=== PATIENT | female | born 1950 | race Caucasian/White ===

== ENCOUNTER 2017-01-21 11:23 | Emergency (ER) | payer OTHER ==
[2017-01-21 11:34] VITALS: TEMP 98.5; BMI 62.4
--- NOTE | 2017-01-21 13:07 | PDOC ---
History of Present Illness - General History Source: Patient Exam Limitations: No Limitations - History of Present Illness Initial Comments: 01/21/17 13:14 The patient is a 66 year old female with a significant past medical history diabetes, lung CA, COPD, CVAx2 (with residual left side hemiparesis), MIx2 (in 1996 and 1999) and epilepsy, who presents to the ER with neck, upper back, and left arm pain s/p falling off of bed one week ago. Patient states she has a bariatric bed with no rails. As she was trying to grab something last week, she slipped off the bed and fell on the floor. Patient states she fell on her head and believed she heard a click sound in the neck. Since the fall, patient experiences neck, upper back, and left arm pain. Patient also says that she has experienced a decreased range of motion in the left upper extremity for the past two weeks. Patient says she had previously fallen out of bed 10 times within the last few months. Patient states she needs surgery in the neck. SHx: Patient is wheelchair bound, lives by herself with nursing aides for part of the day. <Starla Palacios - Last Filed: 01/21/17 14:17> <Elaine Moore - Last Filed: 01/22/17 19:55> - General Chief Complaint: Injury Stated Complaint: FALL, LT ARM PAIN Time Seen by Provider: 01/21/17 12:40 Past History <Starla Palacios - Last Filed: 01/21/17 14:17> - Past Medical History Asthma: Yes Cancer: Yes (hx lung cancer - had RT 1991) Cardiac Disorders: Yes (hx [place] x , 1999) CVA: Yes (x 2 1978, 1992) COPD: Yes CHF: Yes Diabetes: Yes (poor adherence, IDDM) Disorders: Yes (incontinence) Liver Disease: No Seizures: Yes (none x several years) Thyroid Disease: No - Surgical History Appendectomy: Yes Cholecystectomy: Yes Orthopedic Surgery: Yes (knee injections) - Psycho/Social/Smoking Cessation Hx Anxiety: No Suicidal Ideation: No Smoking History: Current every day smoker Have you smoked in the past 12 months: Yes Number of Cigarettes Smoked Daily: 10 Information on smoking cessation initiated: Yes 'Breaking Loose' booklet given: 07/18/16 Hx Alcohol Use: No Drug/Substance Use Hx: No Substance Use Type: Alcohol Hx Substance Use Treatment: No <Elaine Moore - Last Filed: 01/22/17 19:55> - Past Medical History Allergies/Adverse Reactions: Allergies Allergy/AdvReac Type Severity Reaction Status Date / Time shellfish derived AdvReac Mild can't Verified 01/21/17 11:28 swallow it Home Medications: Ambulatory Orders Insulin Glargine,Hum.rec.anlog [Lantus Solostar PEN -] 34 units SQ HS 08/26/14 Metformin HCl [Glucophage] 1,000 mg PO DAILY 08/26/14 Metoclopramide HCl 10 mg PO DAILY 08/26/14 Ergocalciferol [Drisdol -] 50,000 unit PO Q7D@1000 10/25/14 Sennosides [Senokot] 8.6 mg PO DAILY PRN 10/25/14 Oxycodone HCl/Acetaminophen [Percocet 10-325 mg Tablet] 1 each PO QID #120 tablet MDD 4 12/20/16 Pregabalin [Lyrica -] 100 mg PO BID #60 capsule MDD 2 12/20/16 Oxycodone HCl/Acetaminophen [Percocet 5-325 mg Tablet -] 1 tab PO Q6H PRN #12 tablet MDD 4 01/21/17 Review of Systems - Review of Systems Able to Perform ROS?: Yes Comments:: 01/21/17 13:15 GENERAL/CONSTITUTIONAL: No: fever, chills, weakness, loss of appetite. HEAD, EYES, EARS, NOSE AND THROAT: No: change in vision, ear pain, discharge, sore throat, throat swelling. CARDIOVASCULAR: No: chest pain, lightheadedness, palpitations, syncope RESPIRATORY: No: cough, shortness of breath, wheezing, hemoptysis, stridor. GASTROINTESTINAL: No: nausea, vomiting, abdominal cramping, diarrhea, rectal bleeding, constipation. GENITOURINARY: No: dysuria, hematuria, frequency, urgency, flank pain. MUSCULOSKELETAL: Yes: Left arm pain, neck pain, back pain No: joint pain, muscle swelling or pain SKIN AND BREASTS: No: lesions, pallor, rash or easy bruising. NEUROLOGIC: No: headache, vertigo, paresthesias, weakness ENDOCRINE: No: unexplained weight gain or loss HEMATOLOGIC/LYMPHATIC: No: anemia, easy bleeding, swelling nodes <Uts,Starla - Last Filed: 01/21/17 14:17> *Physical Exam - Vital Signs Last Vital Signs Temp Pulse Resp BP Pulse Ox 98.5 F 83 18 131/71 100 01/21/17 11:30 01/21/17 11:30 01/21/17 11:30 01/21/17 11:30 01/21/17 11:30 - Physical Exam Comments: 01/21/17 13:16 GENERAL: The patient is in no acute distress. HEAD: Normal with no signs of trauma. EYES: PERRLA, EOMI, sclera anicteric, conjunctiva clear. ENT: Ears normal, nares patent, oropharynx clear without exudates. Moist mucous membranes. NECK: Normal range of motion, supple without lymphadenopathy, JVD, or masses. LUNGS: Breath sounds equal, clear to auscultation bilaterally. No wheezes, and no crackles. HEART:Regular rate and rhythm, normal S1 and S2 without murmur, rub or gallop. ABDOMEN: Soft, nontender, normoactive bowel sounds. No guarding, no rebound. EXTREMITIES: Normal range of motion, no edema. No clubbing or cyanosis. No erythema, or tenderness. NEUROLOGICAL: Cranial nerves II through XII grossly intact. Normal speech. No focal neurological deficits. MUSCULOSKELETAL: Lower cervical and upper thoracic midline tenderness. No CVA tenderness SKIN: Warm, Dry, normal turgor, no rashes or lesions noted. <Uts,Starla - Last Filed: 01/21/17 14:17> - Vital Signs Last Vital Signs Temp Pulse Resp BP Pulse Ox 98.5 F 83 18 131/71 100 01/21/17 11:30 01/21/17 11:30 01/21/17 11:30 01/21/17 11:30 01/21/17 11:30 <Elaine Moore - Last Filed: 01/22/17 19:55> Medical Decision Making - Medical Decision Making A portion of this note was documented by scribe services under my direction. I have reviewed the details of the note, within reason, and agree with the documentation with the following case summary and management plan written by me. Nursing documentation reviewed and incorporated into medical decision making 01/21/17 14:47 This is a 66 yo F with a history of prior CVA with left sided weakness, seizure disorder Pt presents to the ER with a complaint of left neck pain and left shoulder pain Pt states she repeatedly falls out of her bed Her last fall was last week She presents to the ER due to intermittent neck pain Pt reports difficulty raising her left arm above her shoulder (not clear to me if she was able to do this before) Pt states that in the past she was told that she needs spinal surgery, she has not had this yet She is seen at [address] [place] [address], did not follow up with her pmd (she is out of the office) Pt is unwilling to stand so we can put her in a stretcher to get her to CT scan Pt states she needs to be lifted We do not have the ability to do this Patient Name: Milka Durbin Date: 1950 Address: [address] [place] [id number] [place] [id number] Sex: Female Rx Written Rx Dispensed Drug Quantity Days Supply Prescriber Name 12/20/2016 12/20/2016 oxycodone-acetaminophen 10-325 mg tab 120 30 Neetu Noe NP, PHD 12/20/2016 12/20/2016 lyrica 100 mg capsule 60 30 Neetu Noe NP, PHD 11/21/2016 11/21/2016 oxycodone-acetaminophen 10-325 mg tab 120 30 Neetu Noe NP, PHD 11/21/2016 11/21/2016 lyrica 100 mg capsule 60 30 Neetu Noe NP, PHD 10/17/2016 10/17/2016 oxycodone-acetaminophen 10-325 mg tab 120 30 Neetu Noe NP, PHD 10/17/2016 10/17/2016 lyrica 100 mg capsule 60 30 Neetu Noe NP, PHD 09/17/2016 09/17/2016 oxycodone-acetaminophen 10-325 mg tab 120 30 Neetu Noe NP, PHD 09/17/2016 09/17/2016 lyrica 100 mg capsule 60 30 Neetu Noe NP, PHD 08/17/2016 08/17/2016 oxycodone-acetaminophen 10-325 mg tab 120 30 Neetu Noe NP, PHD 08/17/2016 08/17/2016 lyrica 100 mg capsule 60 30 Neetu Noe NP, PHD 07/18/2016 07/18/2016 oxycodone-acetaminophen 10-325 mg tab 120 30 Neetu Noe [employer], PHD 07/18/2016 07/18/2016 lyrica 100 mg capsule 60 30 Neetu Noe NP, PHD 06/19/2016 06/19/2016 oxycodone-acetaminophen 10-325 mg tab 120 30 Neetu Noe [employer], PHD 06/19/2016 06/19/2016 lyrica 100 mg capsule 60 30 Neetu Noe [employer], PHD 04/17/2016 05/17/2016 lyrica 100 mg capsule 60 30 Neetu Noe [employer], PHD 05/17/2016 05/17/2016 oxycodone-acetaminophen 10-325 mg tab 120 30 Neetu Noe [employer], PHD 04/10/2016 04/13/2016 endocet 10-325 mg tablet 120 30 Neetu Noe NP, PHD 03/16/2016 03/16/2016 endocet 10-325 mg tablet 120 30 Neetu Noe [employer], PHD 03/16/2016 03/16/2016 lyrica 100 mg capsule 60 30 Neetu Noe NP, PHD 02/15/2016 02/15/2016 lyrica 100 mg capsule 60 30 Neetu Noe NP, PHD Pt should have run out of her medications based on this Will give her a small prescription Her PMD is out until Will discharge now Note: The patient insists on leaving the emergency dept and is signing out against medical advice. The patient understands the risks and complications that may result from the refusal of medical care and admission which includes and permanent disability. The patient has the mental capacity of understanding the risks of refusing care and is capable of making an informed decision. The patient was instructed to return to the emergency department should she change her mind regarding medical care or should her condition worsen. The patient signed the Against Medical Advice form. <Elaine Moore - Last Filed: 01/22/17 19:55> *DC/Admit/Observation/Transfer - Attestations Scribe Attestion: 01/21/17 13:19 Documentation prepared by Starla Palacios, acting as senior medical transcriptionist for Elaine Moore MD. <Starla Palacios - Last Filed: 01/21/17 14:17> - Discharge Dispostion Admit: No <Elaine Moore - Last Filed: 01/22/17 19:55> Diagnosis at time of Disposition: Chronic pain - Discharge Dispostion Disposition: AGAINST MEDICAL ADVICE Condition at time of disposition: Stable - Prescriptions Prescriptions: Oxycodone HCl/Acetaminophen [Percocet 5-325 mg Tablet -] 1 tab PO Q6H PRN #12 tablet MDD 4 PRN Reason: Severe Pain - Patient Instructions Printed Discharge Instructions: DI for Neck Pain, DI for Chronic Neck Pain
[2017-01-21] MEDS ORDERED: morphine CARPU-JECT 2 MG/1 ML DISP.SYRIN IVPUSH ONE (13:08)
[2017-01-21] MEDS ORDERED: morphine CARPU-JECT 2 MG/1 ML DISP.SYRIN ONE (13:27)
[2017-01-21 15:31] VITALS: BP 142/57; PULSE 82
== END 2017-01-21 15:00 | disposition left against medical advice (07) ==
LOC: JER 11:23
PROC: 3E033NZ Introduction of Analgesics, Hypnotics, Sedatives into Peripheral Vein, Percutaneous Approach (ICD-10-PCS; principal; 2017-01-21)
DX: M54.2 Cervicalgia (principal); W06.XXXA Fall from bed, initial encounter; Z91.81 History of falling; Y93.89 Activity, other specified; Y92.032 Bedroom in apartment as the place of occurrence of the external cause; J45.909 Unspecified asthma, uncomplicated; Z85.118 Personal history of other malignant neoplasm of bronchus and lung; I25.2 Old myocardial infarction; F17.210 Nicotine dependence, cigarettes, uncomplicated; I50.9 Heart failure, unspecified; E11.9 Type 2 diabetes mellitus without complications; Z79.4 Long term (current) use of insulin; J44.9 Chronic obstructive pulmonary disease, unspecified; N39.498 Other specified urinary incontinence; I69.854 Hemiplegia and hemiparesis following other cerebrovascular disease affecting left non-dominant side
CPT/HCPCS: 96374; 99281-25

== ENCOUNTER 2018-03-08 12:51 | Inpatient (IN) | payer OTHER ==
--- NOTE | 2018-03-08 13:30 | PDOC ---
Attending Attestation - HPI HPI: 03/08/18 14:30 The patient is a 67 year old female, accompanied by aid, with a past medical history of asthma/copd, buttock ulcer, chronic back pain on chronic opiates, DM , CVA in 1978 and 1992, CT in 1996 and 1999, who presents with altered mental status for two days. The patients aide who is with her 12 hours per day 7 days per week states that she's been not alert and oriented for the past few days which caused her to be brought into the ED. Patient denies any complaints. - Physicial Exam PE: 03/08/18 14:31 GENERAL: Awake, alert, and fully oriented, in no acute distress HEAD: No signs of trauma EYES: PERRLA, EOMI, sclera anicteric, conjunctiva clear ENT: Auricles normal inspection, hearing grossly normal, nares patent, oropharynx clear without exudates. Moist mucosa NECK: Normal ROM, supple, no lymphadenopathy, JVD, or masses LUNGS: Breath sounds equal, clear to auscultation bilaterally. No wheezes, and no crackles HEART: +Bradycardic, regular rhythm, normal S1 and S2, no murmurs, rubs or gallops ABDOMEN: +Obese, Soft, nontender, normoactive bowel sounds. No guarding, no rebound. No masses EXTREMITIES: Normal range of motion, no edema. No clubbing or cyanosis. No cords, erythema, or tenderness NEUROLOGICAL: Cranial nerves II through XII grossly intact. Normal speech, normal gait SKIN: Warm, Dry, normal turgor, no rashes or lesions noted. - Medical Decision Making 03/08/18 14:31 Documentation prepared by Alfa Miller, acting as medical reception for Ginny Cedeno DO. <Alfa Miller - Last Filed: 03/08/18 14:30> - Resident Resident Name: Robb Marcum - ED Attending Attestation I have performed the following: I have examined & evaluated the patient, The case was reviewed & discussed with the resident, I agree w/resident's findings & plan, Exceptions are as noted - Medical Decision Making 03/08/18 13:30 I, Dr. Ginyn Cedeno DO, attest that this document has been prepared under my direction and personally reviewed by me in its entirety. I further attest, that it accurately reflects all work, treatment, procedures and medical decision -making performed by me. 03/08/18 14:25 a/p: 67yo female with hx of cva x 2 with residual L sided weakness with home care nursing -brought in for eval of altered mental status x 2 days -confused and more agitated than normal -concern for poss uti vs new cva vs mi with new ekg changes -concern for short run of aflutter on ekg -will obtain labs, ua, ucx, will obtain cxr, head ct will most likely need obs vs admission with neuro eval 03/08/18 15:42 case discussed with Isha - pts aid who states no hx of agitation or aggressive behavior case discussed with Layne - pts daughter - [phone], updated on pts status and need for admission <Ginny Cedeno - Last Filed: 03/08/18 15:43> Heart Score/ECG Review - ECG Intrepretation Comment:: 03/08/18 14:24 sinus at 67, episode of atrial flutter, t wave inversions V3-6, inferior lead t wave inversions, abnl ekg, changes from prior 03/08/18 15:19 repeat ekg : sinus at 73, nl axis, nl interval, interventricular conduction delay, resolution of t wave inversions othe rthan III <Ginny Cedeno - Last Filed: 03/08/18 15:43>
[2018-03-08 14:02] LABS: URINE APPEARANCE CLEAR; URINE BILIRUBIN NEGATIVE (<2.0 mg/dL); URINE COLOR LTYELLOW; URINE GLUCOSE (UA) NEGATIVE (NEGATIVE); URINE KETONE NEGATIVE (NEGATIVE); URINE NITRITE NEGATIVE (NEGATIVE); URINE PROTEIN NEGATIVE (NEGATIVE); URINE UROBILINOGEN NEGATIVE mg/dL (0.2-1.0)
[2018-03-08 14:05] LABS: EPI CELLS RARE /HPF (FEW); URINE LEUK ESTERASE 2+ (NEGATIVE); URINE MUCUS RARE
--- NOTE | 2018-03-08 14:13 | PDOC ---
History of Present Illness - General Stated Complaint: AMS Time Seen by Provider: 03/08/18 13:03 History Source: Patient, Care Provider - History of Present Illness Initial Comments: 03/08/18 14:08 Patient is a 67F with history of asthma/copd, buttock ulcer, chronic back pain on chronic opiates, DM, CVA in 1978 and 1992, [place] in 1996 and 1999, here today complaining of altered mental status for the past two days. Her aide who is with her 12 hours per day 7 days per week states that she's been not alert and oriented for the past few days which caused her to be brought into the ED. Patient denies any complaints, but says the year is 1916. Denies fevers, chills , nausea, vomiting. Denies chest pain and shortness of breath. Patient has a baseline facial droop that the aide states is at baseline. Past History - Past Medical History Allergies/Adverse Reactions: Allergies Allergy/AdvReac Type Severity Reaction Status Date / Time shellfish derived AdvReac Mild can't Verified 01/21/17 11:28 swallow it Home Medications: Ambulatory Orders Insulin Glargine,Hum.rec.anlog [Lantus Solostar PEN -] 34 units SQ HS 08/26/14 Metoclopramide HCl 10 mg PO DAILY 08/26/14 Ergocalciferol [Drisdol -] 50,000 unit PO Q7D@1000 10/25/14 Sennosides [Senokot] 8.6 mg PO DAILY PRN 10/25/14 Furosemide [Lasix -] 20 mg PO MOWEFR 03/20/17 Oxycodone HCl/Acetaminophen [Percocet 10-325 mg Tablet] 1 each PO QID PRN #120 tablet MDD 4 03/07/18 Pregabalin [Lyrica -] 100 mg PO BID #60 capsule MDD 2 03/07/18 Ascorbic Acid [Vitamin C] 500 mg PO DAILY 03/08/18 Baclofen 20 mg PO DAILY 03/08/18 Cholecalciferol (Vitamin D3) [Vitamin D3] 1,000 unit PO DAILY 03/08/18 Cyclobenzaprine HCl [Flexeril 10 mg] 10 mg PO PRN PRN 03/08/18 Melatonin 6 mg PO HS 03/08/18 Asthma: Yes Cancer: Yes (hx lung cancer - had RT 1991) Cardiac Disorders: Yes (hx [place] x 2: 1996, 1999) CVA: Yes (x 2: 1978, 1992) COPD: No CHF: Yes Diabetes: Yes (poor adherence, IDDM) Disorders: Yes (incontinence) Liver Disease: No Seizures: Yes (none x several years) Thyroid Disease: No - Surgical History Appendectomy: Yes Cholecystectomy: Yes Orthopedic Surgery: Yes (knee injections) - Immunization History Td Vaccination: No Immunization Up to Date: Yes - Suicide/Smoking/Psychosocial Hx Smoking History: Never smoked Have you smoked in the past 12 months: No Number of Cigarettes Smoked Daily: 10 Information on smoking cessation initiated: No 'Breaking Loose' booklet given: 07/18/16 Hx Alcohol Use: No Drug/Substance Use Hx: No Substance Use Type: None Hx Substance Use Treatment: No Review of Systems - Review of Systems Comments:: 03/08/18 14:10 GENERAL/CONSTITUTIONAL: No fever or chills. HEAD, EYES, EARS, NOSE AND THROAT: No change in vision. No sore throat. CARDIOVASCULAR: No chest pain or shortness of breath RESPIRATORY: No cough, wheezing, or hemoptysis. GASTROINTESTINAL: No nausea, vomiting, diarrhea or constipation. GENITOURINARY: No dysuria, frequency, or change in urination. MUSCULOSKELETAL: No joint or muscle swelling or pain. No neck or back pain. SKIN: No rash NEUROLOGIC: No headache, vertigo, loss of consciousness, or change in strength/ sensation. HEMATOLOGIC/LYMPHATIC: No anemia, easy bleeding, or history of blood clots. ALLERGIC/IMMUNOLOGIC: No hives or skin allergy. *Physical Exam - Vital Signs Last Vital Signs Temp Pulse Resp BP Pulse Ox 99.2 F 71 16 159/75 96 03/08/18 12:52 03/08/18 12:52 03/08/18 12:52 03/08/18 12:52 03/08/18 12:52 - Physical Exam Comments: 03/08/18 14:11 GENERAL: Awake, alert, oriented to self, place. Not oriented to year. No distress, obese. HEAD: No signs of trauma, normocephalic, atraumatic EYES: PERRLA, EOMI, sclera anicteric, conjunctiva clear ENT: Auricles normal inspection, hearing grossly normal, nares patent, oropharynx clear without exudates. Moist mucosa NECK: Normal ROM, supple, no lymphadenopathy, JVD, or masses LUNGS: No distress, speaks full sentences, clear to auscultation bilaterally HEART: Regular rate and rhythm, normal S1 and S2, no murmurs, rubs or gallops, peripheral pulses normal and equal bilaterally. ABDOMEN: Soft, nontender, normoactive bowel sounds. No guarding, no rebound. No masses EXTREMITIES: Normal inspection, Normal range of motion, no edema. No clubbing or cyanosis. NEUROLOGICAL: Right sided facial droop. Normal speech, normal gait, no focal sensorimotor deficits SKIN: Warm, Dry, normal turgor, no rashes or lesions noted. ED Treatment Course - LABORATORY CBC & Chemistry Diagram: 03/08/18 14:04 03/08/18 14:04 - ADDITIONAL ORDERS Additional order review: Laboratory Results 03/08/18 13:41 Urine Color Ltyellow Urine Appearance Clear Urine pH 7.0 Ur Specific Deposit 1.013 Urine Protein Negative Urine Glucose (UA) Negative Urine Ketones Negative Urine Blood 1+ H Urine Nitrite Negative Urine Bilirubin Negative Urine Urobilinogen Negative Ur Leukocyte Esterase 2+ H Urine WBC (Auto) 41 Urine RBC (Auto) 5 Ur Epithelial Cells Rare Urine Mucus Rare - RADIOLOGY Radiology Studies Ordered: Category Date Time Status HEAD CT WITHOUT CONTRAST [CT] Stat CT Scan 03/08/18 13:28 Ordered CHEST X-RAY PORTABLE* [RAD] Stat Radiology 03/08/18 13:28 Ordered Medical Decision Making - Medical Decision Making 03/08/18 14:13 Patient is 67F with multiple medical problems here today complaining of AMS. Vital signs stable. PE unremarkable, but patient is confused. Patient is on many medications, including opiates. Differential diagnosis includes, but is not limited to: UTI, PNA, stroke, ACS, arrhythmia, delirium, medication side effects. Will evaluate with cbc, cmp, pt/inr, trop, ua, uc, ekg, cxr, head ct. EKG shows normal sinus rhythm with rate of 67. Questionable aflutter pattern for ~[address]. No st elevations/depressions. T wave inversions in III, V3-V6. Normal LA interval in no aflutter morphology. QTc prolonged to 517. 03/08/18 14:29 CXR shows no evidence of pneumonia, is rotated. 03/08/18 14:57 Laboratory Tests 0503/08/18 03/08/18 13:41 14:04 14:04 WBC 11.3 H Hgb 15.7 H D Plt Count 216 INR 1.01 BUN Creatinine Troponin I Ur Leukocyte Esterase 2+ H Urine WBC (Auto) 41 03/08/18 14:04 WBC Hgb Plt Count INR BUN 13 Creatinine 0.6 Troponin I < 0.02 Ur Leukocyte Esterase Urine WBC (Auto) CBC shows small leukocytosis and increased hemoglobin, likely hemoconcentrated. UA positive for UTI. CMP reassuring. 03/08/18 15:27 Repeat EKG shows normal sinus rhythm of 73. Poor baseline given patient's agitation. No st elevations/depressions. Normal QRS/LA/QTc. Dr Almazan from cardiology contacted and updated on patient. Patient is agitated and confused, angry about staying in the hospital. Patient does not have capacity to refuse treatment. Still confused, not sure why she came to the hospital. *DC/Admit/Observation/Transfer Diagnosis at time of Disposition: UTI (urinary tract infection), Altered mental status - Discharge Dispostion Condition at time of disposition: Stable Decision to Admit order: Yes - Referrals - Patient Instructions - Post Discharge Activity
[2018-03-08 14:15] LABS: BASO % 1.2 % (0-2.0); EOS % 2.9 % (0-4.5); HEMATOCRIT 46.1 % (32.4-45.2); HEMOGLOBIN 15.7 GM/dL (10.7-15.3); LYMPH % 35.6 % (8-40); MCH 31.6 pg (25.7-33.7); MCHC 34.2 g/dl (32.0-36.0); MEAN CELL VOLUME 92.5 fl (80-96); MEAN PLT VOLUME 8.6 fl (7.5-11.1); MONO % 5.3 % (3.8-10.2); PLATELET COUNT 216 K/MM3 (134-434); RBC 4.98 M/mm3 (3.60-5.2); RDW 14.3 % (11.6-15.6); WHITE BLOOD COUNT 11.3 K/mm3 (4.0-10.0)
[2018-03-08 14:28] LABS: INR 1.01 (0.82-1.09); PROTHROMBIN TIME (PATIENT) 11.4 SEC (9.7-13.0)
[2018-03-08] MEDS ORDERED: SODIUM CHLORIDE 500 ML IV STA (14:32)
[2018-03-08] MEDS ORDERED: CEFTRIAXONE 1,000 MG in DEXTROSE 5%-WATER - 50 ML IVPB ONE (14:32)
[2018-03-08 14:47] LABS: ALBUMIN 3.2 g/dl (3.4-5.0); ANION GAP 7 (8-16); BILIRUBIN,TOTAL 0.6 mg/dL (0.2-1.0); BLOOD UREA NITROGEN 13 mg/dL (7-18); CALCIUM 8.7 mg/dL (8.5-10.1); CHLORIDE 106 mmol/L (98-107); CO2 29 mmol/L (21-32); CREATININE 0.6 mg/dL (0.55-1.02); GLUCOSE,RANDOM 94 mg/dL (74-106); POTASSIUM 4.2 mmol/L (3.5-5.1); SGOT/AST 17 U/L (15-37); SGPT/ALT 17 U/L (12-78); SODIUM 142 mmol/L (136-145); TOT PROT 6.2 g/dl (6.4-8.2)
[2018-03-08 14:50] LABS: ALK PHOS 81 U/L (45-117)
[2018-03-08] MEDS ORDERED: CEFTRIAXONE 1 GM/50 ML BAG ONE (14:50)
[2018-03-08] MEDS ORDERED: CYCLOBENZAPRINE HCL 10 MG TABLET (FP) PO PRN (17:34)
--- NOTE | 2018-03-08 17:50 | PN ---
Teaching Attending Note Name of Resident: Zacarias Denton ATTENDING PHYSICIAN STATEMENT I saw and evaluated the patient. I reviewed the resident's note and discussed the case with the resident. I agree with the resident's findings and plan as documented with exceptions below. SUBJECTIVE: 67 yof with PMhx of asthma/copd, buttock ulcer, chronic back pain on chronic opiates, DM, CVA in 1978 and 1992, IL in 1996 and 1999, brought in by aide for AMS for 3 days. Currently aide unavailable. Per Ed records, patient has been confused over the last few days. Per prior notes in the ED, she thought was 1917. Currently she is AAOX3, but was brought to hospital by aide for high blood pressures. 12 point ROS attempted but limited as patient intermittent tangential with her conversation. Denies any fevers, chills, new pain, dyspnea, abdominal or urinary concerns. Eager to go home, understands has UTI but unable to comprehend cardiac and mental status concerns. OBJECTIVE: Vital Signs Period Temp Pulse Resp BP Sys/Danielle Pulse Ox Last 24 Hr 99.2 F 71 16 159/75 96 Intake & Output 03/05/18 03/06/18 03/07/18 03/08/18 23:59 23:59 23:59 23:59 Weight 280 lb GENERAL: Awake, alert, OX3, in no acute distress HEAD: Normal with no signs of trauma. EYES: right eyelid droop, EOMI, PERRL EARS, NOSE, THROAT: Ears normal, nares patent, oropharynx clear without exudates. Moist mucous membranes. 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 LUE 5/5, RLE atleast 4/5 but patient refuses to be repositioned and sleeping on her right with limited exam, right eyelid droop, decreased sensation right face (chronic from prior CVA) PSYCHIATRIC: tangential intermittently SKIN: Warm, dry, normal turgor, Home Medication List Medication Instructions Recorded Confirmed Type Insulin Glargine,Hum.rec.anlog 34 units SQ HS 08/26/14 03/08/18 History [Lantus Solostar PEN -] Metoclopramide HCl 10 mg PO DAILY 08/26/14 03/08/18 History Ergocalciferol [Drisdol -] 50,000 unit PO Q7D@1000 10/25/14 03/08/18 History Sennosides [Senokot] 8.6 mg PO DAILY PRN 10/25/14 03/08/18 History Furosemide [Lasix -] 20 mg PO MOWEFR 03/20/17 03/08/18 History Ascorbic Acid [Vitamin C] 500 mg PO DAILY 03/08/18 03/08/18 History Baclofen 20 mg PO DAILY 03/08/18 03/08/18 History Cholecalciferol (Vitamin D3) 1,000 unit PO DAILY 03/08/18 03/08/18 History [Vitamin D3] Cyclobenzaprine HCl [Flexeril 10 10 mg PO PRN PRN 03/08/18 03/08/18 History mg] Insulin Aspart [Novolog] 34 unit SQ ACBK 03/08/18 03/08/18 History Melatonin 6 mg PO HS 03/08/18 03/08/18 History Active Medications Generic Name Dose Route Start Last Admin Trade Name Freq PRN Reason Stop Dose Admin Cyclobenzaprine HCl 10 mg 03/08/18 17:34 Flexeril - PO PRN PRN PAIN Furosemide 20 mg 03/10/18 17:34 Lasix - PO MOWEFR [facility] Heparin Sodium (Porcine) 5,000 unit 03/08/18 22:00 Heparin - SQ TID [facility] Insulin Aspart 34 units 03/09/18 07:00 Novolog Vial SQ ACBK [facility] Protocol Insulin Detemir 34 units 03/08/18 22:00 Levemir Vial SQ HS [facility] Melatonin 6 mg 03/08/18 22:00 Melatonin PO HS [facility] Non-Formulary Medication 20 mg 03/09/18 10:00 Baclofen [Baclofen] PO DAILY [facility] Non-Formulary Medication 1,000 unit 03/09/18 10:00 Cholecalciferol (Vitamin D3) [Vitamin D3] PO DAILY [facility] Pregabalin 100 mg 03/08/18 22:00 Lyrica - PO BID [facility] Laboratory Results - last 24 hr 03/08/18 03/08/18 03/08/18 13:41 14:04 14:04 WBC 11.3 H RBC 4.98 Hgb 15.7 H D Hct 46.1 H MCV 92.5 MCH 31.6 MCHC 34.2 RDW 14.3 Plt Count 216 MPV 8.6 D Neutrophils % 55.0 Lymphocytes % 35.6 Monocytes % 5.3 Eosinophils % 2.9 Basophils % 1.2 Nucleated RBC % 0 PT with INR 11.40 INR 1.01 Sodium Potassium Chloride Carbon Dioxide Anion Gap BUN Creatinine Creat Clearance w eGFR Random Glucose Calcium Magnesium Total Bilirubin AST ALT Alkaline Phosphatase Creatine Kinase Troponin I Total Protein Albumin Urine Color Ltyellow Urine Appearance Clear Urine pH 7.0 Ur Specific [place] 1.013 Urine Protein Negative Urine Glucose (UA) Negative Urine Ketones Negative Urine Blood 1+ H Urine Nitrite Negative Urine Bilirubin Negative Urine Urobilinogen Negative Ur Leukocyte Esterase 2+ H Urine WBC (Auto) 41 Urine RBC (Auto) 5 Ur Epithelial Cells Rare Urine Mucus Rare 03/08/18 14:04 WBC RBC Hgb Hct MCV MCH MCHC RDW Plt Count MPV Neutrophils % Lymphocytes % Monocytes % Eosinophils % Basophils % Nucleated RBC % PT with INR INR Sodium 142 Potassium 4.2 Chloride 106 Carbon Dioxide 29 Anion Gap 7 L BUN 13 Creatinine 0.6 Creat Clearance w eGFR > 60 Random Glucose 94 Calcium 8.7 Magnesium 2.0 Total Bilirubin 0.6 AST 17 ALT 17 Alkaline Phosphatase 81 Creatine Kinase 22 L Troponin I < 0.02 Total Protein 6.2 L Albumin 3.2 L Urine Color Urine Appearance Urine pH Ur Specific [place] Urine Protein Urine Glucose (UA) Urine Ketones Urine Blood Urine Nitrite Urine Bilirubin Urine Urobilinogen Ur Leukocyte Esterase Urine WBC (Auto) Urine RBC (Auto) Ur Epithelial Cells Urine Mucus CT brain - no acute process,chronic microvascular ischemia CXR - no acute process EKG NSR, ?4 sec run of atrial flutter, T inversion in III, V3-V6, QTc 517 ASSESSMENT AND PLAN: 67 yof with PMhx of asthma/copd, buttock ulcer, chronic back pain on chronic opiates, DM, CVA in 1978 and 1992, IL in 1996 and 1999 admitted with AMS, abnormal EKG, UTI. -Lower uncomplicated UTI -AMS, ?Toxic metabolic encephalopathy from above, r/o TIA/CVA, -Abnormal EKG with ?4s atrial flutter and T wave changes (no prior available) -Prolonged QTc -IDDM -Chronic back pain with opioid dependence -h/o CVA in with residual right sided deicits -CAD s/p reported IL in 1996 and 1999 PLan: Ceftriaxone, urine cultures Telemetry, cycle troponin, 2D echo. Cardiology consult. Neurology consult. Neuro checks. ISS, diabetic diet. Continue home meds as patient awake, including percocet, baclofen and lyrica. Avoid QTC prolonging Agents. Hold reglan. REpeat EKG in AM. DVTPPX dispo pending clinical improvement. Plan discussed with patient and all questions answered. total admit time 65 min.
--- NOTE | 2018-03-08 17:58 | HP ---
CHIEF COMPLAINT:AMS PCP: Ashley KOO MEDICAL HISTORY OF PRESENT ILLNESS: 67 yo F with significant PMHx of CVA x2, HTN, HLD, DM, and CHF presents with 2 day history of Altered mental status. As per home health aid patient awoke today agitated and confused. She is usually AAOx3 however today she found her confused and combative. She is with her 06/05 and has noticed a significant change in her mental status which prompted trip to ED today. As per patient she states that nothing is wrong and would like to go home. Denies CP, LUNDY,SOB, abdominal pain , nausea or vomiting. ER course was notable for: (1)EKG showed possible Aflutter, repeat did not show. (2)UA shows UTI (3) Recent Travel: PAST MEDICAL HISTORY: Asthma, Lung ca with RT 1991, [place](97,00), CVA (79,93),CHF, Poorly controlled DM, urinary incontinence PAST SURGICAL HISTORY:Appendectomy, Cholecystectomy, Social History: Smoking:current smoker will not say how much. Alcohol:denies Drugs: denies Family History: Allergies shellfish derived Adverse Reaction (Mild, Verified 01/21/17 11:28) can't swallow it HOME MEDICATIONS: Home Medications Medication Instructions Recorded Insulin Glargine,Hum.rec.anlog 34 units SQ HS 08/26/14 [Lantus Solostar PEN -] Metoclopramide HCl 10 mg PO DAILY 08/26/14 Ergocalciferol [Drisdol -] 50,000 unit PO Q7D@1000 10/25/14 Sennosides [Senokot] 8.6 mg PO DAILY PRN 10/25/14 Furosemide [Lasix -] 20 mg PO MOWEFR 03/20/17 Oxycodone HCl/Acetaminophen 1 each PO QID PRN #120 tablet MDD 4 03/07/18 [Percocet 10-325 mg Tablet] Pregabalin [Lyrica -] 100 mg PO BID #60 capsule MDD 2 03/07/18 Ascorbic Acid [Vitamin C] 500 mg PO DAILY 03/08/18 Baclofen 20 mg PO DAILY 03/08/18 Cholecalciferol (Vitamin D3) 1,000 unit PO DAILY 03/08/18 [Vitamin D3] Cyclobenzaprine HCl [Flexeril 10 10 mg PO PRN PRN 03/08/18 mg] Insulin Aspart [Novolog] 34 unit SQ ACBK 03/08/18 Melatonin 6 mg PO HS 03/08/18 REVIEW OF SYSTEMS CONSTITUTIONAL: Absent: fever, chills, diaphoresis, generalized weakness, malaise, loss of appetite, weight change HEENT: Absent: rhinorrhea, nasal congestion, throat pain, throat swelling, difficulty swallowing, mouth swelling, ear pain, eye pain, visual changes CARDIOVASCULAR: Absent: chest pain, syncope, palpitations, irregular heart rate, lightheadedness , peripheral edema RESPIRATORY: Absent: cough, shortness of breath, dyspnea with exertion, orthopnea, wheezing, stridor, hemoptysis GASTROINTESTINAL: Absent: abdominal pain, abdominal distension, nausea, vomiting, diarrhea, constipation, melena, hematochezia GENITOURINARY: Absent: dysuria, frequency, urgency, hesitancy, hematuria, flank pain, genital pain MUSCULOSKELETAL: Absent: myalgia, arthralgia, joint swelling, back pain, neck pain SKIN: Absent: rash, itching, pallor HEMATOLOGIC/IMMUNOLOGIC: Absent: easy bleeding, easy bruising, lymphadenopathy, frequent infections ENDOCRINE: Absent: unexplained weight gain, unexplained weight loss, heat intolerance, cold intolerance NEUROLOGIC: Absent: headache, focal weakness or paresthesias, dizziness, unsteady gait, seizure, mental status changes, bladder or bowel incontinence PSYCHIATRIC: Absent: anxiety, depression, suicidal or homicidal ideation, hallucinations. PHYSICAL EXAMINATION Vital Signs - 24 hr 03/08/18 12:52 Temperature 99.2 F Pulse Rate 71 Respiratory 16 Rate Blood Pressure 159/75 O2 Sat by Pulse 96 Oximetry (%) GENERAL: AAOx2, in no acute distress. HEAD: NC/AT EYES:PERRLA, EOMI, sclera anicteric, conjunctiva clear. EARS, NOSE, THROAT: Moist mucous membranes. NECK:supple without lymphadenopathy, JVD, or masses. LUNGS: Decreased breath sounds bilaterally. No wheezes, and no crackles. No accessory muscle use. HEART: RRR, normal S1 and S2 , 2/6 WILLIAMS murmur ABDOMEN: Soft, obese ,nontender, not distended, normoactive bowel sounds, no guarding, no rebound, no masses. No hepatomegaly or splenomegaly. MUSCULOSKELETAL: No CVA tenderness. LOWER EXTREMITIES: 1+ pulses, warm, No calf tenderness. 1+ edema bilaterally. NEUROLOGICAL: right sided weakness throughout, right facial droop, 4/5 strength R Upper and Lower ext. intact sensation. 5/5 strength left side. PSYCHIATRIC:agitated and anxious. SKIN:diffuse erythema buttocks and posterior thighs bilaterally. Laboratory Results - last 24 hr 03/08/18 03/08/18 03/08/18 13:41 14:04 14:04 WBC 11.3 H RBC 4.98 Hgb 15.7 H D Hct 46.1 H MCV 92.5 MCH 31.6 MCHC 34.2 RDW 14.3 Plt Count 216 MPV 8.6 D Neutrophils % 55.0 Lymphocytes % 35.6 Monocytes % 5.3 Eosinophils % 2.9 Basophils % 1.2 Nucleated RBC % 0 PT with INR 11.40 INR 1.01 Sodium Potassium Chloride Carbon Dioxide Anion Gap BUN Creatinine Creat Clearance w eGFR Random Glucose Calcium Magnesium Total Bilirubin AST ALT Alkaline Phosphatase Creatine Kinase Troponin I Total Protein Albumin Urine Color Ltyellow Urine Appearance Clear Urine pH 7.0 Ur Specific [place] 1.013 Urine Protein Negative Urine Glucose (UA) Negative Urine Ketones Negative Urine Blood 1+ H Urine Nitrite Negative Urine Bilirubin Negative Urine Urobilinogen Negative Ur Leukocyte Esterase 2+ H Urine WBC (Auto) 41 Urine RBC (Auto) 5 Ur Epithelial Cells Rare Urine Mucus Rare 03/08/18 14:04 WBC RBC Hgb Hct MCV MCH MCHC RDW Plt Count MPV Neutrophils % Lymphocytes % Monocytes % Eosinophils % Basophils % Nucleated RBC % PT with INR INR Sodium 142 Potassium 4.2 Chloride 106 Carbon Dioxide 29 Anion Gap 7 L BUN 13 Creatinine 0.6 Creat Clearance w eGFR > 60 Random Glucose 94 Calcium 8.7 Magnesium 2.0 Total Bilirubin 0.6 AST 17 ALT 17 Alkaline Phosphatase 81 Creatine Kinase 22 L Troponin I < 0.02 Total Protein 6.2 L Albumin 3.2 L Urine Color Urine Appearance Urine pH Ur Specific [place] Urine Protein Urine Glucose (UA) Urine Ketones Urine Blood Urine Nitrite Urine Bilirubin Urine Urobilinogen Ur Leukocyte Esterase Urine WBC (Auto) Urine RBC (Auto) Ur Epithelial Cells Urine Mucus ASSESSMENT/PLAN: Patient is 67F with multiple medical problems admitted to telemetry for possible aflutter and metabolic encephalopathy 2/2 UTI. Problem List - Problem (1) Metabolic encephalopathy Assessment/Plan: most likely secondary to UTI (2) Altered mental status (3) UTI (urinary tract infection) (4) COPD - Chronic obstructive lung disease (5) History of - cerebrovascular accident (6) History of - myocardial infarction (8) Nicotine dependence (9) Obesity, morbid, BMI 50 or higher (10) HTN (hypertension) (11) HLD (hyperlipidemia) (12) CHF (congestive heart failure) (13) DVT prophylaxis Visit type - Emergency Visit Emergency Visit: Yes ED Registration Date: 03/08/18 Care time: The patient presented to the Emergency Department on the above date and was hospitalized for further evaluation of their emergent condition. - New Patient This patient is new to me today: Yes Date on this admission: 03/09/18 - Critical Care Critical Care patient: No Hospitalist Screening - Colonoscopy Questionnaire Colonoscopy Questionnaire: Colonoscopy Questionnaire - Patient: 50 - 75 years old and never had a screening colonoscopy: No History of colon or rectal polyps, or CA: No History of IBD, Crohn's disease or UC: No History of abdominal radiation therapy as a child: No - Relative: 1 with colon or rectal CA, or polyps at age 60 or younger: No Colon or rectal CA diagnosed at age 45 or younger: No Multiple relatives with colon or rectal CA: No - Outcome: Screening Result: Negative Screen
[2018-03-08] MEDS ORDERED: SENNOSIDES 8.6MG TABLET (FP) PO PRN (18:08)
[2018-03-08] MEDS ORDERED: oxyCODONE HCL 5 MG TABLET PO PRN (18:14)
[2018-03-08] MEDS ORDERED: HALOPERIDOL LACTATE 5 MG/ML IM ONE (21:15)
[2018-03-08] MEDS ORDERED: INSULIN (LEVEMIR) 100 UNITS/ML UNITS SQ SCH ×2 (22:00)
[2018-03-08 23:54] VITALS: BMI 39.4
[2018-03-09] MEDS: oxyCODONE HCL 5 MG TABLET PO PRN ×2 (00:49→21:15)
[2018-03-09] MEDS: MELATONIN 5 MG TABLETS PO SCH ×2 (00:50→21:17)
[2018-03-09] MEDS: PREGABALIN 100 MG CAPSULE PO SCH ×3 (00:50→21:25)
[2018-03-09] MEDS: HEPARIN NA (PORCINE) 5,000 UNITS/ML 1ML VIAL SQ SCH ×4 (00:51→21:09)
[2018-03-09] MEDS: INSULIN SLIDING SCALE (NOVOLOG) 1 VIAL SQ SCH ×5 (00:51→21:22)
[2018-03-09] MEDS: ACETAMINOPHEN 325 MG TABLET (FP) PO PRN ×2 (01:02→21:16)
[2018-03-09 06:30] LABS: BASO % 0.3 % (0-2.0); EOS % 3.2 % (0-4.5); HEMATOCRIT 44.8 % (32.4-45.2); HEMOGLOBIN 15.5 GM/dL (10.7-15.3); LYMPH % 39.7 % (8-40); MCH 31.8 pg (25.7-33.7); MCHC 34.5 g/dl (32.0-36.0); MEAN CELL VOLUME 92.2 fl (80-96); MEAN PLT VOLUME 9.2 fl (7.5-11.1); MONO % 5.5 % (3.8-10.2); NEUT % 51.3 % (42.8-82.8); PLATELET COUNT 197 K/MM3 (134-434); RBC 4.86 M/mm3 (3.60-5.2); RDW 14.2 % (11.6-15.6); WHITE BLOOD COUNT 10.4 K/mm3 (4.0-10.0)
[2018-03-09 06:50] LABS: ALBUMIN 3.1 g/dl (3.4-5.0); ALK PHOS 78 U/L (45-117); ANION GAP 5 (8-16); BILIRUBIN,TOTAL 0.7 mg/dL (0.2-1.0); BLOOD UREA NITROGEN 12 mg/dL (7-18); CALCIUM 8.8 mg/dL (8.5-10.1); CHLORIDE 106 mmol/L (98-107); CO2 30 mmol/L (21-32); CREATININE 0.6 mg/dL (0.55-1.02); GLUCOSE,RANDOM 90 mg/dL (74-106); PHOSPHOROUS 3.9 mg/dL (2.5-4.9); POTASSIUM 3.7 mmol/L (3.5-5.1); SGOT/AST 15 U/L (15-37); SGPT/ALT 14 U/L (12-78); SODIUM 141 mmol/L (136-145); TOT PROT 5.9 g/dl (6.4-8.2)
[2018-03-09] MEDS ORDERED: INSULIN (NOVOLOG) ASPART 100 UNITS/ML 10ML VIAL SQ SCH (07:00)
--- NOTE | 2018-03-09 10:18 | CON.NEURO ---
Consult - Alcohol/Substance Use Hx Alcohol Use: No - Smoking History Smoking history: Current every day smoker Have you smoked in the past 12 months: Yes Aproximately how many cigarettes per day: 10 Home Medications - Allergies Allergies/Adverse Reactions: Allergies Allergy/AdvReac Type Severity Reaction Status Date / Time shellfish derived AdvReac Mild can't Verified 01/21/17 11:28 swallow it - Home Medications Home Medications: Ambulatory Orders Insulin Glargine,Hum.rec.anlog [Lantus Solostar PEN -] 34 units SQ HS 08/26/14 Metoclopramide HCl 10 mg PO DAILY 08/26/14 Ergocalciferol [Drisdol -] 50,000 unit PO Q7D@1000 10/25/14 Sennosides [Senokot] 8.6 mg PO DAILY PRN 10/25/14 Furosemide [Lasix -] 20 mg PO MOWEFR 03/20/17 Oxycodone HCl/Acetaminophen [Percocet 10-325 mg Tablet] 1 each PO QID PRN #120 tablet MDD 4 03/07/18 Pregabalin [Lyrica -] 100 mg PO BID #60 capsule MDD 2 03/07/18 Ascorbic Acid [Vitamin C] 500 mg PO DAILY 03/08/18 Baclofen 20 mg PO DAILY 03/08/18 Cholecalciferol (Vitamin D3) [Vitamin D3] 1,000 unit PO DAILY 03/08/18 Cyclobenzaprine HCl [Flexeril 10 mg] 10 mg PO PRN PRN 03/08/18 Insulin Aspart [Novolog] 34 unit SQ ACBK 03/08/18 Melatonin 6 mg PO HS 03/08/18 Family Disease History - Family Disease History Family Disease History: Diabetes: Mother (breast cancer), Heart Disease: Father (etoh, suicide), CA: Mother, Other: Father Physical Exam-Neuro Vital Signs: Vital Signs Temperature 99.0 F 03/09/18 06:37 Pulse Rate 67 03/09/18 06:37 Respiratory Rate 20 03/09/18 06:37 Blood Pressure 174/80 03/09/18 06:37 O2 Sat by Pulse Oximetry (%) 98 03/08/18 17:30 Labs: CBC, BMP 03/09/18 05:40 03/09/18 05:40 INR, PTT INR 1.01 (0.82-1.09) 03/08/18 14:04 Assessment/Plan cc transient confusion HPI 67 year old female hsitory fo stroke x 2 ( Last one 1996). Patient also have history of HLD,DM,CHF. 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 She was found to have uti and is being treated with abx. Patient has not had any seizure, or headhace, or new focal neurological symptoms. She came back to baseline. ct scan was unremarkable. As per patient she was very angry with something and not confused, but she says ," I agree wtih [employer]LYST to bring me here ". PAST MEDICAL HISTORY: Asthma, Lung ca with RT 1991, [place](97,00), CVA (79,93),CHF, Poorly controlled DM, urinary incontinence PAST SURGICAL HISTORY:Appendectomy, Cholecystectomy, Social History: Smoking:current smoker will not say how much. Alcohol:denies Drugs: denies FH,ROS,SH reviewed in chart Allergies shellfish derived Adverse Reaction (Mild, Verified 01/21/17 11:28) can't swallow it HOME MEDICATIONS: Home Medications Medication Instructions Recorded Insulin Glargine,Hum.rec.anlog 34 units SQ HS 08/26/14 [Lantus Solostar PEN -] Metoclopramide HCl 10 mg PO DAILY 08/26/14 Ergocalciferol [Drisdol -] 50,000 unit PO Q7D@1000 10/25/14 Sennosides [Senokot] 8.6 mg PO DAILY PRN 10/25/14 Furosemide [Lasix -] 20 mg PO MOWEFR 03/20/17 Oxycodone HCl/Acetaminophen 1 each PO QID PRN #120 tablet MDD 4 03/07/18 [Percocet 10-325 mg Tablet] Pregabalin [Lyrica -] 100 mg PO BID #60 capsule MDD 2 03/07/18 Ascorbic Acid [Vitamin C] 500 mg PO DAILY 03/08/18 Baclofen 20 mg PO DAILY 03/08/18 Cholecalciferol (Vitamin D3) 1,000 unit PO DAILY 03/08/18 [Vitamin D3] Cyclobenzaprine HCl [Flexeril 10 10 mg PO PRN PRN 03/08/18 mg] Insulin Aspart [Novolog] 34 unit SQ ACBK 03/08/18 Melatonin 6 mg PO HS 03/08/18 Neurological Examination Alert follow command,oriented x 3 right sided facial palsy,eomi, pupils reactive right upper extremity is grade 4+ and right lower extremity is grade 1 sensation is grossly normal ct head no acute findings Assessment- Most likley Outburst of anger vs transient metabolic encephalopathy. No evidence of stroke, seizure or meningitis at this time. Plan 1. no further treatment or testing needed 2. continue current care ( abx and supportive care) 3. she can be discharged from neuro point of view Thanking you so much Juni Sigala MD
[2018-03-09] MEDS: amLODIPine BESYLATE 5 MG TABLET (FP) PO SCH ×2 (10:29→16:44)
[2018-03-09] MEDS: BACLOFEN 10 MG TABLET (FP) PO SCH (10:29)
[2018-03-09] MEDS: CHOLECALCIFEROL (VITAMIN D3) 1,000 UNIT TABLET (FP) PO SCH (10:29)
--- NOTE | 2018-03-09 11:08 | PN ---
Progress Note (short form) - Note Progress Note: Patient seen and examined. Refusing medications and care at night. Wants to go home. however unable to explain if has a safe disposition plan or repeat back to me to risks of leaving. Objective: Vital Signs Period Temp Pulse Resp BP Sys/Danielle Pulse Ox Last 24 Hr 97.8 F-99.2 F 62-76 14-20 145-174/62-86 96-98 Intake & Output 03/06/18 03/07/18 03/08/18 03/09/18 23:59 23:59 23:59 23:59 Output Total 100 Balance -100 Weight 215 lb 11.2 oz General: lying in bed in no acute distress Abdomen:soft, obese, NT Extremities: no edema Neuro: AAOx3, right facial droop, RUE 4/5, RLE atleast 3/5, but lack of co- ooperation, LUE/LLE 5/5, unchange dexam Chest: decreased effort, limited exam due to habitus Home Medication List Medication Instructions Recorded Confirmed Type Insulin Glargine,Hum.rec.anlog 34 units SQ HS 08/26/14 03/08/18 History [Lantus Solostar PEN -] Metoclopramide HCl 10 mg PO DAILY 08/26/14 03/08/18 History Ergocalciferol [Drisdol -] 50,000 unit PO Q7D@1000 10/25/14 03/08/18 History Sennosides [Senokot] 8.6 mg PO DAILY PRN 10/25/14 03/08/18 History Furosemide [Lasix -] 20 mg PO MOWEFR 03/20/17 03/08/18 History Ascorbic Acid [Vitamin C] 500 mg PO DAILY 03/08/18 03/08/18 History Baclofen 20 mg PO DAILY 03/08/18 03/08/18 History Cholecalciferol (Vitamin D3) 1,000 unit PO DAILY 03/08/18 03/08/18 History [Vitamin D3] Cyclobenzaprine HCl [Flexeril 10 10 mg PO PRN PRN 03/08/18 03/08/18 History mg] Insulin Aspart [Novolog] 34 unit SQ ACBK 03/08/18 03/08/18 History Melatonin 6 mg PO HS 03/08/18 03/08/18 History Active Medications Generic Name Dose Route Start Last Admin Trade Name Jerry PRN Reason Stop Dose Admin Acetaminophen 325 mg 03/08/18 18:14 03/09/18 01:02 Tylenol - PO 325 mg Q8H PRN Administration PAIN LEVEL 4 - 6 Amlodipine Besylate 5 mg 03/09/18 10:00 03/09/18 10:29 Norvasc - PO Not Given DAILY [facility] Baclofen 20 mg 03/09/18 10:00 03/09/18 10:29 Lioresal - PO Not Given DAILY [facility] Cholecalciferol 1,000 unit 03/09/18 10:00 03/09/18 10:29 Vitamin D3 - PO Not Given DAILY [facility] Furosemide 20 mg 03/10/18 10:00 Lasix - PO MoWeFr@1000 [facility] Heparin Sodium (Porcine) 5,000 unit 03/08/18 22:00 03/09/18 06:45 Heparin - SQ Not Given TID [facility] Insulin Aspart 1 vial 03/08/18 22:00 03/09/18 06:45 Novolog Vial Sliding Scale - SQ Not Given ACHS [facility] Protocol Melatonin 5 mg 03/08/18 22:00 03/09/18 00:50 Melatonin PO Not Given HS [facility] Oxycodone HCl 5 mg 03/08/18 18:20 03/09/18 00:49 Roxicodone - PO 5 mg Q6H PRN Administration PAIN LEVEL 6-10 Pregabalin 100 mg 03/08/18 22:00 03/09/18 10:29 Lyrica - PO Not Given BID [facility] Senna 1 tab 03/08/18 18:08 Senna - PO DAILY PRN CONSTIPATION Laboratory Results - last 24 hr 03/08/18 03/08/18 03/08/18 13:41 14:04 14:04 WBC 11.3 H RBC 4.98 Hgb 15.7 H D Hct 46.1 H MCV 92.5 MCH 31.6 MCHC 34.2 RDW 14.3 Plt Count 216 MPV 8.6 D Neutrophils % 55.0 Lymphocytes % 35.6 Monocytes % 5.3 Eosinophils % 2.9 Basophils % 1.2 Nucleated RBC % 0 PT with INR 11.40 INR 1.01 Sodium Potassium Chloride Carbon Dioxide Anion Gap BUN Creatinine Creat Clearance w eGFR Random Glucose Calcium Phosphorus Magnesium Total Bilirubin AST ALT Alkaline Phosphatase Creatine Kinase Troponin I Total Protein Albumin Urine Color Ltyellow Urine Appearance Clear Urine pH 7.0 Ur Specific [place] 1.013 Urine Protein Negative Urine Glucose (UA) Negative Urine Ketones Negative Urine Blood 1+ H Urine Nitrite Negative Urine Bilirubin Negative Urine Urobilinogen Negative Ur Leukocyte Esterase 2+ H Urine WBC (Auto) 41 Urine RBC (Auto) 5 Ur Epithelial Cells Rare Urine Mucus Rare 03/08/18 03/08/18 03/09/18 14:04 18:05 05:40 WBC 10.4 H RBC 4.86 Hgb 15.5 H Hct 44.8 MCV 92.2 MCH 31.8 MCHC 34.5 RDW 14.2 Plt Count 197 MPV 9.2 Neutrophils % 51.3 Lymphocytes % 39.7 Monocytes % 5.5 Eosinophils % 3.2 Basophils % 0.3 Nucleated RBC % 0 PT with INR INR Sodium 142 Potassium 4.2 Chloride 106 Carbon Dioxide 29 Anion Gap 7 L BUN 13 Creatinine 0.6 Creat Clearance w eGFR > 60 Random Glucose 94 Calcium 8.7 Phosphorus Magnesium 2.0 Total Bilirubin 0.6 AST 17 ALT 17 Alkaline Phosphatase 81 Creatine Kinase 22 L Troponin I < 0.02 < 0.02 Total Protein 6.2 L Albumin 3.2 L Urine Color Urine Appearance Urine pH Ur Specific [place] Urine Protein Urine Glucose (UA) Urine Ketones Urine Blood Urine Nitrite Urine Bilirubin Urine Urobilinogen Ur Leukocyte Esterase Urine WBC (Auto) Urine RBC (Auto) Ur Epithelial Cells Urine Mucus 03/09/18 05:40 WBC RBC Hgb Hct MCV MCH MCHC RDW Plt Count MPV Neutrophils % Lymphocytes % Monocytes % Eosinophils % Basophils % Nucleated RBC % PT with INR INR Sodium 141 Potassium 3.7 Chloride 106 Carbon Dioxide 30 Anion Gap 5 L BUN 12 Creatinine 0.6 Creat Clearance w eGFR > 60 Random Glucose 90 Calcium 8.8 Phosphorus 3.9 Magnesium 2.0 Total Bilirubin 0.7 AST 15 ALT 14 Alkaline Phosphatase 78 Creatine Kinase Troponin I < 0.02 Total Protein 5.9 L Albumin 3.1 L Urine Color Urine Appearance Urine pH Ur Specific [place] Urine Protein Urine Glucose (UA) Urine Ketones Urine Blood Urine Nitrite Urine Bilirubin Urine Urobilinogen Ur Leukocyte Esterase Urine WBC (Auto) Urine RBC (Auto) Ur Epithelial Cells Urine Mucus Microbiology 03/08/18 13:41 Urine - Urine - Catheterized Urine Culture - Final NO GROWTH OBTAINED Assessment/PLan: 67 yof with PMhx of asthma/copd, buttock ulcer, chronic back pain on chronic opiates, DM, CVA in 1978 and 1992, [place] in 1996 and 1999 admitted with AMS, abnormal EKG, UTI. 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 D/c antibiotics. Telemetry with no new events, Troponin neg, 2D echo. Await cardiology input. Neurology input appreciated, no further intervention. Repeat EKG with QTc 440. ISS, diabetic diet. Refused levemir last night, refusing BGM, AM blood sugar 90s , hold levemir for now. Continue home meds as patient awake, including percocet, baclofen and lyrica. Patient wants to go home, explained in detail about current antibiotics, need for cardiology monitoring and input, safe disposition. 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 However unable to provide me with a safe disposition plan or how will be able to manage her ADLs. Also unable to repeat risks of leaving back to me, poor insight into her current admission and ongoing treatment. Is not able to provide clearly risks of leaving. Psychiatry consult given progressive agitation and competence. PT hair. DVTPPX dispo pending clinical improvement. Plan discussed with patient and all questions answered. Plan discussed with nursing and detailed discussion with patient witnessed by RN. Visit type - Emergency Visit Emergency Visit: No - New Patient This patient is new to me today: No - Critical Care Critical Care patient: No - Discharge Referral Referred to [facility] No
--- NOTE | 2018-03-09 15:08 | CON.PSY ---
Psychiatry Consult Chief Complaint: I am ok, there was a mixup with my medications. - Previous Psychiatric Treatment Outpatient: None Inpatient: None - Previous Substance Abuse Treatment Outpatient: None Inpatient: None - Current Medications Current Medications: Active Medications Acetaminophen (Tylenol -) 325 mg PO Q8H PRN PRN Reason: PAIN LEVEL 4 - 6 Last Admin: 03/09/18 01:02 Dose: 325 mg Amlodipine Besylate (Norvasc -) 5 mg PO DAILY [facility] Last Admin: 03/09/18 10:29 Dose: Not Given Baclofen (Lioresal -) 20 mg PO DAILY [facility] Last Admin: 03/09/18 10:29 Dose: Not Given Cholecalciferol (Vitamin D3 -) 1,000 unit PO DAILY [facility] Last Admin: 03/09/18 10:29 Dose: Not Given Furosemide (Lasix -) 20 mg PO MoWeFr@1000 [facility] Heparin Sodium (Porcine) (Heparin -) 5,000 unit SQ TID [facility] Last Admin: 03/09/18 13:13 Dose: Not Given Insulin Aspart (Novolog Vial Sliding Scale -) 1 vial SQ ACHS [facility]; Protocol Last Admin: 03/09/18 12:31 Dose: Not Given Melatonin (Melatonin) 5 mg PO [facility] Last Admin: 03/09/18 00:50 Dose: Not Given Oxycodone HCl (Roxicodone -) 5 mg PO Q6H PRN PRN Reason: PAIN LEVEL 6-10 Last Admin: 03/09/18 00:49 Dose: 5 mg Potassium Chloride (K-Dur -) 20 meq PO ONCE ONE Stop: 03/09/18 15:04 Pregabalin (Lyrica -) 100 mg PO BID [facility] Last Admin: 03/09/18 10:29 Dose: Not Given Senna (Senna -) 1 tab PO DAILY PRN PRN Reason: CONSTIPATION - Allergies Allergies: Allergies Allergy/AdvReac Type Severity Reaction Status Date / Time shellfish derived AdvReac Mild can't Verified 01/21/17 11:28 swallow it - Current Living Status Usual Living Arrangement: Alone - Current Mental Status Evaluation Appearance: Disheveled Attitude: Cooperative - Affect Affect: Constrictive Appropriateness: Appropriate to Content - Mood Mood: Euthymic - Speech/Language Expressive: Coherent - Psychomotor Activity Psychomotor Activity: Slowed - Thought Process Thought Process: Intact - Thought Content Hallucinations: Absent Delusions: Absent - Self Perception Self Perception: No Impairment - Cognition Attention: Alert Orientation: Time Memory, Immediate Recall: Intact Memory, Short Term: 2/3 Memory, Remote with Promptin/3 - Concentration Serial Sevens Intact: No Simple Calculations Intact: No - Abstraction Proverb Interpretation: Intact Judgement: Intact - Insight Insight: Intact - Impulse Control Impulse Control: Good Control - Suicidal Ideation Suicidal Ideation: No - Homicidal Ideation Homicidal Ideation: No Assessment/Plan 1) Patient has the mental capacity to make decisions at this time.
--- NOTE | 2018-03-09 15:10 | CON.CARD ---
Cardiology Consult (text) - Consultation Consultation Note: CC: abnormal EKG 67 yo smoker with h/o NE in 1996 and 1999, CVA in 1978 and 1992 with residual L sided weakness, asthma/copd, iddm, wheelchair bound with hx of jprior buttock ulcer, morbid obesity, anxiety/depression, chronic back pain on chronic opiates , hx lung cancer - had RT 1991, who presents with agitation. agitation x 2 days, refusing medications. In ER, there was concern for underlying flutter waves on EKG. BP elevated here, started on norvasc. History limited Denies cp, sob, orthopnea, pnd, le edema, palps, dizziness. Denies f/c/s, n/v/d , cough, congestion, rash, h/a, visual disturbances. pmh/pshx: per hpi, Appendectomy, Cholecystectomy, Social hx: has aide who is with her 12 hours per day, 7 days/week. wheelchair bound, unable to walk fam hx: Heart Disease, Father ROS: per hpi Ambulatory Orders Insulin Glargine,Hum.rec.anlog [Lantus Solostar PEN -] 34 units SQ HS 08/26/14 Metoclopramide HCl 10 mg PO DAILY 08/26/14 Ergocalciferol [Drisdol -] 50,000 unit PO Q7D@1000 10/25/14 Sennosides [Senokot] 8.6 mg PO DAILY PRN 10/25/14 Furosemide [Lasix -] 20 mg PO MOWEFR 03/20/17 Oxycodone HCl/Acetaminophen [Percocet 10-325 mg Tablet] 1 each PO QID PRN #120 tablet MDD 4 03/07/18 Pregabalin [Lyrica -] 100 mg PO BID #60 capsule MDD 2 03/07/18 Ascorbic Acid [Vitamin C] 500 mg PO DAILY 03/08/18 Baclofen 20 mg PO DAILY 03/08/18 Cholecalciferol (Vitamin D3) [Vitamin D3] 1,000 unit PO DAILY 03/08/18 Cyclobenzaprine HCl [Flexeril 10 mg] 10 mg PO PRN PRN 03/08/18 Insulin Aspart [Novolog] 34 unit SQ ACBK 03/08/18 Melatonin 6 mg PO HS 03/08/18 Current Medications Acetaminophen (Tylenol -) 325 mg PO Q8H PRN PRN Reason: PAIN LEVEL 4 - 6 Last Admin: 03/09/18 01:02 Dose: 325 mg Amlodipine Besylate (Norvasc -) 5 mg PO DAILY [facility] Last Admin: 03/09/18 10:29 Dose: Not Given Baclofen (Lioresal -) 20 mg PO DAILY [facility] Last Admin: 03/09/18 10:29 Dose: Not Given Cholecalciferol (Vitamin D3 -) 1,000 unit PO DAILY [facility] Last Admin: 03/09/18 10:29 Dose: Not Given Furosemide (Lasix -) 20 mg PO MoWeFr@1000 [facility] Heparin Sodium (Porcine) (Heparin -) 5,000 unit SQ TID [facility] Last Admin: 03/09/18 13:13 Dose: Not Given Insulin Aspart (Novolog Vial Sliding Scale -) 1 vial SQ ACHS [facility]; Protocol Last Admin: 03/09/18 12:31 Dose: Not Given Melatonin (Melatonin) 5 mg PO [facility] Last Admin: 03/09/18 00:50 Dose: Not Given Oxycodone HCl (Roxicodone -) 5 mg PO Q6H PRN PRN Reason: PAIN LEVEL 6-10 Last Admin: 03/09/18 00:49 Dose: 5 mg Pregabalin (Lyrica -) 100 mg PO BID [facility] Last Admin: 03/09/18 10:29 Dose: Not Given Senna (Senna -) 1 tab PO DAILY PRN PRN Reason: CONSTIPATION Vital Signs - 24 hr 03/08/18 03/08/18 03/08/18 17:30 20:00 23:41 Temperature 98.7 F Pulse Rate 75 76 Pulse Rate [ 62 Apical] Respiratory 16 14 18 Rate Blood Pressure 173/80 166/78 Blood Pressure 145/62 [Left Arm] O2 Sat by Pulse 98 Oximetry (%) 03/09/18 03/09/18 03/09/18 02:00 04:16 06:37 Temperature 97.8 F 99.0 F Pulse Rate 72 68 67 Pulse Rate [ Apical] Respiratory 18 18 20 Rate Blood Pressure 154/80 159/86 174/80 Blood Pressure [Left Arm] O2 Sat by Pulse Oximetry (%) 03/09/18 03/09/18 03/09/18 08:00 09:00 12:00 Temperature 98.7 F Pulse Rate 70 73 Pulse Rate [ Apical] Respiratory 20 Rate Blood Pressure 175/72 166/97 Blood Pressure [Left Arm] O2 Sat by Pulse Oximetry (%) Intake & Output 03/07/18 03/08/18 03/09/18 03/10/18 07:59 07:59 07:59 07:59 Output Total 100 Balance -100 Weight 215 lb 11.2 oz NAD, calm JVD flat, neck supple ctab, nl effort rrr nl s1, s2. no mrg + bs soft nt nd ext without e/c/c + dp/pt, no carotid bruits no jaundice, diaphoresis aaox3 CBC, BMP 03/09/18 05:40 03/09/18 05:40 Laboratory Tests 03/08/18 03/08/18 03/09/18 14:04 18:05 05:40 Magnesium 2.0 Troponin I < 0.02 < 0.02 < 0.02 Albumin 3.1 L EKG 03/08 #1: poor baseline, SR. bline prolonged qt. non specific t wave ab. ( reviewed ekg in 12 channel view --> artifact present, no underlying flutter waves) EKG 03/08 #2: poor baseline, SR. EKG 03/08 #3: SR with pac. non specific t wave ab. tele: sr occ pvc's. cxr/head ct: no acute process ASSESSMENT/PLAN 67 yo smoker with h/o NE in 1996 and 1999, CVA in 1978 and 1992 with residual L sided weakness, asthma/copd, iddm, wheelchair bound with hx of buttock ulcer, morbid obesity, anxiety/depression, chronic back pain on chronic opiates, hx lung cancer - had RT 1991, who presents with agitation. agitation - work up per pmd/neuro/psych - tele benign - trop neg x 3 - can check tsh. concern for abnormal ekg - EKG benign, no evidence of atrial arrhythmia. tele benign. - lyte repletion prn. HTN - did not have prior diagnosis. - suboptimal bp control here, norvasc started today. Monitor for improvement, outpatient follow up. - con't home po lasix mwf. h/o prior NE and cva. - will start secondary prevention with asa and statin, can adjust statin dosing as outpatient. - CE's here neg x 3. Ekg without acute ischemic changes. + tobacco - cessation counseling Stable from CV perspective, ok to d/c tele. Recommend cardiology follow up as outpatient.
[2018-03-09] MEDS ORDERED: POTASSIUM CHLORIDE TABS 20 MEQ TABLET.ER (FP) PO ONE (15:45)
--- NOTE | 2018-03-09 20:42 | EKG ---
Test Reason : Blood Pressure : / mmHG Vent. Rate : 073 BPM Atrial Rate : 073 BPM P-R Int : 178 ms QRS Dur : 100 ms QT Int : 400 ms P-R-T Axes : 033 -19 -19 degrees QTc Int : 440 ms SINUS RHYTHM WITH PREMATURE ATRIAL COMPLEXES OTHERWISE NORMAL ECG WHEN COMPARED WITH ECG OF 08-MAR-2018 15:10, SINUS RHYTHM HAS REPLACED JUNCTIONAL RHYTHM Confirmed by LANDNO ORDONEZ, KRISTIE ([id number]) on 03/09/2018 8:42:19 PM Referred By: Jaxson RICARDO Confirmed By:KRISTIE NAVARRETE MD
--- NOTE | 2018-03-09 20:43 | EKG ---
Test Reason : Blood Pressure : / mmHG Vent. Rate : 073 BPM Atrial Rate : 072 BPM P-R Int : 000 ms QRS Dur : 092 ms QT Int : 416 ms P-R-T Axes : 000 -11 008 degrees QTc Int : 458 ms NORMAL SINUS RHYTHM NONSPECIFIC T WAVE ABNORMALITY ABNORMAL ECG Confirmed by KRISTIE NAVARRETE MD ([id number]) on 03/09/2018 8:43:07 PM Referred By: Confirmed By:KRISTIE NAVARRETE MD
--- NOTE | 2018-03-09 20:44 | EKG ---
Test Reason : Blood Pressure : / mmHG Vent. Rate : 067 BPM Atrial Rate : 067 BPM P-R Int : 186 ms QRS Dur : 090 ms QT Int : 490 ms P-R-T Axes : -23 -21 -44 degrees QTc Int : 517 ms NORMAL SINUS RHYTHM MINIMAL VOLTAGE CRITERIA FOR LVH, MAY BE NORMAL VARIANT T WAVE ABNORMALITY, CONSIDER ANTERIOR ISCHEMIA PROLONGED QT ABNORMAL ECG NO PREVIOUS ECGS AVAILABLE Confirmed by LANDON ORDONZE, KRISTIE ([id number]) on 03/09/2018 8:43:48 PM Referred By: Confirmed By:KRISTIE NAVARRETE MD
[2018-03-09] MEDS ORDERED: PT OWN MED DRAWER 7, Y5N ONE ×2 (20:55→21:13)
[2018-03-10] MEDS: HEPARIN NA (PORCINE) 5,000 UNITS/ML 1ML VIAL SQ SCH ×4 (06:10→21:18)
[2018-03-10] MEDS: INSULIN SLIDING SCALE (NOVOLOG) 1 VIAL SQ SCH ×4 (06:11→21:17)
[2018-03-10 06:39] LABS: BASO % 0.4 % (0-2.0); EOS % 2.5 % (0-4.5); HEMOGLOBIN 15.3 GM/dL (10.7-15.3); MCH 32.2 pg (25.7-33.7); MCHC 34.9 g/dl (32.0-36.0); MEAN CELL VOLUME 92.2 fl (80-96); MEAN PLT VOLUME 9.1 fl (7.5-11.1); MONO % 5.3 % (3.8-10.2); NEUT % 59.8 % (42.8-82.8); PLATELET COUNT 210 K/MM3 (134-434); RBC 4.77 M/mm3 (3.60-5.2); RDW 14.1 % (11.6-15.6); WHITE BLOOD COUNT 9.9 K/mm3 (4.0-10.0)
[2018-03-10 07:15] LABS: CHLORIDE 107 mmol/L (98-107); POTASSIUM 3.9 mmol/L (3.5-5.1); SODIUM 140 mmol/L (136-145)
[2018-03-10 07:26] LABS: ANION GAP 6 (8-16); BLOOD UREA NITROGEN 12 mg/dL (7-18); CALCIUM 8.6 mg/dL (8.5-10.1); CO2 27 mmol/L (21-32); CREATININE 0.6 mg/dL (0.55-1.02); GLUCOSE,RANDOM 136 mg/dL (74-106)
[2018-03-10] MEDS ORDERED: FUROSEMIDE 20 MG TABLET (FP) PO SCH (10:00)
[2018-03-10] MEDS: PREGABALIN 100 MG CAPSULE PO SCH ×2 (10:13→21:09)
[2018-03-10] MEDS: CHOLECALCIFEROL (VITAMIN D3) 1,000 UNIT TABLET (FP) PO SCH (10:13)
[2018-03-10] MEDS: BACLOFEN 10 MG TABLET (FP) PO SCH (10:13)
[2018-03-10] MEDS: amLODIPine BESYLATE 5 MG TABLET (FP) PO SCH (10:13)
[2018-03-10] MEDS: oxyCODONE HCL 5 MG TABLET PO PRN ×2 (10:21→19:53)
[2018-03-10] MEDS: ACETAMINOPHEN 325 MG TABLET (FP) PO PRN ×2 (10:25→19:52)
--- NOTE | 2018-03-10 11:09 | PN ---
Teaching Attending Note Name of Resident: Teofilo Guadarrama ATTENDING PHYSICIAN STATEMENT I saw and evaluated the patient. I reviewed the resident's note and discussed the case with the resident. I agree with the resident's findings and plan as documented with exceptions below. SUBJECTIVE: Patient seen and examined, no complaints, eager to go home. OBJECTIVE: Vital Signs Period Temp Pulse Resp BP Sys/Danielle Pulse Ox Last 24 Hr 98.0 F-98.9 F 73-83 15-21 135-183/78-97 95 Intake & Output 03/07/18 03/08/18 03/09/18 03/10/18 23:59 23:59 23:59 23:59 Intake Total 640 Output Total 100 700 Balance -100 -60 Weight 215 lb 11.2 oz 212 lb 14.4 oz General: lying in bed in no acute distress Neuro: AAOx3, right facial droop,unchanged right sided weakness Abdomen:Soft, obese, NT, no CVA tenderness Extremities: chronic hyperpigmentation, no edema Home Medication List Medication Instructions Recorded Confirmed Type Insulin Glargine,Hum.rec.anlog 34 units SQ HS 08/26/14 03/08/18 History [Lantus Solostar PEN -] Metoclopramide HCl 10 mg PO DAILY 08/26/14 03/08/18 History Ergocalciferol [Drisdol -] 50,000 unit PO Q7D@1000 10/25/14 03/08/18 History Sennosides [Senokot] 8.6 mg PO DAILY PRN 10/25/14 03/08/18 History Furosemide [Lasix -] 20 mg PO MOWEFR 03/20/17 03/08/18 History Ascorbic Acid [Vitamin C] 500 mg PO DAILY 03/08/18 03/08/18 History Baclofen 20 mg PO DAILY 03/08/18 03/08/18 History Cholecalciferol (Vitamin D3) 1,000 unit PO DAILY 03/08/18 03/08/18 History [Vitamin D3] Cyclobenzaprine HCl [Flexeril 10 10 mg PO PRN PRN 03/08/18 03/08/18 History mg] Insulin Aspart [Novolog] 34 unit SQ ACBK 03/08/18 03/08/18 History Melatonin 6 mg PO HS 03/08/18 03/08/18 History Active Medications Generic Name Dose Route Start Last Admin Trade Name Freq PRN Reason Stop Dose Admin Acetaminophen 325 mg 03/08/18 18:14 03/10/18 10:25 Tylenol - PO 325 mg Q8H PRN Administration PAIN LEVEL 4 - 6 Amlodipine Besylate 5 mg 03/09/18 10:00 03/10/18 10:13 Norvasc - PO 5 mg DAILY [facility] Administration Baclofen 20 mg 03/09/18 10:00 03/10/18 10:13 Lioresal - PO 20 mg DAILY [facility] Administration Cholecalciferol 1,000 unit 03/09/18 10:00 03/10/18 10:13 Vitamin D3 - PO 1,000 unit DAILY [facility] Administration Furosemide 20 mg 03/10/18 10:00 03/10/18 10:19 Lasix - PO Not Given MoWeFr@1000 [facility] Heparin Sodium (Porcine) 5,000 unit 03/08/18 22:00 03/10/18 06:10 Heparin - SQ Not Given TID [facility] Insulin Aspart 1 vial 03/08/18 22:00 03/10/18 06:11 Novolog Vial Sliding Scale - SQ Not Given ACHS [facility] Protocol Melatonin 5 mg 03/08/18 22:00 03/09/18 21:17 Melatonin PO 5 mg HS [facility] Administration Oxycodone HCl 5 mg 03/08/18 18:20 03/10/18 10:21 Roxicodone - PO 5 mg Q6H PRN Administration PAIN LEVEL 6-10 Pregabalin 100 mg 03/08/18 22:00 03/10/18 10:13 Lyrica - PO 100 mg BID [facility] Administration Senna 1 tab 03/08/18 18:08 Senna - PO DAILY PRN CONSTIPATION Laboratory Results - last 24 hr 03/08/18 03/09/18 03/09/18 21:33 05:40 06:39 WBC RBC Hgb Hct MCV MCH MCHC RDW Plt Count MPV Neutrophils % Lymphocytes % Monocytes % Eosinophils % Basophils % Nucleated RBC % Sodium Potassium Chloride Carbon Dioxide Anion Gap BUN Creatinine POC Glucometer 123.44194 99.38384 Random Glucose Calcium Phosphorus Magnesium TSH 0.81 03/09/18 03/09/18 03/10/18 16:39 20:34 05:29 WBC RBC Hgb Hct MCV MCH MCHC RDW Plt Count MPV Neutrophils % Lymphocytes % Monocytes % Eosinophils % Basophils % Nucleated RBC % Sodium Potassium Chloride Carbon Dioxide Anion Gap BUN Creatinine POC Glucometer 150.00886 191.20561 139.71859 Random Glucose Calcium Phosphorus Magnesium TSH 03/10/18 03/10/18 05:50 05:50 WBC 9.9 RBC 4.77 Hgb 15.3 Hct 44.0 MCV 92.2 MCH 32.2 MCHC 34.9 RDW 14.1 Plt Count 210 MPV 9.1 Neutrophils % 59.8 Lymphocytes % 32.0 Monocytes % 5.3 Eosinophils % 2.5 Basophils % 0.4 Nucleated RBC % 0 Sodium 140 Potassium 3.9 Chloride 107 Carbon Dioxide 27 Anion Gap 6 L BUN 12 Creatinine 0.6 POC Glucometer Random Glucose 136 H Calcium 8.6 Phosphorus 4.0 Magnesium 2.0 TSH Microbiology 03/08/18 13:41 Urine - Urine - Catheterized Urine Culture - Final NO GROWTH OBTAINED ASSESSMENT AND PLAN: 67 yof with PMhx of asthma/copd, buttock ulcer, chronic back pain on chronic opiates, DM, CVA in 1978 and 1992, [place] in 1996 and 1999 admitted with AMS, abnormal EKG, UTI. 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 Telemetry with no new events, troponin neg. Cardiology input noted, suspect artefact, non concerning EKG, outpatient follow up. Neurology input appreciated, no further intervention. Repeat EKG with QTc 440. ISS, diabetic diet. only on ISS, confirm home meds with [facility] pharmacy. Continue home meds as patient awake, including percocet, baclofen and lyrica. Psychiatry input noted. patient wants to go home. Discussed with RN and Social work to resume home services/[employer] d/c home with aide/Services when arrangement made. Plan discussed with patient, RN and social work.
--- NOTE | 2018-03-10 17:02 | PN ---
Physical Exam: SUBJECTIVE: Patient seen and examined at bedside. No complaints. OBJECTIVE: Vital Signs Period Temp Pulse Resp BP Sys/Danielle Pulse Ox Last 24 Hr 98.7 F-98.9 F 74-83 15-21 131-183/78-86 95 GENERAL: The patient is awake, alert, and fully oriented, in no acute distress. HEAD: Normal with no signs of trauma. EYES: extraocular movements intact, sclera anicteric, conjunctiva clear. R ptosis. ENT: oropharynx clear without exudates, moist mucous membranes. NECK: Trachea midline, full range of motion, supple. LUNGS: Breath sounds equal, clear to auscultation bilaterally, no wheezes, no crackles, no accessory muscle use. HEART: Regular rate and rhythm, S1, S2 without murmur, rub or gallop. ABDOMEN: Soft, nontender, nondistended, normoactive bowel sounds, no guarding, no rebound, no hepatosplenomegaly, no masses. EXTREMITIES: 2+ pulses, warm, well-perfused, no edema. NEUROLOGICAL: R facial droop. R weakness. PSYCH: Normal mood, normal affect. SKIN: Warm, dry, normal turgor, no rashes or lesions noted Laboratory Results - last 24 hr 03/09/18 03/09/18 03/09/18 05:40 16:39 20:34 WBC RBC Hgb Hct MCV MCH MCHC RDW Plt Count MPV Neutrophils % Lymphocytes % Monocytes % Eosinophils % Basophils % Nucleated RBC % Sodium Potassium Chloride Carbon Dioxide Anion Gap BUN Creatinine POC Glucometer 150.96327 191.29651 Random Glucose Calcium Phosphorus Magnesium TSH 0.81 03/10/18 03/10/18 03/10/18 05:29 05:50 05:50 WBC 9.9 RBC 4.77 Hgb 15.3 Hct 44.0 MCV 92.2 MCH 32.2 MCHC 34.9 RDW 14.1 Plt Count 210 MPV 9.1 Neutrophils % 59.8 Lymphocytes % 32.0 Monocytes % 5.3 Eosinophils % 2.5 Basophils % 0.4 Nucleated RBC % 0 Sodium 140 Potassium 3.9 Chloride 107 Carbon Dioxide 27 Anion Gap 6 L BUN 12 Creatinine 0.6 POC Glucometer 139.43546 Random Glucose 136 H Calcium 8.6 Phosphorus 4.0 Magnesium 2.0 TSH Active Medications Generic Name Dose Route Start Last Admin Trade Name Freq PRN Reason Stop Dose Admin Acetaminophen 325 mg 03/08/18 18:14 03/10/18 10:25 Tylenol - PO 325 mg Q8H PRN Administration PAIN LEVEL 4 - 6 Amlodipine Besylate 5 mg 03/09/18 10:00 03/10/18 10:13 Norvasc - PO 5 mg DAILY YONG Administration Baclofen 20 mg 03/09/18 10:00 03/10/18 10:13 Lioresal - PO 20 mg DAILY YONG Administration Cholecalciferol 1,000 unit 03/09/18 10:00 03/10/18 10:13 Vitamin D3 - PO 1,000 unit DAILY YONG Administration Furosemide 20 mg 03/10/18 10:00 03/10/18 10:19 Lasix - PO Not Given MoWeFr@1000 [facility] Heparin Sodium (Porcine) 5,000 unit 03/08/18 22:00 03/10/18 15:23 Heparin - SQ 5,000 unit TID YONG Administration Insulin Aspart 1 vial 03/08/18 22:00 03/10/18 11:40 Novolog Vial Sliding Scale - SQ 2 units ACHS YONG Administration Protocol Melatonin 5 mg 03/08/18 22:00 03/09/18 21:17 Melatonin PO 5 mg HS YONG Administration Oxycodone HCl 5 mg 03/08/18 18:20 03/10/18 10:21 Roxicodone - PO 5 mg Q6H PRN Administration PAIN LEVEL 6-10 Pregabalin 100 mg 03/08/18 22:00 03/10/18 10:13 Lyrica - PO 100 mg BID YONG Administration Senna 1 tab 03/08/18 18:08 Senna - PO DAILY PRN CONSTIPATION ASSESSMENT/PLAN: Pt is a 67 y/o F with PMhx of asthma/copd, buttock ulcer, chronic back pain on chronic opiates, DM, CVA in 1978 and 1992, [place] in 1996 and 1999 who was brought to ED with AMS. She was found to have metabolic encephalopathy 2/2 UTI and abnormal EKG. #Metabolic encephalopathy 2/2 UTI -AMS on admission. Resolved at this time -No CVA on CT head -Ux neg #EKG -? flutter and T wave changes with prolonged QTc -Per Cardio, likely artifact. Rec out pt f/u -Repeat EKG with QTc 440. #IDDM -BGM -ISS -DM diet -[place] was called. No answer #Chronic back pain and opiod dependence -oxycodone -percocet -lyrica -baclofen #old CVA in -residual right sided deicits -Neuro recs appreciated #CAD -s/p reported [place] in 1996 and 1999 -f/u out pt #FEN -not on fluids -lytes wnl -diabetic diet #PPx -Hep SubQ #Dispo -Dispo planning Teofilo Guadarrama MD PGY-1 IM Visit type - Emergency Visit Emergency Visit: No - New Patient This patient is new to me today: Yes Date on this admission: 03/10/18 - Critical Care Critical Care patient: No - Discharge Referral Referred to [facility] Med P.C.: No
[2018-03-10] MEDS ORDERED: SENNOSIDES 8.6MG TABLET (FP) PO PRN (19:17)
[2018-03-10] MEDS ORDERED: PT OWN MED DRAWER 7, Y5N ONE (20:38)
[2018-03-10] MEDS: MELATONIN 5 MG TABLETS PO SCH (20:59)
[2018-03-10] MEDS ORDERED: PREGABALIN 100 MG CAPSULE PO ONE (21:00)
[2018-03-10] MEDS ORDERED: LIDOCAINE 5% TOPICAL PATCH TP ONE (21:00)
[2018-03-10] MEDS ORDERED: LIDOCAINE PATCH REMOVAL MC ONE (22:00)
[2018-03-11] MEDS ORDERED: PT OWN MED DRAWER 7, Y5N ONE ×4 (00:26→23:44)
[2018-03-11] MEDS: oxyCODONE HCL 5 MG TABLET PO PRN ×3 (04:40→21:14)
[2018-03-11] MEDS: ACETAMINOPHEN 325 MG TABLET (FP) PO PRN ×3 (04:41→21:14)
[2018-03-11] MEDS: HEPARIN NA (PORCINE) 5,000 UNITS/ML 1ML VIAL SQ SCH ×3 (05:05→21:13)
[2018-03-11] MEDS: INSULIN SLIDING SCALE (NOVOLOG) 1 VIAL SQ SCH ×4 (06:03→21:23)
--- NOTE | 2018-03-11 06:32 | PN ---
Physical Exam: SUBJECTIVE: Patient seen and examined. says she wants to go home. Asked for more pain meds overnight, got extra-pregabalin. OBJECTIVE: Vital Signs Period Temp Pulse Resp BP Sys/Danielle Pulse Ox Last 24 Hr 98.2 F-98.9 F 65-82 12-19 100-141/62-79 95-95 Vital Signs Temp 98.3 F 03/11/18 06:00 Pulse 65 03/11/18 06:00 Resp 12 03/11/18 06:00 BP 125/69 03/11/18 06:00 Pulse Ox 95 03/10/18 21:00 Intake & Output 03/10/18 03/10/18 03/11/18 11:59 23:59 11:59 Intake Total 240 120 Balance 240 120 Weight 96.57 kg 96.615 kg Intake: Oral 240 120 Other: Voiding Method Diaper Diaper Diaper # Unmeasured Voids Void 1 2 Bowel Movement No No No Weight Measurement Method Built [facility]scale [facility] GENERAL: Obese female, awake, alert, and fully oriented, calm, in no acute distress. HEAD: Normal with no signs of trauma. Facial asymmetry EYES: PERRL, extraocular movements intact ENT: moist mucous membranes. NECK: full range of motion, supple. LUNGS: Breath sounds equal, clear to auscultation bilaterally HEART: Regular rate and rhythm, S1, S2 . ABDOMEN: Obese, Soft, nontender, nondistended, normoactive bowel sounds EXTREMITIES: 2+ pulses, warm, well-perfused, no edema. NEUROLOGICAL: Residual R facial droop, closing R eyelid. PSYCH: Calm but persistent Laboratory Results - last 24 hr 03/09/18 03/09/18 03/10/18 16:39 20:34 05:29 WBC RBC Hgb Hct MCV MCH MCHC RDW Plt Count MPV Neutrophils % Lymphocytes % Monocytes % Eosinophils % Basophils % Nucleated RBC % Sodium Potassium Chloride Carbon Dioxide Anion Gap BUN Creatinine POC Glucometer 150.82865 191.92560 139.06016 Random Glucose Calcium Phosphorus Magnesium 03/10/18 03/10/18 05:50 05:50 WBC 9.9 RBC 4.77 Hgb 15.3 Hct 44.0 MCV 92.2 MCH 32.2 MCHC 34.9 RDW 14.1 Plt Count 210 MPV 9.1 Neutrophils % 59.8 Lymphocytes % 32.0 Monocytes % 5.3 Eosinophils % 2.5 Basophils % 0.4 Nucleated RBC % 0 Sodium 140 Potassium 3.9 Chloride 107 Carbon Dioxide 27 Anion Gap 6 L BUN 12 Creatinine 0.6 POC Glucometer Random Glucose 136 H Calcium 8.6 Phosphorus 4.0 Magnesium 2.0 Active Medications Generic Name Dose Route Start Last Admin Trade Name Freq PRN Reason Stop Dose Admin Acetaminophen 325 mg 03/10/18 19:17 03/11/18 04:41 Tylenol - PO 325 mg Q8H PRN Administration PAIN LEVEL 4 - 6 Amlodipine Besylate 5 mg 03/11/18 10:00 Norvasc - PO DAILY [facility] Baclofen 20 mg 03/11/18 10:00 Lioresal - PO DAILY [facility] Cholecalciferol 1,000 unit 03/11/18 10:00 Vitamin D3 - PO DAILY [facility] Furosemide 20 mg 03/12/18 10:00 Lasix - PO MoWeFr@1000 [facility] Heparin Sodium (Porcine) 5,000 unit 03/10/18 22:00 03/11/18 05:05 Heparin - SQ 5,000 unit TID [facility] Administration Insulin Aspart 1 vial 03/10/18 22:00 03/11/18 06:03 Novolog Vial Sliding Scale - SQ Not Given ACHS [facility] Protocol Melatonin 5 mg 03/10/18 22:00 03/10/18 20:59 Melatonin PO 5 mg HS [facility] Administration Oxycodone HCl 5 mg 03/10/18 19:17 03/11/18 04:40 Roxicodone - PO 5 mg Q6H PRN Administration PAIN LEVEL 7-10 Pregabalin 100 mg 03/10/18 22:00 03/10/18 21:09 Lyrica - PO 100 mg BID [facility] Administration Senna 1 tab 03/10/18 19:17 Senna - PO Q24H PRN CONSTIPATION Ambulatory Orders Insulin Glargine,Hum.rec.anlog [Lantus Solostar PEN -] 34 units SQ HS 08/26/14 Metoclopramide HCl 10 mg PO DAILY 08/26/14 Ergocalciferol [Drisdol -] 50,000 unit PO Q7D@1000 10/25/14 Sennosides [Senokot] 8.6 mg PO DAILY PRN 10/25/14 Furosemide [Lasix -] 20 mg PO MOWEFR 03/20/17 Oxycodone HCl/Acetaminophen [Percocet 10-325 mg Tablet] 1 each PO QID PRN #120 tablet MDD 4 03/07/18 Pregabalin [Lyrica -] 100 mg PO BID #60 capsule MDD 2 03/07/18 Ascorbic Acid [Vitamin C] 500 mg PO DAILY 03/08/18 Baclofen 20 mg PO DAILY 03/08/18 Cholecalciferol (Vitamin D3) [Vitamin D3] 1,000 unit PO DAILY 03/08/18 Cyclobenzaprine HCl [Flexeril 10 mg] 10 mg PO PRN PRN 03/08/18 Insulin Aspart [Novolog] 34 unit SQ ACBK 03/08/18 Melatonin 6 mg PO HS 03/08/18 Current Medications Acetaminophen (Tylenol -) 325 mg PO Q8H PRN PRN Reason: PAIN LEVEL 4 - 6 Last Admin: 03/11/18 04:41 Dose: 325 mg Amlodipine Besylate (Norvasc -) 5 mg PO DAILY [facility] Baclofen (Lioresal -) 20 mg PO DAILY [facility] Cholecalciferol (Vitamin D3 -) 1,000 unit PO DAILY [facility] Furosemide (Lasix -) 20 mg PO MoWeFr@1000 [facility] Heparin Sodium (Porcine) (Heparin -) 5,000 unit SQ TID [facility] Last Admin: 03/11/18 05:05 Dose: 5,000 unit Insulin Aspart (Novolog Vial Sliding Scale -) 1 vial SQ ACHS [facility]; Protocol Last Admin: 03/11/18 06:03 Dose: Not Given Melatonin (Melatonin) 5 mg PO [facility] Last Admin: 03/10/18 20:59 Dose: 5 mg Oxycodone HCl (Roxicodone -) 5 mg PO Q6H PRN PRN Reason: PAIN LEVEL 7-10 Last Admin: 03/11/18 04:40 Dose: 5 mg Pregabalin (Lyrica -) 100 mg PO BID [facility] Last Admin: 03/10/18 21:09 Dose: 100 mg Senna (Senna -) 1 tab PO Q24H PRN PRN Reason: CONSTIPATION ASSESSMENT/PLAN: Pt is a 67 y/o F with PMhx of asthma/copd, buttock ulcer, chronic back pain on chronic opiates, DM, CVA in 1978 and 1992, [place] in 1996 and 1999 who was brought to ED with AMS. She was found to have metabolic encephalopathy 2/2 UTI and abnormal EKG. #Metabolic encephalopathy 2/2 UTI -AMS on admission. Resolved at this time -CT head-ve for CVa -Ux neg #EKG -? flutter and T wave changes with prolonged QTc -Per Cardio, likely artifact. Rec out pt f/u -Repeat EKG with QTc 440. #IDDM -BGM -ISS -DM diet #Chronic back pain and opioid dependence -oxycodone -percocet -lyrica -baclofen #old CVA in -residual right sided deicits -Neuro recs appreciated #CAD -s/p reported [place] in 1996 and 1999 -f/u out pt #FEN -not on fluids -lytes wnl -diabetic diet #PPx -Hep SubQ #Dispo For D/C to [facility] Visit type - Emergency Visit Emergency Visit: Yes ED Registration Date: 03/08/18 Care time: The patient presented to the Emergency Department on the above date and was hospitalized for further evaluation of their emergent condition. - New Patient This patient is new to me today: Yes Date on this admission: 03/11/18 - Critical Care Critical Care patient: No - Discharge Referral Referred to [facility] Med P.C.: No
[2018-03-11] MEDS: CHOLECALCIFEROL (VITAMIN D3) 1,000 UNIT TABLET (FP) PO SCH (09:34)
[2018-03-11] MEDS: amLODIPine BESYLATE 5 MG TABLET (FP) PO SCH (09:34)
[2018-03-11] MEDS: PREGABALIN 100 MG CAPSULE PO SCH ×2 (09:35→21:15)
[2018-03-11] MEDS ORDERED: BACLOFEN 10 MG TABLET (FP) PO SCH (10:00)
--- NOTE | 2018-03-11 11:01 | PN ---
Teaching Attending Note Name of Resident: Katherine Bo Yamilex ATTENDING PHYSICIAN STATEMENT I saw and evaluated the patient. I reviewed the resident's note and discussed the case with the resident. I agree with the resident's findings and plan as documented. SUBJECTIVE:asymptomatic now. states she always have urinary frequency and been unable to ascertain if its been more than usual. states she was very confused when she came to the hospital which improved by the next day. denies Cp, SOB, fever, chills, N/V/C/D OBJECTIVE: Last Vital Signs Temp Pulse Resp BP Pulse Ox 98.3 F 65 12 125/69 95 03/11/18 06:00 03/11/18 06:00 03/11/18 06:00 03/11/18 06:00 03/10/18 21:00 General NAD CV S1 S2 RRR +murmur Abdomen soft NT/ND obese ASSESSMENT AND PLAN: 67 yof with PMhx of asthma/copd, buttock ulcer, chronic back pain on chronic opiates, DM, CVA in 1978 and 1992, [place] in 1996 and 1999 admitted with AMS, abnormal EKG, UTI. 1. acute metabolic encephalopathy- likely due to UTI. questionable if patient has returned to baseline. did received Ceftriaxone x1. UA was +. although UCx was negative believe pt should be treated. will d/c on keflex for 7 days. 2. Abnormal EKG- likely artifact. no further intervention. can f/u with cardio as outpatient 3. Prolonged QTc- repeat 440 4. DM- sugars been controlled on minimal iss. has not received levemir dose. would recommend to continue to hold levemir. encourage to check sugars before meals document sugars and give coverage. document how much coverage given. to bring this to PMD this week and can recommend if and when should go back on levemir 5. Agitation- with refusal of some treatment and wants to go home. seen by psych and determined competent to make decisions 6. chronic back pain- controlled eith percocet 7. CVA- with residual R side deficits. unclear why not on asa. will start on discharge 8. CAD s/p [place]- no stents. not on asa or statin therapy. will start on discharge 9. DVT ppx- hep sq 10. d/c home with [facility]. counselled on above noted medication changes. verbalized understanding
[2018-03-11] MEDS: CEPHALEXIN MONOHYDRATE 500 MG CAPSULE (UD) PO SCH ×2 (14:07→21:14)
[2018-03-11] MEDS: MELATONIN 5 MG TABLETS PO SCH (21:14)
[2018-03-12 00:32] VITALS: TEMP 98.5
[2018-03-12] MEDS: oxyCODONE HCL 5 MG TABLET PO PRN (02:49)
[2018-03-12] MEDS: ACETAMINOPHEN 325 MG TABLET (FP) PO PRN (02:49)
[2018-03-12] MEDS: HEPARIN NA (PORCINE) 5,000 UNITS/ML 1ML VIAL SQ SCH (05:35)
[2018-03-12] MEDS: INSULIN SLIDING SCALE (NOVOLOG) 1 VIAL SQ SCH (06:21)
--- NOTE | 2018-03-12 07:20 | PN ---
Physical Exam: SUBJECTIVE: Patient seen and examined. Did not leave yesterday because the aide was not available. Started keflex PO yesterday OBJECTIVE: Vital Signs Period Temp Pulse Resp BP Sys/Danielle Pulse Ox Last 24 Hr 98.5 F-98.9 F 63-78 14-17 117-158/63-74 95-95 Vital Signs Temp 98.5 F 03/12/18 00:00 Pulse 74 03/12/18 04:00 Resp 14 03/12/18 04:00 BP 158/73 03/12/18 04:00 Pulse Ox 95 03/11/18 21:00 Intake & Output 03/11/18 03/11/18 03/12/18 11:59 23:59 11:59 Intake Total 120 1000 120 Balance 120 1000 120 Weight 96.615 kg 97.159 kg Intake: Oral 120 1000 120 Other: Voiding Method Diaper Diaper Diaper # Unmeasured Voids Void 2 2 2 Bowel Movement No No No Weight Measurement Method Built in Bedscale Built in Bedscale GENERAL: The patient is awake, alert, and fully oriented, calm, in no acute distress. EYES: R eye not fully opening . Weakness of R side of face. Brow crease absent on R. ENT: Weak cheek muscles on R to blowing LUNGS: Scattered wheezes HEART: Regular rate and rhythm, S1, S2 ABDOMEN: Obese, Soft, nontender, nondistended, normoactive bowel sounds EXTREMITIES: 2+ pulses, warm, well-perfused, no edema. NEUROLOGICAL: AAO x3. UE strength 5/5 bilaterally, RLE 1/5, LLE 2/5 PSYCH: Normal mood, normal affect. Active Medications Generic Name Dose Route Start Last Admin Trade Name Freq PRN Reason Stop Dose Admin Acetaminophen 325 mg 03/10/18 19:17 03/12/18 02:49 Tylenol - PO 325 mg Q8H PRN Administration PAIN LEVEL 4 - 6 Amlodipine Besylate 5 mg 03/11/18 10:00 03/11/18 09:34 Norvasc - PO 5 mg DAILY YONG Administration Baclofen 20 mg 03/11/18 10:00 03/11/18 11:00 Lioresal - PO 20 mg DAILY YONG Administration Cephalexin HCl 500 mg 03/11/18 11:15 03/11/18 21:14 Keflex - PO 500 mg BID YONG Administration Cholecalciferol 1,000 unit 03/11/18 10:00 03/11/18 09:34 Vitamin D3 - PO 1,000 unit DAILY YONG Administration Furosemide 20 mg 03/12/18 10:00 Lasix - PO MoWeFr@1000 [facility] Heparin Sodium (Porcine) 5,000 unit 03/10/18 22:00 03/12/18 05:35 Heparin - SQ 5,000 unit TID YONG Administration Insulin Aspart 1 vial 03/10/18 22:00 03/12/18 06:21 Novolog Vial Sliding Scale - SQ Not Given ACHS [facility] Protocol Melatonin 5 mg 03/10/18 22:00 03/11/18 21:14 Melatonin PO 5 mg HS YONG Administration Oxycodone HCl 5 mg 03/10/18 19:17 03/12/18 02:49 Roxicodone - PO 5 mg Q6H PRN Administration PAIN LEVEL 7-10 Pregabalin 100 mg 03/10/18 22:00 03/11/18 21:15 Lyrica - PO 100 mg BID YONG Administration Senna 1 tab 03/10/18 19:17 03/11/18 09:35 Senna - PO 1 tab Q24H PRN Administration CONSTIPATION Ambulatory Orders Metoclopramide HCl 10 mg PO DAILY 08/26/14 Ergocalciferol [Vitamin D2] 50,000 unit PO Q7D@1000 10/25/14 Sennosides [Senokot] 8.6 mg PO DAILY PRN 10/25/14 Furosemide [Lasix -] 20 mg PO MOWEFR 03/20/17 Oxycodone HCl/Acetaminophen [Percocet 10-325 mg Tablet] 1 each PO QID PRN #120 tablet MDD 4 03/07/18 Pregabalin [Lyrica -] 100 mg PO BID #60 capsule MDD 2 03/07/18 Ascorbic Acid [Vitamin C] 500 mg PO DAILY 03/08/18 Baclofen 20 mg PO DAILY 03/08/18 Cholecalciferol (Vitamin D3) [Vitamin D3] 1,000 unit PO DAILY 03/08/18 Cyclobenzaprine HCl [Flexeril 10 mg] 10 mg PO PRN PRN 03/08/18 Melatonin 6 mg PO HS 03/08/18 Amlodipine Besylate [Norvasc -] 5 mg PO DAILY #30 tablet 03/11/18 Aspirin [ASA -] 81 mg PO DAILY #30 tab.chew 03/11/18 Atorvastatin Ca [Lipitor] 40 mg PO HS #30 tablet 03/11/18 Cephalexin Monohydrate [Keflex -] 500 mg PO BID 7 Days #14 capsule 03/11/18 Insulin Sliding Scale [Novolog Vial Sliding Scale -] See Protocol SQ ACHS 30 Days #100 pen 03/11/18 Current Medications Acetaminophen (Tylenol -) 325 mg PO Q8H PRN PRN Reason: PAIN LEVEL 4 - 6 Last Admin: 03/12/18 02:49 Dose: 325 mg Amlodipine Besylate (Norvasc -) 5 mg PO DAILY [facility] Last Admin: 03/11/18 09:34 Dose: 5 mg Baclofen (Lioresal -) 20 mg PO DAILY [facility] Last Admin: 03/11/18 11:00 Dose: 20 mg Cephalexin HCl (Keflex -) 500 mg PO BID [facility] Last Admin: 03/11/18 21:14 Dose: 500 mg Cholecalciferol (Vitamin D3 -) 1,000 unit PO DAILY [facility] Last Admin: 03/11/18 09:34 Dose: 1,000 unit Furosemide (Lasix -) 20 mg PO MoWeFr@1000 [facility] Heparin Sodium (Porcine) (Heparin -) 5,000 unit SQ TID [facility] Last Admin: 03/12/18 05:35 Dose: 5,000 unit Insulin Aspart (Novolog Vial Sliding Scale -) 1 vial SQ [facility]; Protocol Last Admin: 03/12/18 06:21 Dose: Not Given Melatonin (Melatonin) [address] [facility] Last Admin: 03/11/18 21:14 Dose: 5 mg Oxycodone HCl (Roxicodone -) 5 mg PO Q6H PRN PRN Reason: PAIN LEVEL 7-10 Last Admin: 03/12/18 02:49 Dose: 5 mg Pregabalin (Lyrica -) 100 mg PO BID [facility] Last Admin: 03/11/18 21:15 Dose: 100 mg Senna (Senna -) 1 tab PO Q24H PRN PRN Reason: CONSTIPATION Last Admin: 03/11/18 09:35 Dose: 1 tab ASSESSMENT/PLAN:
[2018-03-12] MEDS ORDERED: ALBUTEROL SO4 0.083% IH SOL 2.5 MG/3 ML VIAL.NEB. NEB PRN (07:22)
[2018-03-12 07:48] VITALS: BP 124/63; PULSE 68
[2018-03-12] MEDS ORDERED: PT OWN MED DRAWER 7, Y5N ONE (09:12)
[2018-03-12] MEDS: CEPHALEXIN MONOHYDRATE 500 MG CAPSULE (UD) PO SCH (09:12)
[2018-03-12] MEDS: PREGABALIN 100 MG CAPSULE PO SCH (09:13)
[2018-03-12] MEDS: CHOLECALCIFEROL (VITAMIN D3) 1,000 UNIT TABLET (FP) PO SCH (09:13)
[2018-03-12] MEDS: amLODIPine BESYLATE 5 MG TABLET (FP) PO SCH (09:13)
[2018-03-12] MEDS ORDERED: FUROSEMIDE 20 MG TABLET (FP) PO SCH (10:00)
--- NOTE | 2018-03-12 11:30 | PN ---
Teaching Attending Note Name of Resident: Katherine Kaminski ATTENDING PHYSICIAN STATEMENT I saw and evaluated the patient. I reviewed the resident's note and discussed the case with the resident. I agree with the resident's findings and plan as documented. ASSESSMENT AND PLAN: 67 yof with PMhx of asthma/copd, buttock ulcer, chronic back pain on chronic opiates, DM, CVA in 1978 and 1992, [place] in 1996 and 1999 admitted with AMS, abnormal EKG, UTI. 1. acute metabolic encephalopathy- likely due to UTI. questionable if patient has returned to baseline. did received Ceftriaxone x1. UA was +. although UCx was negative believe pt should be treated. will d/c on keflex for 7 days. 2. Abnormal EKG- likely artifact. no further intervention. can f/u with cardio as outpatient 3. Prolonged QTc- repeat 440 4. DM- sugars been controlled on minimal iss. has not received levemir dose. would recommend to continue to hold levemir. encourage to check sugars before meals document sugars and give coverage. document how much coverage given. to bring this to PMD this week and can recommend if and when should go back on levemir 5. Agitation- with refusal of some treatment and wants to go home. seen by psych and determined competent to make decisions 6. chronic back pain- controlled eith percocet 7. CVA- with residual R side deficits. unclear why not on asa. will start on discharge 8. CAD s/p [place]- no stents. not on asa or statin therapy. will start on discharge 9. DVT ppx- hep sq 10. d/c home with [facility]. counselled on above noted medication changes. verbalized understanding
--- NOTE | 2018-03-12 14:38 | DS ---
Physical Exam: SUBJECTIVE: Patient seen and examined. Feels much better today. Did not leave yesterday because the aide did not come. OBJECTIVE: Vital Signs Period Temp Pulse Resp BP Sys/Danielle Pulse Ox Last 24 Hr 98.5 F-98.9 F 63-78 14-22 117-158/63-74 95-98 Vital Signs Temp 98.5 F 03/12/18 00:00 Pulse 74 03/12/18 04:00 Resp 14 03/12/18 04:00 BP 158/73 03/12/18 04:00 Pulse Ox 95 03/11/18 21:00 Intake & Output 03/11/18 03/11/18 03/12/18 11:59 23:59 11:59 Intake Total 120 1000 120 Balance 120 1000 120 Weight 96.615 kg 97.159 kg Intake: Oral 120 1000 120 Other: Voiding Method Diaper Diaper Diaper # Unmeasured Voids Void 2 2 2 Bowel Movement No No No Weight Measurement Method Built in Bedscale Built in Bedscale PHYSICAL EXAM GENERAL: The patient is awake, alert, and fully oriented, calm, in no acute distress. EYES: R eye not fully opening . Weakness of R side of face. Brow crease absent on R. ENT: Weak cheek muscles on R to blowing LUNGS: Scattered wheezes HEART: Regular rate and rhythm, S1, S2 ABDOMEN: Obese, Soft, nontender, nondistended, normoactive bowel sounds EXTREMITIES: 2+ pulses, warm, well-perfused, no edema. NEUROLOGICAL: AAO x3. UE strength 5/5 bilaterally, RLE 1/5, LLE 2/5 PSYCH: Normal mood, normal affect. LABS Laboratory Last Values WBC 9.9 K/mm3 (4.0-10.0) 03/10/18 05:50 RBC 4.77 M/mm3 (3.60-5.2) 03/10/18 05:50 Hgb 15.3 GM/dL (10.7-15.3) 03/10/18 05:50 Hct 44.0 % (32.4-45.2) 03/10/18 05:50 MCV 92.2 fl (80-96) 03/10/18 05:50 MCH 32.2 pg (25.7-33.7) 03/10/18 05:50 MCHC 34.9 g/dl (32.0-36.0) 03/10/18 05:50 RDW 14.1 % (11.6-15.6) 03/10/18 05:50 Plt Count 210 K/MM3 (134-434) 03/10/18 05:50 MPV 9.1 fl (7.5-11.1) 03/10/18 05:50 Neutrophils % 59.8 % (42.8-82.8) 03/10/18 05:50 Lymphocytes % 32.0 % (8-40) 03/10/18 05:50 Monocytes % 5.3 % (3.8-10.2) 03/10/18 05:50 Eosinophils % 2.5 % (0-4.5) 03/10/18 05:50 Basophils % 0.4 % (0-2.0) 03/10/18 05:50 Nucleated RBC % 0 % (0-0) 03/10/18 05:50 PT with INR 11.40 SEC (9.7-13.0) 03/08/18 14:04 INR 1.01 (0.82-1.09) 03/08/18 14:04 Sodium 140 mmol/L (136-145) 03/10/18 05:50 Potassium 3.9 mmol/L (3.5-5.1) 03/10/18 05:50 Chloride 107 mmol/L (98-107) 03/10/18 05:50 Carbon Dioxide 27 mmol/L (21-32) 03/10/18 05:50 Anion Gap 6 (8-16) L 03/10/18 05:50 BUN 12 mg/dL (7-18) 03/10/18 05:50 Creatinine 0.6 mg/dL (0.55-1.02) 03/10/18 05:50 Creat Clearance w eGFR > 60 (>60) 03/09/18 05:40 POC Glucometer 147.23065 UNITS (80-120) 03/10/18 17:30 Random Glucose 136 mg/dL (74-106) H 03/10/18 05:50 Calcium 8.6 mg/dL (8.5-10.1) 03/10/18 05:50 Phosphorus 4.0 mg/dL (2.5-4.9) 03/10/18 05:50 Magnesium 2.0 mg/dL (1.8-2.4) 03/10/18 05:50 Total Bilirubin 0.7 mg/dL (0.2-1.0) 03/09/18 05:40 AST 15 U/L (15-37) 03/09/18 05:40 ALT 14 U/L (12-78) 03/09/18 05:40 Alkaline Phosphatase 78 U/L (45-117) 03/09/18 05:40 Creatine Kinase 22 IU/L (26-192) L 03/08/18 14:04 Troponin I < 0.02 ng/ml (0.00-0.05) 03/09/18 05:40 Total Protein 5.9 g/dl (6.4-8.2) L 03/09/18 05:40 Albumin 3.1 g/dl (3.4-5.0) L 03/09/18 05:40 TSH 0.81 uIU/ml (0.358-3.74) 03/09/18 05:40 Urine Color Ltyellow 03/08/18 13:41 Urine Appearance Clear 03/08/18 13:41 Urine pH 7.0 (5.0-8.0) 03/08/18 13:41 Ur Specific [place] 1.013 (1.001-1.035) 03/08/18 13:41 Urine Protein Negative (NEGATIVE) 03/08/18 13:41 Urine Glucose (UA) Negative (NEGATIVE) 03/08/18 13:41 Urine Ketones Negative (NEGATIVE) 03/08/18 13:41 Urine Blood 1+ (NEGATIVE) H 03/08/18 13:41 Urine Nitrite Negative (NEGATIVE) 03/08/18 13:41 Urine Bilirubin Negative (<2.0 mg/dL) 03/08/18 13:41 Urine Urobilinogen Negative mg/dL (0.2-1.0) 03/08/18 13:41 Ur Leukocyte Esterase 2+ (NEGATIVE) H 03/08/18 13:41 Urine WBC (Auto) 41 /hpf (3-5) 03/08/18 13:41 Urine RBC (Auto) 5 /hpf (0-3) 03/08/18 13:41 Ur Epithelial Cells Rare /HPF (FEW) 03/08/18 13:41 Urine Mucus Rare 03/08/18 13:41 Current Medications Acetaminophen (Tylenol -) 325 mg PO Q8H PRN PRN Reason: PAIN LEVEL 4 - 6 Last Admin: 03/12/18 02:49 Dose: 325 mg Amlodipine Besylate (Norvasc -) 5 mg PO DAILY [facility] Last Admin: 03/11/18 09:34 Dose: 5 mg Baclofen (Lioresal -) 20 mg PO DAILY [facility] Last Admin: 03/11/18 11:00 Dose: 20 mg Cephalexin HCl (Keflex -) 500 mg PO BID [facility] Last Admin: 03/11/18 21:14 Dose: 500 mg Cholecalciferol (Vitamin D3 -) 1,000 unit PO DAILY [facility] Last Admin: 03/11/18 09:34 Dose: 1,000 unit Furosemide (Lasix -) 20 mg PO MoWeFr@1000 YONG Heparin Sodium (Porcine) (Heparin -) 5,000 unit SQ TID [facility] Last Admin: 03/12/18 05:35 Dose: 5,000 unit Insulin Aspart (Novolog Vial Sliding Scale -) 1 vial SQ [facility]; Protocol Last Admin: 03/12/18 06:21 Dose: Not Given Melatonin (Melatonin) 5 mg PO HS [facility] Last Admin: 03/11/18 21:14 Dose: 5 mg Oxycodone HCl (Roxicodone -) 5 mg PO Q6H PRN PRN Reason: PAIN LEVEL 7-10 Last Admin: 03/12/18 02:49 Dose: 5 mg Pregabalin (Lyrica -) 100 mg PO BID [facility] Last Admin: 03/11/18 21:15 Dose: 100 mg Senna (Senna -) 1 tab PO Q24H PRN PRN Reason: CONSTIPATION Last Admin: 03/11/18 09:35 Dose: 1 tab HOSPITAL COURSE: Date of Admission:03/08/18 Date of Discharge: 03/12/18 Prehospital course: Pt is a 67 y/o F with PMhx of asthma/copd, buttock ulcer, chronic back pain on chronic opiates, DM, CVA in 1978 and 1992, [place] in 1996 and 1999 who was brought to ED with AMS. She was found to have metabolic encephalopathy 2/2 UTI and abnormal EKG. Patient came in altered in the ED with alt of agitation and yelling which is different from her at baseline. She was seen by Neuro and psych that deemed it to be metabolic. CT head was negative for a CVA. The metabolic encephalopathy resolved quickly. Pt received intravenous ceftriaxone and was discharged on keflex for the UTI (had LE in UA) Pt had equivocal flutters on EKG that were deemed to be artifactual. She had an initially prolonged QTc which on repeat EKG QTc 440. Pt will follow up as an outpatient. 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 Her levemir and standing aspart were stopped and pt was discharged on ISS to follow up with her PCP for insulin adjustments using a sugar log as needed. Pt has chronic back pain and opioid dependence. She was continued on her home medications. She was also continued on all her other home medications for her chronic conditions. She was discharged home to a home health aide, to follow up up with her PCP. Minutes to complete discharge: 38 Discharge Summary Reason For Visit: URINART TRACT INFECTION Condition: Stable - Instructions Diet, Activity, Other Instructions: You came in confused. You were seen by neurology and psychiatry CT of your head did not show any new stroke We noted that you had a urinary tract infection We are giving you antibiotics to take by mouth- Tabs Keflex 500mg twice a day for 1 week You were found to have uncontrolled high blood pressure You were placed on Amlodipine 5mg We are adding Aspirin 81 mg daily We are adding a lipid lowering drug-lipitor 40mg to be taken daily at night You had questionable changes on your EKG. You need to follow up as an outpatient with cardiology. 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 We stopped your jail and short term insulin regimen and have put you on a sliding scale You should check your sugars before meals and before bedtime and give insulin as follows: glucose # units of insulin 101-150- 0units 151-200- 2 units 201-250- 4units 251-300- 6 units 301-350- 8 units 351-400- 10units >401- 12 units and call your doctor You can log your sugar doses and bring along when you see your primary care doctor to have your insulin dose adjusted as needed Continue with all your other home medications You are being discharged home to continue your [employer] services Follow up with your primary care doctor in one week If you think your symptoms are not getting better please return to the emergency room Referrals: Jacob Sigala MD [Staff Physician] - Rossi Almazan MD [Staff Physician] - 1 Week Disposition: HOME - Home Medications Comprehensive Discharge Medication List: Ambulatory Orders Metoclopramide HCl 10 mg PO DAILY 08/26/14 Ergocalciferol [Vitamin D2] 50,000 unit PO Q7D@1000 10/25/14 Sennosides [Senokot] 8.6 mg PO DAILY PRN 10/25/14 Furosemide [Lasix -] 20 mg PO MOWEFR 03/20/17 Oxycodone HCl/Acetaminophen [Percocet 10-325 mg Tablet] 1 each PO QID PRN #120 tablet MDD 4 03/07/18 Pregabalin [Lyrica -] 100 mg PO BID #60 capsule MDD 2 03/07/18 Ascorbic Acid [Vitamin C] 500 mg PO DAILY 03/08/18 Baclofen 20 mg PO DAILY 03/08/18 Cholecalciferol (Vitamin D3) [Vitamin D3] 1,000 unit PO DAILY 03/08/18 Cyclobenzaprine HCl [Flexeril 10 mg] 10 mg PO PRN PRN 03/08/18 Melatonin 6 mg PO HS 03/08/18 Amlodipine Besylate [Norvasc -] 5 mg PO DAILY #30 tablet 03/11/18 Aspirin [ASA -] 81 mg PO DAILY #30 tab.chew 03/11/18 Atorvastatin Ca [Lipitor] 40 mg PO HS #30 tablet 03/11/18 Cephalexin Monohydrate [Keflex -] 500 mg PO BID 7 Days #14 capsule 03/11/18 Insulin Sliding Scale [Novolog Vial Sliding Scale -] See Protocol SQ ACHS 30 Days #100 pen 03/11/18 This patient is new to me today: No Emergency Visit: Yes ED Registration Date: 03/08/18 Care time: The patient presented to the Emergency Department on the above date and was hospitalized for further evaluation of their emergent condition. Critical Care patient: No - Discharge Referral Referred to [facility] No
== END 2018-03-12 09:36 | disposition home or self-care (01) | DRG 689 ==
LOC: JER 12:51 → JERBED 16:00 → J2W 20:33
PROVIDERS: ADMIT Hospitalist; ATTEND Internal Medicine
DX: N39.0 Urinary tract infection, site not specified (principal); G93.41 Metabolic encephalopathy; F11.20 Opioid dependence, uncomplicated; I69.351 Hemiplegia and hemiparesis following cerebral infarction affecting right dominant side; Z68.43 Body mass index [BMI] 50.0-59.9, adult; M54.9 Dorsalgia, unspecified; J44.9 Chronic obstructive pulmonary disease, unspecified; E11.9 Type 2 diabetes mellitus without complications; I25.2 Old myocardial infarction; Z79.4 Long term (current) use of insulin; F17.200 Nicotine dependence, unspecified, uncomplicated; I11.0 Hypertensive heart disease with heart failure; I50.9 Heart failure, unspecified; E66.01 Morbid (severe) obesity due to excess calories; E78.5 Hyperlipidemia, unspecified; Z68.39 Body mass index [BMI] 39.0-39.9, adult; Z99.3 Dependence on wheelchair; Z85.118 Personal history of other malignant neoplasm of bronchus and lung; F41.9 Anxiety disorder, unspecified; F32.9 Major depressive disorder, single episode, unspecified
CPT/HCPCS: 36415; 70450-TC; 71045-TC-FY; 80048; 80053; 81003; 81015; 82550; 82962; 83735; 84100; 84443; 84484; 85025; 85610; 87086; 93005; 93010; 93306-TC; 99285-25; G0463-25; J0475; J1644

== ENCOUNTER 2019-02-13 15:37 | Observation (INO) | payer OTHER ==
--- NOTE | 2019-02-13 16:06 | PDOC ---
History of Present Illness - General Stated Complaint: UTI NAUSEA VOMITING Time Seen by Provider: 02/13/19 16:05 - History of Present Illness Initial Comments: 68yoF with PMH of asthma/COPD, chronic back pain on chronic opiates, DM, CVA in 1978 and 1992, [place] in 1996 and 1999 who was brought to ED with AMS. Patient is unable to state why she is here. During history-taking, she is very somnolent. Upon speaking with the home health aide, patient was very lethargic today. While she is usually awake around noon, the home health aide noted the patient was still sleeping at that time. Around 2:30, the aide states the patient "sounded like she couldn't breathe" and had an episode of bilious vomiting. The aide also notes that the patient seems very confused and appeared to be tremulous. Per chart review, patient was found to have metabolic encephalopathy due to UTI and abnormal EKG in February 2018. Past History - Past Medical History Allergies/Adverse Reactions: Allergies Allergy/AdvReac Type Severity Reaction Status Date / Time shellfish derived Allergy Mild can't Verified 03/10/18 19:24 swallow it Home Medications: Ambulatory Orders Metoclopramide HCl 10 mg PO DAILY 08/26/14 Sennosides [Senokot] 8.6 mg PO DAILY PRN 10/25/14 Furosemide [Lasix -] 20 mg PO MOWEFR 03/20/17 Ascorbic Acid [Vitamin C] 500 mg PO DAILY 03/08/18 Cholecalciferol (Vitamin D3) [Vitamin D3] 1,000 unit PO DAILY 03/08/18 Cyclobenzaprine HCl [Flexeril 10 mg] 10 mg PO PRN PRN 03/08/18 Melatonin 6 mg PO HS 03/08/18 Amlodipine Besylate [Norvasc -] 5 mg PO DAILY #30 tablet 03/11/18 Aspirin [ASA -] 81 mg PO DAILY #30 tab.chew 03/11/18 Atorvastatin Ca [Lipitor] 40 mg PO HS #30 tablet 03/11/18 Insulin Sliding Scale [Novolog Vial Sliding Scale -] See Protocol SQ ACHS 30 Days #100 pen 03/11/18 Baclofen 20 mg PO BID #60 tablet 05/30/18 Diclofenac Sodium [Voltaren] 2 gm TP TID PRN #3 tube 11/26/18 Ergocalciferol [Vitamin D2] 50,000 unit PO Q7D@1000 #4 capsule 12/26/18 Oxycodone HCl/Acetaminophen [Percocet 10-325 mg Tablet] 1 each PO QID PRN #120 tablet MDD 4 12/26/18 Pregabalin [Lyrica -] 100 mg PO BID #60 capsule MDD 2 12/26/18 Oxycodone HCl/Acetaminophen [Oxycodone-Acetaminophen 10-325] 1 each PO QID PRN # 60 tablet MDD 4 01/27/19 Asthma: Yes Cancer: Yes (hx lung cancer - had RT 1991) Cardiac Disorders: Yes (hx AK x 2: 1996, 1999) CVA: Yes (x 2: 1978, 1992) COPD: No CHF: Yes Diabetes: Yes (poor adherence) Disorders: Yes (incontinence) Liver Disease: No Seizures: Yes (none x several years) Thyroid Disease: No - Surgical History Appendectomy: Yes Cholecystectomy: Yes Orthopedic Surgery: Yes (knee injections) - Immunization History Td Vaccination: No Immunization Up to Date: Yes - Suicide/Smoking/Psychosocial Hx Smoking History: Current every day smoker Have you smoked in the past 12 months: Yes Number of Cigarettes Smoked Daily: 10 'Breaking Loose' booklet given: 03/08/18 Hx Alcohol Use: No Drug/Substance Use Hx: No Substance Use Type: None Hx Substance Use Treatment: No Review of Systems - Review of Systems Able to Perform ROS?: No (patient lethargic) *Physical Exam - Physical Exam Comments: General: Awake, alert, and fully oriented x 3, morbidly obese; patient somnolent but arousable. Dozing off repeatedly during exam Head: No signs of trauma Eyes: EOMI, sclera anicteric ENT: Dry mucus membranes, mouth smells of vomit Neck: Normal ROM, supple Lungs: Prolonged expiratory phase, decreased breath sounds at the bases Cardio: Regular rhythm, S1 and S2 present Abdomen: Soft, nontender. No guarding, no rebound, no masses Extremities: Normal range of motion, Distal pulses present SKIN: Warm, Dry, normal turgor Neurologic: Cranial nerves II through XII grossly intact. ED Treatment Course - LABORATORY CBC & Chemistry Diagram: 02/13/19 17:37 02/13/19 21:56 Medical Decision Making - Medical Decision Making 68yoF with PMH of asthma/COPD, chronic back pain on chronic opiates, DM, CVA in 1978 and 1992, [place] in 1996 and 1999 who was brought to ED with AMS. DDX including but not limited to UTI, PNA, gastritis, gastroenteritis, CVA, dementia, electrolyte abnormality, medication overdose Pepcid, fluids Patient resistant to IV and blood draw As she is lethargic and unable to voice benefits/risks of refusing treatment, patient determined to not have capacity. Spoke with patient's home health aide, Isha, and received collateral history as stated on HPI. [phone] 02/13/19 16:54 Labs hemolyzed; re-ordered 02/13/19 18:14 Patient has not vomited while in the ED Patient still refusing labs or urine collection; she flails her arms and makes a fist with threatening motion towards staff. She is AAOx3, however, is unable to state why she is in the hospital, why we want to get blood work, or the risks of going home. She does state "I want to go home. I will sign myself out" but is deemed not to have capacity as she cannot verbalize the risks/benefits of refusing care. Haldol 5mg IM given EKG: rate 64, QTc 443, NSR 02/13/19 20:12 Patient is the same Another Haldol 5mg IM ordered 02/13/19 20:25 Chemistries and urine finally sent. Pending results. 02/13/19 22:08 CMP Sodium 138 mmol/L (136-145) 02/13/19 21:56 Potassium 4.5 mmol/L (3.5-5.1) 02/13/19 21:56 Chloride 106 mmol/L (98-107) 02/13/19 21:56 Carbon Dioxide 28 mmol/L (21-32) 02/13/19 21:56 Anion Gap 5 MMOL/L (8-16) L 02/13/19 21:56 BUN 13 mg/dL (7-18) 02/13/19 21:56 Creatinine 0.5 mg/dL (0.55-1.3) L 02/13/19 21:56 Creat Clearance w eGFR 123.44 (>60) 02/13/19 21:56 Random Glucose 135 mg/dL (74-106) H 02/13/19 21:56 Calcium 9.0 mg/dL (8.5-10.1) 02/13/19 21:56 Total Bilirubin 0.6 mg/dL (0.2-1) 02/13/19 21:56 AST 43 U/L (15-37) H 02/13/19 21:56 ALT 46 U/L (13-61) 02/13/19 21:56 Alkaline Phosphatase 111 U/L (45-117) 02/13/19 21:56 Troponin I < 0.02 ng/ml (0.00-0.05) 02/13/19 21:56 Total Protein 6.1 g/dl (6.4-8.2) L 02/13/19 21:56 Albumin 3.0 g/dl (3.4-5.0) L 02/13/19 21:56 Lipase 38 U/L (73-393) L 02/13/19 21:56 Tpn undetectable Lipase low UA negative for infection Patient is more awake now. Not lethargic. Not somnolent. 02/13/19 22:40 Spoke with home health aideIsha Patient is not a safe discharge home as the home health aide will not be present tonight. Plan to ED obs for social work consultation in the morning Home health aide requesting call in the morning in anticipation of patient's discharge so she can be there upon patient's arrival 02/13/19 23:[address] Stephens who accepted patient for observation under Dr. Wong 02/13/19 23:16 *DC/Admit/Observation/Transfer Diagnosis at time of Disposition: Lethargy - Discharge Dispostion Condition at time of disposition: Guarded Decision to Admit order: Yes - Referrals - Patient Instructions - Post Discharge Activity
--- NOTE | 2019-02-13 16:19 | PDOC ---
Attending Attestation - Resident Resident Name: Brittney Diop - ED Attending Attestation I have performed the following: I have examined & evaluated the patient, The case was reviewed & discussed with the resident, I agree w/resident's findings & plan - [facility] HPI: 02/13/19 16:24 67 y/o F with PMhx of asthma/copd, buttock ulcer, chronic back pain on chronic opiates, DM, CVA in 1978 and 1992, [place] in 1996 and 1999 who was brought to ED for nausea and vomiting, lethargy noted by home health aide today.. prior history and admission 2017 for encephalopathy 2/2 UTI. pt poorly cooperation, some limitation with history and ROS. resident called to home health aid for collateral information 02/13/19 17:30 - Physicial Exam PE: 02/13/19 16:25 Agree with the resident's HPI and PE as documented in the electronic medical record. NAD, slow to respond and mentation, PERRL, EOMI, dry mucus membranes, nl conjunctiva, anicteric; neck supple. lungs clear, RRR, abdomen soft morbidly obese, nontender, no flank CVAT. DONNELLY x4, no focal neuro deficits. No peripheral edema. normal color for ethnicity, WWP. 02/13/19 17:32 02/14/19 01:12 - Medical Decision Making 02/13/19 16:23 See HPI for details Vital signs reviewed, mildly hypertensive, but acutely nauseous and poorly cooperative. DDX UTI, infection, ACS, arrhythmia, encephalopathy, metabolic/electrolyte derangements anemia, deconditionng. Prior notes reviewed, including admissions, discharges and consultations. laboratory results and imaging reviewed, basic labs and lytes wnl UA_neg for infection. Cardiac panel_negative EKG normal sinus rhythm at 64 bpm, LAD, no interval abnormalities, narrow QRS, ST and T wave segments and morphology normal. Nonspecific T wave abnormalities - some limitation with artifact. ED course - not safe for discharge, came to be more alert, home health aid only available x 12 hours and has left after 8pm, informed her (Lakisha) of information, neg workup, but as baseline she is immobile and difficulty caring for herself, will admit observation, SW cs and observation for lethargy/weakness earlier today. 02/14/19 01:13 02/14/19 01:13 Heart Score/ECG Review #1 ECG reviewed & interpreted by me at: 17:25 General ECG Interpretation: Sinus Rhythm, Normal Rate, Normal Intervals Compared to previous ECG there are: No significant change 02/13/19 17:34 EKG normal sinus rhythm at 64 bpm, LAD, no interval abnormalities, narrow QRS, ST and T wave segments and morphology normal. Nonspecific T wave abnormalities - some limitation with artifact.
[2019-02-13] MEDS ORDERED: SODIUM CHLORIDE 1,000 ML IV STA (16:20)
[2019-02-13] MEDS ORDERED: FAMOTIDINE 20 MG/50 ML IVPB 20 MG/50 ML MG IVPB ONE ×2 (16:20→16:24)
[2019-02-13 18:14] LABS: BASO % 0.6 % (0-2.0); EOS % 1.2 % (0-4.5); HEMATOCRIT 50.9 % (32.4-45.2); HEMOGLOBIN 16.5 GM/dL (10.7-15.3); LYMPH % 17.6 % (8-40); MCH 29.6 pg (25.7-33.7); MCHC 32.4 g/dl (32.0-36.0); MEAN CELL VOLUME 91.1 fl (80-96); MONO % 4.8 % (3.8-10.2); NEUT % 75.8 % (42.8-82.8); PLATELET COUNT 219 K/MM3 (134-434); RBC 5.59 M/mm3 (3.60-5.2); RDW 13.6 % (11.6-15.6); WHITE BLOOD COUNT 12.8 K/mm3 (4.0-10.0)
[2019-02-13] MEDS ORDERED: HALOPERIDOL LACTATE 5 MG/ML IM ONE ×4 (19:39→21:06)
[2019-02-13 22:17] LABS: PH,URINE 5.5 (5.0-8.0); URINE APPEARANCE CLEAR; URINE BILIRUBIN NEGATIVE (NEGATIVE); URINE COLOR YELLOW; URINE GLUCOSE (UA) NEGATIVE (NEGATIVE); URINE KETONE NEGATIVE (NEGATIVE); URINE LEUK ESTERASE NEGATIVE (NEGATIVE); URINE NITRITE NEGATIVE (NEGATIVE); URINE PROTEIN NEGATIVE (NEGATIVE)
[2019-02-13 22:37] LABS: ALK PHOS 111 U/L (45-117); ANION GAP 5 MMOL/L (8-16); BILIRUBIN,TOTAL 0.6 mg/dL (0.2-1); BLOOD UREA NITROGEN 13 mg/dL (7-18); CHLORIDE 106 mmol/L (98-107); CO2 28 mmol/L (21-32); CREATININE 0.5 mg/dL (0.55-1.3); GLUCOSE,RANDOM 135 mg/dL (74-106); POTASSIUM 4.5 mmol/L (3.5-5.1); SGOT/AST 43 U/L (15-37); SGPT/ALT 46 U/L (13-61); SODIUM 138 mmol/L (136-145); TOT PROT 6.1 g/dl (6.4-8.2)
[2019-02-13 22:39] LABS: LIPASE 38 U/L (73-393)
[2019-02-13] MEDS ORDERED: CYCLOBENZAPRINE HCL 10 MG TABLET (FP) PO PRN (23:38)
--- NOTE | 2019-02-13 23:41 | HP ---
CHIEF COMPLAINT: AMS HISTORY OF PRESENT ILLNESS: 68 year old female with PMH of asthma/COPD, chronic back pain on chronic opiates , DM, CVA in 1978 and 1992, OR in 1996 and 1999 brought in by EMS due to altered mental status reported by the health aide. Patient is A&O x 3 but is unable to really articulate why she is here. Per ED, she was ready to be discharged but the home health aid could not come open the door. Patient gets this aid for 12 hours. Upon not being able to answer ED questions, she was given haldol 5mg. Patient denies chest pain, SOB, nausea, vomiting, diarrhea, fevers, chills. PAST MEDICAL HISTORY: as stated above PAST SURGICAL HISTORY: unknown Social History: Smoking: unknown Alcohol: unknown Drugs: unknown Family History: unknown Allergies shellfish derived Allergy (Mild, Verified 03/10/18 19:24) can't swallow it HOME MEDICATIONS: Home Medications Medication Instructions Recorded Metoclopramide HCl 10 mg PO DAILY 08/26/14 Sennosides [Senokot] 8.6 mg PO DAILY PRN 10/25/14 Furosemide [Lasix -] 20 mg PO MOWEFR 03/20/17 Ascorbic Acid [Vitamin C] 500 mg PO DAILY 03/08/18 Cholecalciferol (Vitamin D3) 1,000 unit PO DAILY 03/08/18 [Vitamin D3] Cyclobenzaprine HCl [Flexeril 10 10 mg PO PRN PRN 03/08/18 mg] Melatonin 6 mg PO HS 03/08/18 Amlodipine Besylate [Norvasc -] 5 mg PO DAILY #30 tablet 03/11/18 Aspirin [ASA -] 81 mg PO DAILY #30 tab.chew 03/11/18 Atorvastatin Ca [Lipitor] 40 mg PO HS #30 tablet 03/11/18 Insulin Sliding Scale [Novolog See Protocol SQ ACHS 30 Days #100 03/11/18 Vial Sliding Scale -] pen Baclofen 20 mg PO BID #60 tablet 05/30/18 Diclofenac Sodium [Voltaren] 2 gm TP TID PRN #3 tube 11/26/18 Ergocalciferol [Vitamin D2] 50,000 unit PO Q7D@1000 #4 capsule 12/26/18 Oxycodone HCl/Acetaminophen 1 each PO QID PRN #120 tablet MDD 4 12/26/18 [Percocet 10-325 mg Tablet] Pregabalin [Lyrica -] 100 mg PO BID #60 capsule MDD 2 12/26/18 Oxycodone HCl/Acetaminophen 1 each PO QID PRN #60 tablet MDD 4 01/27/19 [Oxycodone-Acetaminophen 10-325] REVIEW OF SYSTEMS CONSTITUTIONAL: Absent: fever, chills, diaphoresis, generalized weakness, malaise, loss of appetite, weight change HEENT: Absent: rhinorrhea, nasal congestion, throat pain, throat swelling, difficulty swallowing, mouth swelling, ear pain, eye pain, visual changes CARDIOVASCULAR: Absent: chest pain, syncope, palpitations, irregular heart rate, lightheadedness , peripheral edema RESPIRATORY: Absent: cough, shortness of breath, dyspnea with exertion, orthopnea, wheezing, stridor, hemoptysis GASTROINTESTINAL: Absent: abdominal pain, abdominal distension, nausea, vomiting, diarrhea, constipation, melena, hematochezia GENITOURINARY: Absent: dysuria, frequency, urgency, hesitancy, hematuria, flank pain, genital pain MUSCULOSKELETAL: Absent: myalgia, arthralgia, joint swelling, back pain, neck pain SKIN: Absent: rash, itching, pallor HEMATOLOGIC/IMMUNOLOGIC: Absent: easy bleeding, easy bruising, lymphadenopathy, frequent infections ENDOCRINE: Absent: unexplained weight gain, unexplained weight loss, heat intolerance, cold intolerance NEUROLOGIC: Absent: headache, focal weakness or paresthesias, dizziness, unsteady gait, seizure, mental status changes, bladder or bowel incontinence PSYCHIATRIC: Absent: anxiety, depression, suicidal or homicidal ideation, hallucinations. PHYSICAL EXAMINATION Vital Signs - 24 hr 02/13/19 16:05 Temperature 98.5 F Pulse Rate 73 Respiratory 18 Rate Blood Pressure 148/102 H O2 Sat by Pulse 96 Oximetry (%) GENERAL: A&Ox3, no acute distress, unable to explain why she is in hospital EYES: PERRLA, EOMI ENT: Moist mucus membranes NECK: No JVD LUNGS: CTA, no wheezes HEART: RRR, no murmurs ABDOMEN: Obese, Soft, nontender, BS present MUSCULOSKELETAL: No CVA Tenderness EXTREMITIES: 2+ pulses, no edema. NEUROLOGICAL: Cranial nerves II-XII intact. Laboratory Results - last 24 hr 02/13/19 02/13/19 02/13/19 17:37 17:37 17:37 WBC 12.8 H RBC 5.59 H Hgb 16.5 H Hct 50.9 H D MCV 91.1 MCH 29.6 MCHC 32.4 RDW 13.6 Plt Count 219 MPV 10.0 Absolute Neuts (auto) 9.7 H Neutrophils % 75.8 D Lymphocytes % 17.6 D Monocytes % 4.8 Eosinophils % 1.2 Basophils % 0.6 Nucleated RBC % 0 Sodium Cancelled Potassium Cancelled Chloride Cancelled Carbon Dioxide Cancelled Anion Gap Cancelled BUN Cancelled Creatinine Cancelled Creat Clearance w eGFR Cancelled Random Glucose Cancelled Calcium Cancelled Total Bilirubin Cancelled AST Cancelled ALT Cancelled Alkaline Phosphatase Cancelled Troponin I Cancelled Total Protein Cancelled Albumin Cancelled Lipase Cancelled Urine Color Urine Appearance Urine pH Ur Specific [place] Urine Protein Urine Glucose (UA) Urine Ketones Urine Blood Urine Nitrite Urine Bilirubin Urine Urobilinogen Ur Leukocyte Esterase 02/13/19 02/13/19 02/13/19 21:56 21:56 22:06 WBC RBC Hgb Hct MCV MCH MCHC RDW Plt Count MPV Absolute Neuts (auto) Neutrophils % Lymphocytes % Monocytes % Eosinophils % Basophils % Nucleated RBC % Sodium 138 Potassium 4.5 Chloride 106 Carbon Dioxide 28 Anion Gap 5 L BUN 13 Creatinine 0.5 L Creat Clearance w eGFR 123.44 Random Glucose 135 H Calcium 9.0 Total Bilirubin 0.6 AST 43 H ALT 46 Alkaline Phosphatase 111 Troponin I < 0.02 Total Protein 6.1 L Albumin 3.0 L Lipase 38 L Urine Color Yellow Urine Appearance Clear Urine pH 5.5 D Ur Specific [place] 1.018 Urine Protein Negative Urine Glucose (UA) Negative Urine Ketones Negative Urine Blood Negative Urine Nitrite Negative Urine Bilirubin Negative Urine Urobilinogen 1.0 Ur Leukocyte Esterase Negative ASSESSMENT/PLAN: 68yoF with PMH of asthma/COPD, chronic back pain on chronic opiates, DM, CVA in 1978 and 1992, OR in 1996 and 1999 brought in by EMS due to altered mental status #Altered Mental Status: likely 2/2 chronic use of opiates, s/p haldol 5mg in ED , patient was somnolent but A&Ox3 -resolved -physical therapy -hold opiates #Chronic Pain: -continue flexeril, baclofen -hold opiates #Hypertension: currently hypertensive -continue amlodipine -continue lasix #DM: -BGM ACHS -ISS #Hx CVA -continue asa, statin #FEN -1 bag LR @ 81 -sodium diet -diabetic diet #Prophylaxis SCDs #Disposition -admit obs -social work DC in AM, may need SNF Visit type - Emergency Visit Emergency Visit: Yes Care time: The patient presented to the Emergency Department on the above date and was hospitalized for further evaluation of their emergent condition. - New Patient This patient is new to me today: Yes Date on this admission: 02/13/19 - Critical Care Critical Care patient: No
[2019-02-13] MEDS ORDERED: LACTATED RINGERS SOLUTION 1,000 ML IV SCH (23:45)
--- NOTE | 2019-02-13 23:59 | PN ---
Teaching Attending Note Name of Resident: Shilo Stephens ATTENDING PHYSICIAN STATEMENT I saw and evaluated the patient. I reviewed the resident's note and discussed the case with the resident. I agree with the resident's findings and plan as documented. SUBJECTIVE: Seen and examined; please refer to resident note for further historical information. Briefly, this is a 68 y/o female presenting from home with AMS; she was brought in de to concerns from her aide. Unfortunately the aid has left and is unreachable by the time medicine came down to the ER to assess her. She had previously recieved haldol and thus cannot provide history due to her being somnolent, though she is arousable and is protecting her airway. She was documented as being AAOx3 in the ER and was talking in complete sentences and saying that she wanted to go home but was deemed to not have capacity. She has been encephalopathic before due to UTI and there is actually no signs of infection today (slightly elevated WBC but with elevated h/h can be slight dehydration). She has no complaints. Doesn't appear to be hallucinating, etc. Hemodynamically stable in the ER. She is unsafe DC. She has multiple medications that can precipiate AMS including cyclobenzaprine, melatonin, lyrica , and oxycodone. 10 sys ROS done and negative aside from HPI PMH, PSH, FH, SH reviewed Home Medications Medication Instructions Recorded Metoclopramide HCl 10 mg PO DAILY 08/26/14 Sennosides [Senokot] 8.6 mg PO DAILY PRN 10/25/14 Furosemide [Lasix -] 20 mg PO MOWEFR 03/20/17 Ascorbic Acid [Vitamin C] 500 mg PO DAILY 03/08/18 Cholecalciferol (Vitamin D3) 1,000 unit PO DAILY 03/08/18 [Vitamin D3] Cyclobenzaprine HCl [Flexeril 10 10 mg PO PRN PRN 03/08/18 mg] Melatonin 6 mg PO HS 03/08/18 Amlodipine Besylate [Norvasc -] 5 mg PO DAILY #30 tablet 03/11/18 Aspirin [ASA -] 81 mg PO DAILY #30 tab.chew 03/11/18 Atorvastatin Ca [Lipitor] 40 mg PO HS #30 tablet 03/11/18 Insulin Sliding Scale [Novolog See Protocol SQ ACHS 30 Days #100 03/11/18 Vial Sliding Scale -] pen Baclofen 20 mg PO BID #60 tablet 05/30/18 Diclofenac Sodium [Voltaren] 2 gm TP TID PRN #3 tube 11/26/18 Ergocalciferol [Vitamin D2] 50,000 unit PO Q7D@1000 #4 capsule 12/26/18 Oxycodone HCl/Acetaminophen 1 each PO QID PRN #120 tablet MDD 4 12/26/18 [Percocet 10-325 mg Tablet] Pregabalin [Lyrica -] 100 mg PO BID #60 capsule MDD 2 12/26/18 Oxycodone HCl/Acetaminophen 1 each PO QID PRN #60 tablet MDD 4 01/27/19 [Oxycodone-Acetaminophen 10-325] OBJECTIVE: VS, labs, imaging reviewed NAD, somnolent but arousable due to recent haldol, resting in bed NC AT EOMI PERRLA RRR s1/2 no mgr Lungs CTAB, w/ no fnd Need help from nursing to flip to check for decub; pending NT ND +BS No suprapubic tenderness CN2-12 wnl, follows commands, sleepy, moves all 4 ext, apparent normal sensorium. Somnolent, poor insight, appropriate behavior EKG reviewed CT head pending ASSESSMENT AND PLAN: Patient presents with AMS; she was documented s being AAOx3 then recieved haldol limiting further assessment but is an unsafe DC due to her overall clinical picture. Only has 12 hour aid. 1) AMS -AAOx3 documented in ER; protecting airway but somnolent likely 2/2 haldol when we saw her. -No signs of infection, no focal neuro deficits. Old hx strokes noted; she is on ASA and Statin -Neuro checks, seizure precautions. She is on multiple medications that can precipitate AMS so will hold opiates, cyclobenzaprine, melatonin, baclofen, and lyrica for now -Ensure no hypoglycemia, etc. Followup head CT. -If no improvement, etc. can consider neuro eval but appears stable now. Need to assess when antipsychotic medications wear off. -No meningeal signs, negative UA. Check NH4. Monitor for signs of infection -NPO overnight with low rate IVF -PT eval in AM. Can check B12, RPR, Folate, Thiamine, TSH 2) Hx CVA -Continue home medications, followup CT. No fnd seen. 3) Leukocytosis -Trend; no fevers. Could be slightly dehydrated 4) Elevated H/H -Monitor fluid status; could be dehydrated but this has also been seen in past. No s/s hyperviscosity. Consider non-urgent heme evaluation. 5) DM -Monitor q4h fsg with SSI when NPO; OP f/u with A1c, etc. 6) Hx Buttock ulcer -When nursing staff is available will flip and assess for decub; documented in previous chart. Patient has this documented previously in chart 7) HTN 8) Chronic back pain -Holding her meds described in #1; resume when clinically appropriate and consider discussing with her OP provider 9) HTN -Continue home medications; verify with pharmacy in AM 10) HLD -Continue statin
[2019-02-14] MEDS ORDERED: FUROSEMIDE 40 MG TABLET (FP) ONE (00:56)
[2019-02-14 05:47] VITALS: BMI 38.9
[2019-02-14] MEDS ORDERED: INSULIN (NOVOLOG) ASPART 100 UNITS/ML 10ML VIAL ONE ×2 (06:09→11:39)
[2019-02-14] MEDS: INSULIN SLIDING SCALE (NOVOLOG) 1 VIAL SQ SCH ×2 (06:31→11:42)
[2019-02-14 07:44] LABS: HEMATOCRIT 43.9 % (32.4-45.2); HEMOGLOBIN 14.8 GM/dL (10.7-15.3); MCH 30.6 pg (25.7-33.7); MCHC 33.8 g/dl (32.0-36.0); MEAN CELL VOLUME 90.5 fl (80-96); MEAN PLT VOLUME 9.2 fl (7.5-11.1); PLATELET COUNT 207 K/MM3 (134-434); RBC 4.85 M/mm3 (3.60-5.2); RDW 13.3 % (11.6-15.6); WHITE BLOOD COUNT 8.9 K/mm3 (4.0-10.0)
[2019-02-14 07:46] LABS: ANION GAP 6 MMOL/L (8-16); BLOOD UREA NITROGEN 13 mg/dL (7-18); CALCIUM 8.8 mg/dL (8.5-10.1); CHLORIDE 105 mmol/L (98-107); CO2 30 mmol/L (21-32); CREATININE 0.5 mg/dL (0.55-1.3); GLUCOSE,RANDOM 132 mg/dL (74-106); POTASSIUM 3.9 mmol/L (3.5-5.1); SODIUM 141 mmol/L (136-145)
--- NOTE | 2019-02-14 09:46 | EKG ---
Test Reason : Blood Pressure : / mmHG Vent. Rate : 064 BPM Atrial Rate : 065 BPM P-R Int : 148 ms QRS Dur : 092 ms QT Int : 430 ms P-R-T Axes : -06 -34 020 degrees QTc Int : 443 ms NORMAL SINUS RHYTHM LEFT AXIS DEVIATION MINIMAL VOLTAGE CRITERIA FOR LVH, MAY BE NORMAL VARIANT ABNORMAL ECG WHEN COMPARED WITH ECG OF 09-MAR-2018 10:02, CURRENT UNDETERMINED RHYTHM PRECLUDES RHYTHM COMPARISON, NEEDS REVIEW T WAVE INVERSION LESS EVIDENT IN INFERIOR LEADS Confirmed by LANDON ORDONEZ, KRISTIE ([id number]) on 02/14/2019 9:46:02 AM Referred By: Confirmed By:KRISTIE NAVARRETE MD
[2019-02-14] MEDS ORDERED: amLODIPine BESYLATE 5 MG TABLET (FP) PO SCH (10:00)
[2019-02-14] MEDS ORDERED: PATIENT'S OWN MEDICATION (NON-FORMULARY) (Baclofen [Baclofen] 20 MG) PO SCH (10:00)
[2019-02-14] MEDS ORDERED: ASPIRIN 81 MG CHEWABLE TABLETS PO SCH (10:00)
[2019-02-14] MEDS ORDERED: ASCORBIC ACID 500 MG TABLET (FP) PO SCH (10:00)
--- NOTE | 2019-02-14 12:10 | DS ---
Physical Exam: SUBJECTIVE: Patient seen and examined. asymptomatic. does not recall what occurred yesterday but knows she was acting funny. states she has not been drinking a lot the past few days. denies Cp, SOB, fever, chills, N/V/C/D, dysuria, cough OBJECTIVE: Vital Signs Period Temp Pulse Resp BP Sys/Danielle Pulse Ox Last 24 Hr 98.4 F-98.5 F 70-73 18-20 129-148/76-102 94-97 PHYSICAL EXAM GENERAL: The patient is awake, A&O x2 (self and location), in no acute distress. HEAD: Normal with no signs of trauma. EYES: PERRL, extraocular movements intact, sclera anicteric, conjunctiva clear. ENT: Ears normal, nares patent, oropharynx clear without exudates, moist mucous membranes. NECK: Trachea midline, full range of motion, supple. LUNGS: Breath sounds equal, clear to auscultation bilaterally, no wheezes, no crackles, no accessory muscle use. HEART: Regular rate and rhythm, S1, S2 + murmur, rub or gallop. ABDOMEN: Soft, nontender, nondistended, normoactive bowel sounds, no guarding, no rebound, no hepatosplenomegaly, no masses. obese EXTREMITIES: 2+ pulses, warm, well-perfused, no edema. NEUROLOGICAL: Cranial nerves II through XII grossly intact. Normal speech, gait not observed. PSYCH: Normal mood, normal affect. SKIN: Warm, dry, normal turgor, no rashes or lesions noted. LABS Laboratory Results - last 24 hr 02/13/19 02/13/19 02/13/19 17:37 17:37 17:37 WBC 12.8 H RBC 5.59 H Hgb 16.5 H Hct 50.9 H D MCV 91.1 MCH 29.6 MCHC 32.4 RDW 13.6 Plt Count 219 MPV 10.0 Absolute Neuts (auto) 9.7 H Neutrophils % 75.8 D Lymphocytes % 17.6 D Monocytes % 4.8 Eosinophils % 1.2 Basophils % 0.6 Nucleated RBC % 0 Sodium Cancelled Potassium Cancelled Chloride Cancelled Carbon Dioxide Cancelled Anion Gap Cancelled BUN Cancelled Creatinine Cancelled Creat Clearance w eGFR Cancelled POC Glucometer Random Glucose Cancelled Calcium Cancelled Total Bilirubin Cancelled AST Cancelled ALT Cancelled Alkaline Phosphatase Cancelled Ammonia Troponin I Cancelled Total Protein Cancelled Albumin Cancelled Lipase Cancelled TSH Urine Color Urine Appearance Urine pH Ur Specific [place] Urine Protein Urine Glucose (UA) Urine Ketones Urine Blood Urine Nitrite Urine Bilirubin Urine Urobilinogen Ur Leukocyte Esterase RPR Titer 02/13/19 02/13/19 02/13/19 21:56 21:56 22:06 WBC RBC Hgb Hct MCV MCH MCHC RDW Plt Count MPV Absolute Neuts (auto) Neutrophils % Lymphocytes % Monocytes % Eosinophils % Basophils % Nucleated RBC % Sodium 138 Potassium 4.5 Chloride 106 Carbon Dioxide 28 Anion Gap 5 L BUN 13 Creatinine 0.5 L Creat Clearance w eGFR 123.44 POC Glucometer Random Glucose 135 H Calcium 9.0 Total Bilirubin 0.6 AST 43 H ALT 46 Alkaline Phosphatase 111 Ammonia Troponin I < 0.02 Total Protein 6.1 L Albumin 3.0 L Lipase 38 L TSH Urine Color Yellow Urine Appearance Clear Urine pH 5.5 D Ur Specific [place] 1.018 Urine Protein Negative Urine Glucose (UA) Negative Urine Ketones Negative Urine Blood Negative Urine Nitrite Negative Urine Bilirubin Negative Urine Urobilinogen 1.0 Ur Leukocyte Esterase Negative RPR Titer 02/14/19 02/14/19 02/14/19 00:20 01:08 01:08 WBC RBC Hgb Hct MCV MCH MCHC RDW Plt Count MPV Absolute Neuts (auto) Neutrophils % Lymphocytes % Monocytes % Eosinophils % Basophils % Nucleated RBC % Sodium Potassium Chloride Carbon Dioxide Anion Gap BUN Creatinine Creat Clearance w eGFR POC Glucometer Random Glucose Calcium Total Bilirubin AST ALT Alkaline Phosphatase Ammonia 35.70 H Troponin I Total Protein Albumin Lipase TSH 1.16 Urine Color Urine Appearance Urine pH Ur Specific [place] Urine Protein Urine Glucose (UA) Urine Ketones Urine Blood Urine Nitrite Urine Bilirubin Urine Urobilinogen Ur Leukocyte Esterase RPR Titer Nonreactive 02/14/19 02/14/19 02/14/19 05:45 05:45 06:30 WBC 8.9 RBC 4.85 Hgb 14.8 Hct 43.9 MCV 90.5 MCH 30.6 MCHC 33.8 RDW 13.3 Plt Count 207 MPV 9.2 Absolute Neuts (auto) Neutrophils % Lymphocytes % Monocytes % Eosinophils % Basophils % Nucleated RBC % Sodium 141 Potassium 3.9 Chloride 105 Carbon Dioxide 30 Anion Gap 6 L BUN 13 Creatinine 0.5 L Creat Clearance w eGFR 123.44 POC Glucometer 145 Random Glucose 132 H Calcium 8.8 Total Bilirubin AST ALT Alkaline Phosphatase Ammonia Troponin I Total Protein Albumin Lipase TSH Urine Color Urine Appearance Urine pH Ur Specific [place] Urine Protein Urine Glucose (UA) Urine Ketones Urine Blood Urine Nitrite Urine Bilirubin Urine Urobilinogen Ur Leukocyte Esterase RPR Titer 02/14/19 11:24 WBC RBC Hgb Hct MCV MCH MCHC RDW Plt Count MPV Absolute Neuts (auto) Neutrophils % Lymphocytes % Monocytes % Eosinophils % Basophils % Nucleated RBC % Sodium Potassium Chloride Carbon Dioxide Anion Gap BUN Creatinine Creat Clearance w eGFR POC Glucometer 181 Random Glucose Calcium Total Bilirubin AST ALT Alkaline Phosphatase Ammonia Troponin I Total Protein Albumin Lipase TSH Urine Color Urine Appearance Urine pH Ur Specific [place] Urine Protein Urine Glucose (UA) Urine Ketones Urine Blood Urine Nitrite Urine Bilirubin Urine Urobilinogen Ur Leukocyte Esterase RPR Titer HOSPITAL COURSE: Date of Admission:02/13/19 Date of Discharge: 02/14/19 Diagnosis Acute metabolic encephalopathy, dehydration Pre hospital course 68 year old female with PMH of asthma/COPD, chronic back pain on chronic opiates , DM, CVA in 1978 and 1992, NC in 1996 and 1999 brought in by EMS due to altered mental status reported by the health aide. Patient is A&O x 3 but is unable to really articulate why she is here. Per ED, she was ready to be discharged but the home health aid could not come open the door. Patient gets this aid for 12 hours. Upon not being able to answer ED questions, she was given haldol 5mg. Patient denies chest pain, SOB, nausea, vomiting, diarrhea, fevers, chills. Subsequent hospital course medicine observation. pt was A&O x2. appeared dehydrated which has corrected. spoke with aid who states she had episode of NBNB vomiting and then seemed confused and brought her in. was her normal self earlier in the day. head ct, UA and CXR negative. TSH/RPR and remaining studies all negative. as per aid at bedside she has returned to baseline. no changes to medications recently. d/c home with PMD follow up Minutes to complete discharge: 40 Discharge Summary Reason For Visit: LETHARGY Current Active Problems Lethargy (Acute) Condition: Improved - Instructions Diet, Activity, Other Instructions: You were observed overnight as you were considered to be confused last night. It appeared you were dehydrated. All work up was negative for other reasons of why you would be confused and now it appears that you have returned to your baseline Ensure you are drinking plenty of water throughout the day resume your home medications Follow up with your primary care doctor next week Return to the hospital if you develop chest pain or if this episode re-occurs Disposition: HOME - Home Medications Comprehensive Discharge Medication List: Ambulatory Orders Metoclopramide HCl 10 mg PO DAILY 08/26/14 Sennosides [Senokot] 8.6 mg PO DAILY PRN 10/25/14 Furosemide [Lasix -] 20 mg PO MOWEFR 03/20/17 Ascorbic Acid [Vitamin C] 500 mg PO DAILY 03/08/18 Cholecalciferol (Vitamin D3) [Vitamin D3] 1,000 unit PO DAILY 03/08/18 Cyclobenzaprine HCl [Flexeril 10 mg] 10 mg PO PRN PRN 03/08/18 Melatonin 6 mg PO HS 03/08/18 Amlodipine Besylate [Norvasc -] 5 mg PO DAILY #30 tablet 03/11/18 Aspirin [ASA -] 81 mg PO DAILY #30 tab.chew 03/11/18 Atorvastatin Ca [Lipitor] 40 mg PO HS #30 tablet 03/11/18 Insulin Sliding Scale [Novolog Vial Sliding Scale -] See Protocol SQ ACHS 30 Days #100 pen 03/11/18 Baclofen 20 mg PO BID #60 tablet 05/30/18 Diclofenac Sodium [Voltaren] 2 gm TP TID PRN #3 tube 11/26/18 Oxycodone HCl/Acetaminophen [Percocet 10-325 mg Tablet] 1 each PO QID PRN #120 tablet MDD 4 12/26/18 Pregabalin [Lyrica -] 100 mg PO BID #60 capsule MDD 2 12/26/18 Oxycodone HCl/Acetaminophen [Oxycodone-Acetaminophen 10-325] 1 each PO QID PRN # 60 tablet MDD 4 01/27/19 This patient is new to me today: Yes Date on this admission: 02/14/19 Emergency Visit: Yes ED Registration Date: 02/13/19 Care time: The patient presented to the Emergency Department on the above date and was hospitalized for further evaluation of their emergent condition. Critical Care patient: No - Discharge Referral Referred to [facility] Med [facility] No
[2019-02-14 13:04] VITALS: BP 147/96; PULSE 74; TEMP 98.6
[2019-02-14] MEDS ORDERED: ATORVASTATIN CA 40 MG TABLET (FP) PO SCH (22:00)
[2019-02-16] MEDS ORDERED: FUROSEMIDE 20 MG TABLET (FP) PO SCH (10:00)
[2019-02-20] MEDS ORDERED: ERGOCALCIFEROL (VITAMIN D2) 50,000 UNIT CAPSULE (FP) PO SCH (10:00)
== END 2019-02-14 15:00 | disposition home or self-care (01) ==
LOC: JER 15:37 → JERBED 23:17 → J6S 02-14 03:57
PROVIDERS: ADMIT Internal Medicine; ATTEND Internal Medicine
PROC: 3E033GC Introduction of Other Therapeutic Substance into Peripheral Vein, Percutaneous Approach (ICD-10-PCS; principal; 2019-02-13)
PROC: 3E0337Z Introduction of Electrolytic and Water Balance Substance into Peripheral Vein, Percutaneous Approach (ICD-10-PCS; 2019-02-13)
PROC: 3E023GC Introduction of Other Therapeutic Substance into Muscle, Percutaneous Approach (ICD-10-PCS; 2019-02-13)
PROC: 3E013GC Introduction of Other Therapeutic Substance into Subcutaneous Tissue, Percutaneous Approach (ICD-10-PCS; 2019-02-13)
DX: R53.83 Other fatigue (principal); R41.82 Altered mental status, unspecified; I10 Essential (primary) hypertension; E78.5 Hyperlipidemia, unspecified; J45.909 Unspecified asthma, uncomplicated; J44.9 Chronic obstructive pulmonary disease, unspecified; M54.9 Dorsalgia, unspecified; G89.29 Other chronic pain; E11.9 Type 2 diabetes mellitus without complications; Z79.891 Long term (current) use of opiate analgesic; I25.2 Old myocardial infarction; F17.210 Nicotine dependence, cigarettes, uncomplicated; D72.829 Elevated white blood cell count, unspecified; E66.01 Morbid (severe) obesity due to excess calories; Z68.38 Body mass index [BMI] 38.0-38.9, adult; D58.2 Other hemoglobinopathies; Z85.05 Personal history of malignant neoplasm of liver; Z86.73 Personal history of transient ischemic attack (TIA), and cerebral infarction without residual deficits; Z92.3 Personal history of irradiation; Z79.82 Long term (current) use of aspirin; Z79.84 Long term (current) use of oral hypoglycemic drugs; Z79.4 Long term (current) use of insulin; Z91.013 Allergy to seafood
CPT/HCPCS: 36415; 70450-TC; 71045-TC-FY; 80048; 80053; 81003; 82140; 82962; 83690; 84207; 84443; 84484; 85025; 85027; 86593; 87086; 93005; 93010; 96365; 96372; 99285-25; G0378; J7030

== ENCOUNTER 2019-05-05 14:07 | Inpatient (IN) | payer OTHER | END 2019-05-09 11:00 | disposition home or self-care (01) | LOC: JER 14:07 → JERBED 19:31 → J4S 21:40 ==

== ENCOUNTER 2019-11-18 17:17 | Inpatient (IN) | payer OTHER ==
[2019-11-18] MEDS ORDERED: ONDANSETRON 4 MG/2 ML VIAL IVPUSH ONE (17:43)
[2019-11-18] MEDS ORDERED: PANTOPRAZOLE SODIUM 40 MG VIAL IVPUSH ONE (17:43)
[2019-11-18] MEDS ORDERED: ACETAMINOPHEN 1000 MG/100 ML VIAL (NON FORMULARY) IVPB ONE (17:43)
[2019-11-18] MEDS ORDERED: SODIUM CHLORIDE 500 ML IV STA (17:44)
[2019-11-18] MEDS ORDERED: PANTOPRAZOLE SODIUM 40 MG VIAL ONE ×2 (18:06→20:02)
[2019-11-18] MEDS ORDERED: ACETAMINOPHEN INJECTION 100 ML IVPB ONE (18:06)
[2019-11-18] MEDS ORDERED: ONDANSETRON 4 MG/2 ML VIAL ONE (18:06)
--- NOTE | 2019-11-18 18:24 | PDOC ---
History of Present Illness - General Chief Complaint: Vomiting Blood Stated Complaint: VOMITING BLOOD Time Seen by Provider: 11/18/19 17:43 History Source: Patient Exam Limitations: No Limitations - History of Present Illness Initial Comments: 11/18/19 18:27 69 y/o F w a PMH of asthma, COPD, IN, CHF, HTN, HLD, CVA, DM, and chronic back pain with opioid use presents to the emergency s/p vomiting dark red blood per patient with associative abdominal pain. Per the patient, the abdominal pain began today coinciding with the vomiting event. Per EMS, they found approximately 1 cup of dark red blood volume barrios with clots. Per the patient's aide (patient lives at home), she has not had a bowel movement in 1 week. Per the patient, she also was having diffuse abdominal pain that is cramping in nature without aggravating or relieving factors. denies the following symptoms: fevers, chills, SOB, chest pain, ears/nose/throat pain, dysuria, hematuria, and diarrhea. Allergies: NKDA Past History - Past Medical History Allergies/Adverse Reactions: Allergies Allergy/AdvReac Type Severity Reaction Status Date / Time shellfish derived Allergy Mild can't Verified 11/18/19 21:30 swallow it Home Medications: Ambulatory Orders Furosemide [Lasix -] 20 mg PO MOWEFR 03/20/17 Ascorbic Acid [Vitamin C] 500 mg PO DAILY 03/08/18 Cholecalciferol (Vitamin D3) [Vitamin D3] 1,000 unit PO DAILY 03/08/18 Aspirin [ASA -] 81 mg PO DAILY #30 tab.chew 03/11/18 Budesonide/Formeterol Fumarate [SYMBICORT 80/4.5mcg -] 2 puff IH BID inhaler Montelukast Na [Singulair -] 10 mg PO HS tablet 05/08/19 Diclofenac Sodium [Voltaren] 2 gm TP TID PRN #3 tube NS 07/21/19 Ergocalciferol [Vitamin D2] 50,000 unit PO Q7D@1000 #4 capsule 07/21/19 Melatonin/Pyridoxine HCl (B6) [Melatonin 3 mg Tablet] 1 each PO DAILY 07/21/19 Nicotine [Nicotine Patch 21 mg/24 hr] 1 each TD DAILY 07/21/19 metFORMIN HCL [Metformin HCl ER] 500 mg PO DAILY 07/21/19 Ammonium Lactate Cream [Lac-Hydrin 12% *Cream*] 1 applic TP TID #1 tube Mupirocin Ointment [Bactroban 2% Ointment -] 1 applic TP BID #45 gm 08/20/19 Acetaminophen [Tylenol Extra Strength] 500 mg PO BID PRN #60 tablet 09/17/19 Aluminum Hydroxide [Dermagran] 113 gm TP BID #2 tube 09/17/19 Alcohol Antiseptic Pads [Alcohol Prep Pad] 1 each TP TID #1 box 10/19/19 Blood Sugar Diagnostic [Blood Glucose Test Strip] 1 each MC TID #90 strip Blood-Glucose Meter [Blood Glucose Meter] 1 each MC TID #1 each 10/19/19 Lancets [Lancets Ultra Thin] 1 each MC TID #90 each 10/19/19 Miconazole Nitrate [Monistat-7 Vaginal Cream -] 1 applic VG HS #7 tube 10/19/19 Nicotine [Nicotine Patch 14mg/24 hr] 1 each TD DAILY #30 patch.td24 10/19/19 Nystatin Powder [Nystop Powder -] 60 gm TP BID #1 powder 10/19/19 Oxycodone HCl/Acetaminophen [Percocet 10-325 mg Tablet] 1 each PO TID PRN #90 tablet MDD 3 10/19/19 Pregabalin [Lyrica -] 50 mg PO BID #60 capsule MDD 2 10/19/19 Selenium Sulfide/Aloe Vera [[place] Blue Moist 1% Shampoo] 325 ml TP Q2D #1 shampoo 10/19/19 Triamcinolone 0.1% Ointment [Aristocort 0.1% Ointment -] 1 applic TP DAILY #1 tube 10/19/19 Zinc Oxide/Petrolatum,White [[place] Moist Barrier Cream] 99 gm TP BID #1 tube 10/19/19 Asthma: Yes Cancer: Yes (hx lung cancer - had RT 1991) Cardiac Disorders: Yes (hx IN x 2: 1996, 1999) CVA: Yes (x 2: 1978, 1992) COPD: No CHF: Yes Diabetes: Yes GI Disorders: No Disorders: Yes (incontinence) HTN: No Hypercholesterolemia: No Liver Disease: No Seizures: Yes (none x several years) Thyroid Disease: No - Surgical History Appendectomy: Yes Cholecystectomy: Yes Orthopedic Surgery: Yes (knee injections; left femur repair 05/2019) - Immunization History Td Vaccination: No Immunization Up to Date: Yes - Psycho Social/Smoking Cessation Hx Smoking History: Current some day smoker Have you smoked in the past 12 months: Yes Number of Cigarettes Smoked Daily: 10 'Breaking Loose' booklet given: 03/08/18 Hx Alcohol Use: No Drug/Substance Use Hx: No Substance Use Type: None Hx Substance Use Treatment: No Review of Systems - Review of Systems Able to Perform ROS?: Yes Is the patient limited Senegalese proficient: No Constitutional: Yes: Weakness. No: Chills, Diaphoresis, Fever HEENTM: No: Eye Pain, Ear Pain, Nose Pain, Throat Pain, Mouth Pain Respiratory: No: Cough, Shortness of Breath, Hemoptysis Cardiac (ROS): No: Chest Pain, Lightheadedness, Palpitations, Chest Tightness ABD/GI: Yes: Constipated, Nausea, Poor Appetite, Poor Fluid Intake, Vomiting, Abdominal cramping. No: Diarrhea, Rectal Bleeding, Tarry Stools : No: Burning, Dysuria, Hematuria Musculoskeletal: Yes: Back Pain. No: Gout, Joint Pain, Neck Pain Integumentary: No: Bruising, Erythema, Rash Neurological: No: Headache, Numbness, Tingling, Tremors Psychiatric: No: Change in Appetite Endocrine: No: Unexplained Weight Loss Hematologic/Lymphatic: No: Anemia *Physical Exam - Vital Signs Last Vital Signs Temp Pulse Resp BP Pulse Ox 99 F 88 28 H 96/57 L 97 11/18/19 17:25 11/18/19 17:25 11/18/19 17:25 11/18/19 17:25 11/18/19 17:25 - Physical Exam General Appearance: Yes: Nourished, Appropriately Dressed. No: Apparent Distress, Intoxicated HEENT: positive: EOMI, DIANDRA, Normal Voice, Symmetrical, Pharynx Normal, Hearing Grossly Normal. negative: Pale Conjunctivae, Scleral Icterus (R), Scleral Icterus (L), Muffled/Hoarse voice, Pharyngeal Erythema, Tonsillar Exudate, Tonsillar Erythema, Nasal Congestion, Rhinorrhea, Sinus Tenderness, Excessive drooling Neck: positive: Trachea midline, Supple. negative: Tender, Lymphadenopathy (R) , Lymphadenopathy (L), Tender lateral, Tender midline Respiratory/Chest: positive: Lungs Clear, Normal Breath Sounds. negative: Chest Tender, Respiratory Distress, Accessory Muscle Use, Crackles, Rales, Rhonchi, Stridor, Wheezing Cardiovascular: positive: Regular Rhythm, Regular Rate, S1, S2. negative: Systolic Murmur Gastrointestinal/Abdominal: positive: Normal Bowel Sounds, Tender (diffuse abdominal tenderness on examination.). negative: Distended, Guarding, Rebound Lymphatic: negative: Adenopathy Musculoskeletal: positive: Normal Inspection. negative: CVA Tenderness, Vertebral Tenderness Extremity: positive: Normal Capillary Refill, Normal Range of Motion. negative : Normal Inspection (edema bilaterally), Tender, Calf Tenderness Integumentary: positive: Normal Color, Dry, Warm Neurologic: positive: Fully Oriented, Alert, Normal Mood/Affect ED Treatment Course - LABORATORY CBC & Chemistry Diagram: 11/18/19 20:00 11/18/19 18:00 - RADIOLOGY Radiology Studies Ordered: Category Date Time Status CHEST X-RAY PORTABLE* [RAD] Stat Radiology 11/18/19 17:43 Completed - Medications Given in the ED: ED Medications Discontinued Medications Generic Name Dose Route Start Last Admin Trade Name Freq PRN Reason Stop Dose Admin Acetaminophen 1,000 mg 11/18/19 17:43 11/18/19 18:10 Ofirmev Injection - IVPB 11/18/19 17:44 1,000 mg ONCE ONE Administration Ondansetron HCl 4 mg 11/18/19 17:43 11/18/19 18:10 Zofran Injection IVPUSH 11/18/19 17:44 4 mg ONCE ONE Administration Pantoprazole Sodium 40 mg 11/18/19 17:43 11/18/19 18:10 Protonix Iv IVPUSH 11/18/19 17:44 40 mg ONCE ONE Administration Medical Decision Making - Medical Decision Making 69 y/o F w a PMH of asthma, COPD, IN, CHF, HTN, HLD, CVA, DM, and chronic back pain with opioid use presents to the emergency s/p vomiting dark red blood per patient with associative abdominal pain. Initial vitals; Initial Vital Signs Temp Pulse Resp BP Pulse Ox 99 F 88 28 H 96/57 L 97 11/18/19 17:25 11/18/19 17:25 11/18/19 17:25 11/18/19 17:25 11/18/19 17:25 Work up: patient with a host of co morbidities presents the emergency department with diffuse abdominal pain with hematemesis that is described as dark red blood with clots consistent with coffee ground emesis. The patient was hypotensive in the ED and started on 500 cc NS bolus for BP management. Interventions: patient was given protonix IV and 1 L of additional NS ordered. ddx: UGIB secondary to bleeding ulcer (Denies AC use) vs esophageal varices ( unlikely due to no hx of ETOH abuse or hep C) vs binh cornell vs mesenteric ischemia vs intra-abdominal process Laboratory Tests 11/18/19 11/18/19 11/18/19 18:00 18:00 18:00 WBC 13.8 H RBC 4.13 Hgb 12.5 Hct 36.7 MCV 88.9 MCH 30.2 MCHC 34.0 RDW 13.8 Plt Count 310 D MPV 9.2 Absolute Neuts (auto) 9.6 H Neutrophils % 69.5 Lymphocytes % 21.0 Monocytes % 7.2 Eosinophils % 1.9 Basophils % 0.4 Nucleated RBC % 0 PT with INR INR Sodium 140 Potassium 4.3 Chloride 106 Carbon Dioxide 29 Anion Gap 6 L BUN 19.8 H Creatinine 0.9 Est GFR (CKD-EPI)AfAm 76.68 Est GFR (CKD-EPI)NonAf 66.16 Random Glucose 230 H Lactic Acid 2.1 H Calcium 8.7 Total Bilirubin 0.4 AST 11 L ALT 15 Alkaline Phosphatase 89 Creatine Kinase 22 L Troponin I < 0.02 B-Natriuretic Peptide 1131.9 H Total Protein 5.4 L Albumin 2.6 L Lipase 54 L Urine Color Urine Appearance Urine pH Ur Specific Kell Urine Protein Urine Glucose (UA) Urine Ketones Urine Blood Urine Nitrite Urine Bilirubin Urine Urobilinogen Ur Leukocyte Esterase Urine WBC (Auto) Urine RBC (Auto) Urine Casts (Auto) U Epithel Cells (Auto) Urine Bacteria (Auto) Stool Occult Blood 11/18/19 11/18/19 11/18/19 18:00 18:52 20:00 WBC 13.2 H RBC 3.82 Hgb 11.5 Hct 34.2 MCV 89.4 MCH 30.0 MCHC 33.5 RDW 14.0 Plt Count 287 MPV 9.0 Absolute Neuts (auto) 10.7 H Neutrophils % 80.5 Lymphocytes % 12.8 D Monocytes % 5.6 Eosinophils % 0.8 Basophils % 0.3 Nucleated RBC % 0 PT with INR 13.80 H INR 1.17 H Sodium Potassium Chloride Carbon Dioxide Anion Gap BUN Creatinine Est GFR (CKD-EPI)AfAm Est GFR (CKD-EPI)NonAf Random Glucose Lactic Acid Calcium Total Bilirubin AST ALT Alkaline Phosphatase Creatine Kinase Troponin I B-Natriuretic Peptide Total Protein Albumin Lipase Urine Color Urine Appearance Urine pH Ur Specific Kell Urine Protein Urine Glucose (UA) Urine Ketones Urine Blood Urine Nitrite Urine Bilirubin Urine Urobilinogen Ur Leukocyte Esterase Urine WBC (Auto) Urine RBC (Auto) Urine Casts (Auto) U Epithel Cells (Auto) Urine Bacteria (Auto) Stool Occult Blood Negative 11/18/19 11/18/19 22:10 22:30 WBC RBC Hgb Hct MCV MCH MCHC RDW Plt Count MPV Absolute Neuts (auto) Neutrophils % Lymphocytes % Monocytes % Eosinophils % Basophils % Nucleated RBC % PT with INR INR Sodium Potassium Chloride Carbon Dioxide Anion Gap BUN Creatinine Est GFR (CKD-EPI)AfAm Est GFR (CKD-EPI)NonAf Random Glucose Lactic Acid 1.6 Calcium Total Bilirubin AST ALT Alkaline Phosphatase Creatine Kinase Troponin I B-Natriuretic Peptide Total Protein Albumin Lipase Urine Color Yellow Urine Appearance Clear Urine pH 5.5 D Ur Specific Kell 1.038 H Urine Protein Trace Urine Glucose (UA) Trace Urine Ketones Negative Urine Blood Negative Urine Nitrite Negative Urine Bilirubin Negative Urine Urobilinogen 1.0 Ur Leukocyte Esterase 1+ H Urine WBC (Auto) 71 Urine RBC (Auto) 5 Urine Casts (Auto) 31 U Epithel Cells (Auto) 19.0 Urine Bacteria (Auto) 2.4 Stool Occult Blood Patient's WBC is elevated with a 2.1 lactic acid. hgb is 12.5 at 18:00 Repeat hgb at 20:[address] Brown (GI geospatial information scientist) was contacted who stated protonix drip was necessary and will follow the patient. Patient was taken to CT for abdomen pelvis and chest to rule out bleeding source ; pending reads at the time of sign out. Patient had significant improvement in BP s/p NS infusion. Stool occult blood negative. Patient signed out to Dr. Quevedo for further management and work up. Discharge - Discharge Information Problems reviewed: Yes Clinical Impression/Diagnosis: UGIB (upper gastrointestinal bleed) - Follow up/Referral Referrals: Shilo Davies MD [Primary Care Provider] - - Patient Discharge Instructions - Post Discharge Activity
--- NOTE | 2019-11-18 18:29 | PDOC ---
Attending Attestation - Resident Resident Name: Avelino Verma - ED Attending Attestation I have performed the following: I have examined & evaluated the patient, The case was reviewed & discussed with the resident, I agree w/resident's findings & plan, Exceptions are as noted - HPI HPI: 11/18/19 18:30 69 F with h/o asthma, COPD, [place], CHF, HTN, HLD, CVA, DM, and chronic back pain presenting to ED with coffee grounds emesis. Pt reports several episodes of dark vomitus. Pt reports associated diffuse abdominal pain. No diarrhea. No dark stools or BRBPR. Pt is not on blood thinners but notes that she takes NSAIDs daily for back pain. No prior h/o GI bleed. - Physicial Exam PE: 11/18/19 18:32 "GENERAL: Awake, alert, and fully oriented, in no acute distress. HEAD: No signs of trauma EYES: PERRLA, EOMI, sclera anicteric, conjunctiva clear ENT: Auricles normal inspection, hearing grossly normal, nares patent, oropharynx clear without exudates. Moist mucosa NECK: Nontender, no stepoffs, Normal ROM, supple, no lymphadenopathy, JVD, or masses LUNGS: Breath sounds equal, clear to auscultation bilaterally. No wheezes, and no crackles HEART: Regular rate and rhythm, normal S1 and S2, no murmurs, rubs or gallops ABDOMEN: + diffuse TTP, normoactive bowel sounds. No guarding, no rebound. No masses EXTREMITIES: Normal range of motion, no edema. No clubbing or cyanosis. No cords, erythema, or tenderness NEUROLOGICAL: Cranial nerves II through XII intact. 5/5 strength and sensation in all extremities, Normal speech, normal gait, normal cerebellar function SKIN: Warm, Dry, normal turgor, no rashes or lesions noted - Medical Decision Making 11/18/19 18:32 69 F with coffee grounds emesis. Likely UGIB 2/2 NSAID use. - Labs - CTAP - IVF, protonix, zofran
[2019-11-18 18:35] LABS: BASO % 0.4 % (0-2.0); EOS % 1.9 % (0-4.5); HEMATOCRIT 36.7 % (32.4-45.2); HEMOGLOBIN 12.5 GM/dL (10.7-15.3); MCH 30.2 pg (25.7-33.7); MEAN CELL VOLUME 88.9 fl (80-96); MEAN PLT VOLUME 9.2 fl (7.5-11.1); MONO % 7.2 % (3.8-10.2); NEUT % 69.5 % (42.8-82.8); PLATELET COUNT 310 K/MM3 (134-434); RBC 4.13 M/mm3 (3.60-5.2); RDW 13.8 % (11.6-15.6); WHITE BLOOD COUNT 13.8 K/mm3 (4.0-10.0)
[2019-11-18] MEDS ORDERED: SODIUM CHLORIDE 1,000 ML IV STA (18:46)
[2019-11-18 18:52] LABS: INR 1.17 (0.83-1.09); PROTHROMBIN TIME (PATIENT) 13.8 SEC (9.7-13.0)
[2019-11-18 19:46] LABS: ALBUMIN 2.6 g/dl (3.4-5.0); ALK PHOS 89 U/L (45-117); ANION GAP 6 MMOL/L (8-16); BILIRUBIN,TOTAL 0.4 mg/dL (0.2-1); BLOOD UREA NITROGEN 19.8 mg/dL (7-18); CALCIUM 8.7 mg/dL (8.5-10.1); CHLORIDE 106 mmol/L (98-107); CO2 29 mmol/L (21-32); CREATININE 0.9 mg/dL (0.55-1.3); GLUCOSE,RANDOM 230 mg/dL (74-106); LIPASE 54 U/L (73-393); N-TERMINAL BNP 1131.9 pg/ml (5-125); POTASSIUM 4.3 mmol/L (3.5-5.1); SGOT/AST 11 U/L (15-37); SGPT/ALT 15 U/L (13-61); SODIUM 140 mmol/L (136-145); TOT PROT 5.4 g/dl (6.4-8.2)
[2019-11-18] MEDS: PANTOPRAZOLE SODIUM 80 MG in SODIUM CHLORIDE 100 ML IVPB SCH (20:22)
[2019-11-18 20:25] LABS: BASO % 0.3 % (0-2.0); EOS % 0.8 % (0-4.5); HEMATOCRIT 34.2 % (32.4-45.2); HEMOGLOBIN 11.5 GM/dL (10.7-15.3); LYMPH % 12.8 % (8-40); MCHC 33.5 g/dl (32.0-36.0); MEAN CELL VOLUME 89.4 fl (80-96); MONO % 5.6 % (3.8-10.2); NEUT % 80.5 % (42.8-82.8); PLATELET COUNT 287 K/MM3 (134-434); RBC 3.82 M/mm3 (3.60-5.2); WHITE BLOOD COUNT 13.2 K/mm3 (4.0-10.0)
--- NOTE | 2019-11-18 22:15 | PDOC ---
*Physical Exam - Vital Signs Last Vital Signs Temp Pulse Resp BP Pulse Ox 97.8 F 72 22 H 100/55 L 98 11/18/19 17:25 11/18/19 21:46 11/18/19 21:46 11/18/19 21:46 11/18/19 21:46 ED Treatment Course - LABORATORY CBC & Chemistry Diagram: 11/19/19 05:00 11/18/19 18:00 - ADDITIONAL ORDERS Additional order review: Laboratory Results 11/18/19 11/18/19 11/18/19 18:52 18:00 18:00 PT with INR 13.80 H INR 1.17 H Sodium Potassium Chloride Carbon Dioxide Anion Gap BUN Creatinine Est GFR (CKD-EPI)AfAm Est GFR (CKD-EPI)NonAf Random Glucose Lactic Acid 2.1 H Calcium Total Bilirubin AST ALT Alkaline Phosphatase Creatine Kinase Troponin I B-Natriuretic Peptide Total Protein Albumin Lipase Stool Occult Blood Negative 11/18/19 18:00 PT with INR INR Sodium 140 Potassium 4.3 Chloride 106 Carbon Dioxide 29 Anion Gap 6 L BUN 19.8 H Creatinine 0.9 Est GFR (CKD-EPI)AfAm 76.68 Est GFR (CKD-EPI)NonAf 66.16 Random Glucose 230 H Lactic Acid Calcium 8.7 Total Bilirubin 0.4 AST 11 L ALT 15 Alkaline Phosphatase 89 Creatine Kinase 22 L Troponin I < 0.02 B-Natriuretic Peptide 1131.9 H Total Protein 5.4 L Albumin 2.6 L Lipase 54 L Stool Occult Blood 11/18/19 11/18/19 20:00 18:00 RBC 3.82 4.13 MCV 89.4 88.9 MCHC 33.5 34.0 RDW 14.0 13.8 MPV 9.0 9.2 Neutrophils % 80.5 69.5 Lymphocytes % 12.8 D 21.0 Monocytes % 5.6 7.2 Eosinophils % 0.8 1.9 Basophils % 0.3 0.4 - Medications Given in the ED: ED Medications Discontinued Medications Generic Name Dose Route Start Last Admin Trade Name Freq PRN Reason Stop Dose Admin Acetaminophen 1,000 mg 11/18/19 17:43 11/18/19 18:10 Ofirmev Injection - IVPB 11/18/19 17:44 1,000 mg ONCE ONE Administration Sodium Chloride 500 mls @ 500 mls/hr 11/18/19 17:44 11/18/19 18:10 Normal Saline - IV 11/18/19 18:43 500 mls/hr ASDIR STA Administration Sodium Chloride 1,000 mls @ 1,000 mls/hr 11/18/19 18:46 11/18/19 20:47 Normal Saline - IV 11/18/19 19:45 1,000 mls/hr ASDIR STA Administration Ondansetron HCl 4 mg 11/18/19 17:43 11/18/19 18:10 Zofran Injection IVPUSH 11/18/19 17:44 4 mg ONCE ONE Administration Pantoprazole Sodium 40 mg 11/18/19 17:43 11/18/19 18:10 Protonix Iv IVPUSH 11/18/19 17:44 40 mg ONCE ONE Administration Medical Decision Making - Medical Decision Making 11/18/19 22:16 Pt received on sign out from Dr. Verma. Pt vomiting dark red blood. Protonix drip started. Dr. Brown aware. Plan to admit to hospitalist for upper GI bleed pending labs and CT abd/pelv. 11/18/19 22:34 CT abd/pelv shows no signs of mesenteric ischemia and no acute intra abdominal pathology. D/w the hospitalist team who accepts the patient for admission. Labs reviewed. Laboratory Tests 11/18/19 11/18/19 11/18/19 18:00 18:00 18:00 WBC 13.8 H RBC 4.13 Hgb 12.5 Hct 36.7 MCV 88.9 MCH 30.2 MCHC 34.0 RDW 13.8 Plt Count 310 D MPV 9.2 Absolute Neuts (auto) 9.6 H Neutrophils % 69.5 Lymphocytes % 21.0 Monocytes % 7.2 Eosinophils % 1.9 Basophils % 0.4 Nucleated RBC % 0 PT with INR INR Sodium 140 Potassium 4.3 Chloride 106 Carbon Dioxide 29 Anion Gap 6 L BUN 19.8 H Creatinine 0.9 Est GFR (CKD-EPI)AfAm 76.68 Est GFR (CKD-EPI)NonAf 66.16 Random Glucose 230 H Lactic Acid 2.1 H Calcium 8.7 Total Bilirubin 0.4 AST 11 L ALT 15 Alkaline Phosphatase 89 Creatine Kinase 22 L Troponin I < 0.02 B-Natriuretic Peptide 1131.9 H Total Protein 5.4 L Albumin 2.6 L Lipase 54 L Stool Occult Blood 11/18/19 11/18/19 11/18/19 18:00 18:52 20:00 WBC 13.2 H RBC 3.82 Hgb 11.5 Hct 34.2 MCV 89.4 MCH 30.0 MCHC 33.5 RDW 14.0 Plt Count 287 MPV 9.0 Absolute Neuts (auto) 10.7 H Neutrophils % 80.5 Lymphocytes % 12.8 D Monocytes % 5.6 Eosinophils % 0.8 Basophils % 0.3 Nucleated RBC % 0 PT with INR 13.80 H INR 1.17 H Sodium Potassium Chloride Carbon Dioxide Anion Gap BUN Creatinine Est GFR (CKD-EPI)AfAm Est GFR (CKD-EPI)NonAf Random Glucose Lactic Acid Calcium Total Bilirubin AST ALT Alkaline Phosphatase Creatine Kinase Troponin I B-Natriuretic Peptide Total Protein Albumin Lipase Stool Occult Blood Negative 11/19/19 04:20 Pt reassessed. Vomited liquid blood onto the floor and blood clots. Type and screen and CBC ordered. D/w inpatient team. Discharge - Discharge Information Problems reviewed: Yes Clinical Impression/Diagnosis: UGIB (upper gastrointestinal bleed) Condition: Guarded - Admission Yes - Follow up/Referral - Patient Discharge Instructions - Post Discharge Activity
[2019-11-18 22:48] LABS: HYALINE CASTS 31 /lpf (0-8); PH,URINE 5.5 (5.0-8.0); URINE APPEARANCE CLEAR; URINE BACTERIA 2.4 /hpf (NEGATIVE); URINE BILIRUBIN NEGATIVE (NEGATIVE); URINE COLOR YELLOW; URINE GLUCOSE (UA) TRACE (NEGATIVE); URINE KETONE NEGATIVE (NEGATIVE); URINE LEUK ESTERASE 1+ (NEGATIVE); URINE NITRITE NEGATIVE (NEGATIVE); URINE PROTEIN TRACE (NEGATIVE); URINE RBC 5 /hpf (0-4); URINE WBC 71 /hpf (0-5)
--- NOTE | 2019-11-19 02:08 | PN ---
Teaching Attending Note Name of Resident: Shilo Mac ATTENDING PHYSICIAN STATEMENT I saw and evaluated the patient. I reviewed the resident's note and discussed the case with the resident. I agree with the resident's findings and plan as documented. SUBJECTIVE: 69-year-old woman with multiple medical problems, morbidly obese status post left femur fracture and repair in May 2019, chronic back pain on Percocets and taking magnesium salicylate complained of one episode of bloody vomiting on 11/18/2019 in the evening which prompted her to seek medical attention. While in the emergency room in [facility] patient had another episode of bloody vomiting, blood clots visible. Vital signs otherwise stable. No loss of consciousness OBJECTIVE: Last Vital Signs Temp Pulse Resp BP Pulse Ox 97.8 F 80 22 H 120/60 97 11/18/19 17:25 11/19/19 04:19 11/19/19 04:19 11/19/19 04:19 11/19/19 04:19 GENERAL: Well-developed, no acute distress, morbidly obese HEENT: Normocephalic, atraumatic. PERRLA, EOMI. No conjunctival pallor. Sclera are non- icteric. Moist mucous membranes. Oropharynx is clear. NECK: Supple. Full ROM. No JVD. Carotid pulses 2+ and symmetric, without bruits. No thyromegaly. No lymphadenopathy. CARDIOVASCULAR: Regular rate and rhythm. No murmurs, rubs, or gallops. Distal pulses are 2+ and symmetric. PULMONARY: No evidence of respiratory distress. Lungs clear to auscultation bilaterally. No wheezing, rales or rhonchi. ABDOMINAL: Soft. Non-tender. Non-distended. No rebound or guarding. No organomegaly. Normoactive bowel sounds. MUSCULOSKELETAL Normal range of motion at all joints. No bony deformities or tenderness. No CVA tenderness. EXTREMITIES: No cyanosis. No clubbing. No edema. No calf tenderness. SKIN: Warm and dry. Normal capillary refill. No rashes. No jaundice. PSYCHIATRIC: Cooperative. Good eye contact. Appropriate mood and affect. Abnormal Lab Results 11/18/19 11/18/19 11/18/19 18:00 18:00 18:00 WBC 13.8 H RBC Hct Absolute Neuts (auto) 9.6 H PT with INR INR Anion Gap 6 L BUN 19.8 H Random Glucose 230 H Lactic Acid 2.1 H AST 11 L Creatine Kinase 22 L B-Natriuretic Peptide 1131.9 H Total Protein 5.4 L Albumin 2.6 L Lipase 54 L Ur Specific [place] Ur Leukocyte Esterase 11/18/19 11/18/19 11/18/19 18:00 20:00 22:30 WBC 13.2 H RBC Hct Absolute Neuts (auto) 10.7 H PT with INR 13.80 H INR 1.17 H Anion Gap BUN Random Glucose Lactic Acid AST Creatine Kinase B-Natriuretic Peptide Total Protein Albumin Lipase Ur Specific [place] 1.038 H Ur Leukocyte Esterase 1+ H 11/19/19 05:00 WBC 11.7 H RBC 3.58 L Hct 31.7 L Absolute Neuts (auto) PT with INR INR Anion Gap BUN Random Glucose Lactic Acid AST Creatine Kinase B-Natriuretic Peptide Total Protein Albumin Lipase Ur Specific [place] Ur Leukocyte Esterase Imaging studies reviewed ASSESSMENT AND PLAN: Critically ill 69-year-old woman with persistent upper GI bleed, large vomitus episode in the emergency room. Patient otherwise hemodynamically stable has a large bore IV in upper extremity. Underwent fluid resuscitation. GI on-call is aware of patient. Admit to ICU Trend CBC Protonix drip GI consult Monitor vital signs closely N.p.o. Avoid NSAIDs and anticoagulants 35 minutes spent on this critically ill patient
[2019-11-19] MEDS ORDERED: ALBUTEROL SO4 HFA INHALER IH PRN (02:20)
[2019-11-19] MEDS ORDERED: SODIUM CHLORIDE 1,000 ML IV SCH ×2 (02:30→04:28)
[2019-11-19] MEDS: ACETAMINOPHEN 325 MG TABLET (FP) PO PRN (02:47)
[2019-11-19] MEDS: oxyCODONE HCL 5 MG TABLET PO PRN (02:47)
--- NOTE | 2019-11-19 03:46 | HP ---
CHIEF COMPLAINT: bloody vomiting PCP: Chrissy Davies HISTORY OF PRESENT ILLNESS: Milka Durbin is a 69 year old female with a past medical history asthma, COPD, [place] (1999), HTN, HLD, CVA ( and ), DM, and chronic back pain with opioid use presenting after a bloody emesis episode. Patient stated that she started to feel general abdominal discomfort starting one month prior and noted that she does not have frequent bowel movements. The abdominal discomfort progressed to generalized intermittent pain 1 week prior to presenting to the ER. She states that she took 2 Tylenol regular strength for pain. Denied taking NSAIDs. She endorsed feeling "unwell" the day of admission and stated that her aide went out for errands and the patient had in the meantime had 1 episode of bloody emesis which she said was about a cup worth. Denied any further episodes and endorsed pain in the LUQ and epigastric region. She denies any history of alcohol abuse or liver disease. Stated that she may have had an endoscopy/ colonoscopy but was unsure of where she had one performed (possibly [facility]). Denied any previous episodes of bloody emesis, esophageal varices, regular epigastric pain. Endorsed chronic back pain. Denied fevers, chills, chest pain, shortness of breath, headaches, dizziness. While in ED, patient had an additional bloody emesis episode of approximately 1 cup. ER course was notable for: (1) BP 100/55 (2) WBC 13.8, Hgb 11.5 (previous in the 14s), BUN 19.8, GLU 230, lactic 2.1--> 1.6, BNP 1131, Alb 2.6 (3) FOBT negative (4) CXR with enlarged heart IMAGING Chest and Abd/Pelvis CTA: Examination of the mediastinum demonstrates no evidence of mediastinal masses, fluid collections or lymphadenopathy. The heart is enlarged. The lung ly are free of pulmonary masses, areas of acute consolidation or pleural effusions. There are increased interstitial markings and scattered areas of groundglass opacification consistent with chronic lung disease. The possibility of a mild degree of acute congestion cannot be excluded. The abdominal aorta is normal in position and caliber with no evidence of aneurysmal dilatation or dissection. The branches of the aorta widely patent, including the celiac axis, SMA, bilateral renal arteries, AL and bilateral common iliac arteries. The liver, spleen, pancreas, adrenal glands and kidneys demonstrate no significant abnormalities. There is no evidence of intra-abdominal or retroperitoneal lymphadenopathy or fluid collections. There is no evidence of pneumoperitoneum, bowel obstruction or intra-abdominal abscess. There is no CT evidence of acute appendicitis or diverticulitis. Examination of the pelvis demonstrates no evidence of pelvic masses, fluid collections or lymphadenopathy. There is a large amount retained fecal material throughout the colon. There is no evidence of acute bony pathology. 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 Only child. Allergies shellfish derived Allergy (Mild, Verified 11/18/19 21:30) can't swallow it HOME MEDICATIONS: Home Medications Medication Instructions Recorded Furosemide [Lasix -] 20 mg PO MOWEFR 03/20/17 Ascorbic Acid [Vitamin C] 500 mg PO DAILY 03/08/18 Cholecalciferol (Vitamin D3) 1,000 unit PO DAILY 03/08/18 [Vitamin D3] Aspirin [ASA -] 81 mg PO DAILY #30 tab.chew 03/11/18 Budesonide/Formeterol Fumarate 2 puff IH BID inhaler 05/08/19 [SYMBICORT 80/4.5mcg -] Montelukast Na [Singulair -] 10 mg PO HS tablet 05/08/19 Diclofenac Sodium [Voltaren] 2 gm TP TID PRN #3 tube NS 07/21/19 Ergocalciferol [Vitamin D2] 50,000 unit PO Q7D@1000 #4 capsule 07/21/19 Melatonin/Pyridoxine HCl (B6) 1 each PO DAILY 07/21/19 [Melatonin 3 mg Tablet] Nicotine [Nicotine Patch 21 mg/24 1 each TD DAILY 07/21/19 hr] metFORMIN HCL [Metformin HCl ER] 500 mg PO BID 07/21/19 Ammonium Lactate Cream [Lac-Hydrin 1 applic TP TID #1 tube 08/20/19 12% *Cream*] Mupirocin Ointment [Bactroban 2% 1 applic TP BID #45 gm 08/20/19 Ointment -] Acetaminophen [Tylenol Extra 500 mg PO BID PRN #60 tablet 09/17/19 Strength] Aluminum Hydroxide [Dermagran] 113 gm TP BID #2 tube 09/17/19 Alcohol Antiseptic Pads [Alcohol 1 each TP TID #1 box 10/19/19 Prep Pad] Blood Sugar Diagnostic [Blood 1 each MC TID #90 strip 10/19/19 Glucose Test Strip] Blood-Glucose Meter [Blood Glucose 1 each MC TID #1 each 10/19/19 Meter] Lancets [Lancets Ultra Thin] 1 each MC TID #90 each 10/19/19 Miconazole Nitrate [Monistat-7 1 applic VG HS #7 tube 10/19/19 Vaginal Cream -] Nicotine [Nicotine Patch 14mg/24 1 each TD DAILY #30 patch.td24 10/19/19 hr] Nystatin Powder [Nystop Powder -] 60 gm TP BID #1 powder 10/19/19 Oxycodone HCl/Acetaminophen 1 each PO TID PRN #90 tablet MDD 3 10/19/19 [Percocet 10-325 mg Tablet] Pregabalin [Lyrica -] 50 mg PO BID #60 capsule MDD 2 10/19/19 Selenium Sulfide/Aloe Vera [Selsun 325 ml TP Q2D #1 shampoo 10/19/19 Blue Moist 1% Shampoo] Triamcinolone 0.1% Ointment 1 applic TP DAILY #1 tube 10/19/19 [Aristocort 0.1% Ointment -] Zinc Oxide/Petrolatum,White 99 gm TP BID #1 tube 10/19/19 [[place] Moist Barrier Cream] Albuterol Sulfate Inhaler - 1 puff IH Q6H PRN 11/19/19 [Ventolin HFA Inhaler -] Insulin Glargine,Hum.rec.anlog 34 unit SQ HS 11/19/19 [Basaglar Kwikpen U-100] Lisinopril 10 mg PO DAILY 11/19/19 REVIEW OF SYSTEMS CONSTITUTIONAL: generalized weakness, loss of appetite Absent: fever, chills, diaphoresis, malaise, weight change HEENT: Absent: rhinorrhea, nasal congestion, throat pain, throat swelling, difficulty swallowing, visual changes CARDIOVASCULAR: lightheadedness Absent: chest pain, syncope, palpitations, irregular heart rate, peripheral edema RESPIRATORY: Absent: cough, shortness of breath, dyspnea with exertion, orthopnea, wheezing GASTROINTESTINAL: abdominal pain, abdominal distension, nausea, vomiting, constipation Absent: diarrhea, melena, hematochezia GENITOURINARY: Absent: dysuria, frequency, urgency, hesitancy, hematuria, flank pain, MUSCULOSKELETAL: back pain, arthralgia Absent: myalgia, joint swelling, neck pain SKIN: Absent: rash, itching, pallor HEMATOLOGIC/IMMUNOLOGIC: Absent: easy bleeding, easy bruising, lymphadenopathy, frequent infections ENDOCRINE: Absent: unexplained weight gain, unexplained weight loss, heat intolerance, cold intolerance NEUROLOGIC: Absent: headache, focal weakness or paresthesias, dizziness, unsteady gait, seizure, mental status changes PSYCHIATRIC: Absent: anxiety, depression, suicidal or homicidal ideation, hallucinations. PHYSICAL EXAMINATION Vital Signs - 24 hr 11/18/19 11/18/19 11/18/19 17:25 19:08 19:58 Temperature 97.8 F Pulse Rate 93 H Pulse Rate [ 88 78 76 Right] Respiratory 23 H 22 H Rate Blood Pressure 94/56 L Blood Pressure 96/57 L 106/88 99/56 L [Right Arm] O2 Sat by Pulse 96 97 Oximetry (%) 11/18/19 11/18/19 11/19/19 20:22 21:46 01:11 Temperature Pulse Rate Pulse Rate [ 72 74 Right] Respiratory 22 H 20 Rate Blood Pressure Blood Pressure 91/51 L 100/55 L 109/52 L [Right Arm] O2 Sat by Pulse 98 98 Oximetry (%) GENERAL: Awake, alert, and fully oriented, in moderate acute distress. HEAD: Normal with no signs of trauma. EYES: Pupils equal, round and reactive to light, extraocular movements intact, sclera anicteric, conjunctiva clear. EARS, NOSE, THROAT: Oropharynx clear without exudates. Moist mucous membranes. NECK: Normal range of motion, supple without lymphadenopathy, JVD. LUNGS: Breath sounds equal, clear to auscultation bilaterally. No wheezes, and no crackles. No accessory muscle use. HEART: Regular rate and rhythm, normal S1 and S2 without murmur, rub. ABDOMEN: Soft, tender in the LUQ and epigastric region, hypoactive bowel sounds , no guarding, no rebound, no masses. MUSCULOSKELETAL: Normal range of motion at all joints. No bony deformities or tenderness. UPPER EXTREMITIES: 1+ pulses, warm, well-perfused. No cyanosis. No clubbing. No peripheral edema. LOWER EXTREMITIES: 1+ pulses, warm, well-perfused. No calf tenderness. No peripheral edema. NEUROLOGICAL: R facial droop. 4/5 muscle strength in the RUQ. All other 5/5 muscle strength but with poor effort. PSYCHIATRIC: Depressed mood and affect. SKIN: Cool, dry, normal turgor. Laboratory Results - last 24 hr 11/18/19 11/18/19 11/18/19 18:00 18:00 18:00 WBC 13.8 H RBC 4.13 Hgb 12.5 Hct 36.7 MCV 88.9 MCH 30.2 MCHC 34.0 RDW 13.8 Plt Count 310 D MPV 9.2 Absolute Neuts (auto) 9.6 H Neutrophils % 69.5 Lymphocytes % 21.0 Monocytes % 7.2 Eosinophils % 1.9 Basophils % 0.4 Nucleated RBC % 0 PT with INR INR Sodium 140 Potassium 4.3 Chloride 106 Carbon Dioxide 29 Anion Gap 6 L BUN 19.8 H Creatinine 0.9 Est GFR (CKD-EPI)AfAm 76.68 Est GFR (CKD-EPI)NonAf 66.16 Random Glucose 230 H Lactic Acid 2.1 H Calcium 8.7 Total Bilirubin 0.4 AST 11 L ALT 15 Alkaline Phosphatase 89 Creatine Kinase 22 L Troponin I < 0.02 B-Natriuretic Peptide 1131.9 H Total Protein 5.4 L Albumin 2.6 L Lipase 54 L Urine Color Urine Appearance Urine pH Ur Specific [place] Urine Protein Urine Glucose (UA) Urine Ketones Urine Blood Urine Nitrite Urine Bilirubin Urine Urobilinogen Ur Leukocyte Esterase Urine WBC (Auto) Urine RBC (Auto) Urine Casts (Auto) U Epithel Cells (Auto) Urine Bacteria (Auto) Stool Occult Blood 11/18/19 11/18/19 11/18/19 18:00 18:52 20:00 WBC 13.2 H RBC 3.82 Hgb 11.5 Hct 34.2 MCV 89.4 MCH 30.0 MCHC 33.5 RDW 14.0 Plt Count 287 MPV 9.0 Absolute Neuts (auto) 10.7 H Neutrophils % 80.5 Lymphocytes % 12.8 D Monocytes % 5.6 Eosinophils % 0.8 Basophils % 0.3 Nucleated RBC % 0 PT with INR 13.80 H INR 1.17 H Sodium Potassium Chloride Carbon Dioxide Anion Gap BUN Creatinine Est GFR (CKD-EPI)AfAm Est GFR (CKD-EPI)NonAf Random Glucose Lactic Acid Calcium Total Bilirubin AST ALT Alkaline Phosphatase Creatine Kinase Troponin I B-Natriuretic Peptide Total Protein Albumin Lipase Urine Color Urine Appearance Urine pH Ur Specific [place] Urine Protein Urine Glucose (UA) Urine Ketones Urine Blood Urine Nitrite Urine Bilirubin Urine Urobilinogen Ur Leukocyte Esterase Urine WBC (Auto) Urine RBC (Auto) Urine Casts (Auto) U Epithel Cells (Auto) Urine Bacteria (Auto) Stool Occult Blood Negative 11/18/19 11/18/19 22:10 22:30 WBC RBC Hgb Hct MCV MCH MCHC RDW Plt Count MPV Absolute Neuts (auto) Neutrophils % Lymphocytes % Monocytes % Eosinophils % Basophils % Nucleated RBC % PT with INR INR Sodium Potassium Chloride Carbon Dioxide Anion Gap BUN Creatinine Est GFR (CKD-EPI)AfAm Est GFR (CKD-EPI)NonAf Random Glucose Lactic Acid 1.6 Calcium Total Bilirubin AST ALT Alkaline Phosphatase Creatine Kinase Troponin I B-Natriuretic Peptide Total Protein Albumin Lipase Urine Color Yellow Urine Appearance Clear Urine pH 5.5 D Ur Specific [place] 1.038 H Urine Protein Trace Urine Glucose (UA) Trace Urine Ketones Negative Urine Blood Negative Urine Nitrite Negative Urine Bilirubin Negative Urine Urobilinogen 1.0 Ur Leukocyte Esterase 1+ H Urine WBC (Auto) 71 Urine RBC (Auto) 5 Urine Casts (Auto) 31 U Epithel Cells (Auto) 19.0 Urine Bacteria (Auto) 2.4 Stool Occult Blood EKG--> NSR, no ST segment changes, QTc 491 ASSESSMENT/PLAN: Milka Durbin is a 69 year old female with a past medical history asthma, COPD, [place] (1999), HTN, HLD, CVA ( and ), DM, and chronic back pain with opioid use admitted for upper GI bleed. Upper GI Bleed - unclear etiology, no liver pathology or recent NSAID use - abd/pelvis CT as above - ICU consulted - GI consulted, spoken with Dr. Brown, recs appreciated - Protonix drip at 8mg/hr - ceftriaxone 1g for upper GI bleed prophylaxis - NPO - monitor H/H, transfusion parameters at Hgb 7 - avoid NSAIDS - CBC q6h - NG tube in, CXR for confirmation - NS boluses and standing fluid NS at 100cc/hr - FOBT negative DM - BGM - ISS - home glargine 34 units with parameters - A1c HTN - hold home meds in setting of bleeding and low BPs Pain - on home Lyrica - hold home opioids in setting of constipation COPD - on ventolin DVT PPx - hold chemical AC in setting of GI bleed FEN - fluid boluses as necessary, NS at 100cc/hr - continue to monitor electrolytes and replete as necessary - NPO Dispo - admit to ICU Family Medical History Family Hx Cancer: Mother (breast CA) Family Hx Cardiac Disorders: Mother (NM) Family Hx Diabetes: Mother, Father Visit type - Emergency Visit Emergency Visit: Yes ED Registration Date: 11/18/19 Care time: The patient presented to the Emergency Department on the above date and was hospitalized for further evaluation of their emergent condition. - New Patient This patient is new to me today: Yes Date on this admission: 11/19/19 - Critical Care Critical Care patient: No
[2019-11-19] MEDS ORDERED: ONDANSETRON 4 MG/2 ML VIAL ONE (04:06)
[2019-11-19] MEDS ORDERED: ONDANSETRON 4 MG/2 ML VIAL IVPUSH ONE (04:09)
[2019-11-19 05:31] LABS: BASO % 0.3 % (0-2.0); EOS % 1.6 % (0-4.5); HEMATOCRIT 31.7 % (32.4-45.2); HEMOGLOBIN 10.8 GM/dL (10.7-15.3); LYMPH % 32.9 % (8-40); MEAN CELL VOLUME 88.5 fl (80-96); MEAN PLT VOLUME 9.3 fl (7.5-11.1); MONO % 6.3 % (3.8-10.2); NEUT % 58.9 % (42.8-82.8); PLATELET COUNT 268 K/MM3 (134-434); RBC 3.58 M/mm3 (3.60-5.2); RDW 14.1 % (11.6-15.6); WHITE BLOOD COUNT 11.7 K/mm3 (4.0-10.0)
--- NOTE | 2019-11-19 05:45 | CONSULT ---
Consultation: REQUESTING PROVIDER: CONSULT REQUEST: We have been asked to medically evaluate this patient for UGIB. HISTORY OF PRESENT ILLNESS: 69 y/o F with PMHx of Asthma, COPD (not on home O2), CVA (x2; Residual LE Weakness, ?RUE Numbness, R Facial Droop) [place] (No cardiac stents), HTN, HLD, DM, Chronic back pain (opiod use) presents with hematemsis. She mentions having blood in her stool for the past 2.5 months and generalized abdominal discomfort for the past 1 month. Patient says she was in her usual state of health until approx. 2 weeks ago where she began to feel increased stress from her domestic situation (issues with homemaker, patient would not clarify further). 1 week ago her abdominal pain began to worsen and became more prominent over her Left abdomen. These feelings were accompanied by fatigue prompting her to visit her PCP Dr. Davies who checked a UA this past saturday and start Cipro this past Saturday. Since then her weakness persisted however yesterday, her weakness worsened and was accompanied by diminished appetite and sudden onset chills. Upon arriving home, patient says she had 1 episode of dark red vomit (did not eat anything that day, unable to quantify amount); This was the first time she experienced these sx's without an identifiable trigger or reliving factor prompt ing her to visit the ED. During her ED course, patient again had additional witnessed episodes of hematemesis. Mentions having had a colonoscopy many years ago (Unclear which physician performed this, Patient cannot recall the results). Denies any recent medication changes, NSAID/ASA use, of hx of EtOH abuse. Endorses Nausea, LUQ and LLQ Abdominal pain, chronic back pain, Constipation. Denies any fevers, chills, chest pain, SOB, diarrhea, headaches, dizziness/lightheadedness. REVIEW OF SYSTEMS: As per HPI PHYSICAL EXAMINATION Last Vital Signs Temp Pulse Resp BP Pulse Ox 97.8 F 80 22 H 120/60 97 11/18/19 17:25 11/19/19 04:19 11/19/19 04:19 11/19/19 04:19 11/19/19 04:19 GENERAL: A&Ox3, NAD HEAD: NCAT EYES: PERRL, EOMI EARS, NOSE, THROAT: Moist mucous membranes. NGT in place NECK: Supple, No JVD LUNGS: Diminished breath sounds at the bases, No wheezes, no crackles. HEART: Regular rate and rhythm, normal S1 and S2 without murmur ABDOMEN: Obese, Soft, Tender to palpation in the LUQ and LLQ, not distended, diminished bowel sounds, no guarding, no rebound MUSCULOSKELETAL: No CVA tenderness. EXTREMITIES: No peripheral edema. NEUROLOGICAL: Right facial droop otherwise Cranial nerves II-XII intact. Slightly slurred speech. 4/5 motor strength in the RUE, otherwise 5/5 throughout. Diminished sensation over the RUE. SKIN: Warm, dry Laboratory Last Values WBC 13.2 K/mm3 (4.0-10.0) H 11/18/19 20:00 RBC 3.82 M/mm3 (3.60-5.2) 11/18/19 20:00 Hgb 11.5 GM/dL (10.7-15.3) 11/18/19 20: Hct 34.2 % (32.4-45.2) 11/18/19 20: MCV 89.4 fl (80-96) 11/18/19 20:00 MCH 30.0 pg (25.7-33.7) 11/18/19 20: MCHC 33.5 g/dl (32.0-36.0) 11/18/19 20: RDW 14.0 % (11.6-15.6) 11/18/19 20:00 Plt Count 287 K/MM3 (134-434) 11/18/19 20: MPV 9.0 fl (7.5-11.1) 11/18/19 20: Absolute Neuts (auto) 10.7 K/mm3 (1.5-8.0) H 11/18/19 20:00 Neutrophils % 80.5 % (42.8-82.8) 11/18/19 20:00 Lymphocytes % 12.8 % (8-40) D 11/18/19 20: Monocytes % 5.6 % (3.8-10.2) 11/18/19 20: Eosinophils % 0.8 % (0-4.5) 11/18/19 20: Basophils % 0.3 % (0-2.0) 11/18/19 20:00 Nucleated RBC % 0 % (0-0) 11/18/19 20:00 PT with INR 13.80 SEC (9.7-13.0) H 11/18/19 18:00 INR 1.17 (0.83-1.09) H 11/18/19 18:00 Sodium 140 mmol/L (136-145) 11/18/19 18:00 Potassium 4.3 mmol/L (3.5-5.1) 11/18/19 18:00 Chloride 106 mmol/L (98-107) 11/18/19 18:00 Carbon Dioxide 29 mmol/L (21-32) 11/18/19 18:00 Anion Gap 6 MMOL/L (8-16) L 11/18/19 18:00 BUN 19.8 mg/dL (7-18) H 11/18/19 18:00 Creatinine 0.9 mg/dL (0.55-1.3) 11/18/19 18:00 Est GFR (CKD-EPI)AfAm 76.68 11/18/19 18:00 Est GFR (CKD-EPI)NonAf 66.16 11/18/19 18:00 Random Glucose 230 mg/dL (74-106) H 11/18/19 18:00 Lactic Acid 1.6 mmol/L (0.4-2.0) 11/18/19 22:10 Calcium 8.7 mg/dL (8.5-10.1) 11/18/19 18:00 Total Bilirubin 0.4 mg/dL (0.2-1) 11/18/19 18:00 AST 11 U/L (15-37) L 11/18/19 18:00 ALT 15 U/L (13-61) 11/18/19 18:00 Alkaline Phosphatase 89 U/L (45-117) 11/18/19 18:00 Creatine Kinase 22 U/L (26-192) L 11/18/19 18:00 Troponin I < 0.02 ng/ml (0.00-0.05) 11/18/19 18:00 B-Natriuretic Peptide 1131.9 pg/ml (5-125) H 11/18/19 18:00 Total Protein 5.4 g/dl (6.4-8.2) L 11/18/19 18:00 Albumin 2.6 g/dl (3.4-5.0) L 11/18/19 18:00 Lipase 54 U/L (73-393) L 11/18/19 18:00 Urine Color Yellow 11/18/19 22:30 Urine Appearance Clear 11/18/19 22:30 Urine pH 5.5 (5.0-8.0) D 11/18/19 22:30 Ur Specific [place] 1.038 (1.010-1.035) H 11/18/19 22:30 Urine Protein Trace (NEGATIVE) 11/18/19 22:30 Urine Glucose (UA) Trace (NEGATIVE) 11/18/19 22:30 Urine Ketones Negative (NEGATIVE) 11/18/19 22:30 Urine Blood Negative (NEGATIVE) 11/18/19 22:30 Urine Nitrite Negative (NEGATIVE) 11/18/19 22:30 Urine Bilirubin Negative (NEGATIVE) 11/18/19 22:30 Urine Urobilinogen 1.0 mg/dL (0.2-1.0) 11/18/19 22:30 Ur Leukocyte Esterase 1+ (NEGATIVE) H 11/18/19 22:30 Urine WBC (Auto) 71 /hpf (0-5) 11/18/19 22:30 Urine RBC (Auto) 5 /hpf (0-4) 11/18/19 22:30 Urine Casts (Auto) 31 /lpf (0-8) 11/18/19 22:30 U Epithel Cells (Auto) 19.0 /HPF (0-5/HPF) 11/18/19 22:30 Urine Bacteria (Auto) 2.4 /hpf (NEGATIVE) 11/18/19 22:30 Stool Occult Blood Negative (NEGATIVE) 11/18/19 18:52 Active Medications Acetaminophen (Tylenol -) 325 mg PO Q8H PRN PRN Reason: PAIN LEVEL 7 - 10 Last Admin: 11/19/19 02:47 Dose: 325 mg Albuterol Sulfate (Ventolin Hfa Inhaler -) 1 puff IH Q6H PRN PRN Reason: SHORT OF BREATH/WHEEZING Chlorhexidine Gluconate (Hibiclens For Decolonization -) 1 applic TP HS YONG Pantoprazole Sodium 80 mg/ (Sodium Chloride) 100 mls @ 10 mls/hr IVPB Q10H YONG Stop: 11/21/19 19:41 Last Admin: 11/18/19 20:22 Dose: 10 mls/hr Sodium Chloride (Normal Saline -) 1,000 mls @ 999 mls/hr IV ASDIR YONG Stop: 11/20/19 05:29 Last Admin: 11/19/19 04:29 Dose: 999 mls/hr Sodium Chloride (Normal Saline -) 1,000 mls @ 100 mls/hr IV ASDIR YONG Ceftriaxone Sodium 1 gm/ (Dextrose) 50 mls @ 100 mls/hr IVPB DAILY YONG; Protocol Insulin Aspart (Novolog Vial Sliding Scale -) 1 vial SQ ACHS YONG; Protocol Insulin Detemir (Levemir Vial) 34 units SQ HS YONG Mupirocin (Bactroban Ointment (For Decolonization) -) 1 applic NS BID [facility] Stop: 11/24/19 09:59 Oxycodone HCl (Roxicodone -) 10 mg PO Q8H PRN PRN Reason: PAIN LEVEL 7 - 10 Last Admin: 11/19/19 02:47 Dose: 10 mg Pregabalin (Lyrica -) 50 mg PO BID [facility] ASSESSMENT/PLAN: 69 y/o F with PMHx of Asthma, COPD (not on home O2), CVA (x2; Residual LE Weakness, ?RUE Numbness, R Facial Droop) [place] (No cardiac stents), HTN, HLD, DM, Chronic back pain (opiod use) presents with hematemsis. #Neuro Hx of CVA (x2; Residual LE Weakness, ?RUE Numbness, R Facial Droop) -Will need further investigation into Statin/ASA use given hx #Cardio Hx of [place] (No cardiac stents), HTN, HLD -Patient denies any ASA use -Hold all AntiHypertensives in the setting of UGIB #Pulm Hx of Asthma, COPD (not on home O2) -Supplemental O2 to maintain SpO2 88-92% -Continue home dose bronchodilators #GI Hematemsis concerning for UGIB Lactic acidosis, Resolved -Unclear etiology, No hx of PUD, No recent NSAID/ASA/Anticoagulation use -VSS without tachycardia, slightly isolated elevated BUN, however H&H trending down -Rectal exam defferred as was just performed by ED; FOBT Negative -CTA noted for fecal retention, no signs of mesenteric ischemia or acute pathology -Continue IV Hydration -PPI GTT -Maintain NGT -Ceftriaxone for SBP ppx -CBC Q4H, normal transfusion threshold -Will hold all Chemical AC, NSAIDs, ASA -GI Consulted, appreciate rec's -Keep NPO for possible Endoscopy #Endo Hx of DM -ISS BGMs ACHS -Detemir 34u HS #ID UA reveals 1+ LE, 71 WBC, Nitrite negative -Currently denies dysuria -Follow urine cultures; Would consider drawing blood cx's give lactic acidosis and single episodes of Tachycardia (HR 93) #MSK Hx of Chronic back pain (opiod use) -Continue home dose pain regimen #FEN -NS @ 100 -Replete lytes PRN -NPO #PPx -GI: PPI Drip -DVT: SCDs Dispo: We will continue to follow the patient. Thank you for this consultative opportunity. Visit type - Emergency Visit Emergency Visit: Yes ED Registration Date: 11/18/19 Care time: The patient presented to the Emergency Department on the above date and was hospitalized for further evaluation of their emergent condition. - New Patient This patient is new to me today: Yes Date on this admission: 11/19/19 - Critical Care Critical Care patient: Yes Total Critical Care Time (in minutes): 36 Critical Care Statement: The care of this patient involved high complexity decision making to prevent further life threatening deterioration of the patient's condition and/or to evaluate & treat vital organ system(s) failure or risk of failure. ATTENDING PHYSICIAN STATEMENT I saw and evaluated the patient. I reviewed the resident's note and discussed the case with the resident. I agree with the resident's findings and plan as documented. SUBJECTIVE: OBJECTIVE: ASSESSMENT AND PLAN:
[2019-11-19] MEDS ORDERED: cefTRIAXone SODIUM 1 GM VIAL ONE (07:25)
[2019-11-19] MEDS ORDERED: DEXTROSE 5%-WATER - 50 ML IVPB ONE (07:25)
--- NOTE | 2019-11-19 07:26 | PN ---
Physical Exam: SUBJECTIVE: Patient seen and examined Patient denies any current symptoms, but does report that she has been under a lot of stress recently and that she doesn't want to talk about it. OBJECTIVE: Vital Signs Period Temp Pulse Resp BP Sys/Danielle Pulse Ox Last 24 Hr 97.8 F-99 F 72-93 16-28 91-126/51-88 95-98 GENERAL: The patient is awake, alert, and fully oriented, in no acute distress. HEAD: Normal with no signs of trauma. EYES: PERRL, extraocular movements intact, sclera anicteric, conjunctiva clear. ENT: Ears normal, nares patent, oropharynx clear without exudates NECK: Trachea midline, full range of motion, supple LUNGS: Breath sounds equal, clear to auscultation bilaterally, no wheezes, no crackles, no accessory muscle use. HEART: Regular rate and rhythm, S1, S2 without murmur, rub or hong ABDOMEN: Soft, periumbilical tenderness, nondistended, hypoactive bowel sounds EXTREMITIES: 2+ pulses, warm, well-perfused, no edema. NEUROLOGICAL: Cranial nerves II through XII grossly intact. RUE 4/5 strength, R facial droop. B/l LE weakness. SKIN: Warm, dry Laboratory Results - last 24 hr 11/18/19 11/18/19 11/18/19 18:00 18:00 18:00 WBC 13.8 H RBC 4.13 Hgb 12.5 Hct 36.7 MCV 88.9 MCH 30.2 MCHC 34.0 RDW 13.8 Plt Count 310 D MPV 9.2 Absolute Neuts (auto) 9.6 H Neutrophils % 69.5 Lymphocytes % 21.0 Monocytes % 7.2 Eosinophils % 1.9 Basophils % 0.4 Nucleated RBC % 0 PT with INR INR Sodium 140 Potassium 4.3 Chloride 106 Carbon Dioxide 29 Anion Gap 6 L BUN 19.8 H Creatinine 0.9 Est GFR (CKD-EPI)AfAm 76.68 Est GFR (CKD-EPI)NonAf 66.16 Random Glucose 230 H Lactic Acid 2.1 H Calcium 8.7 Total Bilirubin 0.4 AST 11 L ALT 15 Alkaline Phosphatase 89 Creatine Kinase 22 L Troponin I < 0.02 B-Natriuretic Peptide 1131.9 H Total Protein 5.4 L Albumin 2.6 L Lipase 54 L Urine Color Urine Appearance Urine pH Ur Specific [place] Urine Protein Urine Glucose (UA) Urine Ketones Urine Blood Urine Nitrite Urine Bilirubin Urine Urobilinogen Ur Leukocyte Esterase Urine WBC (Auto) Urine RBC (Auto) Urine Casts (Auto) U Epithel Cells (Auto) Urine Bacteria (Auto) Stool Occult Blood 11/18/19 11/18/19 11/18/19 18:00 18:52 20:00 WBC 13.2 H RBC 3.82 Hgb 11.5 Hct 34.2 MCV 89.4 MCH 30.0 MCHC 33.5 RDW 14.0 Plt Count 287 MPV 9.0 Absolute Neuts (auto) 10.7 H Neutrophils % 80.5 Lymphocytes % 12.8 D Monocytes % 5.6 Eosinophils % 0.8 Basophils % 0.3 Nucleated RBC % 0 PT with INR 13.80 H INR 1.17 H Sodium Potassium Chloride Carbon Dioxide Anion Gap BUN Creatinine Est GFR (CKD-EPI)AfAm Est GFR (CKD-EPI)NonAf Random Glucose Lactic Acid Calcium Total Bilirubin AST ALT Alkaline Phosphatase Creatine Kinase Troponin I B-Natriuretic Peptide Total Protein Albumin Lipase Urine Color Urine Appearance Urine pH Ur Specific [place] Urine Protein Urine Glucose (UA) Urine Ketones Urine Blood Urine Nitrite Urine Bilirubin Urine Urobilinogen Ur Leukocyte Esterase Urine WBC (Auto) Urine RBC (Auto) Urine Casts (Auto) U Epithel Cells (Auto) Urine Bacteria (Auto) Stool Occult Blood Negative 11/18/19 11/18/19 11/19/19 22:10 22:30 05:00 WBC 11.7 H RBC 3.58 L Hgb 10.8 Hct 31.7 L MCV 88.5 MCH 30.0 MCHC 34.0 RDW 14.1 Plt Count 268 MPV 9.3 Absolute Neuts (auto) 6.9 Neutrophils % 58.9 D Lymphocytes % 32.9 D Monocytes % 6.3 Eosinophils % 1.6 D Basophils % 0.3 Nucleated RBC % 0 PT with INR INR Sodium Potassium Chloride Carbon Dioxide Anion Gap BUN Creatinine Est GFR (CKD-EPI)AfAm Est GFR (CKD-EPI)NonAf Random Glucose Lactic Acid 1.6 Calcium Total Bilirubin AST ALT Alkaline Phosphatase Creatine Kinase Troponin I B-Natriuretic Peptide Total Protein Albumin Lipase Urine Color Yellow Urine Appearance Clear Urine pH 5.5 D Ur Specific [place] 1.038 H Urine Protein Trace Urine Glucose (UA) Trace Urine Ketones Negative Urine Blood Negative Urine Nitrite Negative Urine Bilirubin Negative Urine Urobilinogen 1.0 Ur Leukocyte Esterase 1+ H Urine WBC (Auto) 71 Urine RBC (Auto) 5 Urine Casts (Auto) 31 U Epithel Cells (Auto) 19.0 Urine Bacteria (Auto) 2.4 Stool Occult Blood Active Medications Generic Name Dose Route Start Last Admin Trade Name Freq PRN Reason Stop Dose Admin Acetaminophen 325 mg 11/19/19 02:34 11/19/19 02:47 Tylenol - PO 325 mg Q8H PRN Administration PAIN LEVEL 7 - 10 Albuterol Sulfate 1 puff 11/19/19 02:20 Ventolin Hfa Inhaler - IH Q6H PRN SHORT OF BREATH/WHEEZING Chlorhexidine Gluconate 1 applic 11/19/19 22:00 Hibiclens For Decolonization - TP HS YONG Pantoprazole Sodium 80 mg/ 100 mls @ 10 mls/hr 11/18/19 19:45 11/18/19 20:22 Sodium Chloride IVPB 11/21/19 19:41 10 mls/hr Q10H YONG Administration 8 MG/HR Sodium Chloride 1,000 mls @ 999 mls/hr 11/19/19 04:28 11/19/19 04:29 Normal Saline - IV 11/20/19 05:29 999 mls/hr ASDIR YONG Administration Sodium Chloride 1,000 mls @ 100 mls/hr 11/19/19 04:45 Normal Saline - IV ASDIR YONG Ceftriaxone Sodium 1 gm/ 50 mls @ 100 mls/hr 11/19/19 04:43 Dextrose IVPB DAILY [facility] Protocol Insulin Aspart 1 vial 11/19/19 07:00 Novolog Vial Sliding Scale - SQ ACHS [facility] Protocol Insulin Detemir 34 units 11/19/19 22:00 Levemir Vial SQ HS [facility] Mupirocin 1 applic 11/19/19 10:00 Bactroban Ointment (For Decolonization) - NS 11/24/19 09:59 BID YONG Oxycodone HCl 10 mg 11/19/19 02:33 11/19/19 02:47 Roxicodone - PO 10 mg Q8H PRN Administration PAIN LEVEL 7 - 10 Pregabalin 50 mg 11/19/19 10:00 Lyrica - PO BID [facility] ASSESSMENT/PLAN: 69 yo F PMH asthma, COPD (not on home O2), CVA x2 w/ residual LE Weakness, ?RUE numbness, and R facial droop, [place] w/o cardiac stents, HTN, HLD, DM, chronic back pain on opioids, presents with hematemesis. Reportedly with blood in her stool for the past 2.5 months, increased stress over past 2 weeks. Saw her PCP Dr. Davies who checked a UA 11/13 and started cipro 2/3. Neuro: - Hx CVA x2 - residual LE Weakness, R Facial Droop, RUE 4/5 strength CV: - Hx of [place] w/o cardiac stents, HTN, HLD - Patient denies any ASA use - Hold all anti-hypertensives in the setting of UGIB Respiratory: - Hx of Asthma, COPD (not on home O2) - Supplemental O2 to maintain SpO2 88-92% - Continue home dose bronchodilators GI: - Hematemesis concerning for UGIB - Lactic acidosis, since resolved - Unclear etiology, no hx of PUD, no recent NSAID/ASA/anticoagulation use - VSS without tachycardia - FOBT Negative - CTA noted for fecal retention, no signs of mesenteric ischemia or acute pathology - PPI drip - endoscopy: 2 ulcers in the cardia, one visible vessel - GI Consulted, appreciate recs - Per GI: ceftriaxone 1g daily X 3 days, clear diet tomorrow if no bleeding overnight, continue PPI drip - patient complaining of constipation, fleet enema ordered Endo: - Hx of DM - ISS BGMs ACHS - Detemir 34 units QHS Heme/Onc: - Hgb 10.3 to 9.4 - f/u repeat CBC 0100 ID: - UA reveals 1+ LE, 71 WBC, Nitrite negative - denies dysuria - Follow urine cultures MSK: - Hx of chronic back pain, on home opioids - Continue home dose pain regimen (IV versions) FEN - NS @ 100 - Replete lytes PRN - NPO PPx: - GI: PPI Drip - DVT: SCDs Dispo: - f/u GI recs - monitor for new bleeding Visit type - Emergency Visit Emergency Visit: Yes ED Registration Date: 11/18/19 Care time: The patient presented to the Emergency Department on the above date and was hospitalized for further evaluation of their emergent condition. - New Patient This patient is new to me today: Yes Date on this admission: 11/19/19 - Critical Care Critical Care patient: Yes Total Critical Care Time (in minutes): 45 Critical Care Statement: The care of this patient involved high complexity decision making to prevent further life threatening deterioration of the patient's condition and/or to evaluate & treat vital organ system(s) failure or risk of failure. ATTENDING PHYSICIAN STATEMENT I saw and evaluated the patient. I reviewed the resident's note and discussed the case with the resident. I agree with the resident's findings and plan as documented. SUBJECTIVE: OBJECTIVE: ASSESSMENT AND PLAN:
[2019-11-19] MEDS ORDERED: EPINEPHrine 1:10,000 (P-F SYR) 1 MG/10 ML DISP.SYRIN IVPUSH ONE (07:50)
[2019-11-19] MEDS ORDERED: EPINEPHrine 1:10,000 (P-F SYR) 1 MG/10 ML DISP.SYRIN ONE (07:53)
[2019-11-19] MEDS: CEFTRIAXONE 1 GM in DEXTROSE 5%-WATER - 50 ML IVPB SCH (08:20)
[2019-11-19] MEDS: SODIUM CHLORIDE 1,000 ML IV SCH ×2 (08:20→20:00)
[2019-11-19] MEDS: PANTOPRAZOLE SODIUM 80 MG in SODIUM CHLORIDE 100 ML IVPB SCH ×3 (08:50→20:00)
[2019-11-19 09:17] VITALS: BMI 45.3
[2019-11-19] MEDS: INSULIN SLIDING SCALE (NOVOLOG) 1 VIAL SQ SCH ×4 (09:39→21:28)
[2019-11-19] MEDS: PREGABALIN 50 MG CAPSULE PO SCH ×3 (11:21→21:33)
[2019-11-19] MEDS ORDERED: PT OWN MED DRAWER 7, Y5N ONE ×3 (11:32→18:18)
--- NOTE | 2019-11-19 11:43 | PN ---
Teaching Attending Note Name of Resident: Sabine Schwartz ATTENDING PHYSICIAN STATEMENT I saw and evaluated the patient. I reviewed the resident's note and discussed the case with the resident. I agree with the resident's findings and plan as documented. SUBJECTIVE: Pt seen and examined in the ICU. s/p EGD showing 2 gastric ulcers, one with bleeding vessel s/p endoclipping, epi injection. Denies abdominal pain, shortness of breath or chest pain. OBJECTIVE: Vital Signs Period Temp Pulse Resp BP Sys/Danielle Pulse Ox Last 24 Hr 97.8 F-99 F 68-93 16-28 91-148/51-88 95-98 Intake & Output 11/16/19 11/17/19 11/18/19 11/19/19 23:59 23:59 23:59 23:59 Intake Total 100 Balance 100 Weight 102.058 kg 108.862 kg Gen: NAD at rest Heart: RRR Lung: decreased breath sounds at the bases Abd: soft, nontender Ext: no edema CBC, BMP 11/19/19 05:00 11/18/19 18:00 Active Medications Acetaminophen (Tylenol -) 325 mg PO Q8H PRN PRN Reason: PAIN LEVEL 7 - 10 Last Admin: 11/19/19 02:47 Dose: 325 mg Albuterol Sulfate (Ventolin Hfa Inhaler -) 1 puff IH Q6H PRN PRN Reason: SHORT OF BREATH/WHEEZING Chlorhexidine Gluconate (Hibiclens For Decolonization -) 1 applic TP HS YONG Pantoprazole Sodium 80 mg/ (Sodium Chloride) 100 mls @ 10 mls/hr IVPB Q10H YONG Stop: 11/21/19 19:41 Last Admin: 11/19/19 08:50 Dose: 10 mls/hr Sodium Chloride (Normal Saline -) 1,000 mls @ 999 mls/hr IV ASDIR YONG Stop: 11/20/19 05:29 Last Admin: 11/19/19 04:29 Dose: 999 mls/hr Sodium Chloride (Normal Saline -) 1,000 mls @ 100 mls/hr IV ASDIR YONG Last Admin: 11/19/19 08:20 Dose: 100 mls/hr Ceftriaxone Sodium 1 gm/ (Dextrose) 50 mls @ 100 mls/hr IVPB DAILY Y[facility]; Protocol Last Admin: 11/19/19 08:20 Dose: 100 mls/hr Insulin Aspart (Novolog Vial Sliding Scale -) 1 vial SQ [facility]; Protocol Last Admin: 11/19/19 11:29 Dose: Not Given Insulin Detemir (Levemir Vial) 34 units SQ [facility] Mupirocin (Bactroban Ointment (For Decolonization) -) 1 applic NS BID [facility] Stop: 11/24/19 09:59 Oxycodone HCl (Roxicodone -) 10 mg PO Q8H PRN PRN Reason: PAIN LEVEL 7 - 10 Last Admin: 11/19/19 02:47 Dose: 10 mg Pregabalin (Lyrica -) 50 mg PO BID [facility] Last Admin: 11/19/19 11:21 Dose: Not Given ASSESSMENT AND PLAN: GI Bleed Acute Blood Loss Anemia Gastric Ulcers s/p endoclipping/epi injection COPD HTN DM Hyperlipidemia h/o CVA - monitor H/H - transfuse as needed - protonix gtt - NPO - on empiric antibiotics - inhaled bronchodilators - O2 to keep SpO2>90% - DVT prophylaxis - continue ICU monitoring for now
[2019-11-19 11:56] LABS: BASO % 0.4 % (0-2.0); EOS % 0.8 % (0-4.5); HEMATOCRIT 30.7 % (32.4-45.2); HEMOGLOBIN 10.3 GM/dL (10.7-15.3); LYMPH % 24.2 % (8-40); MCH 29.9 pg (25.7-33.7); MCHC 33.5 g/dl (32.0-36.0); MEAN CELL VOLUME 89.5 fl (80-96); MEAN PLT VOLUME 8.7 fl (7.5-11.1); MONO % 7.3 % (3.8-10.2); NEUT % 67.3 % (42.8-82.8); PLATELET COUNT 245 K/MM3 (134-434); RBC 3.43 M/mm3 (3.60-5.2); RDW 14.1 % (11.6-15.6); WHITE BLOOD COUNT 10.9 K/mm3 (4.0-10.0)
[2019-11-19] MEDS ORDERED: SODIUM PHOSPHATE/NA BIPHOS 133 ML ENEMA PR ONE (12:00)
[2019-11-19] MEDS: MUPIROCIN 2% TOPICAL OINTMENT FOR DECOLONIZATION NS SCH ×2 (12:06→21:23)
[2019-11-19 12:07] LABS: INR 1.17 (0.83-1.09); PROTHROMBIN TIME (PATIENT) 13.8 SEC (9.7-13.0)
[2019-11-19 12:10] LABS: ACTIVATED PTT 28.8 SECONDS (25.2-36.5)
[2019-11-19 12:30] LABS: ALBUMIN 2.7 g/dl (3.4-5.0); BILIRUBIN,TOTAL 0.4 mg/dL (0.2-1); BLOOD UREA NITROGEN 34.4 mg/dL (7-18); CALCIUM 8.4 mg/dL (8.5-10.1); CREATININE 0.7 mg/dL (0.55-1.3); MAGNESIUM 1.9 mg/dL (1.8-2.4); POTASSIUM 5.3 mmol/L (3.5-5.1); TOT PROT 5.6 g/dl (6.4-8.2)
--- NOTE | 2019-11-19 14:29 | EKG ---
Test Reason : Blood Pressure : / mmHG Vent. Rate : 088 BPM Atrial Rate : 088 BPM P-R Int : 114 ms QRS Dur : 098 ms QT Int : 406 ms P-R-T Axes : 003 -20 049 degrees QTc Int : 491 ms NORMAL SINUS RHYTHM MINIMAL VOLTAGE CRITERIA FOR LVH, MAY BE NORMAL VARIANT PROLONGED QT ABNORMAL ECG WHEN COMPARED WITH ECG OF 07-MAY-2019 12:11, NONSPECIFIC T WAVE ABNORMALITY HAS REPLACED INVERTED T WAVES IN INFERIOR LEADS Confirmed by DOROTEO CARVALHO MD ([id number]) on 11/19/2019 2:28:42 PM Referred By: Confirmed By:DOROTEO CARVALHO MD
--- NOTE | 2019-11-19 15:56 | PN ---
Teaching Attending Note Name of Resident: Karen Lawrence ATTENDING PHYSICIAN STATEMENT I saw and evaluated the patient. I reviewed the resident's note and discussed the case with the resident. I agree with the resident's findings and plan as documented. SUBJECTIVE: Seen and examined at bedside in ICU. Feeling tired, denies cp, sob, palpitations , nvd. OBJECTIVE: Vital Signs - 24 hr 11/18/19 11/18/19 11/18/19 17:25 19:08 19:58 Temperature 97.8 F Pulse Rate 93 H Pulse Rate [ 88 78 76 Right] Respiratory 23 H 22 H Rate Blood Pressure 94/56 L Blood Pressure 96/57 L 106/88 99/56 L [Right Arm] O2 Sat by Pulse 96 97 Oximetry (%) 11/18/19 11/18/19 11/19/19 20:22 21:46 01:11 Temperature Pulse Rate Pulse Rate [ 72 74 Right] Respiratory 22 H 20 Rate Blood Pressure Blood Pressure 91/51 L 100/55 L 109/52 L [Right Arm] O2 Sat by Pulse 98 98 Oximetry (%) 11/19/19 11/19/19 11/19/19 04:19 06:21 07:10 Temperature 98.9 F Pulse Rate 68 Pulse Rate [ 80 Right] Respiratory 22 H 16 16 Rate Blood Pressure 147/54 L Blood Pressure 120/60 126/62 [Right Arm] O2 Sat by Pulse 97 95 Oximetry (%) 11/19/19 11/19/19 11/19/19 08:15 08:25 10:00 Temperature 98.9 F 98.2 F Pulse Rate 68 78 Pulse Rate [ Right] Respiratory 16 16 Rate Blood Pressure 147/54 L 148/55 L Blood Pressure [Right Arm] O2 Sat by Pulse 98 Oximetry (%) 11/19/19 11/19/19 12:00 14:00 Temperature 98.1 F Pulse Rate 71 79 Pulse Rate [ Right] Respiratory 16 19 Rate Blood Pressure 137/98 126/102 H Blood Pressure [Right Arm] O2 Sat by Pulse Oximetry (%) Gen: NAD CVS: s1s2, rrr Lungs: CTA b/l, unlabored, no wrr Abdomen: soft, slightly distended, nontender Ext: no cce Current Medications Acetaminophen (Tylenol -) 325 mg PO Q8H PRN PRN Reason: PAIN LEVEL 7 - 10 Last Admin: 11/19/19 02:47 Dose: 325 mg Albuterol Sulfate (Ventolin Hfa Inhaler -) 1 puff IH Q6H PRN PRN Reason: SHORT OF BREATH/WHEEZING Chlorhexidine Gluconate (Hibiclens For Decolonization -) 1 applic TP HS [facility] Pantoprazole Sodium 80 mg/ (Sodium Chloride) 100 mls @ 10 mls/hr IVPB Q10H [facility] Stop: 11/21/19 19:41 Last Admin: 11/19/19 08:50 Dose: 10 mls/hr Sodium Chloride (Normal Saline -) 1,000 mls @ 100 mls/hr IV ASDIR [facility] Last Admin: 11/19/19 08:20 Dose: 100 mls/hr Ceftriaxone Sodium 1 gm/ (Dextrose) 50 mls @ 100 mls/hr IVPB DAILY [facility]; Protocol Last Admin: 11/19/19 08:20 Dose: 100 mls/hr Insulin Aspart (Novolog Vial Sliding Scale -) 1 vial SQ ACHS [facility]; Protocol Last Admin: 11/19/19 11:29 Dose: Not Given Insulin Detemir (Levemir Vial) 34 units SQ [facility] Lidocaine (Lidoderm Patch -) 1 patch TP ONCE ONE Stop: 11/19/19 15:56 Miscellaneous (Lidoderm Patch Removal) 1 each MC DAILY@2200 [facility] Mupirocin (Bactroban Ointment (For Decolonization) -) 1 applic NS BID [facility] Stop: 11/24/19 09:59 Last Admin: 11/19/19 12:06 Dose: 1 applic Oxycodone HCl (Roxicodone -) 10 mg PO Q8H PRN PRN Reason: PAIN LEVEL 7 - 10 Last Admin: 11/19/19 02:47 Dose: 10 mg Pregabalin (Lyrica -) 50 mg PO BID [facility] Last Admin: 11/19/19 11:21 Dose: Not Given Laboratory Results - last 24 hr 11/18/19 11/18/19 11/18/19 18:00 18:00 18:00 WBC 13.8 H RBC 4.13 Hgb 12.5 Hct 36.7 MCV 88.9 MCH 30.2 MCHC 34.0 RDW 13.8 Plt Count 310 D MPV 9.2 Absolute Neuts (auto) 9.6 H Neutrophils % 69.5 Lymphocytes % 21.0 Monocytes % 7.2 Eosinophils % 1.9 Basophils % 0.4 Nucleated RBC % 0 PT with INR INR PTT (Actin FS) Sodium 140 Potassium 4.3 Chloride 106 Carbon Dioxide 29 Anion Gap 6 L BUN 19.8 H Creatinine 0.9 Est GFR (CKD-EPI)AfAm 76.68 Est GFR (CKD-EPI)NonAf 66.16 POC Glucometer Random Glucose 230 H Hemoglobin A1c % Lactic Acid 2.1 H Calcium 8.7 Magnesium Total Bilirubin 0.4 AST 11 L ALT 15 Alkaline Phosphatase 89 Creatine Kinase 22 L Troponin I < 0.02 B-Natriuretic Peptide 1131.9 H Total Protein 5.4 L Albumin 2.6 L Lipase 54 L Urine Color Urine Appearance Urine pH Ur Specific [place] Urine Protein Urine Glucose (UA) Urine Ketones Urine Blood Urine Nitrite Urine Bilirubin Urine Urobilinogen Ur Leukocyte Esterase Urine WBC (Auto) Urine RBC (Auto) Urine Casts (Auto) U Epithel Cells (Auto) Urine Bacteria (Auto) Stool Occult Blood Blood Type Antibody Screen 11/18/19 11/18/19 11/18/19 18:00 18:52 20:00 WBC 13.2 H RBC 3.82 Hgb 11.5 Hct 34.2 MCV 89.4 MCH 30.0 MCHC 33.5 RDW 14.0 Plt Count 287 MPV 9.0 Absolute Neuts (auto) 10.7 H Neutrophils % 80.5 Lymphocytes % 12.8 D Monocytes % 5.6 Eosinophils % 0.8 Basophils % 0.3 Nucleated RBC % 0 PT with INR 13.80 H INR 1.17 H PTT (Actin FS) Sodium Potassium Chloride Carbon Dioxide Anion Gap BUN Creatinine Est GFR (CKD-EPI)AfAm Est GFR (CKD-EPI)NonAf POC Glucometer Random Glucose Hemoglobin A1c % Lactic Acid Calcium Magnesium Total Bilirubin AST ALT Alkaline Phosphatase Creatine Kinase Troponin I B-Natriuretic Peptide Total Protein Albumin Lipase Urine Color Urine Appearance Urine pH Ur Specific [place] Urine Protein Urine Glucose (UA) Urine Ketones Urine Blood Urine Nitrite Urine Bilirubin Urine Urobilinogen Ur Leukocyte Esterase Urine WBC (Auto) Urine RBC (Auto) Urine Casts (Auto) U Epithel Cells (Auto) Urine Bacteria (Auto) Stool Occult Blood Negative Blood Type Antibody Screen 11/18/19 11/18/19 11/19/19 22:10 22:30 05:00 WBC 11.7 H RBC 3.58 L Hgb 10.8 Hct 31.7 L MCV 88.5 MCH 30.0 MCHC 34.0 RDW 14.1 Plt Count 268 MPV 9.3 Absolute Neuts (auto) 6.9 Neutrophils % 58.9 D Lymphocytes % 32.9 D Monocytes % 6.3 Eosinophils % 1.6 D Basophils % 0.3 Nucleated RBC % 0 PT with INR INR PTT (Actin FS) Sodium Potassium Chloride Carbon Dioxide Anion Gap BUN Creatinine Est GFR (CKD-EPI)AfAm Est GFR (CKD-EPI)NonAf POC Glucometer Random Glucose Hemoglobin A1c % Lactic Acid 1.6 Calcium Magnesium Total Bilirubin AST ALT Alkaline Phosphatase Creatine Kinase Troponin I B-Natriuretic Peptide Total Protein Albumin Lipase Urine Color Yellow Urine Appearance Clear Urine pH 5.5 D Ur Specific [place] 1.038 H Urine Protein Trace Urine Glucose (UA) Trace Urine Ketones Negative Urine Blood Negative Urine Nitrite Negative Urine Bilirubin Negative Urine Urobilinogen 1.0 Ur Leukocyte Esterase 1+ H Urine WBC (Auto) 71 Urine RBC (Auto) 5 Urine Casts (Auto) 31 U Epithel Cells (Auto) 19.0 Urine Bacteria (Auto) 2.4 Stool Occult Blood Blood Type Antibody Screen 11/19/19 11/19/19 11/19/19 05:00 09:26 11:25 WBC RBC Hgb Hct MCV MCH MCHC RDW Plt Count MPV Absolute Neuts (auto) Neutrophils % Lymphocytes % Monocytes % Eosinophils % Basophils % Nucleated RBC % PT with INR INR PTT (Actin FS) Sodium Potassium Chloride Carbon Dioxide Anion Gap BUN Creatinine Est GFR (CKD-EPI)AfAm Est GFR (CKD-EPI)NonAf POC Glucometer 181 158 Random Glucose Hemoglobin A1c % Lactic Acid Calcium Magnesium Total Bilirubin AST ALT Alkaline Phosphatase Creatine Kinase Troponin I B-Natriuretic Peptide Total Protein Albumin Lipase Urine Color Urine Appearance Urine pH Ur Specific [place] Urine Protein Urine Glucose (UA) Urine Ketones Urine Blood Urine Nitrite Urine Bilirubin Urine Urobilinogen Ur Leukocyte Esterase Urine WBC (Auto) Urine RBC (Auto) Urine Casts (Auto) U Epithel Cells (Auto) Urine Bacteria (Auto) Stool Occult Blood Blood Type O POSITIVE Antibody Screen Negative 11/19/19 11/19/19 11/19/19 11:40 11:40 11:40 WBC 10.9 H RBC 3.43 L Hgb 10.3 L Hct 30.7 L MCV 89.5 MCH 29.9 MCHC 33.5 RDW 14.1 Plt Count 245 MPV 8.7 Absolute Neuts (auto) 7.3 Neutrophils % 67.3 Lymphocytes % 24.2 D Monocytes % 7.3 Eosinophils % 0.8 Basophils % 0.4 Nucleated RBC % 0 PT with INR 13.80 H INR 1.17 H PTT (Actin FS) 28.8 Sodium 138 Potassium 5.3 H Chloride 106 Carbon Dioxide 29 Anion Gap 3 L BUN 34.4 H Creatinine 0.7 Est GFR (CKD-EPI)AfAm 103.91 Est GFR (CKD-EPI)NonAf 89.65 POC Glucometer Random Glucose 169 H Hemoglobin A1c % Lactic Acid Calcium 8.4 L Magnesium 1.9 Total Bilirubin 0.4 AST 7 L ALT 14 Alkaline Phosphatase 70 Creatine Kinase Troponin I B-Natriuretic Peptide Total Protein 5.6 L Albumin 2.7 L Lipase Urine Color Urine Appearance Urine pH Ur Specific [place] Urine Protein Urine Glucose (UA) Urine Ketones Urine Blood Urine Nitrite Urine Bilirubin Urine Urobilinogen Ur Leukocyte Esterase Urine WBC (Auto) Urine RBC (Auto) Urine Casts (Auto) U Epithel Cells (Auto) Urine Bacteria (Auto) Stool Occult Blood Blood Type Antibody Screen 11/19/19 11:40 WBC RBC Hgb Hct MCV MCH MCHC RDW Plt Count MPV Absolute Neuts (auto) Neutrophils % Lymphocytes % Monocytes % Eosinophils % Basophils % Nucleated RBC % PT with INR INR PTT (Actin FS) Sodium Potassium Chloride Carbon Dioxide Anion Gap BUN Creatinine Est GFR (CKD-EPI)AfAm Est GFR (CKD-EPI)NonAf POC Glucometer Random Glucose Hemoglobin A1c % 6.8 H Lactic Acid Calcium Magnesium Total Bilirubin AST ALT Alkaline Phosphatase Creatine Kinase Troponin I B-Natriuretic Peptide Total Protein Albumin Lipase Urine Color Urine Appearance Urine pH Ur Specific [place] Urine Protein Urine Glucose (UA) Urine Ketones Urine Blood Urine Nitrite Urine Bilirubin Urine Urobilinogen Ur Leukocyte Esterase Urine WBC (Auto) Urine RBC (Auto) Urine Casts (Auto) U Epithel Cells (Auto) Urine Bacteria (Auto) Stool Occult Blood Blood Type Antibody Screen ASSESSMENT: 69 year old female with PMHx COPD, CVA (x2; Residual LE Weakness, ?RUE Numbness , R Facial Droop), CAD, HTN, HLD, DM, CBP presents with hematemsis. UGIB COPD Hx CVA DM2 CAD HTN HLD CBP PLAN: -s/p EGD: 2 gastric ulcers, one bleeding vessel s/p endoclipping and epi injection -PPI -IVF -keep NPO -monitor h/h -on rocephin for sbp ppx -patient had questionable UTI outpatient was given abx recently? follow-up urine culture -ICU monitoring -GI following
[2019-11-19] MEDS ORDERED: LIDOCAINE 5% TOPICAL PATCH TP ONE (16:00)
[2019-11-19] MEDS ORDERED: MORPHINE SULFATE 2 MG/ML VIAL ONE (16:05)
[2019-11-19] MEDS: MORPHINE SULFATE 2 MG/ML VIAL IVPUSH PRN ×2 (16:08→21:30)
--- NOTE | 2019-11-19 16:30 | PN ---
Physical Exam: SUBJECTIVE: Patient seen and examined in the morning. endorsed abdominal pain. OBJECTIVE: Vital Signs Period Temp Pulse Resp BP Sys/Danielle Pulse Ox Last 24 Hr 97.8 F-99 F 68-93 16-28 91-148/51-102 95-98 GENERAL: a/o x 3, in nad HEAD: Normal with no signs of trauma. EYES: PERRL, sclera anicteric, conjunctiva clear ENT: oropharynx clear without exudates NECK: supple. LUNGS: decreased breath sounds HEART: Regular rate and rhythm, S1, S2 without murmur, rub or gallop. ABDOMEN: Soft, nontender, nondistended, normoactive bowel sounds EXTREMITIES: 2+ pulses, no edema. Laboratory Results - last 24 hr 11/18/19 11/18/19 11/18/19 18:00 18:00 18:00 WBC 13.8 H RBC 4.13 Hgb 12.5 Hct 36.7 MCV 88.9 MCH 30.2 MCHC 34.0 RDW 13.8 Plt Count 310 D MPV 9.2 Absolute Neuts (auto) 9.6 H Neutrophils % 69.5 Lymphocytes % 21.0 Monocytes % 7.2 Eosinophils % 1.9 Basophils % 0.4 Nucleated RBC % 0 PT with INR INR PTT (Actin FS) Sodium 140 Potassium 4.3 Chloride 106 Carbon Dioxide 29 Anion Gap 6 L BUN 19.8 H Creatinine 0.9 Est GFR (CKD-EPI)AfAm 76.68 Est GFR (CKD-EPI)NonAf 66.16 POC Glucometer Random Glucose 230 H Hemoglobin A1c % Lactic Acid 2.1 H Calcium 8.7 Magnesium Total Bilirubin 0.4 AST 11 L ALT 15 Alkaline Phosphatase 89 Creatine Kinase 22 L Troponin I < 0.02 B-Natriuretic Peptide 1131.9 H Total Protein 5.4 L Albumin 2.6 L Lipase 54 L Urine Color Urine Appearance Urine pH Ur Specific Graham Urine Protein Urine Glucose (UA) Urine Ketones Urine Blood Urine Nitrite Urine Bilirubin Urine Urobilinogen Ur Leukocyte Esterase Urine WBC (Auto) Urine RBC (Auto) Urine Casts (Auto) U Epithel Cells (Auto) Urine Bacteria (Auto) Stool Occult Blood Blood Type Antibody Screen 11/18/19 11/18/19 11/18/19 18:00 18:52 20:00 WBC 13.2 H RBC 3.82 Hgb 11.5 Hct 34.2 MCV 89.4 MCH 30.0 MCHC 33.5 RDW 14.0 Plt Count 287 MPV 9.0 Absolute Neuts (auto) 10.7 H Neutrophils % 80.5 Lymphocytes % 12.8 D Monocytes % 5.6 Eosinophils % 0.8 Basophils % 0.3 Nucleated RBC % 0 PT with INR 13.80 H INR 1.17 H PTT (Actin FS) Sodium Potassium Chloride Carbon Dioxide Anion Gap BUN Creatinine Est GFR (CKD-EPI)AfAm Est GFR (CKD-EPI)NonAf POC Glucometer Random Glucose Hemoglobin A1c % Lactic Acid Calcium Magnesium Total Bilirubin AST ALT Alkaline Phosphatase Creatine Kinase Troponin I B-Natriuretic Peptide Total Protein Albumin Lipase Urine Color Urine Appearance Urine pH Ur Specific Graham Urine Protein Urine Glucose (UA) Urine Ketones Urine Blood Urine Nitrite Urine Bilirubin Urine Urobilinogen Ur Leukocyte Esterase Urine WBC (Auto) Urine RBC (Auto) Urine Casts (Auto) U Epithel Cells (Auto) Urine Bacteria (Auto) Stool Occult Blood Negative Blood Type Antibody Screen 11/18/19 11/18/19 11/19/19 22:10 22:30 05:00 WBC 11.7 H RBC 3.58 L Hgb 10.8 Hct 31.7 L MCV 88.5 MCH 30.0 MCHC 34.0 RDW 14.1 Plt Count 268 MPV 9.3 Absolute Neuts (auto) 6.9 Neutrophils % 58.9 D Lymphocytes % 32.9 D Monocytes % 6.3 Eosinophils % 1.6 D Basophils % 0.3 Nucleated RBC % 0 PT with INR INR PTT (Actin FS) Sodium Potassium Chloride Carbon Dioxide Anion Gap BUN Creatinine Est GFR (CKD-EPI)AfAm Est GFR (CKD-EPI)NonAf POC Glucometer Random Glucose Hemoglobin A1c % Lactic Acid 1.6 Calcium Magnesium Total Bilirubin AST ALT Alkaline Phosphatase Creatine Kinase Troponin I B-Natriuretic Peptide Total Protein Albumin Lipase Urine Color Yellow Urine Appearance Clear Urine pH 5.5 D Ur Specific Graham 1.038 H Urine Protein Trace Urine Glucose (UA) Trace Urine Ketones Negative Urine Blood Negative Urine Nitrite Negative Urine Bilirubin Negative Urine Urobilinogen 1.0 Ur Leukocyte Esterase 1+ H Urine WBC (Auto) 71 Urine RBC (Auto) 5 Urine Casts (Auto) 31 U Epithel Cells (Auto) 19.0 Urine Bacteria (Auto) 2.4 Stool Occult Blood Blood Type Antibody Screen 11/19/19 11/19/19 11/19/19 11:40 11:40 11:40 WBC 10.9 H RBC 3.43 L Hgb 10.3 L Hct 30.7 L MCV 89.5 MCH 29.9 MCHC 33.5 RDW 14.1 Plt Count 245 MPV 8.7 Absolute Neuts (auto) 7.3 Neutrophils % 67.3 Lymphocytes % 24.2 D Monocytes % 7.3 Eosinophils % 0.8 Basophils % 0.4 Nucleated RBC % 0 PT with INR 13.80 H INR 1.17 H PTT (Actin FS) 28.8 Sodium 138 Potassium 5.3 H Chloride 106 Carbon Dioxide 29 Anion Gap 3 L BUN 34.4 H Creatinine 0.7 Est GFR (CKD-EPI)AfAm 103.91 Est GFR (CKD-EPI)NonAf 89.65 POC Glucometer Random Glucose 169 H Hemoglobin A1c % Lactic Acid Calcium 8.4 L Magnesium 1.9 Total Bilirubin 0.4 AST 7 L ALT 14 Alkaline Phosphatase 70 Creatine Kinase Troponin I B-Natriuretic Peptide Total Protein 5.6 L Albumin 2.7 L Lipase Urine Color Urine Appearance Urine pH Ur Specific Graham Urine Protein Urine Glucose (UA) Urine Ketones Urine Blood Urine Nitrite Urine Bilirubin Urine Urobilinogen Ur Leukocyte Esterase Urine WBC (Auto) Urine RBC (Auto) Urine Casts (Auto) U Epithel Cells (Auto) Urine Bacteria (Auto) Stool Occult Blood Blood Type Antibody Screen Active Medications Generic Name Dose Route Start Last Admin Trade Name Freq PRN Reason Stop Dose Admin Acetaminophen 325 mg 11/19/19 02:34 11/19/19 02:47 Tylenol - PO 325 mg Q8H PRN Administration PAIN LEVEL 7 - 10 Albuterol Sulfate 1 puff 11/19/19 02:20 Ventolin Hfa Inhaler - IH Q6H PRN SHORT OF BREATH/WHEEZING Chlorhexidine Gluconate 1 applic 11/19/19 22:00 Hibiclens For Decolonization - TP HS YONG Pantoprazole Sodium 80 mg/ 100 mls @ 10 mls/hr 11/18/19 19:45 11/19/19 16:03 Sodium Chloride IVPB 11/21/19 19:41 Not Given Q10H YONG 8 MG/HR Sodium Chloride 1,000 mls @ 100 mls/hr 11/19/19 04:45 11/19/19 08:20 Normal Saline - IV 100 mls/hr ASDIR YONG Administration Ceftriaxone Sodium 1 gm/ 50 mls @ 100 mls/hr 11/19/19 04:43 11/19/19 08:20 Dextrose IVPB 100 mls/hr DAILY [facility] Administration Protocol Insulin Aspart 1 vial 11/19/19 07:00 11/19/19 11:29 Novolog Vial Sliding Scale - SQ Not Given ACHS [facility] Protocol Insulin Detemir 34 units 11/19/19 22:00 Levemir Vial SQ HS [facility] Miscellaneous 1 each 11/20/19 04:00 Lidoderm Patch Removal MC DAILY@0400 [facility] Morphine Sulfate 2 mg 11/19/19 15:57 11/19/19 16:08 Morphine Sulfate IVPUSH 2 mg Q4H PRN Administration PAIN LEVEL 6-10 Mupirocin 1 applic 11/19/19 10:00 11/19/19 12:06 Bactroban Ointment (For Decolonization) - NS 11/24/19 09:59 1 applic BID [facility] Administration Oxycodone HCl 10 mg 11/19/19 02:33 11/19/19 02:47 Roxicodone - PO 10 mg Q8H PRN Administration PAIN LEVEL 7 - 10 Pregabalin 50 mg 11/19/19 10:00 11/19/19 11:21 Lyrica - PO Not Given BID [facility] ASSESSMENT/PLAN: 69 year old female with PMHx COPD, CVA (x2; Residual LE Weakness, ?RUE Numbness , R Facial Droop), CAD, HTN, HLD, DM, presents with hematemsis. #UGIB -s/p EGD: 2 gastric ulcers, one bleeding vessel s/p endoclipping and epi injection -PPI drip -IVF NS @ 100 -keep NPO -monitor h/h -transfuse as needed -ICU monitoring -FU GI reccs -IV abx Ceftriaxone for SBP ppx #hx of COPD -no exacerbation -duonebs #Hx CVA/CAD -patient denies ASA use at home #DM2 -BGM -SSI -Levemir 34 HS #HTN -antihypertensive meds held in setting of UGIB -monitor VS #recent UTI? -UA reveals 1+ LE, 71 WBC, Nitrite negative -Currently denies dysuria -Follow urine cultures. #Hx of Chronic back pain (opiod use) -Continue home dose pain regimen #FEN -Iv fluids -monitor -npo #dvt ppx -hold ac at this time due to bleed Visit type - Emergency Visit Emergency Visit: Yes ED Registration Date: 11/18/19 Care time: The patient presented to the Emergency Department on the above date and was hospitalized for further evaluation of their emergent condition. - New Patient This patient is new to me today: Yes Date on this admission: 11/19/19 - Critical Care Critical Care patient: No ATTENDING PHYSICIAN STATEMENT I saw and evaluated the patient. I reviewed the resident's note and discussed the case with the resident. I agree with the resident's findings and plan as documented. SUBJECTIVE: OBJECTIVE: ASSESSMENT AND PLAN:
--- NOTE | 2019-11-19 17:23 | CON.GI ---
Consult Consult Specialty:: GI - History of Present Illness History of Present Illness: 69 year old female with PMHx COPD, CVA (x2; Residual LE Weakness, ?RUE Numbness , R Facial Droop), CAD, HTN, HLD, DM, presents with since yesterday. She was taking aspirin for her Daons for back pain - Alcohol/Substance Use Hx Alcohol Use: No - Smoking History Smoking history: Former smoker Have you smoked in the past 12 months: Yes Aproximately how many cigarettes per day: 10 If you are a former smoker, when did you quit?: May 2019 - Social History Usual Living Arrangement: Alone Home Medications - Allergies Allergies/Adverse Reactions: Allergies Allergy/AdvReac Type Severity Reaction Status Date / Time shellfish derived Allergy Mild can't Verified 11/18/19 21:30 swallow it - Home Medications Home Medications: Ambulatory Orders Furosemide [Lasix -] 20 mg PO MOWEFR 03/20/17 Ascorbic Acid [Vitamin C] 500 mg PO DAILY 03/08/18 Cholecalciferol (Vitamin D3) [Vitamin D3] 1,000 unit PO DAILY 03/08/18 Aspirin [ASA -] 81 mg PO DAILY #30 tab.chew 03/11/18 Budesonide/Formeterol Fumarate [SYMBICORT 80/4.5mcg -] 2 puff IH BID inhaler Montelukast Na [Singulair -] 10 mg PO HS tablet 05/08/19 Diclofenac Sodium [Voltaren] 2 gm TP TID PRN #3 tube NS 07/21/19 Ergocalciferol [Vitamin D2] 50,000 unit PO Q7D@1000 #4 capsule 07/21/19 Melatonin/Pyridoxine HCl (B6) [Melatonin 3 mg Tablet] 1 each PO DAILY 07/21/19 Nicotine [Nicotine Patch 21 mg/24 hr] 1 each TD DAILY 07/21/19 metFORMIN HCL [Metformin HCl ER] 500 mg PO BID 07/21/19 Ammonium Lactate Cream [Lac-Hydrin 12% *Cream*] 1 applic TP TID #1 tube Mupirocin Ointment [Bactroban 2% Ointment -] 1 applic TP BID #45 gm 08/20/19 Acetaminophen [Tylenol Extra Strength] 500 mg PO BID PRN #60 tablet 09/17/19 Aluminum Hydroxide [Dermagran] 113 gm TP BID #2 tube 09/17/19 Alcohol Antiseptic Pads [Alcohol Prep Pad] 1 each TP TID #1 box 10/19/19 Blood Sugar Diagnostic [Blood Glucose Test Strip] 1 each MC TID #90 strip Blood-Glucose Meter [Blood Glucose Meter] 1 each MC TID #1 each 10/19/19 Lancets [Lancets Ultra Thin] 1 each MC TID #90 each 10/19/19 Miconazole Nitrate [Monistat-7 Vaginal Cream -] 1 applic VG HS #7 tube 10/19/19 Nicotine [Nicotine Patch 14mg/24 hr] 1 each TD DAILY #30 patch.td24 10/19/19 Nystatin Powder [Nystop Powder -] 60 gm TP BID #1 powder 10/19/19 Oxycodone HCl/Acetaminophen [Percocet 10-325 mg Tablet] 1 each PO TID PRN #90 tablet MDD 3 10/19/19 Pregabalin [Lyrica -] 50 mg PO BID #60 capsule MDD 2 10/19/19 Selenium Sulfide/Aloe Vera [[place] Blue Moist 1% Shampoo] 325 ml TP Q2D #1 shampoo 10/19/19 Triamcinolone 0.1% Ointment [Aristocort 0.1% Ointment -] 1 applic TP DAILY #1 tube 10/19/19 Zinc Oxide/Petrolatum,White [[place] Moist Barrier Cream] 99 gm TP BID #1 tube 10/19/19 Albuterol Sulfate Inhaler - [Ventolin HFA Inhaler -] 1 puff IH Q6H PRN 11/19/19 Insulin Glargine,Hum.rec.anlog [Edgardo Huerta U-100] 34 unit SQ HS 11/19/19 Lisinopril 10 mg PO DAILY 11/19/19 Physical Exam-GI Vital Signs: Vital Signs Temperature 98.1 F 11/19/19 14:00 Pulse Rate 76 11/19/19 16:00 Respiratory Rate 16 11/19/19 16:00 Blood Pressure 130/64 11/19/19 16:00 O2 Sat by Pulse Oximetry (%) 98 11/19/19 08:15 Constitutional: Yes: Obese Eyes: Yes: Conjunctiva Clear HENT: Yes: Atraumatic Neck: Yes: Supple Cardiovascular: Yes: Regular Rate and Rhythm Respiratory: Yes: CTA Bilaterally ...Palpate: Yes: Soft, Tenderness, Epigastium. No: Firm/Rigid, Guarding, Hepatomegaly, Mass, Pulsatile Mass, Splenomegaly Labs: CBC, BMP 11/19/19 11:40 11/19/19 11:40 INR, PTT INR 1.17 (0.83-1.09) H 11/19/19 11:40 Problem List - Problems (1) Hematemesis Assessment/Plan: R. for emergent EGD risk including perforation and compplications from anesthesia was discussed. IV Pantoprazole drip Ceftriaxone for possible aspiration Code(s): K92.0 - HEMATEMESIS
[2019-11-19 21:04] LABS: BASO % 0.3 % (0-2.0); EOS % 3.2 % (0-4.5); HEMATOCRIT 27.8 % (32.4-45.2); HEMOGLOBIN 9.4 GM/dL (10.7-15.3); LYMPH % 41.1 % (8-40); MCH 30.1 pg (25.7-33.7); MCHC 33.7 g/dl (32.0-36.0); MEAN CELL VOLUME 89.1 fl (80-96); MEAN PLT VOLUME 8.9 fl (7.5-11.1); MONO % 6.9 % (3.8-10.2); NEUT % 48.5 % (42.8-82.8); PLATELET COUNT 224 K/MM3 (134-434); RBC 3.12 M/mm3 (3.60-5.2); RDW 14.3 % (11.6-15.6)
[2019-11-19] MEDS: CHLORHEXIDINE GLUCONATE 4% CLEANSER FOR DECOLONIZATION TP SCH (21:24)
[2019-11-19] MEDS: INSULIN (LEVEMIR) 100 UNITS/ML UNITS SQ SCH (21:28)
[2019-11-19] MEDS ORDERED: INSULIN (LEVEMIR) 100 UNITS/ML UNITS SQ SCH (22:00)
[2019-11-20 01:50] LABS: BASO % 0.4 % (0-2.0); EOS % 3.4 % (0-4.5); HEMATOCRIT 28.4 % (32.4-45.2); HEMOGLOBIN 9.6 GM/dL (10.7-15.3); LYMPH % 39.9 % (8-40); MCH 30.6 pg (25.7-33.7); MCHC 33.9 g/dl (32.0-36.0); MEAN CELL VOLUME 90.1 fl (80-96); MEAN PLT VOLUME 9.1 fl (7.5-11.1); MONO % 5.9 % (3.8-10.2); NEUT % 50.4 % (42.8-82.8); PLATELET COUNT 217 K/MM3 (134-434); RBC 3.15 M/mm3 (3.60-5.2); RDW 14.1 % (11.6-15.6); WHITE BLOOD COUNT 8.5 K/mm3 (4.0-10.0)
[2019-11-20] MEDS ORDERED: LIDOCAINE PATCH REMOVAL MC SCH (04:00)
[2019-11-20] MEDS: INSULIN SLIDING SCALE (NOVOLOG) 1 VIAL SQ SCH ×4 (06:12→21:46)
[2019-11-20] MEDS: PANTOPRAZOLE SODIUM 80 MG in SODIUM CHLORIDE 100 ML IVPB SCH ×3 (06:13→23:36)
[2019-11-20] MEDS: MORPHINE SULFATE 2 MG/ML VIAL IVPUSH PRN ×2 (06:13→14:09)
[2019-11-20 06:44] LABS: EOS % 3.6 % (0-4.5); HEMATOCRIT 27.1 % (32.4-45.2); HEMOGLOBIN 9.3 GM/dL (10.7-15.3); LYMPH % 29.6 % (8-40); MCH 30.7 pg (25.7-33.7); MCHC 34.4 g/dl (32.0-36.0); MEAN CELL VOLUME 89.4 fl (80-96); MEAN PLT VOLUME 9.1 fl (7.5-11.1); MONO % 12.5 % (3.8-10.2); NEUT % 54.3 % (42.8-82.8); PLATELET COUNT 193 K/MM3 (134-434); RBC 3.03 M/mm3 (3.60-5.2); RDW 14.2 % (11.6-15.6); WHITE BLOOD COUNT 6.5 K/mm3 (4.0-10.0)
[2019-11-20 06:58] LABS: ALBUMIN 2.4 g/dl (3.4-5.0); BILIRUBIN,TOTAL 0.4 mg/dL (0.2-1); BLOOD UREA NITROGEN 20.9 mg/dL (7-18); CALCIUM 8.1 mg/dL (8.5-10.1); CREATININE 0.6 mg/dL (0.55-1.3); MAGNESIUM 1.8 mg/dL (1.8-2.4); PHOSPHOROUS 3.6 mg/dL (2.5-4.9); POTASSIUM 4.3 mmol/L (3.5-5.1); TOT PROT 4.9 g/dl (6.4-8.2)
[2019-11-20] MEDS ORDERED: DEXTROSE 5%-WATER - 50 ML IVPB ONE (09:16)
[2019-11-20] MEDS ORDERED: cefTRIAXone SODIUM 1 GM VIAL ONE (09:16)
--- NOTE | 2019-11-20 09:31 | PN.GI ---
GI Progress Note Subjective: No overt bleeding States feeling well - Objective Vital Signs: Vital Signs Temperature 98 F 11/20/19 06:47 Pulse Rate 67 11/20/19 08:00 Respiratory Rate 19 11/20/19 08:55 Blood Pressure 145/64 11/20/19 08:00 O2 Sat by Pulse Oximetry (%) 100 11/20/19 08:55 Constitutional: Calm Eyes: Yes: Sclera Icterus Cardiovascular: Yes: Regular Rate and Rhythm, Murmur Respiratory: Yes: CTA Bilaterally Gastrointestinal Inspection: Yes: Scars (RUQ scar, RLQ scar). No: Distention ...Auscultate: Yes: Normoactive Bowel Sounds ...Palpate: Yes: Soft. No: Hepatomegaly, Splenomegaly, Tenderness ...Percussion: No: Tympanitic Edema: LLE: Trace, RLE: Trace Neurological: Yes: Alert Labs: CBC, BMP 11/20/19 05:15 11/20/19 05:15 INR, PTT INR 1.17 (0.83-1.09) H 11/19/19 11:40 Problem List - Problems (1) UGIB (upper gastrointestinal bleed) Assessment/Plan: S/P EGD Gastric Ulcers (report sanned into iRx Reminder), one with visible vessel, s/p epi/ endoclip therapy Hemodynamically stable with stable H/H Continue clears Continue PPI drip for total 72 hours then change to Protonix 40mg daily Avoid NSAIDs Check h. pylori stool antigen. If no active rebleeding, will need repeat EGD in 6-8 weeks to assess for healing and confirm h. pylori status (Patient on PPI therapy, potential for false negative stool Ag result). Monitor H/H BID Code(s): K92.2 - GASTROINTESTINAL HEMORRHAGE, UNSPECIFIED
[2019-11-20] MEDS: CEFTRIAXONE 1 GM in DEXTROSE 5%-WATER - 50 ML IVPB SCH (09:40)
[2019-11-20] MEDS: PREGABALIN 50 MG CAPSULE PO SCH ×2 (09:40→21:46)
[2019-11-20] MEDS: MUPIROCIN 2% TOPICAL OINTMENT FOR DECOLONIZATION NS SCH ×2 (10:20→23:37)
[2019-11-20] MEDS ORDERED: SODIUM PHOSPHATE/NA BIPHOS 133 ML ENEMA PR ONE (11:09)
--- NOTE | 2019-11-20 11:12 | PN ---
Teaching Attending Note Name of Resident: Dale Abdullahi ATTENDING PHYSICIAN STATEMENT I saw and evaluated the patient. I reviewed the resident's note and discussed the case with the resident. I agree with the resident's findings and plan as documented. SUBJECTIVE: Patient seen and examined in the ICU. Awake and alert. No occult bleeding overnight. No CP or SOB. Intake & Output 11/17/19 11/18/19 11/19/19 11/20/19 23:59 23:59 23:59 23:59 Intake Total 1230 1216.9 Output Total 100 600 Balance 1130 616.9 Weight 225 lb 240 lb 240 lb Last Vital Signs Temp Pulse Resp BP Pulse Ox 98 F 67 19 145/64 100 11/20/19 06:47 11/20/19 08:00 11/20/19 08:55 11/20/19 08:00 11/20/19 08:55 Active Medications Acetaminophen (Tylenol -) 325 mg PO Q8H PRN PRN Reason: PAIN LEVEL 7 - 10 Last Admin: 11/19/19 02:47 Dose: 325 mg Albuterol Sulfate (Ventolin Hfa Inhaler -) 1 puff IH Q6H PRN PRN Reason: SHORT OF BREATH/WHEEZING Chlorhexidine Gluconate (Hibiclens For Decolonization -) 1 applic TP HS YONG Last Admin: 11/19/19 21:24 Dose: 1 applic Pantoprazole Sodium 80 mg/ (Sodium Chloride) 100 mls @ 10 mls/hr IVPB Q10H YONG Stop: 11/21/19 19:41 Last Admin: 11/20/19 06:13 Dose: Not Given Sodium Chloride (Normal Saline -) 1,000 mls @ 100 mls/hr IV ASDIR YONG Last Admin: 11/19/19 20:00 Dose: 100 mls/hr Ceftriaxone Sodium 1 gm/ (Dextrose) 50 mls @ 100 mls/hr IVPB DAILY YONG; Protocol Last Admin: 11/20/19 09:40 Dose: 100 mls/hr Insulin Aspart (Novolog Vial Sliding Scale -) 1 vial SQ ACHS YONG; Protocol Last Admin: 11/20/19 06:12 Dose: Not Given Insulin Detemir (Levemir Vial) 34 units SQ HS YONG Last Admin: 11/19/19 21:28 Dose: Not Given Morphine Sulfate (Morphine Sulfate) 2 mg IVPUSH Q4H PRN PRN Reason: PAIN LEVEL 6-10 Last Admin: 11/20/19 06:13 Dose: 2 mg Mupirocin (Bactroban Ointment (For Decolonization) -) 1 applic NS BID [facility] Stop: 11/24/19 09:59 Last Admin: 11/19/19 21:23 Dose: 1 applic Nicotine (Nicoderm Patch -) 21 mg TD DAILY [facility] Oxycodone HCl (Roxicodone -) 10 mg PO Q8H PRN PRN Reason: PAIN LEVEL 7 - 10 Last Admin: 11/19/19 02:47 Dose: 10 mg Pregabalin (Lyrica -) 50 mg PO BID [facility] Last Admin: 11/20/19 09:40 Dose: 50 mg Sodium Phosphate (Fleet Adult Rectal Enema -) 133 ml NC ONCE ONE Stop: 11/20/19 11:10 Gen: NAD at rest Heart: RRR Lung: decreased breath sounds at the bases Abd: soft, nontender Ext: no edema Laboratory Results - last 24 hr 11/19/19 11/19/19 11/19/19 11:25 11:40 11:40 WBC 10.9 H RBC 3.43 L Hgb 10.3 L Hct 30.7 L MCV 89.5 MCH 29.9 MCHC 33.5 RDW 14.1 Plt Count 245 MPV 8.7 Absolute Neuts (auto) 7.3 Neutrophils % 67.3 Lymphocytes % 24.2 D Monocytes % 7.3 Eosinophils % 0.8 Basophils % 0.4 Nucleated RBC % 0 PT with INR 13.80 H INR 1.17 H PTT (Actin FS) 28.8 Sodium Potassium Chloride Carbon Dioxide Anion Gap BUN Creatinine Est GFR (CKD-EPI)AfAm Est GFR (CKD-EPI)NonAf POC Glucometer 158 Random Glucose Hemoglobin A1c % Calcium Phosphorus Magnesium Total Bilirubin AST ALT Alkaline Phosphatase Total Protein Albumin 11/19/19 11/19/19 11/19/19 11:40 11:40 17:10 WBC RBC Hgb Hct MCV MCH MCHC RDW Plt Count MPV Absolute Neuts (auto) Neutrophils % Lymphocytes % Monocytes % Eosinophils % Basophils % Nucleated RBC % PT with INR INR PTT (Actin FS) Sodium 138 Potassium 5.3 H Chloride 106 Carbon Dioxide 29 Anion Gap 3 L BUN 34.4 H Creatinine 0.7 Est GFR (CKD-EPI)AfAm 103.91 Est GFR (CKD-EPI)NonAf 89.65 POC Glucometer 124 Random Glucose 169 H Hemoglobin A1c % 6.8 H Calcium 8.4 L Phosphorus Magnesium 1.9 Total Bilirubin 0.4 AST 7 L ALT 14 Alkaline Phosphatase 70 Total Protein 5.6 L Albumin 2.7 L 11/19/19 11/19/19 11/20/19 20:15 21:26 01:00 WBC 9.0 8.5 RBC 3.12 L 3.15 L Hgb 9.4 L 9.6 L Hct 27.8 L 28.4 L MCV 89.1 90.1 MCH 30.1 30.6 MCHC 33.7 33.9 RDW 14.3 14.1 Plt Count 224 217 MPV 8.9 9.1 Absolute Neuts (auto) 4.4 4.3 Neutrophils % 48.5 D 50.4 Lymphocytes % 41.1 H D 39.9 Monocytes % 6.9 5.9 Eosinophils % 3.2 D 3.4 Basophils % 0.3 0.4 Nucleated RBC % 0 0 PT with INR INR PTT (Actin FS) Sodium Potassium Chloride Carbon Dioxide Anion Gap BUN Creatinine Est GFR (CKD-EPI)AfAm Est GFR (CKD-EPI)NonAf POC Glucometer 118 Random Glucose Hemoglobin A1c % Calcium Phosphorus Magnesium Total Bilirubin AST ALT Alkaline Phosphatase Total Protein Albumin 11/20/19 11/20/19 11/20/19 05:15 05:15 06:10 WBC 6.5 RBC 3.03 L Hgb 9.3 L Hct 27.1 L MCV 89.4 MCH 30.7 MCHC 34.4 RDW 14.2 Plt Count 193 MPV 9.1 Absolute Neuts (auto) 3.5 Neutrophils % 54.3 Lymphocytes % 29.6 D Monocytes % 12.5 H D Eosinophils % 3.6 Basophils % 0.0 Nucleated RBC % 0 PT with INR INR PTT (Actin FS) Sodium 140 Potassium 4.3 Chloride 108 H Carbon Dioxide 28 Anion Gap 3 L BUN 20.9 H Creatinine 0.6 Est GFR (CKD-EPI)AfAm 109.31 Est GFR (CKD-EPI)NonAf 94.32 POC Glucometer 141 Random Glucose 132 H Hemoglobin A1c % Calcium 8.1 L Phosphorus 3.6 Magnesium 1.8 Total Bilirubin 0.4 AST 80 H ALT 54 Alkaline Phosphatase 83 Total Protein 4.9 L Albumin 2.4 L ASSESSMENT AND PLAN: GI Bleed Acute Blood Loss Anemia Gastric Ulcers s/p endoclipping/epi injection COPD HTN DM Hyperlipidemia h/o CVA - monitor H/H - Normal transfusion thresholds - PPI - PO per GI - On empiric antibiotics - Inhaled bronchodilators - O2 to keep SpO2>90% - DVT prophylaxis - Floor Dr Bolivar
--- NOTE | 2019-11-20 11:52 | PN ---
Physical Exam: SUBJECTIVE: Patient seen and examined OBJECTIVE: Vital Signs Period Temp Pulse Resp BP Sys/Danielle Pulse Ox Last 24 Hr 98 F-98.2 F 66-79 12-19 104-161/44-102 98-100 GENERAL: The patient is awake, alert, and fully oriented, in no acute distress. HEAD: Normal with no signs of trauma. EYES: PERRL, extraocular movements intact, sclera anicteric, conjunctiva clear. No ptosis. ENT: Ears normal, nares patent, oropharynx clear without exudates, moist mucous membranes. NECK: Trachea midline, full range of motion, supple. LUNGS: Breath sounds equal, clear to auscultation bilaterally, no wheezes, no crackles, no accessory muscle use. HEART: Regular rate and rhythm, S1, S2 without murmur, rub or gallop. ABDOMEN: Soft, nontender, nondistended, normoactive bowel sounds, no guarding, no rebound, no hepatosplenomegaly, no masses. EXTREMITIES: 2+ pulses, warm, well-perfused, no edema. NEUROLOGICAL: Cranial nerves II through XII grossly intact. Normal speech, gait not observed. PSYCH: Normal mood, normal affect. SKIN: Warm, dry, normal turgor, no rashes or lesions noted Laboratory Results - last 24 hr 11/19/19 11/19/19 11/19/19 11:40 11:40 11:40 WBC 10.9 H RBC 3.43 L Hgb 10.3 L Hct 30.7 L MCV 89.5 MCH 29.9 MCHC 33.5 RDW 14.1 Plt Count 245 MPV 8.7 Absolute Neuts (auto) 7.3 Neutrophils % 67.3 Lymphocytes % 24.2 D Monocytes % 7.3 Eosinophils % 0.8 Basophils % 0.4 Nucleated RBC % 0 PT with INR 13.80 H INR 1.17 H PTT (Actin FS) 28.8 Sodium 138 Potassium 5.3 H Chloride 106 Carbon Dioxide 29 Anion Gap 3 L BUN 34.4 H Creatinine 0.7 Est GFR (CKD-EPI)AfAm 103.91 Est GFR (CKD-EPI)NonAf 89.65 POC Glucometer Random Glucose 169 H Hemoglobin A1c % Calcium 8.4 L Phosphorus Magnesium 1.9 Total Bilirubin 0.4 AST 7 L ALT 14 Alkaline Phosphatase 70 Total Protein 5.6 L Albumin 2.7 L 11/19/19 11/19/19 11/19/19 11:40 17:10 20:15 WBC 9.0 RBC 3.12 L Hgb 9.4 L Hct 27.8 L MCV 89.1 MCH 30.1 MCHC 33.7 RDW 14.3 Plt Count 224 MPV 8.9 Absolute Neuts (auto) 4.4 Neutrophils % 48.5 D Lymphocytes % 41.1 H D Monocytes % 6.9 Eosinophils % 3.2 D Basophils % 0.3 Nucleated RBC % 0 PT with INR INR PTT (Actin FS) Sodium Potassium Chloride Carbon Dioxide Anion Gap BUN Creatinine Est GFR (CKD-EPI)AfAm Est GFR (CKD-EPI)NonAf POC Glucometer 124 Random Glucose Hemoglobin A1c % 6.8 H Calcium Phosphorus Magnesium Total Bilirubin AST ALT Alkaline Phosphatase Total Protein Albumin 11/19/19 11/20/19 11/20/19 21:26 01:00 05:15 WBC 8.5 6.5 RBC 3.15 L 3.03 L Hgb 9.6 L 9.3 L Hct 28.4 L 27.1 L MCV 90.1 89.4 MCH 30.6 30.7 MCHC 33.9 34.4 RDW 14.1 14.2 Plt Count 217 193 MPV 9.1 9.1 Absolute Neuts (auto) 4.3 3.5 Neutrophils % 50.4 54.3 Lymphocytes % 39.9 29.6 D Monocytes % 5.9 12.5 H D Eosinophils % 3.4 3.6 Basophils % 0.4 0.0 Nucleated RBC % 0 0 PT with INR INR PTT (Actin FS) Sodium Potassium Chloride Carbon Dioxide Anion Gap BUN Creatinine Est GFR (CKD-EPI)AfAm Est GFR (CKD-EPI)NonAf POC Glucometer 118 Random Glucose Hemoglobin A1c % Calcium Phosphorus Magnesium Total Bilirubin AST ALT Alkaline Phosphatase Total Protein Albumin 11/20/19 11/20/19 05:15 06:10 WBC RBC Hgb Hct MCV MCH MCHC RDW Plt Count MPV Absolute Neuts (auto) Neutrophils % Lymphocytes % Monocytes % Eosinophils % Basophils % Nucleated RBC % PT with INR INR PTT (Actin FS) Sodium 140 Potassium 4.3 Chloride 108 H Carbon Dioxide 28 Anion Gap 3 L BUN 20.9 H Creatinine 0.6 Est GFR (CKD-EPI)AfAm 109.31 Est GFR (CKD-EPI)NonAf 94.32 POC Glucometer 141 Random Glucose 132 H Hemoglobin A1c % Calcium 8.1 L Phosphorus 3.6 Magnesium 1.8 Total Bilirubin 0.4 AST 80 H ALT 54 Alkaline Phosphatase 83 Total Protein 4.9 L Albumin 2.4 L Active Medications Generic Name Dose Route Start Last Admin Trade Name Freq PRN Reason Stop Dose Admin Acetaminophen 325 mg 11/19/19 02:34 11/19/19 02:47 Tylenol - PO 325 mg Q8H PRN Administration PAIN LEVEL 7 - 10 Albuterol Sulfate 1 puff 11/19/19 02:20 Ventolin Hfa Inhaler - IH Q6H PRN SHORT OF BREATH/WHEEZING Chlorhexidine Gluconate 1 applic 11/19/19 22:00 11/19/19 21:24 Hibiclens For Decolonization - TP 1 applic HS YONG Administration Pantoprazole Sodium 80 mg/ 100 mls @ 10 mls/hr 11/18/19 19:45 11/20/19 06:13 Sodium Chloride IVPB 11/21/19 19:41 Not Given Q10H YONG 8 MG/HR Sodium Chloride 1,000 mls @ 100 mls/hr 11/19/19 04:45 11/19/19 20:00 Normal Saline - IV 100 mls/hr ASDIR YONG Administration Ceftriaxone Sodium 1 gm/ 50 mls @ 100 mls/hr 11/19/19 04:43 11/20/19 09:40 Dextrose IVPB 100 mls/hr DAILY YONG Administration Protocol Insulin Aspart 1 vial 11/19/19 07:00 11/20/19 06:12 Novolog Vial Sliding Scale - SQ Not Given ACHS [facility] Protocol Insulin Detemir 34 units 11/19/19 22:00 11/19/19 21:28 Levemir Vial SQ Not Given HS YONG Morphine Sulfate 2 mg 11/19/19 15:57 11/20/19 06:13 Morphine Sulfate IVPUSH 2 mg Q4H PRN Administration PAIN LEVEL 6-10 Mupirocin 1 applic 11/19/19 10:00 11/19/19 21:23 Bactroban Ointment (For Decolonization) - NS 11/24/19 09:59 1 applic BID YONG Administration Nicotine 21 mg 11/20/19 11:15 Nicoderm Patch - TD DAILY YONG Oxycodone HCl 10 mg 11/19/19 02:33 11/19/19 02:47 Roxicodone - PO 10 mg Q8H PRN Administration PAIN LEVEL 7 - 10 Pregabalin 50 mg 11/19/19 10:00 11/20/19 09:40 Lyrica - PO 50 mg BID YONG Administration ASSESSMENT/PLAN: ATTENDING PHYSICIAN STATEMENT I saw and evaluated the patient. I reviewed the resident's note and discussed the case with the resident. I agree with the resident's findings and plan as documented. SUBJECTIVE: OBJECTIVE: ASSESSMENT AND PLAN:
--- NOTE | 2019-11-20 11:55 | PN ---
Physical Exam: SUBJECTIVE: Patient seen and examined in the morning. No acute events overnight , patient was started on clear liquid diet in the morning and has tolerated. Patient has no complaints of chest pain, abdominal pain, nausea, vomiting, diarrhea, hematemesis, hematochezia. Complains of her chronic back pain. OBJECTIVE: Vital Signs Period Temp Pulse Resp BP Sys/Danielle Pulse Ox Last 24 Hr 98 F-98.2 F 66-79 12-19 104-161/44-102 98-100 GENERAL: The patient is awake, alert, and fully oriented, in no acute distress. HEAD: Normal with no signs of trauma. LUNGS: Breath sounds equal, clear to auscultation b/l, no wheezes or crackles, no accessory muscle use. HEART: Regular rate and rhythm, S1, S2 without murmur, rub or gallop. ABDOMEN: Obese body habitus, non tender, non distedned, hypoactive bowel sounds. EXTREMITIES: 2+ pulses, warm, well-perfused, no edema. NEUROLOGICAL: Cranial nerves II through XII grossly intact. Normal speech, gait not observed. PSYCH: Normal mood, normal affect. SKIN: Warm, dry, normal turgor, no rashes or lesions noted Laboratory Results - last 24 hr 11/19/19 11/19/19 11/19/19 11:40 11:40 11:40 WBC 10.9 H RBC 3.43 L Hgb 10.3 L Hct 30.7 L MCV 89.5 MCH 29.9 MCHC 33.5 RDW 14.1 Plt Count 245 MPV 8.7 Absolute Neuts (auto) 7.3 Neutrophils % 67.3 Lymphocytes % 24.2 D Monocytes % 7.3 Eosinophils % 0.8 Basophils % 0.4 Nucleated RBC % 0 PT with INR 13.80 H INR 1.17 H PTT (Actin FS) 28.8 Sodium 138 Potassium 5.3 H Chloride 106 Carbon Dioxide 29 Anion Gap 3 L BUN 34.4 H Creatinine 0.7 Est GFR (CKD-EPI)AfAm 103.91 Est GFR (CKD-EPI)NonAf 89.65 POC Glucometer Random Glucose 169 H Hemoglobin A1c % Calcium 8.4 L Phosphorus Magnesium 1.9 Total Bilirubin 0.4 AST 7 L ALT 14 Alkaline Phosphatase 70 Total Protein 5.6 L Albumin 2.7 L 11/19/19 11/19/19 11/19/19 11:40 17:10 20:15 WBC 9.0 RBC 3.12 L Hgb 9.4 L Hct 27.8 L MCV 89.1 MCH 30.1 MCHC 33.7 RDW 14.3 Plt Count 224 MPV 8.9 Absolute Neuts (auto) 4.4 Neutrophils % 48.5 D Lymphocytes % 41.1 H D Monocytes % 6.9 Eosinophils % 3.2 D Basophils % 0.3 Nucleated RBC % 0 PT with INR INR PTT (Actin FS) Sodium Potassium Chloride Carbon Dioxide Anion Gap BUN Creatinine Est GFR (CKD-EPI)AfAm Est GFR (CKD-EPI)NonAf POC Glucometer 124 Random Glucose Hemoglobin A1c % 6.8 H Calcium Phosphorus Magnesium Total Bilirubin AST ALT Alkaline Phosphatase Total Protein Albumin 11/19/19 11/20/19 11/20/19 21:26 01:00 05:15 WBC 8.5 6.5 RBC 3.15 L 3.03 L Hgb 9.6 L 9.3 L Hct 28.4 L 27.1 L MCV 90.1 89.4 MCH 30.6 30.7 MCHC 33.9 34.4 RDW 14.1 14.2 Plt Count 217 193 MPV 9.1 9.1 Absolute Neuts (auto) 4.3 3.5 Neutrophils % 50.4 54.3 Lymphocytes % 39.9 29.6 D Monocytes % 5.9 12.5 H D Eosinophils % 3.4 3.6 Basophils % 0.4 0.0 Nucleated RBC % 0 0 PT with INR INR PTT (Actin FS) Sodium Potassium Chloride Carbon Dioxide Anion Gap BUN Creatinine Est GFR (CKD-EPI)AfAm Est GFR (CKD-EPI)NonAf POC Glucometer 118 Random Glucose Hemoglobin A1c % Calcium Phosphorus Magnesium Total Bilirubin AST ALT Alkaline Phosphatase Total Protein Albumin 11/20/19 11/20/19 05:15 06:10 WBC RBC Hgb Hct MCV MCH MCHC RDW Plt Count MPV Absolute Neuts (auto) Neutrophils % Lymphocytes % Monocytes % Eosinophils % Basophils % Nucleated RBC % PT with INR INR PTT (Actin FS) Sodium 140 Potassium 4.3 Chloride 108 H Carbon Dioxide 28 Anion Gap 3 L BUN 20.9 H Creatinine 0.6 Est GFR (CKD-EPI)AfAm 109.31 Est GFR (CKD-EPI)NonAf 94.32 POC Glucometer 141 Random Glucose 132 H Hemoglobin A1c % Calcium 8.1 L Phosphorus 3.6 Magnesium 1.8 Total Bilirubin 0.4 AST 80 H ALT 54 Alkaline Phosphatase 83 Total Protein 4.9 L Albumin 2.4 L Active Medications Generic Name Dose Route Start Last Admin Trade Name Freq PRN Reason Stop Dose Admin Acetaminophen 325 mg 11/19/19 02:34 11/19/19 02:47 Tylenol - PO 325 mg Q8H PRN Administration PAIN LEVEL 7 - 10 Albuterol Sulfate 1 puff 11/19/19 02:20 Ventolin Hfa Inhaler - IH Q6H PRN SHORT OF BREATH/WHEEZING Chlorhexidine Gluconate 1 applic 11/19/19 22:00 11/19/19 21:24 Hibiclens For Decolonization - TP 1 applic HS YONG Administration Pantoprazole Sodium 80 mg/ 100 mls @ 10 mls/hr 11/18/19 19:45 11/20/19 06:13 Sodium Chloride IVPB 11/21/19 19:41 Not Given Q10H YONG 8 MG/HR Sodium Chloride 1,000 mls @ 100 mls/hr 11/19/19 04:45 11/19/19 20:00 Normal Saline - IV 100 mls/hr ASDIR YONG Administration Ceftriaxone Sodium 1 gm/ 50 mls @ 100 mls/hr 11/19/19 04:43 11/20/19 09:40 Dextrose IVPB 100 mls/hr DAILY YONG Administration Protocol Insulin Aspart 1 vial 11/19/19 07:00 11/20/19 06:12 Novolog Vial Sliding Scale - SQ Not Given ACHS [facility] Protocol Insulin Detemir 34 units 11/19/19 22:00 11/19/19 21:28 Levemir Vial SQ Not Given HS [facility] Morphine Sulfate 2 mg 11/19/19 15:57 11/20/19 06:13 Morphine Sulfate IVPUSH 2 mg Q4H PRN Administration PAIN LEVEL 6-10 Mupirocin 1 applic 11/19/19 10:00 11/19/19 21:23 Bactroban Ointment (For Decolonization) - NS 11/24/19 09:59 1 applic BID YONG Administration Nicotine 21 mg 11/20/19 11:15 Nicoderm Patch - TD DAILY [facility] Oxycodone HCl 10 mg 11/19/19 02:33 11/19/19 02:47 Roxicodone - PO 10 mg Q8H PRN Administration PAIN LEVEL 7 - 10 Pregabalin 50 mg 11/19/19 10:00 11/20/19 09:40 Lyrica - PO 50 mg BID YONG Administration ASSESSMENT/PLAN: 69 F PMH Asthma COPD, CVA x2 w/ residual LE weakness, RUE numbness, right facial droop, GA w/o cardiac stents, HTN, HLD, DM, chronic back pain on opioids , presents with hematemesis. Neuro: -Hx of CVA x2 -residual LE weakness, Right facial droop, right upper extremity 4/5 strength -Patient complains of chronic pain, continue pain medications as needed. Cardio: -Hx of GA w/o cardiac stents, HTN, HLD -Patient denies any ASA use -Anti-HTN meds held Pulmonary: -Hx of Asthma, COPD -Supplemental O2 to maintain SpO2 88-92% -Continue home bronchodilators GI: - CTA showed fecal retention, no signs of mesenteric ischemia or acute pathology -No recent NSAID/ASA/ anticoagulation use -EGD done, showed gastric ulcers s/p epinephrine/endoclip -Hemodynamically stable -PPI Drip for total 72 hours, will end @ 11/21/2019 @ 19:45. Transition to Protonix 40 mg Daily after -H. Pylori stool antigen -If without active rebleeding, will repeat EGD in 6-8 weeks -Ceftriaxone 1 gram today and tomorrow -GI consulted, appreciate recs Endo: -Hx of DM -Insulin sliding scale, BGM ACHS -Detemir 34 units QHS Heme/Onc: -Hgb of 9.3 today -Continue monitoring -Transfuse to keep Hgb > 8 ID: - UA reveals 71 WBC and LE of 1 -Urine culture negative so far -F/U H. pylori stool antigen -Ceftriaxone total 2 out of 3 doses given MSK: - Hx of chronic back pain, on home pain medications F: NS @ 75 E: Trend and Replete CMP N: Clear liquid diet, advance as tolerated DVT: SCDs GI PPX: PPI Drip Dispo: Stable. Transfer to /S. Visit type - Emergency Visit Emergency Visit: Yes ED Registration Date: 11/18/19 Care time: The patient presented to the Emergency Department on the above date and was hospitalized for further evaluation of their emergent condition. - New Patient This patient is new to me today: Yes Date on this admission: 11/20/19 - Critical Care Critical Care patient: Yes Total Critical Care Time (in minutes): 35 Critical Care Statement: The care of this patient involved high complexity decision making to prevent further life threatening deterioration of the patient 's condition and/or to evaluate & treat vital organ system(s) failure or risk of failure. ATTENDING PHYSICIAN STATEMENT I saw and evaluated the patient. I reviewed the resident's note and discussed the case with the resident. I agree with the resident's findings and plan as documented. SUBJECTIVE: OBJECTIVE: ASSESSMENT AND PLAN:
[2019-11-20] MEDS: NICOTINE 21 MG/24 HOURS TOPICAL PATCH TD SCH (14:17)
[2019-11-20] MEDS: SODIUM CHLORIDE 1,000 ML IV SCH (14:40)
--- NOTE | 2019-11-20 15:09 | PN ---
Teaching Attending Note Name of Resident: Karen Lawrence ATTENDING PHYSICIAN STATEMENT I saw and evaluated the patient. I reviewed the resident's note and discussed the case with the resident. I agree with the resident's findings and plan as documented. SUBJECTIVE: Patient seen at bedside, feels well, denies abdominal pain, no BM yet, will start PO feeds as per GI recs, CBC stable, stable for downgrade out of ICU. OBJECTIVE: GENERAL: The patient is awake, alert, and fully oriented, in no acute distress. HEAD: Normal with no signs of trauma. EYES: PERRL, extraocular movements intact, sclera anicteric, conjunctiva clear. No ptosis. ENT: Ears normal, nares patent, oropharynx clear without exudates, moist mucous membranes. NECK: Trachea midline, full range of motion, supple. LUNGS: CTAB, no crackles or wheezing HEART: S1, S2+, RRR ABDOMEN: Soft, nontender, nondistended, normoactive bowel sounds, no guarding, no rebound, no hepatosplenomegaly, no masses. EXTREMITIES: 2+ pulses, warm, well-perfused, no edema. PSYCH: Normal mood, normal affect. SKIN: Warm, dry, normal turgor, no rashes or lesions noted Vital Signs - 24 hr 11/19/19 11/19/19 11/19/19 16:00 19:10 20:00 Temperature 98.0 F 98 F Pulse Rate 76 71 66 Respiratory 16 16 16 Rate Blood Pressure 130/64 104/52 L 116/44 L O2 Sat by Pulse Oximetry (%) 11/19/19 11/19/19 11/20/19 20:50 23:15 01:15 Temperature 98 F 98.2 F Pulse Rate 72 74 Respiratory 15 16 Rate Blood Pressure 141/57 L 139/58 L O2 Sat by Pulse 98 Oximetry (%) 11/20/19 11/20/19 11/20/19 03:15 05:15 06:47 Temperature 98.2 F 98.2 F 98 F Pulse Rate 74 67 67 Respiratory 15 13 12 Rate Blood Pressure 161/58 L 139/58 L 139/58 L O2 Sat by Pulse Oximetry (%) 11/20/19 11/20/19 11/20/19 08:00 08:55 10:00 Temperature 98.1 F Pulse Rate 67 Respiratory 13 19 Rate Blood Pressure 145/64 O2 Sat by Pulse 100 Oximetry (%) 11/20/19 12:00 Temperature Pulse Rate 70 Respiratory 11 Rate Blood Pressure 157/63 O2 Sat by Pulse Oximetry (%) Microbiology 11/18/19 22:30 Urine - Urine - Catheterized Urine Culture - Final NO GROWTH OBTAINED Laboratory Results - last 24 hr 11/19/19 11/19/19 11/19/19 17:10 20:15 21:26 WBC 9.0 RBC 3.12 L Hgb 9.4 L Hct 27.8 L MCV 89.1 MCH 30.1 MCHC 33.7 RDW 14.3 Plt Count 224 MPV 8.9 Absolute Neuts (auto) 4.4 Neutrophils % 48.5 D Lymphocytes % 41.1 H D Monocytes % 6.9 Eosinophils % 3.2 D Basophils % 0.3 Nucleated RBC % 0 Sodium Potassium Chloride Carbon Dioxide Anion Gap BUN Creatinine Est GFR (CKD-EPI)AfAm Est GFR (CKD-EPI)NonAf POC Glucometer 124 118 Random Glucose Calcium Phosphorus Magnesium Total Bilirubin AST ALT Alkaline Phosphatase Total Protein Albumin 11/20/19 11/20/19 11/20/19 01:00 05:15 05:15 WBC 8.5 6.5 RBC 3.15 L 3.03 L Hgb 9.6 L 9.3 L Hct 28.4 L 27.1 L MCV 90.1 89.4 MCH 30.6 30.7 MCHC 33.9 34.4 RDW 14.1 14.2 Plt Count 217 193 MPV 9.1 9.1 Absolute Neuts (auto) 4.3 3.5 Neutrophils % 50.4 54.3 Lymphocytes % 39.9 29.6 D Monocytes % 5.9 12.5 H D Eosinophils % 3.4 3.6 Basophils % 0.4 0.0 Nucleated RBC % 0 0 Sodium 140 Potassium 4.3 Chloride 108 H Carbon Dioxide 28 Anion Gap 3 L BUN 20.9 H Creatinine 0.6 Est GFR (CKD-EPI)AfAm 109.31 Est GFR (CKD-EPI)NonAf 94.32 POC Glucometer Random Glucose 132 H Calcium 8.1 L Phosphorus 3.6 Magnesium 1.8 Total Bilirubin 0.4 AST 80 H ALT 54 Alkaline Phosphatase 83 Total Protein 4.9 L Albumin 2.4 L 11/20/19 11/20/19 06:10 12:28 WBC RBC Hgb Hct MCV MCH MCHC RDW Plt Count MPV Absolute Neuts (auto) Neutrophils % Lymphocytes % Monocytes % Eosinophils % Basophils % Nucleated RBC % Sodium Potassium Chloride Carbon Dioxide Anion Gap BUN Creatinine Est GFR (CKD-EPI)AfAm Est GFR (CKD-EPI)NonAf POC Glucometer 141 121 Random Glucose Calcium Phosphorus Magnesium Total Bilirubin AST ALT Alkaline Phosphatase Total Protein Albumin Current Medications Generic Name Dose Route Start Last Admin Trade Name Freq PRN Reason Stop Dose Admin Acetaminophen 325 mg 11/19/19 02:34 11/19/19 02:47 Tylenol - PO 325 mg Q8H PRN Administration PAIN LEVEL 7 - 10 Albuterol Sulfate 1 puff 11/19/19 02:20 Ventolin Hfa Inhaler - IH Q6H PRN SHORT OF BREATH/WHEEZING Chlorhexidine Gluconate 1 applic 11/19/19 22:00 11/19/19 21:24 Hibiclens For Decolonization - TP 1 applic HS YONG Administration Pantoprazole Sodium 80 mg/ 100 mls @ 10 mls/hr 11/18/19 19:45 11/20/19 11:15 Sodium Chloride IVPB 11/21/19 19:41 10 mls/hr Q10H YONG Administration 8 MG/HR Ceftriaxone Sodium 1 gm/ 50 mls @ 100 mls/hr 11/19/19 04:43 11/20/19 09:40 Dextrose IVPB 11/21/19 08:00 100 mls/hr DAILY YONG Administration Protocol Sodium Chloride 1,000 mls @ 75 mls/hr 11/20/19 14:04 Normal Saline - IV ASDIR YONG Insulin Aspart 1 vial 11/19/19 07:00 11/20/19 12:15 Novolog Vial Sliding Scale - SQ Not Given ACHS [facility] Protocol Insulin Detemir 34 units 11/19/19 22:00 11/19/19 21:28 Levemir Vial SQ Not Given HS YONG Morphine Sulfate 2 mg 11/19/19 15:57 11/20/19 14:09 Morphine Sulfate IVPUSH 2 mg Q4H PRN Administration PAIN LEVEL 6-10 Mupirocin 1 applic 11/19/19 10:00 11/20/19 10:20 Bactroban Ointment (For Decolonization) - NS 11/24/19 09:59 1 applic BID YONG Administration Nicotine 21 mg 11/20/19 11:15 11/20/19 14:17 Nicoderm Patch - TD 21 mg DAILY YONG Administration Oxycodone HCl 10 mg 11/19/19 02:33 11/19/19 02:47 Roxicodone - PO 10 mg Q8H PRN Administration PAIN LEVEL 7 - 10 Pregabalin 50 mg 11/19/19 10:00 11/20/19 09:40 Lyrica - PO 50 mg BID YONG Administration ASSESSMENT AND PLAN: 69 year old female with PMHx COPD, CVA (x2; Residual LE Weakness, ?RUE Numbness , R Facial Droop), CAD, HTN, HLD, DM, CBP presents with hematemsis. UGIB COPD Hx CVA DM2 CAD HTN HLD CBP PLAN: -s/p EGD: 2 gastric ulcers, one bleeding vessel s/p endoclipping and epi injection -PPI -IVF -start feeds as tolerated as per GI recommendations -H/H stable, continue to trend and monitor, monitor for BM -on Ceftriaxone for SBP ppx -Downgrade to floors -GI following
[2019-11-20] MEDS ORDERED: INSULIN (NOVOLOG) ASPART 100 UNITS/ML 10ML VIAL ONE (17:38)
[2019-11-20] MEDS: oxyCODONE HCL 5 MG TABLET PO PRN (17:42)
[2019-11-20] MEDS: ACETAMINOPHEN 325 MG TABLET (FP) PO PRN (17:43)
--- NOTE | 2019-11-20 18:51 | PN ---
Physical Exam: SUBJECTIVE: Patient seen and examined. Says she feels better today. Denies abdominal pain. no further episodes of bleeding per patient. OBJECTIVE: Vital Signs Period Temp Pulse Resp BP Sys/Danielle Pulse Ox Last 24 Hr 98 F-98.2 F 66-78 11-19 104-161/44-76 98-100 GENERAL: a/o x 3, in nad HEAD: Normal with no signs of trauma. EYES: PERRL, sclera anicteric, conjunctiva clear ENT: oropharynx clear without exudates NECK: supple. LUNGS: decreased breath sounds HEART: Regular rate and rhythm, S1, S2 without murmur, rub or gallop. ABDOMEN: Soft, nontender, nondistended, normoactive bowel sounds EXTREMITIES: 2+ pulses, no edema. Laboratory Results - last 24 hr 11/19/19 11/19/19 11/20/19 20:15 21:26 01:00 WBC 9.0 8.5 RBC 3.12 L 3.15 L Hgb 9.4 L 9.6 L Hct 27.8 L 28.4 L MCV 89.1 90.1 MCH 30.1 30.6 MCHC 33.7 33.9 RDW 14.3 14.1 Plt Count 224 217 MPV 8.9 9.1 Absolute Neuts (auto) 4.4 4.3 Neutrophils % 48.5 D 50.4 Lymphocytes % 41.1 H D 39.9 Monocytes % 6.9 5.9 Eosinophils % 3.2 D 3.4 Basophils % 0.3 0.4 Nucleated RBC % 0 0 Sodium Potassium Chloride Carbon Dioxide Anion Gap BUN Creatinine Est GFR (CKD-EPI)AfAm Est GFR (CKD-EPI)NonAf POC Glucometer 118 Random Glucose Calcium Phosphorus Magnesium Total Bilirubin AST ALT Alkaline Phosphatase Total Protein Albumin 11/20/19 11/20/19 11/20/19 05:15 05:15 06:10 WBC 6.5 RBC 3.03 L Hgb 9.3 L Hct 27.1 L MCV 89.4 MCH 30.7 MCHC 34.4 RDW 14.2 Plt Count 193 MPV 9.1 Absolute Neuts (auto) 3.5 Neutrophils % 54.3 Lymphocytes % 29.6 D Monocytes % 12.5 H D Eosinophils % 3.6 Basophils % 0.0 Nucleated RBC % 0 Sodium 140 Potassium 4.3 Chloride 108 H Carbon Dioxide 28 Anion Gap 3 L BUN 20.9 H Creatinine 0.6 Est GFR (CKD-EPI)AfAm 109.31 Est GFR (CKD-EPI)NonAf 94.32 POC Glucometer 141 Random Glucose 132 H Calcium 8.1 L Phosphorus 3.6 Magnesium 1.8 Total Bilirubin 0.4 AST 80 H ALT 54 Alkaline Phosphatase 83 Total Protein 4.9 L Albumin 2.4 L 11/20/19 11/20/19 12:28 17:08 WBC RBC Hgb Hct MCV MCH MCHC RDW Plt Count MPV Absolute Neuts (auto) Neutrophils % Lymphocytes % Monocytes % Eosinophils % Basophils % Nucleated RBC % Sodium Potassium Chloride Carbon Dioxide Anion Gap BUN Creatinine Est GFR (CKD-EPI)AfAm Est GFR (CKD-EPI)NonAf POC Glucometer 121 158 Random Glucose Calcium Phosphorus Magnesium Total Bilirubin AST ALT Alkaline Phosphatase Total Protein Albumin Active Medications Generic Name Dose Route Start Last Admin Trade Name Freq PRN Reason Stop Dose Admin Acetaminophen 325 mg 11/19/19 02:34 11/20/19 17:43 Tylenol - PO 325 mg Q8H PRN Administration PAIN LEVEL 7 - 10 Albuterol Sulfate 1 puff 11/19/19 02:20 Ventolin Hfa Inhaler - IH Q6H PRN SHORT OF BREATH/WHEEZING Chlorhexidine Gluconate 1 applic 11/19/19 22:00 11/19/19 21:24 Hibiclens For Decolonization - TP 1 applic HS YONG Administration Pantoprazole Sodium 80 mg/ 100 mls @ 10 mls/hr 11/18/19 19:45 11/20/19 11:15 Sodium Chloride IVPB 11/21/19 19:41 10 mls/hr Q10H YONG Administration 8 MG/HR Ceftriaxone Sodium 1 gm/ 50 mls @ 100 mls/hr 11/19/19 04:43 11/20/19 09:40 Dextrose IVPB 11/21/19 08:00 100 mls/hr DAILY YONG Administration Protocol Sodium Chloride 1,000 mls @ 75 mls/hr 11/20/19 14:04 11/20/19 14:40 Normal Saline - IV 75 mls/hr ASDIR YONG Administration Insulin Aspart 1 vial 11/19/19 07:00 11/20/19 17:39 Novolog Vial Sliding Scale - SQ 2 units ACHS YONG Administration Protocol Insulin Detemir 34 units 11/19/19 22:00 11/19/19 21:28 Levemir Vial SQ Not Given HS [facility] Morphine Sulfate 2 mg 11/19/19 15:57 11/20/19 14:09 Morphine Sulfate IVPUSH 2 mg Q4H PRN Administration PAIN LEVEL 6-10 Mupirocin 1 applic 11/19/19 10:00 11/20/19 10:20 Bactroban Ointment (For Decolonization) - NS 11/24/19 09:59 1 applic BID YONG Administration Nicotine 21 mg 11/20/19 11:15 11/20/19 14:17 Nicoderm Patch - TD 21 mg DAILY YONG Administration Oxycodone HCl 10 mg 11/19/19 02:33 11/20/19 17:42 Roxicodone - PO 10 mg Q8H PRN Administration PAIN LEVEL 7 - 10 Pregabalin 50 mg 11/19/19 10:00 11/20/19 09:40 Lyrica - PO 50 mg BID YONG Administration ASSESSMENT/PLAN: 69 year old female with PMHx COPD, CVA (x2; Residual LE Weakness, ?RUE Numbness , R Facial Droop), CAD, HTN, HLD, DM, presents with hematemsis. #UGIB -s/p EGD: 2 gastric ulcers, one bleeding vessel s/p endoclipping and epi injection -PPI drip -IVF NS @ 75 -clears, advance as tolerated -monitor h/h, currently stable -transfuse as needed -FU GI reccs -IV abx Ceftriaxone for SBP ppx -patient up for med surge transfer from icu #hx of COPD -no exacerbation -duonebs #Hx CVA/CAD -patient denies ASA use at home #DM2 -BGM -SSI -Levemir 34 HS #HTN -antihypertensive meds held in setting of UGIB -monitor VS #recent UTI? -UA reveals 1+ LE, 71 WBC, Nitrite negative -Currently denies dysuria -Follow urine cultures. #Hx of Chronic back pain (opiod use) -Continue home dose pain regimen #FEN -Iv fluids -monitor -clears #dvt ppx -hold ac at this time due to bleed Visit type - Emergency Visit Emergency Visit: Yes ED Registration Date: 11/18/19 Care time: The patient presented to the Emergency Department on the above date and was hospitalized for further evaluation of their emergent condition. - New Patient This patient is new to me today: Yes Date on this admission: 11/20/19 - Critical Care Critical Care patient: No ATTENDING PHYSICIAN STATEMENT I saw and evaluated the patient. I reviewed the resident's note and discussed the case with the resident. I agree with the resident's findings and plan as documented. SUBJECTIVE: OBJECTIVE: ASSESSMENT AND PLAN:
[2019-11-20] MEDS: CHLORHEXIDINE GLUCONATE 4% CLEANSER FOR DECOLONIZATION TP SCH (21:46)
[2019-11-20] MEDS: INSULIN (LEVEMIR) 100 UNITS/ML UNITS SQ SCH (21:47)
[2019-11-20 22:07] LABS: HEMATOCRIT 27.3 % (32.4-45.2); HEMOGLOBIN 9.3 GM/dL (10.7-15.3); MCH 30.5 pg (25.7-33.7); MCHC 34.1 g/dl (32.0-36.0); MEAN CELL VOLUME 89.3 fl (80-96); MEAN PLT VOLUME 8.6 fl (7.5-11.1); PLATELET COUNT 217 K/MM3 (134-434); RBC 3.06 M/mm3 (3.60-5.2); WHITE BLOOD COUNT 6.6 K/mm3 (4.0-10.0)
[2019-11-21] MEDS: PANTOPRAZOLE SODIUM 80 MG in SODIUM CHLORIDE 100 ML IVPB SCH ×2 (05:30→08:00)
[2019-11-21] MEDS: INSULIN SLIDING SCALE (NOVOLOG) 1 VIAL SQ SCH ×4 (06:28→22:59)
[2019-11-21] MEDS: MORPHINE SULFATE 2 MG/ML VIAL IVPUSH PRN ×3 (06:30→21:55)
[2019-11-21 07:39] LABS: ALBUMIN 2.6 g/dl (3.4-5.0); BILIRUBIN,TOTAL 0.6 mg/dL (0.2-1); BLOOD UREA NITROGEN 11.4 mg/dL (7-18); CALCIUM 8.2 mg/dL (8.5-10.1); CREATININE 0.6 mg/dL (0.55-1.3); MAGNESIUM 1.9 mg/dL (1.8-2.4); PHOSPHOROUS 3.9 mg/dL (2.5-4.9); POTASSIUM 4.8 mmol/L (3.5-5.1); TOT PROT 5.3 g/dl (6.4-8.2)
[2019-11-21] MEDS ORDERED: cefTRIAXone SODIUM 1 GM VIAL ONE (09:15)
[2019-11-21] MEDS ORDERED: DEXTROSE 5%-WATER - 50 ML IVPB ONE (09:15)
[2019-11-21] MEDS: SODIUM CHLORIDE 1,000 ML IV SCH ×2 (09:55→14:05)
[2019-11-21] MEDS: NICOTINE 21 MG/24 HOURS TOPICAL PATCH TD SCH (09:57)
[2019-11-21] MEDS: PREGABALIN 50 MG CAPSULE PO SCH ×2 (09:57→21:57)
[2019-11-21] MEDS: MUPIROCIN 2% TOPICAL OINTMENT FOR DECOLONIZATION NS SCH ×2 (09:57→21:57)
[2019-11-21 12:21] LABS: HEMOGLOBIN 9.9 GM/dL (10.7-15.3); MCH 30.5 pg (25.7-33.7); MCHC 34.1 g/dl (32.0-36.0); MEAN CELL VOLUME 89.6 fl (80-96); PLATELET COUNT 221 K/MM3 (134-434); RBC 3.24 M/mm3 (3.60-5.2); RDW 14.2 % (11.6-15.6); WHITE BLOOD COUNT 4.9 K/mm3 (4.0-10.0)
--- NOTE | 2019-11-21 14:59 | PN ---
Progress Note (short form) - Note Progress Note: PULM/CCM Pt Seen & examined in the ICU. CA+OX3, No hematemesis, no O2, NAD, Hgb Stable 9.3 - 9.9, moving bowels. Active Medications Acetaminophen (Tylenol -) 325 mg PO Q8H PRN PRN Reason: PAIN LEVEL 7 - 10 Last Admin: 11/20/19 17:43 Dose: 325 mg Albuterol Sulfate (Ventolin Hfa Inhaler -) 1 puff IH Q6H PRN PRN Reason: SHORT OF BREATH/WHEEZING Chlorhexidine Gluconate (Hibiclens For Decolonization -) 1 applic TP HS [facility] Last Admin: 11/20/19 21:46 Dose: 1 applic Pantoprazole Sodium 80 mg/ (Sodium Chloride) 100 mls @ 10 mls/hr IVPB Q10H [facility] Stop: 11/21/19 19:41 Last Admin: 11/21/19 05:30 Dose: 10 mls/hr Sodium Chloride (Normal Saline -) 1,000 mls @ 75 mls/hr IV ASDIR [facility] Last Admin: 11/21/19 09:55 Dose: 75 mls/hr Insulin Aspart (Novolog Vial Sliding Scale -) 1 vial SQ [facility]; Protocol Last Admin: 11/21/19 12:00 Dose: 2 units Insulin Detemir (Levemir Vial) 34 units SQ [facility] Last Admin: 11/20/19 21:47 Dose: 34 units Morphine Sulfate (Morphine Sulfate) 2 mg IVPUSH Q4H PRN PRN Reason: PAIN LEVEL 6-10 Last Admin: 11/21/19 06:30 Dose: 2 mg Mupirocin (Bactroban Ointment (For Decolonization) -) 1 applic NS BID [facility] Stop: 11/24/19 09:59 Last Admin: 11/21/19 09:57 Dose: 1 applic Nicotine (Nicoderm Patch -) 21 mg TD DAILY [facility] Last Admin: 11/21/19 09:57 Dose: 21 mg Oxycodone HCl (Roxicodone -) 10 mg PO Q8H PRN PRN Reason: PAIN LEVEL 7 - 10 Last Admin: 11/20/19 17:42 Dose: 10 mg Pantoprazole Sodium (Protonix -) 40 mg PO DAILY [facility] Pregabalin (Lyrica -) 50 mg PO BID [facility] Last Admin: 11/21/19 09:57 Dose: 50 mg Vital Signs Period Temp Pulse Resp BP Sys/Danielle Pulse Ox Last 24 Hr 98.3 F-98.6 F 57-79 14-15 132-161/64-80 100-100 Intake & Output 11/18/19 11/19/19 11/20/19 11/21/19 23:59 23:59 23:59 23:59 Intake Total 1230 1456.9 1020 Output Total 100 1300 600 Balance 1130 156.9 420 Weight 102.058 kg 108.862 kg 108.862 kg GEN: Obese middle aged woman, CA+OX3, NAD HEENT: R Facial Droop (old CVA), PERRL, an-icteric, edentulous, hirtuism PULM: Diminished in the bases, otherwise CTAB CV: nml S1 S2, RR, unable to appreciate any G/R/M ABD: Obese, S/S N/T N/D X4Q EXT: + Pulses, WWPX4, + peripheral edema CBC, BMP 11/21/19 11:43 11/21/19 06:20 Microbiology 11/18/19 22:30 Urine - Urine - Catheterized Urine Culture - Final NO GROWTH OBTAINED RECENT STUDIES TO NOTE: CTAP & CT CHEST W/ 11/18: 1. Cardiomegaly, chronic lung disease and possible mild congestion. 2. Fecal retention with no evidence of mesenteric ischemia or acute pathology within the abdomen or pelvis. Please see above discussion. CXR 11/18: A single frontal portable projection of the chest at 5:49 PM is submitted. The study is limited due to patient rotation. The heart size is enlarged. No acute infiltrates or pleural effusions are identified. ASSESS: GI Bleed Acute Blood Loss Anemia Gastric Ulcers s/p endoclipping/epi injection COPD HTN DM Hyperlipidemia h/o CVA PLAN: - O2 to keep SpO2>90% - Inhaled bronchodilators - monitor H/H - Normal transfusion thresholds - PPI 40 PO QD - Reglan - Adcance Diet a/p GI - Finish empiric abx course - FSs - SSI - BR - DVT prophylaxis - Transfer to Med[facility]Surg [facility] ICU PULM/CCM [id number]
[2019-11-21] MEDS ORDERED: DOCUSATE SODIUM 100 MG CAPSULE (FP) PO PRN (15:18)
--- NOTE | 2019-11-21 15:38 | PN.GI ---
GI Progress Note Subjective: coverage for Dr Vazquez, no active bleeding, tolerating soft diet - Objective Vital Signs: Vital Signs Temperature 98.3 F 11/21/19 06:32 Pulse Rate 57 L 11/21/19 06:32 Respiratory Rate 14 11/21/19 07:29 Blood Pressure 161/80 11/21/19 06:32 O2 Sat by Pulse Oximetry (%) 100 11/21/19 07:29 Constitutional: Well Nourished Eyes: Yes: Conjunctiva Clear HENT: Yes: Atraumatic Neck: Yes: Trachea Midline Cardiovascular: Yes: Regular Rate and Rhythm Respiratory: Yes: CTA Bilaterally ...Palpate: Yes: Soft. No: Firm/Rigid, Guarding, Hepatomegaly, Mass, Pulsatile Mass, Splenomegaly, Tenderness Labs: CBC, BMP 11/21/19 11:43 11/21/19 06:20 INR, PTT INR 1.17 (0.83-1.09) H 11/19/19 11:40 Problem List - Problems (1) Hematemesis Assessment/Plan: secondary to gastric ulcers in the cardia R> swithc to Pantoprzole 40mg daily made aware to follow up with Dr Vazquez for repeat EGD in 3 mos Reglan 5mg 30 min ac Code(s): K92.0 - HEMATEMESIS
[2019-11-21] MEDS ORDERED: METOCLOPRAMIDE HCL 10 MG TABLET (FP) PO SCH (16:30)
--- NOTE | 2019-11-21 17:38 | PN ---
Physical Exam: SUBJECTIVE: Patient seen and examined. She complains of LUQ pain. OBJECTIVE: Vital Signs Period Temp Pulse Resp BP Sys/Danielle Pulse Ox Last 24 Hr 98.3 F-98.5 F 57-72 14-14 132-161/71-80 100-100 GENERAL: The patient is awake, alert, and fully oriented, in no acute distress. LUNGS: Breath sounds equal, clear to auscultation bilaterally, no wheezes, no crackles, no accessory muscle use. HEART: Regular rate and rhythm, S1, S2 without murmur, rub or gallop. ABDOMEN: Obese, soft, (+) LUQ/epigastric tenderness, nondistended, normoactive bowel sounds, no guarding, no rebound, no hepatosplenomegaly, no masses. EXTREMITIES: 2+ pulses, warm, well-perfused, no edema. Laboratory Results - last 24 hr 11/20/19 11/20/19 11/21/19 21:44 21:45 05:50 WBC 6.6 Corrected WBC (auto) RBC 3.06 L Hgb 9.3 L Hct 27.3 L MCV 89.3 MCH 30.5 MCHC 34.1 RDW 14.0 Plt Count 217 MPV 8.6 Absolute Neuts (auto) Neutrophils % Lymphocytes % Monocytes % Eosinophils % Basophils % Nucleated RBC % Platelet Estimate Platelet Comment Sodium Potassium Chloride Carbon Dioxide Anion Gap BUN Creatinine Est GFR (CKD-EPI)AfAm Est GFR (CKD-EPI)NonAf POC Glucometer 172 140 Random Glucose Calcium Phosphorus Magnesium Total Bilirubin AST ALT Alkaline Phosphatase Total Protein Albumin 11/21/19 11/21/19 11/21/19 06:20 06:20 11:43 WBC Cancelled 4.9 Corrected WBC (auto) Cancelled RBC Cancelled 3.24 L Hgb Cancelled 9.9 L Hct Cancelled 29.0 L MCV Cancelled 89.6 MCH Cancelled 30.5 MCHC Cancelled 34.1 RDW Cancelled 14.2 Plt Count Cancelled 221 MPV Cancelled 9.0 Absolute Neuts (auto) Cancelled Neutrophils % Cancelled Lymphocytes % Cancelled Monocytes % Cancelled Eosinophils % Cancelled Basophils % Cancelled Nucleated RBC % Cancelled Platelet Estimate Cancelled Platelet Comment Cancelled Sodium 136 Potassium 4.8 Chloride 105 Carbon Dioxide 25 Anion Gap 6 L BUN 11.4 Creatinine 0.6 Est GFR (CKD-EPI)AfAm 109.31 Est GFR (CKD-EPI)NonAf 94.32 POC Glucometer Random Glucose 147 H Calcium 8.2 L Phosphorus 3.9 Magnesium 1.9 Total Bilirubin 0.6 AST 608 H ALT 441 H Alkaline Phosphatase 193 H Total Protein 5.3 L Albumin 2.6 L 11/21/19 11/21/19 12:00 17:13 WBC Corrected WBC (auto) RBC Hgb Hct MCV MCH MCHC RDW Plt Count MPV Absolute Neuts (auto) Neutrophils % Lymphocytes % Monocytes % Eosinophils % Basophils % Nucleated RBC % Platelet Estimate Platelet Comment Sodium Potassium Chloride Carbon Dioxide Anion Gap BUN Creatinine Est GFR (CKD-EPI)AfAm Est GFR (CKD-EPI)NonAf POC Glucometer 185 244 Random Glucose Calcium Phosphorus Magnesium Total Bilirubin AST ALT Alkaline Phosphatase Total Protein Albumin Active Medications Generic Name Dose Route Start Last Admin Trade Name Freq PRN Reason Stop Dose Admin Acetaminophen 325 mg 11/19/19 02:34 11/20/19 17:43 Tylenol - PO 325 mg Q8H PRN Administration PAIN LEVEL 7 - 10 Albuterol Sulfate 1 puff 11/19/19 02:20 Ventolin Hfa Inhaler - IH Q6H PRN SHORT OF BREATH/WHEEZING Chlorhexidine Gluconate 1 applic 11/19/19 22:00 11/20/19 21:46 Hibiclens For Decolonization - TP 1 applic HS YONG Administration Docusate Sodium 100 mg 11/21/19 15:18 Colace - PO Q8H PRN CONSTIPATION Pantoprazole Sodium 80 mg/ 100 mls @ 10 mls/hr 11/18/19 19:45 11/21/19 08:00 Sodium Chloride IVPB 11/21/19 19:41 Not Given Q10H YONG 8 MG/HR Sodium Chloride 1,000 mls @ 75 mls/hr 11/20/19 14:04 11/21/19 09:55 Normal Saline - IV 75 mls/hr ASDIR YONG Administration Insulin Aspart 1 vial 11/19/19 07:00 11/21/19 12:00 Novolog Vial Sliding Scale - SQ 2 units ACHS YONG Administration Protocol Insulin Detemir 34 units 11/19/19 22:00 11/20/19 21:47 Levemir Vial SQ 34 units HS YONG Administration Metoclopramide HCl 5 mg 11/21/19 16:30 Reglan - PO TIDAC YONG Morphine Sulfate 2 mg 11/19/19 15:57 11/21/19 13:35 Morphine Sulfate IVPUSH 2 mg Q4H PRN Administration PAIN LEVEL 6-10 Mupirocin 1 applic 11/19/19 10:00 11/21/19 09:57 Bactroban Ointment (For Decolonization) - NS 11/24/19 09:59 1 applic BID YONG Administration Nicotine 21 mg 11/20/19 11:15 11/21/19 09:57 Nicoderm Patch - TD 21 mg DAILY YONG Administration Oxycodone HCl 10 mg 11/19/19 02:33 11/20/19 17:42 Roxicodone - PO 10 mg Q8H PRN Administration PAIN LEVEL 7 - 10 Pantoprazole Sodium 40 mg 11/22/19 10:00 Protonix - PO DAILY YONG Pregabalin 50 mg 11/19/19 10:00 11/21/19 09:57 Lyrica - PO 50 mg BID YONG Administration ASSESSMENT/PLAN: This is a 69 year old woman with a history of HTN, hyperlipidemia, CAD, [place], type 2 DM, CVA, COPD, chronic back pain who presented to the ED after vomiting blood. 1. Acute blood loss anemia secondary to upper GI bleed from gastric ulcers - EGD done on 11/19 and 2 gastric ulcers were seen, visible vessel in one was clipped and injected with epinephrine - Protonix IV drip changed to PO - Hgb stable - Tolerating soft diet 2. CAD, history of MA - Patient denies being on aspirin at home - Will not start aspirin secondary to gastric ulcers/GI bleed 3. HTN - Restart lisinopril 4. Hyperlipidemia 5. Type 2 DM - Continue Levemir, Novolog sliding scale 6. History of CVA - Patient denies being on aspirin at home - Will not start aspirin secondary to gastric ulcers/GI bleed 7. COPD - Stable 8. Chronic back pain - Continue Lyrica, oxycodone as needed 9. Nicotine dependence - Continue nicotine patch Visit type - Emergency Visit Emergency Visit: Yes ED Registration Date: 11/18/19 Care time: The patient presented to the Emergency Department on the above date and was hospitalized for further evaluation of their emergent condition. - New Patient This patient is new to me today: Yes Date on this admission: 11/21/19 - Critical Care Critical Care patient: No - Discharge Referral Referred to [facility] No
[2019-11-21] MEDS ORDERED: PT OWN MED DRAWER 7, Y5N ONE ×2 (17:54→21:00)
[2019-11-21] MEDS: METOCLOPRAMIDE HCL 10 MG TABLET (FP) PO SCH (17:57)
[2019-11-21] MEDS: INSULIN (LEVEMIR) 100 UNITS/ML UNITS SQ SCH (21:56)
[2019-11-21] MEDS: CHLORHEXIDINE GLUCONATE 4% CLEANSER FOR DECOLONIZATION TP SCH (21:57)
[2019-11-22] MEDS: oxyCODONE HCL 5 MG TABLET PO PRN (00:27)
[2019-11-22] MEDS ORDERED: PT OWN MED DRAWER 7, Y5N ONE ×3 (05:17→17:53)
[2019-11-22] MEDS: INSULIN SLIDING SCALE (NOVOLOG) 1 VIAL SQ SCH ×4 (06:02→21:32)
[2019-11-22 06:29] LABS: HEMATOCRIT 26.3 % (32.4-45.2); HEMOGLOBIN 9.1 GM/dL (10.7-15.3); MCH 30.6 pg (25.7-33.7); MCHC 34.7 g/dl (32.0-36.0); MEAN CELL VOLUME 88.2 fl (80-96); MEAN PLT VOLUME 9.1 fl (7.5-11.1); PLATELET COUNT 228 K/MM3 (134-434); RBC 2.98 M/mm3 (3.60-5.2); RDW 13.7 % (11.6-15.6); WHITE BLOOD COUNT 6.9 K/mm3 (4.0-10.0)
[2019-11-22 06:37] LABS: ALBUMIN 2.4 g/dl (3.4-5.0); BILIRUBIN,DIRECT 0.1 mg/dL (0.0-0.2); BILIRUBIN,TOTAL 0.5 mg/dL (0.2-1); BLOOD UREA NITROGEN 8.4 mg/dL (7-18); CALCIUM 8.1 mg/dL (8.5-10.1); CREATININE 0.6 mg/dL (0.55-1.3)
[2019-11-22] MEDS: NICOTINE 21 MG/24 HOURS TOPICAL PATCH TD SCH (09:11)
[2019-11-22] MEDS: MUPIROCIN 2% TOPICAL OINTMENT FOR DECOLONIZATION NS SCH ×2 (09:12→21:33)
[2019-11-22] MEDS: PREGABALIN 50 MG CAPSULE PO SCH ×2 (09:12→21:33)
[2019-11-22] MEDS: METOCLOPRAMIDE HCL 10 MG TABLET (FP) PO SCH ×3 (09:13→18:13)
[2019-11-22] MEDS: LISINOPRIL 10 MG TABLET (FP) PO SCH (09:14)
[2019-11-22] MEDS: PANTOPRAZOLE 40 MG TABLET PO SCH (09:14)
--- NOTE | 2019-11-22 12:34 | PN ---
Progress Note (short form) - Note Progress Note: Progress Note Pulm/CCM Pt seen and examined in the ICU. Pt alert and oriented. In NAD on room air. No e/o bleeding. Pending transfer to the floor Active Medications Current Medications Acetaminophen (Tylenol -) 325 mg PO Q8H PRN PRN Reason: PAIN LEVEL 7 - 10 Last Admin: 11/20/19 17:43 Dose: 325 mg Albuterol Sulfate (Ventolin Hfa Inhaler -) 1 puff IH Q6H PRN PRN Reason: SHORT OF BREATH/WHEEZING Chlorhexidine Gluconate (Hibiclens For Decolonization -) 1 applic TP HS [facility] Last Admin: 11/21/19 21:57 Dose: 1 applic Docusate Sodium (Colace -) 100 mg PO Q8H PRN PRN Reason: CONSTIPATION Sodium Chloride (Normal Saline -) 1,000 mls @ 75 mls/hr IV ASDIR [facility] Last Admin: 11/21/19 14:05 Dose: Not Given Insulin Aspart (Novolog Vial Sliding Scale -) 1 vial SQ [facility]; Protocol Last Admin: 11/22/19 12:07 Dose: 2 units Insulin Detemir (Levemir Vial) 34 units SQ [facility] Last Admin: 11/21/19 21:56 Dose: 34 units Lisinopril (Prinivil) 10 mg PO DAILY [facility] Last Admin: 11/22/19 09:14 Dose: 10 mg Metoclopramide HCl (Reglan -) 5 mg PO TIDAC [facility] Last Admin: 11/22/19 12:07 Dose: 5 mg Morphine Sulfate (Morphine Sulfate) 2 mg IVPUSH Q4H PRN PRN Reason: PAIN LEVEL 6-10 Last Admin: 11/21/19 21:55 Dose: 2 mg Mupirocin (Bactroban Ointment (For Decolonization) -) 1 applic NS BID [facility] Stop: 11/24/19 09:59 Last Admin: 11/22/19 09:12 Dose: 1 applic Nicotine (Nicoderm Patch -) 21 mg TD DAILY [facility] Last Admin: 11/22/19 09:11 Dose: 21 mg Oxycodone HCl (Roxicodone -) 10 mg PO Q8H PRN PRN Reason: PAIN LEVEL 7 - 10 Last Admin: 11/22/19 00:27 Dose: 10 mg Pantoprazole Sodium (Protonix -) 40 mg PO DAILY [facility] Last Admin: 11/22/19 09:14 Dose: 40 mg Pregabalin (Lyrica -) 50 mg PO BID [facility] Last Admin: 11/22/19 09:12 Dose: 50 mg Vital Signs Period Temp Pulse Resp BP Sys/Danielle Pulse Ox Last 24 Hr 98.6 F-98.6 F 73-79 12-20 101-153/52-113 100-100 Intake & Output 11/19/19 11/20/19 11/21/19 11/22/19 23:59 23:59 23:59 23:59 Intake Total 1230 1456.9 2130 180 Output Total 100 1300 1860 Balance 1130 156.9 270 180 Weight 108.862 kg 108.862 kg GEN: Obese middle aged woman, CA+OX3, NAD HEENT: R Facial Droop (old CVA), PERRL, an-icteric, edentulous, hirtuism PULM: Diminished in the bases, otherwise CTAB CV: nml S1 S2, RR, unable to appreciate any G/R/M ABD: Obese, S/S N/T N/D X4Q EXT: + Pulses, WWPX4, + peripheral edema CBC, BMP 11/22/19 05:15 11/22/19 05:15 Microbiology 11/18/19 22:30 Urine - Urine - Catheterized Urine Culture - Final NO GROWTH OBTAINED RECENT STUDIES TO NOTE: CTAP & CT CHEST W/ 11/18: 1. Cardiomegaly, chronic lung disease and possible mild congestion. 2. Fecal retention with no evidence of mesenteric ischemia or acute pathology within the abdomen or pelvis. Please see above discussion. CXR 11/18: A single frontal portable projection of the chest at 5:49 PM is submitted. The study is limited due to patient rotation. The heart size is enlarged. No acute infiltrates or pleural effusions are identified. ASSESS: GI Bleed Acute Blood Loss Anemia Gastric Ulcers s/p endoclipping/epi injection COPD HTN DM Hyperlipidemia h/o CVA PLAN: - Prn O2 to keep SpO2>90% - Inhaled bronchodilators - monitor H/H - Normal transfusion thresholds - PPI 40 PO QD - Reglan - Advance Diet a/p GI - Finish empiric abx course - FSs - SSI - BR - DVT prophylaxis - Ok for transfer to [facility] Andreia Venegas, ACNP-BC Additional CC's: Justin Bolivar
--- NOTE | 2019-11-22 14:12 | PN.GI ---
GI Progress Note Subjective: no active bleeding tolerating diet - Objective Vital Signs: Vital Signs Temperature 98.6 F 11/21/19 22:00 Pulse Rate 79 11/21/19 22:00 Respiratory Rate 15 11/22/19 07:40 Blood Pressure 101/52 L 11/21/19 22:00 O2 Sat by Pulse Oximetry (%) 100 11/22/19 07:40 Constitutional: Obese Eyes: Yes: Conjunctiva Clear HENT: Yes: Atraumatic Neck: Yes: Supple Cardiovascular: Yes: Regular Rate and Rhythm Respiratory: Yes: CTA Bilaterally ...Palpate: Yes: Soft. No: Firm/Rigid, Guarding, Hepatomegaly, Mass, Pulsatile Mass, Splenomegaly, Tenderness Labs: CBC, BMP 11/22/19 05:15 11/22/19 05:15 INR, PTT INR 1.17 (0.83-1.09) H 11/19/19 11:40 Problem List - Problems (1) Hematemesis Code(s): K92.0 - HEMATEMESIS (2) Gastric ulcer Assessment/Plan: R>made aware to ff-up with Dr Vazquez for repeat EGD in 3 mos Pantoprazole 40mg daily stool for h pylori Code(s): K25.9 - GASTRIC ULCER, UNSP ACUTE OR CHRONIC, W/O HEMOR OR PERF
[2019-11-22] MEDS: MORPHINE SULFATE 2 MG/ML VIAL IVPUSH PRN ×2 (14:21→22:45)
[2019-11-22] MEDS: SODIUM CHLORIDE 1,000 ML IV SCH (14:24)
[2019-11-22] MEDS ORDERED: BENZOCAINE/MENTH/CETYLPYRD CL 1 EACH LOZENGE MM PRN (16:08)
--- NOTE | 2019-11-22 16:08 | PN ---
Physical Exam: SUBJECTIVE: Patient seen and examined. She has no complaints. OBJECTIVE: Vital Signs Period Temp Pulse Resp BP Sys/Danielle Pulse Ox Last 24 Hr 98.6 F-98.6 F 76-79 12-20 101-157/52-113 100-100 GENERAL: The patient is awake, alert, and fully oriented, in no acute distress. LUNGS: Breath sounds equal, clear to auscultation bilaterally, no wheezes, no crackles, no accessory muscle use. HEART: Regular rate and rhythm, S1, S2 without murmur, rub or gallop. ABDOMEN: Obese, soft, nontender, nondistended, normoactive bowel sounds, no guarding, no rebound, no hepatosplenomegaly, no masses. EXTREMITIES: 2+ pulses, warm, well-perfused, no edema. Laboratory Results - last 24 hr 11/21/19 11/21/19 11/22/19 17:13 21:57 05:15 WBC 6.9 RBC 2.98 L Hgb 9.1 L Hct 26.3 L MCV 88.2 MCH 30.6 MCHC 34.7 RDW 13.7 Plt Count 228 MPV 9.1 Sodium Potassium Chloride Carbon Dioxide Anion Gap BUN Creatinine Est GFR (CKD-EPI)AfAm Est GFR (CKD-EPI)NonAf POC Glucometer 244 182 Random Glucose Calcium Total Bilirubin Direct Bilirubin AST ALT Alkaline Phosphatase Total Protein Albumin 11/22/19 11/22/19 11/22/19 05:15 05:58 11:30 WBC RBC Hgb Hct MCV MCH MCHC RDW Plt Count MPV Sodium 138 Potassium 4.0 Chloride 104 Carbon Dioxide 29 Anion Gap 5 L BUN 8.4 Creatinine 0.6 Est GFR (CKD-EPI)AfAm 109.31 Est GFR (CKD-EPI)NonAf 94.32 POC Glucometer 123 154 Random Glucose 138 H Calcium 8.1 L Total Bilirubin 0.5 Direct Bilirubin 0.1 AST 159 H ALT 267 H Alkaline Phosphatase 180 H Total Protein 5.0 L Albumin 2.4 L 11/22/19 15:25 WBC RBC Hgb Hct MCV MCH MCHC RDW Plt Count MPV Sodium Potassium Chloride Carbon Dioxide Anion Gap BUN Creatinine Est GFR (CKD-EPI)AfAm Est GFR (CKD-EPI)NonAf POC Glucometer 191 Random Glucose Calcium Total Bilirubin Direct Bilirubin AST ALT Alkaline Phosphatase Total Protein Albumin Active Medications Generic Name Dose Route Start Last Admin Trade Name Freq PRN Reason Stop Dose Admin Acetaminophen 325 mg 11/19/19 02:34 11/20/19 17:43 Tylenol - PO 325 mg Q8H PRN Administration PAIN LEVEL 7 - 10 Albuterol Sulfate 1 puff 11/19/19 02:20 Ventolin Hfa Inhaler - IH Q6H PRN SHORT OF BREATH/WHEEZING Chlorhexidine Gluconate 1 applic 11/19/19 22:00 11/21/19 21:57 Hibiclens For Decolonization - TP 1 applic HS YONG Administration Docusate Sodium 100 mg 11/21/19 15:18 Colace - PO Q8H PRN CONSTIPATION Insulin Aspart 1 vial 11/19/19 07:00 11/22/19 12:07 Novolog Vial Sliding Scale - SQ 2 units ACHS YONG Administration Protocol Insulin Detemir 34 units 11/19/19 22:00 11/21/19 21:56 Levemir Vial SQ 34 units HS YONG Administration Lisinopril 10 mg 11/22/19 10:00 11/22/19 09:14 Prinivil PO 10 mg DAILY YONG Administration Metoclopramide HCl 5 mg 11/21/19 16:30 11/22/19 12:07 Reglan - PO 5 mg TIDAC YONG Administration Morphine Sulfate 2 mg 11/19/19 15:57 11/22/19 14:21 Morphine Sulfate IVPUSH 2 mg Q4H PRN Administration PAIN LEVEL 6-10 Mupirocin 1 applic 11/19/19 10:00 11/22/19 09:12 Bactroban Ointment (For Decolonization) - NS 11/24/19 09:59 1 applic BID YONG Administration Nicotine 21 mg 11/20/19 11:15 11/22/19 09:11 Nicoderm Patch - TD 21 mg DAILY YONG Administration Oxycodone HCl 10 mg 11/19/19 02:33 11/22/19 00:27 Roxicodone - PO 10 mg Q8H PRN Administration PAIN LEVEL 7 - 10 Pantoprazole Sodium 40 mg 11/22/19 10:00 11/22/19 09:14 Protonix - PO 40 mg DAILY YONG Administration Pregabalin 50 mg 11/19/19 10:00 11/22/19 09:12 Lyrica - PO 50 mg BID YONG Administration ASSESSMENT/PLAN: This is a 69 year old woman with a history of HTN, hyperlipidemia, CAD, [place], type 2 DM, CVA, COPD, chronic back pain who presented to the ED after vomiting blood. 1. Acute blood loss anemia secondary to upper GI bleed from gastric ulcers - EGD done on 11/19 and 2 gastric ulcers were seen, visible vessel in one was clipped and injected with epinephrine - Continue Protonix PO - Hgb decreased to 9.1 today - No evidence of bleeding - Will continue to monitor - Tolerating soft diet 2. Hepatic transaminitis - Possibly secondary to ceftriaxone - Ceftriaxone was discontinued - Improving - Continue to monitor LFTs 3. CAD, history of MO - Patient denies being on aspirin at home - Will not start aspirin secondary to gastric ulcers/GI bleed 4. HTN - Continue lisinopril 5. Hyperlipidemia 6. Type 2 DM - Continue Levemir, Novolog sliding scale 7. History of CVA - Patient denies being on aspirin at home - Will not start aspirin secondary to gastric ulcers/GI bleed 8. COPD - Stable 9. Chronic back pain - Continue Lyrica, oxycodone as needed 10. Nicotine dependence - Continue nicotine patch 11. Morbid obesity with BMI 45.3 12. Disposition - If hgb and LFTs stable, expect discharge in AM Visit type - Emergency Visit Emergency Visit: Yes ED Registration Date: 11/18/19 Care time: The patient presented to the Emergency Department on the above date and was hospitalized for further evaluation of their emergent condition. - New Patient This patient is new to me today: No - Critical Care Critical Care patient: No - Discharge Referral Referred to [facility] No
[2019-11-22] MEDS: INSULIN (LEVEMIR) 100 UNITS/ML UNITS SQ SCH (21:32)
[2019-11-22] MEDS: CHLORHEXIDINE GLUCONATE 4% CLEANSER FOR DECOLONIZATION TP SCH (21:33)
[2019-11-23] MEDS: MORPHINE SULFATE 2 MG/ML VIAL IVPUSH PRN ×2 (04:35→09:50)
[2019-11-23 06:29] LABS: HEMOGLOBIN 10.3 GM/dL (10.7-15.3); MCH 30.4 pg (25.7-33.7); MCHC 34.2 g/dl (32.0-36.0); MEAN CELL VOLUME 88.7 fl (80-96); MEAN PLT VOLUME 8.8 fl (7.5-11.1); PLATELET COUNT 260 K/MM3 (134-434); RBC 3.38 M/mm3 (3.60-5.2); RDW 14.2 % (11.6-15.6); WHITE BLOOD COUNT 7.6 K/mm3 (4.0-10.0)
[2019-11-23] MEDS: INSULIN SLIDING SCALE (NOVOLOG) 1 VIAL SQ SCH ×2 (06:53→12:32)
[2019-11-23] MEDS: METOCLOPRAMIDE HCL 10 MG TABLET (FP) PO SCH ×3 (06:53→16:40)
[2019-11-23] MEDS: ACETAMINOPHEN 325 MG TABLET (FP) PO PRN ×2 (06:58→17:33)
[2019-11-23 07:00] LABS: ALBUMIN 2.8 g/dl (3.4-5.0); BILIRUBIN,TOTAL 0.4 mg/dL (0.2-1); BLOOD UREA NITROGEN 7.4 mg/dL (7-18); CALCIUM 8.7 mg/dL (8.5-10.1); CREATININE 0.6 mg/dL (0.55-1.3); POTASSIUM 4.3 mmol/L (3.5-5.1); TOT PROT 5.6 g/dl (6.4-8.2)
[2019-11-23] MEDS ORDERED: PT OWN MED DRAWER 7, Y5N ONE ×2 (07:34→11:16)
[2019-11-23] MEDS: PANTOPRAZOLE 40 MG TABLET PO SCH (09:54)
[2019-11-23] MEDS: PREGABALIN 50 MG CAPSULE PO SCH (09:54)
[2019-11-23] MEDS: LISINOPRIL 10 MG TABLET (FP) PO SCH (09:54)
[2019-11-23] MEDS: NICOTINE 21 MG/24 HOURS TOPICAL PATCH TD SCH (09:54)
[2019-11-23] MEDS: MUPIROCIN 2% TOPICAL OINTMENT FOR DECOLONIZATION NS SCH (10:17)
--- NOTE | 2019-11-23 12:40 | PN ---
Progress Note (short form) - Note Progress Note: Resting in NAD. No occult bleeding reported. No CP or SOB. Intake & Output 11/20/19 11/21/19 11/22/19 11/23/19 23:59 23:59 23:59 23:59 Intake Total 1456.9 2130 180 Output Total 1300 1860 Balance 156.9 270 180 Weight 240 lb Last Vital Signs Temp Pulse Resp BP Pulse Ox 97.2 F L 67 14 153/69 100 11/23/19 10:00 11/23/19 10:00 11/23/19 10:00 11/23/19 10:00 11/22/19 21:00 Active Medications Acetaminophen (Tylenol -) 325 mg PO Q8H PRN PRN Reason: PAIN LEVEL 7 - 10 Last Admin: 11/23/19 06:58 Dose: 325 mg Albuterol Sulfate (Ventolin Hfa Inhaler -) 1 puff IH Q6H PRN PRN Reason: SHORT OF BREATH/WHEEZING Benzocaine/Menthol (Cepacol Lozenge -) 1 each MM Q2H PRN PRN Reason: SORE THROAT Last Admin: 11/22/19 17:45 Dose: 1 each Chlorhexidine Gluconate (Hibiclens For Decolonization -) 1 applic TP HS [facility] Last Admin: 11/22/19 21:33 Dose: Not Given Docusate Sodium (Colace -) 100 mg PO Q8H PRN PRN Reason: CONSTIPATION Insulin Aspart (Novolog Vial Sliding Scale -) 1 vial SQ [facility]; Protocol Last Admin: 11/23/19 12:32 Dose: 2 units Insulin Detemir (Levemir Vial) 34 units SQ [facility] Last Admin: 11/22/19 21:32 Dose: 34 units Lisinopril (Prinivil) 10 mg PO DAILY [facility] Last Admin: 11/23/19 09:54 Dose: 10 mg Metoclopramide HCl (Reglan -) 5 mg PO TIDAC [facility] Last Admin: 11/23/19 11:30 Dose: 5 mg Morphine Sulfate (Morphine Sulfate) 2 mg IVPUSH Q4H PRN PRN Reason: PAIN LEVEL 6-10 Last Admin: 11/23/19 09:50 Dose: 2 mg Mupirocin (Bactroban Ointment (For Decolonization) -) 1 applic NS BID [facility] Stop: 11/24/19 09:59 Last Admin: 11/23/19 10:17 Dose: Not Given Nicotine (Nicoderm Patch -) 21 mg TD DAILY [facility] Last Admin: 11/23/19 09:54 Dose: 21 mg Oxycodone HCl (Roxicodone -) 10 mg PO Q8H PRN PRN Reason: PAIN LEVEL 7 - 10 Last Admin: 11/22/19 00:27 Dose: 10 mg Pantoprazole Sodium (Protonix -) 40 mg PO DAILY [facility] Last Admin: 11/23/19 09:54 Dose: 40 mg Pregabalin (Lyrica -) 50 mg PO BID [facility] Last Admin: 11/23/19 09:54 Dose: 50 mg GEN: NAD HEENT: R Facial Droop (old CVA), PERRL, an-icteric, edentulous, hirtuism PULM: Diminished in the bases, otherwise CTAB CV: nml S1 S2, RR, unable to appreciate any G/R/M ABD: Obese, S/S N/T N/D X4Q EXT: + Pulses, WWPX4, + peripheral edema Laboratory Results - last 24 hr 11/20/19 11/22/19 11/22/19 22:30 15:25 16:49 WBC RBC Hgb Hct MCV MCH MCHC RDW Plt Count MPV Sodium Potassium Chloride Carbon Dioxide Anion Gap BUN Creatinine Est GFR (CKD-EPI)AfAm Est GFR (CKD-EPI)NonAf POC Glucometer 191 233 Random Glucose Calcium Total Bilirubin AST ALT Alkaline Phosphatase Total Protein Albumin Stool H. pylori Ag Positive 11/22/19 11/23/19 11/23/19 21:31 05:50 05:50 WBC 7.6 RBC 3.38 L Hgb 10.3 L Hct 30.0 L MCV 88.7 MCH 30.4 MCHC 34.2 RDW 14.2 Plt Count 260 MPV 8.8 Sodium 137 Potassium 4.3 Chloride 103 Carbon Dioxide 31 Anion Gap 4 L BUN 7.4 Creatinine 0.6 Est GFR (CKD-EPI)AfAm 109.31 Est GFR (CKD-EPI)NonAf 94.32 POC Glucometer 228 Random Glucose 114 H Calcium 8.7 Total Bilirubin 0.4 AST 57 H ALT 181 H Alkaline Phosphatase 178 H Total Protein 5.6 L Albumin 2.8 L Stool H. pylori Ag 11/23/19 11/23/19 06:52 12:28 WBC RBC Hgb Hct MCV MCH MCHC RDW Plt Count MPV Sodium Potassium Chloride Carbon Dioxide Anion Gap BUN Creatinine Est GFR (CKD-EPI)AfAm Est GFR (CKD-EPI)NonAf POC Glucometer 117 176 Random Glucose Calcium Total Bilirubin AST ALT Alkaline Phosphatase Total Protein Albumin Stool H. pylori Ag ASSESS: GI Bleed Acute Blood Loss Anemia Gastric Ulcers s/p endoclipping/epi injection COPD HTN DM Hyperlipidemia h/o CVA PLAN: - Prn O2 to keep SpO2>90% - Inhaled bronchodilators - monitor H/H - Normal transfusion thresholds - PPI 40 PO QD - Reglan - Advance Diet a/p GI - FSs - SSI - BR - DVT prophylaxis Dr Bolivar
--- NOTE | 2019-11-23 14:01 | DS ---
Physical Exam: SUBJECTIVE: Patient seen and examined. No bloody stool, no hematemesis, tolerating diet, no chest pain or SOB. Wants to go home. OBJECTIVE: Vital Signs Period Temp Pulse Resp BP Sys/Danielle Pulse Ox Last 24 Hr 97.2 F-99 F 67-79 - 133-171/53-96 100 Vital Signs Temp 98 F 11/23/19 14:00 Pulse 68 11/23/19 14:00 Resp 14 11/23/19 14:00 BP 134/69 11/23/19 14:00 Pulse Ox 100 11/22/19 21:00 Intake & Output 11/22/19 11/23/19 11/23/19 23:59 11:59 23:59 Intake Total 200 Balance 200 Intake: Oral 200 Other: Voiding Method External Catheter Diaper # Unmeasured Voids External Catheter 2 Void 1 2 Bowel Movement No No No PHYSICAL EXAM GENERAL: The patient is obese, awake, alert, and fully oriented, in no acute distress. ENT: moist mucous membranes. LUNGS: Breath sounds equal, clear to auscultation bilaterally, no wheezes, no crackles HEART: Regular rate and rhythm, S1, S2 ABDOMEN: bese, Soft, nontender EXTREMITIES: 2+ pulses, warm, well-perfused, no edema. NEUROLOGICAL: Cranial nerves II through XII grossly intact. Normal speech, gait not observed. LABS CBC, BMP 11/23/19 05:50 11/23/19 05:50 Laboratory Results - last 24 hr 11/20/19 11/22/19 11/22/19 22:30 15:25 16:49 WBC RBC Hgb Hct MCV MCH MCHC RDW Plt Count MPV Sodium Potassium Chloride Carbon Dioxide Anion Gap BUN Creatinine Est GFR (CKD-EPI)AfAm Est GFR (CKD-EPI)NonAf POC Glucometer 191 233 Random Glucose Calcium Total Bilirubin AST ALT Alkaline Phosphatase Total Protein Albumin Stool H. pylori Ag Positive 11/22/19 11/23/19 11/23/19 21:31 05:50 05:50 WBC 7.6 RBC 3.38 L Hgb 10.3 L Hct 30.0 L MCV 88.7 MCH 30.4 MCHC 34.2 RDW 14.2 Plt Count 260 MPV 8.8 Sodium 137 Potassium 4.3 Chloride 103 Carbon Dioxide 31 Anion Gap 4 L BUN 7.4 Creatinine 0.6 Est GFR (CKD-EPI)AfAm 109.31 Est GFR (CKD-EPI)NonAf 94.32 POC Glucometer 228 Random Glucose 114 H Calcium 8.7 Total Bilirubin 0.4 AST 57 H ALT 181 H Alkaline Phosphatase 178 H Total Protein 5.6 L Albumin 2.8 L Stool H. pylori Ag 11/23/19 11/23/19 06:52 12:28 WBC RBC Hgb Hct MCV MCH MCHC RDW Plt Count MPV Sodium Potassium Chloride Carbon Dioxide Anion Gap BUN Creatinine Est GFR (CKD-EPI)AfAm Est GFR (CKD-EPI)NonAf POC Glucometer 117 176 Random Glucose Calcium Total Bilirubin AST ALT Alkaline Phosphatase Total Protein Albumin Stool H. pylori Ag EGD-11/19/2019- 2 gastric ulcers were seen, visible vessel in one was clipped and injected with epinephrine HOSPITAL COURSE: Date of Admission:11/18/19 Date of Discharge: 11/23/19 Pt is a 69 yo F with a PMHx of HTN, HLD, CAD, VA, type 2 DM, CVA, COPD, chronic back pain who presented to the ED after vomiting blood. Pt was admitted for acute blood loss anemia secondary to upper GI bleed from gastric ulcers. Pt had no subsequent bleed after EGD, tolerated diet and H/H was stable. H.pylori noted to be positive today and pt was started on omeprazole, clarithromycin and amox regiment for 14 days. Pt received ceftriaxone for 3 days for possible SBP prtotection with subsequent rise in transaminases, which trended down with dc of ceftriaxone. Pt was educated on avoiding ASA and NSAIDS and was referred to outpt pain mx doctor for chronic lower back pain mx. Pt was maintained on her home medications (including one month's supply of percocet) for subsequent outpt pain mx follow up. She was discharged home to [facility] Minutes to complete discharge: 40 Discharge Summary Problems reviewed: Yes Reason For Visit: UPPER GASTROINTESTINAL HEMORRHAGE Current Active Problems Gastric ulcer (Acute) Hematemesis (Acute) UGIB (upper gastrointestinal bleed) (Acute) Condition: Improved - Instructions Diet, Activity, Other Instructions: You came in after vomiting blood, you had endoscopy done that showed 2 bleeding ulcers that were treated New Medications: You tested positive for H pylori- we are starting you on treatment for H pylori: Omeprazole Clarithromycin Amoxicillin Please take the medications for H pylori daily for the next 14 days We have also added a new medication, metoclopramide, take one tablet three times a day for the next 10 days then follow up with your GI doctor Medications to avoid: Avoid over the counter pain medications like ibuprofen and naproxen (motrin, aleve) as they could increase your risk for another bleed You are also not to take aspirin because of the risk for another bleed Medications to continue Follow up with your pain management doctor for your back pain, a short course of percocet is being prescribed for you Continue your other home medications as prescribed Follow up: Follow up with your primary doctor in one week You should have your liver enzymes checked by your primary care doctor as they were initially high during this admission You are to follow up with the GI doctor-Dr Charis Montalvo for a repeat endoscopy in 3 months If you think your symptoms are worsening with new vomiting or stooling blood, shortness f breath, please return to the nearest emergency room Referrals: Shilo Davies MD [Primary Care Provider] - 1 Week Win Vizcaino DO [Staff Physician] - 1 Week Disposition: VNS/HOME HEALTH CARE - Home Medications Comprehensive Discharge Medication List: Ambulatory Orders metFORMIN HCL [Metformin HCl ER] 500 mg PO BID 07/21/19 Ammonium Lactate Cream [Lac-Hydrin 12% Cream -] 1 applic TP TID #1 tube Blood Sugar Diagnostic [Blood Glucose Test Strip] 1 each MC TID #90 strip Blood-Glucose Meter [Blood Glucose Meter] 1 each MC TID #1 each 10/19/19 Lancets [Lancets Ultra Thin] 1 each MC TID #90 each 10/19/19 Nystatin Powder [Nystop Powder -] 60 gm TP BID #1 powder 10/19/19 Pregabalin [Lyrica -] 50 mg PO BID #60 capsule MDD 2 10/19/19 Triamcinolone 0.1% Ointment [Aristocort 0.1% Ointment -] 1 applic TP DAILY #1 tube 10/19/19 Albuterol Sulfate Inhaler - [Ventolin HFA Inhaler -] 1 puff IH Q6H PRN 11/19/19 Insulin Glargine,Hum.rec.anlog [Basaglar Chatoikpen U-100] 34 unit SQ HS 11/19/19 Lisinopril 10 mg PO DAILY 11/19/19 Amoxicillin - [Amoxicillin 500mg Capsule -] 1,000 mg PO BID #56 capsule Cholecalciferol (Vitamin D3) [Vitamin D3] 1,000 unit PO DAILY #1200 capsule 08/02 Clarithromycin [Biaxin -] 500 mg PO BID #28 tablet 11/23/19 Docusate Sodium [Colace -] 100 mg PO Q8H PRN #90 capsule 11/23/19 Lisinopril [Prinivil] 10 mg PO DAILY tablet 11/23/19 Metoclopramide HCl [Reglan -] 5 mg PO TIDAC #30 tablet 11/23/19 Nicotine [Nicotine Patch 14mg/24 hr] 1 each TD DAILY #30 patch.td24 11/23/19 Omeprazole 20 mg PO BID #28 tab. 11/23/19 Oxycodone HCl/Acetaminophen [Percocet 10-325 mg Tablet] 1 each PO TID PRN #90 tablet MDD 3 11/23/19 This patient is new to me today: No Emergency Visit: Yes ED Registration Date: 11/18/19 Care time: The patient presented to the Emergency Department on the above date and was hospitalized for further evaluation of their emergent condition. Critical Care patient: No - Discharge Referral Referred to [facility] No ATTENDING PHYSICIAN STATEMENT I saw and evaluated the patient. I reviewed the resident's note and discussed the case with the resident. I agree with the resident's findings and plan as documented. SUBJECTIVE: OBJECTIVE: ASSESSMENT AND PLAN:
[2019-11-23 15:57] VITALS: BP 134/69; PULSE 68; TEMP 98
[2019-11-23] MEDS ORDERED: AMOXICILLIN 500 MG CAPSULE (FP) PO ONE (16:52)
[2019-11-23] MEDS: oxyCODONE HCL 5 MG TABLET PO PRN (17:30)
--- NOTE | 2019-11-23 19:14 | PN ---
Teaching Attending Note Name of Resident: Katherine Kaminski ATTENDING PHYSICIAN STATEMENT I saw and evaluated the patient. I reviewed the resident's note and discussed the case with the resident. I agree with the resident's findings and plan as documented. SUBJECTIVE: Patient has no complaints. OBJECTIVE: Vital Signs Period Temp Pulse Resp BP Sys/Danielle Pulse Ox Last 24 Hr 97.2 F-98.4 F 67-79 12-20 133-159/53-96 100 GENERAL: The patient is awake, alert, and fully oriented, in no acute distress. LUNGS: Breath sounds equal, clear to auscultation bilaterally, no wheezes, no crackles, no accessory muscle use. HEART: Regular rate and rhythm, S1, S2 without murmur, rub or gallop. ABDOMEN: Obese, soft, nontender, nondistended, normoactive bowel sounds, no guarding, no rebound, no hepatosplenomegaly, no masses. EXTREMITIES: 2+ pulses, warm, well-perfused, no edema. Laboratory Results - last 24 hr 11/20/19 11/22/19 11/23/19 22:30 21:31 05:50 WBC 7.6 RBC 3.38 L Hgb 10.3 L Hct 30.0 L MCV 88.7 MCH 30.4 MCHC 34.2 RDW 14.2 Plt Count 260 MPV 8.8 Sodium Potassium Chloride Carbon Dioxide Anion Gap BUN Creatinine Est GFR (CKD-EPI)AfAm Est GFR (CKD-EPI)NonAf POC Glucometer 228 Random Glucose Calcium Total Bilirubin AST ALT Alkaline Phosphatase Total Protein Albumin Stool H. pylori Ag Positive 11/23/19 11/23/19 11/23/19 05:50 06:52 12:28 WBC RBC Hgb Hct MCV MCH MCHC RDW Plt Count MPV Sodium 137 Potassium 4.3 Chloride 103 Carbon Dioxide 31 Anion Gap 4 L BUN 7.4 Creatinine 0.6 Est GFR (CKD-EPI)AfAm 109.31 Est GFR (CKD-EPI)NonAf 94.32 POC Glucometer 117 176 Random Glucose 114 H Calcium 8.7 Total Bilirubin 0.4 AST 57 H ALT 181 H Alkaline Phosphatase 178 H Total Protein 5.6 L Albumin 2.8 L Stool H. pylori Ag Current Medications Generic Name Dose Route Start Last Admin Trade Name Freq PRN Reason Stop Dose Admin Acetaminophen 325 mg 11/19/19 02:34 11/23/19 17:33 Tylenol - PO 325 mg Q8H PRN Administration PAIN LEVEL 7 - 10 Albuterol Sulfate 1 puff 11/19/19 02:20 Ventolin Hfa Inhaler - IH Q6H PRN SHORT OF BREATH/WHEEZING Benzocaine/Menthol 1 each 11/22/19 16:08 11/22/19 17:45 Cepacol Lozenge - MM 1 each Q2H PRN Administration SORE THROAT Chlorhexidine Gluconate 1 applic 11/19/19 22:00 11/22/19 21:33 Hibiclens For Decolonization - TP Not Given HS [facility] Clarithromycin 500 mg 11/23/19 22:00 Biaxin - PO 11/24/19 21:59 BID [facility] Docusate Sodium 100 mg 11/21/19 15:18 Colace - PO Q8H PRN CONSTIPATION Insulin Aspart 1 vial 11/19/19 07:00 11/23/19 12:32 Novolog Vial Sliding Scale - SQ 2 units ACHS YONG Administration Protocol Insulin Detemir 34 units 11/19/19 22:00 11/22/19 21:32 Levemir Vial SQ 34 units HS [facility] Administration Lisinopril 10 mg 11/22/19 10:00 11/23/19 09:54 Prinivil PO 10 mg DAILY [facility] Administration Metoclopramide HCl 5 mg 11/21/19 16:30 11/23/19 16:40 Reglan - PO 5 mg TIDAC YONG Administration Morphine Sulfate 2 mg 11/19/19 15:57 11/23/19 09:50 Morphine Sulfate IVPUSH 2 mg Q4H PRN Administration PAIN LEVEL 6-10 Mupirocin 1 applic 11/19/19 10:00 11/23/19 10:17 Bactroban Ointment (For Decolonization) - NS 11/24/19 09:59 Not Given BID [facility] Nicotine 21 mg 11/20/19 11:15 11/23/19 09:54 Nicoderm Patch - TD 21 mg DAILY YONG Administration Oxycodone HCl 10 mg 11/19/19 02:33 11/23/19 17:30 Roxicodone - PO 10 mg Q8H PRN Administration PAIN LEVEL 7 - 10 Pantoprazole Sodium 40 mg 11/22/19 10:00 11/23/19 09:54 Protonix - PO 40 mg DAILY YONG Administration Pregabalin 50 mg 11/19/19 10:00 11/23/19 09:54 Lyrica - PO 50 mg BID YONG Administration ASSESSMENT AND PLAN: This is a 69 year old woman with a history of HTN, hyperlipidemia, CAD, NC, type 2 DM, CVA, COPD, chronic back pain who presented to the ED after vomiting blood. 1. Acute blood loss anemia secondary to upper GI bleed from gastric ulcers - EGD done on 11/19 and 2 gastric ulcers were seen, visible vessel in one was clipped and injected with epinephrine - Continue Protonix PO - Hgb stable - Tolerating soft diet 2. Hepatic transaminitis - Possibly secondary to ceftriaxone - Ceftriaxone was discontinued - Improving 3. CAD, history of NC - Patient denies being on aspirin at home - Will not start aspirin secondary to gastric ulcers/GI bleed 4. HTN - Continue lisinopril 5. Hyperlipidemia 6. Type 2 DM - Continue Levemir, Novolog sliding scale 7. History of CVA - Patient denies being on aspirin at home - Will not start aspirin secondary to gastric ulcers/GI bleed 8. COPD - Stable 9. Chronic back pain - Continue Lyrica, oxycodone as needed 10. Nicotine dependence - Continue nicotine patch 11. Morbid obesity with BMI 45.3 12. Disposition - Ok for discharge
[2019-11-23] MEDS ORDERED: CLARITHROMYCIN 500 MG TABLET (UD) PO SCH (22:00)
== END 2019-11-23 18:00 | disposition home health service (06) | DRG 378 ==
LOC: JER 17:17 → JERBED 20:13 → JICU 11-19 06:46 → J2W 11-22 13:05 → J4S 11-22 13:14 → JSAMEDAYSX 11-22 13:22 → J2W 11-22 13:40
PROVIDERS: ADMIT Internal Medicine; ATTEND Internal Medicine
PROC: 3E0G8GC Introduction of Other Therapeutic Substance into Upper GI, Via Natural or Artificial Opening Endoscopic (ICD-10-PCS; 2019-11-19)
PROC: 0W3P8ZZ Control Bleeding in Gastrointestinal Tract, Via Natural or Artificial Opening Endoscopic (ICD-10-PCS; principal; 2019-11-19 07:30)
DX: K25.0 Acute gastric ulcer with hemorrhage (principal); D62 Acute posthemorrhagic anemia; Z68.42 Body mass index [BMI] 45.0-49.9, adult; E87.2 Acidosis; I69.359 Hemiplegia and hemiparesis following cerebral infarction affecting unspecified side; E66.01 Morbid (severe) obesity due to excess calories; F11.90 Opioid use, unspecified, uncomplicated; J44.9 Chronic obstructive pulmonary disease, unspecified; E11.9 Type 2 diabetes mellitus without complications; B96.81 Helicobacter pylori [H. pylori] as the cause of diseases classified elsewhere; I10 Essential (primary) hypertension; E78.5 Hyperlipidemia, unspecified; R74.0 Nonspecific elevation of levels of transaminase and lactic acid dehydrogenase [LDH]; I25.10 Atherosclerotic heart disease of native coronary artery without angina pectoris; M54.9 Dorsalgia, unspecified
CPT/HCPCS: 36415; 71045-TC-FY; 71275-TC; 74174-TC; 80048; 80053; 80076; 81003; 82272; 82550; 82962; 83036; 83605; 83690; 83735; 83880; 84100; 84484; 85025; 85027; 85610; 85730; 86850; 86900; 86901; 87086; 87338; 93005; 93010; 99285-25; J0131; J7030; Q9967

== ENCOUNTER 2020-09-02 19:44 | Emergency (ER) | payer OTHER ==
[2020-09-02 19:51] VITALS: TEMP 98; BMI 49.1
[2020-09-02] MEDS ORDERED: SODIUM CHLORIDE 500 ML IV STA (20:55)
[2020-09-02 21:07] LABS: HEMATOCRIT 43.6 % (32.4-45.2); HEMOGLOBIN 14.4 GM/dL (10.7-15.3); MCH 29.2 pg (25.7-33.7); MCHC 32.9 g/dl (32.0-36.0); MEAN CELL VOLUME 88.8 fl (80-96); MEAN PLT VOLUME 9.3 fl (7.5-11.1); PLATELET COUNT 243 K/MM3 (134-434); RBC 4.91 M/mm3 (3.60-5.2); RDW 15.6 % (11.6-15.6); WHITE BLOOD COUNT 9.5 K/mm3 (4.0-10.0)
[2020-09-02 21:25] LABS: CHLORIDE 98 mmol/L (98-107); POTASSIUM 3.9 mmol/L (3.5-5.1); SODIUM 136 mmol/L (136-145)
[2020-09-02 21:27] LABS: ALBUMIN 3.1 g/dl (3.4-5.0); ANION GAP 7 MMOL/L (8-16); BLOOD UREA NITROGEN 18.5 mg/dL (7-18); CALCIUM 9.2 mg/dL (8.5-10.1); CO2 31 mmol/L (21-32); GLUCOSE,RANDOM 218 mg/dL (74-106)
[2020-09-02 21:30] LABS: CREATININE 0.7 mg/dL (0.55-1.3); SGOT/AST 41 U/L (15-37); SGPT/ALT 43 U/L (13-61)
[2020-09-02 21:33] LABS: ALK PHOS 199 U/L (45-117); BILIRUBIN,TOTAL 1.4 mg/dL (0.2-1); TOT PROT 6.6 g/dl (6.4-8.2)
[2020-09-03 00:18] VITALS: BP 133/68; PULSE 86
== END 2020-09-03 03:19 | disposition home or self-care (01) ==
LOC: JER 19:44
PROC: 3E0337Z Introduction of Electrolytic and Water Balance Substance into Peripheral Vein, Percutaneous Approach (ICD-10-PCS; principal; 2020-09-02)
DX: R10.9 Unspecified abdominal pain (principal)
CPT/HCPCS: 36415; 71045-TC-FY; 74177-TC; 80053; 82550; 83605; 84484; 85027; 93005; 93010; 99285-25; Q9967

== ENCOUNTER 2020-09-21 10:24 | Inpatient (IN) | payer OTHER ==
[2020-09-21 11:37] LABS: BASO % 0.3 % (0-2.0); EOS % 1.3 % (0-4.5); HEMATOCRIT 43.1 % (32.4-45.2); HEMOGLOBIN 14.3 GM/dL (10.7-15.3); LYMPH % 31.8 % (8-40); MCH 29.2 pg (25.7-33.7); MCHC 33.1 g/dl (32.0-36.0); MEAN CELL VOLUME 88.2 fl (80-96); MEAN PLT VOLUME 8.3 fl (7.5-11.1); MONO % 5.7 % (3.8-10.2); NEUT % 60.9 % (42.8-82.8); PLATELET COUNT 262 K/MM3 (134-434); RBC 4.89 M/mm3 (3.60-5.2); RDW 15.1 % (11.6-15.6); WHITE BLOOD COUNT 8.5 K/mm3 (4.0-10.0)
[2020-09-21 11:44] VITALS: BMI 43.9
[2020-09-21 12:07] LABS: CHLORIDE 100 mmol/L (98-107); POTASSIUM 4.2 mmol/L (3.5-5.1); SODIUM 136 mmol/L (136-145)
[2020-09-21 12:08] LABS: CALCIUM 9.2 mg/dL (8.5-10.1)
[2020-09-21 12:10] LABS: ALBUMIN 3.2 g/dl (3.4-5.0); ANION GAP 7 MMOL/L (8-16); BLOOD UREA NITROGEN 11.4 mg/dL (7-18); CO2 29 mmol/L (21-32); GLUCOSE,RANDOM 220 mg/dL (74-106); MAGNESIUM 2.2 mg/dL (1.8-2.4)
[2020-09-21 12:12] LABS: CREATININE 0.6 mg/dL (0.55-1.3); SGOT/AST 12 U/L (15-37); SGPT/ALT 18 U/L (13-61)
[2020-09-21 12:14] LABS: BILIRUBIN,TOTAL 0.5 mg/dL (0.2-1); TOT PROT 6.6 g/dl (6.4-8.2)
[2020-09-21 12:15] LABS: ALK PHOS 143 U/L (45-117)
[2020-09-21] MEDS ORDERED: ALBUTEROL SO4 HFA INHALER IH PRN (16:27)
[2020-09-21] MEDS ORDERED: DOCUSATE SODIUM 100 MG CAPSULE (FP) PO PRN (16:27)
[2020-09-21] MEDS ORDERED: METOCLOPRAMIDE HCL 10 MG TABLET (FP) PO ONE (17:27)
[2020-09-21] MEDS: INSULIN SLIDING SCALE (NOVOLOG) 1 VIAL SQ SCH ×3 (17:34→22:52)
[2020-09-21] MEDS: METOCLOPRAMIDE HCL 10 MG TABLET (FP) PO SCH (17:34)
[2020-09-21] MEDS ORDERED: HEPARIN NA (PORCINE) 5,000 UNITS/ML 1ML VIAL ONE (22:39)
[2020-09-21] MEDS: HEPARIN NA (PORCINE) 5,000 UNITS/ML 1ML VIAL SQ SCH (22:52)
[2020-09-21] MEDS: INSULIN (LEVEMIR) 100 UNITS/ML UNITS SQ SCH (22:52)
[2020-09-21] MEDS: AMMONIUM LACTATE 12% CREAM 140 GM TUBE TP SCH (22:52)
[2020-09-22] MEDS: ACETAMINOPHEN 325 MG TABLET (FP) PO PRN ×3 (05:15→21:54)
[2020-09-22] MEDS: HEPARIN NA (PORCINE) 5,000 UNITS/ML 1ML VIAL SQ SCH ×3 (06:35→21:53)
[2020-09-22] MEDS: INSULIN SLIDING SCALE (NOVOLOG) 1 VIAL SQ SCH ×4 (06:35→21:55)
[2020-09-22] MEDS: AMMONIUM LACTATE 12% CREAM 140 GM TUBE TP SCH (06:36)
[2020-09-22] MEDS: METOCLOPRAMIDE HCL 10 MG TABLET (FP) PO SCH ×3 (06:36→16:29)
[2020-09-22] MEDS: LISINOPRIL 10 MG TABLET PO SCH (10:59)
[2020-09-22] MEDS: AMMONIUM LACTATE 12% LOTION 225 GM BOTTLE TP SCH ×3 (10:59→23:00)
[2020-09-22] MEDS: TRIAMCINOLONE ACET 0.1% OINT 15 GM TUBE TP SCH (11:42)
[2020-09-22] MEDS: MELATONIN 5 MG TABLETS PO SCH (21:53)
[2020-09-22] MEDS: INSULIN (LEVEMIR) 100 UNITS/ML UNITS SQ SCH (21:56)
[2020-09-22] MEDS: oxyCODONE HCL 5 MG TABLET PO PRN (23:40)
[2020-09-23] MEDS: HEPARIN NA (PORCINE) 5,000 UNITS/ML 1ML VIAL SQ SCH ×3 (06:34→21:31)
[2020-09-23] MEDS: METOCLOPRAMIDE HCL 10 MG TABLET (FP) PO SCH ×3 (06:35→17:16)
[2020-09-23] MEDS: AMMONIUM LACTATE 12% LOTION 225 GM BOTTLE TP SCH ×3 (06:36→23:08)
[2020-09-23] MEDS: INSULIN SLIDING SCALE (NOVOLOG) 1 VIAL SQ SCH ×4 (06:41→23:08)
[2020-09-23] MEDS: oxyCODONE HCL 5 MG TABLET PO PRN ×3 (10:06→23:09)
[2020-09-23] MEDS: LISINOPRIL 10 MG TABLET PO SCH (10:06)
[2020-09-23] MEDS: TRIAMCINOLONE ACET 0.1% OINT 15 GM TUBE TP SCH (10:07)
[2020-09-23] MEDS: AMMONIUM LACTATE 12% CREAM 140 GM TUBE TP SCH (15:29)
[2020-09-23] MEDS ORDERED: POLYETHYLENE GLYCOL 3350 119 GM BTL PO ONE (17:02)
[2020-09-23] MEDS: MELATONIN 5 MG TABLETS PO SCH (21:31)
[2020-09-23] MEDS: INSULIN (LEVEMIR) 100 UNITS/ML UNITS SQ SCH (23:07)
[2020-09-24] MEDS: METOCLOPRAMIDE HCL 10 MG TABLET (FP) PO SCH (06:37)
[2020-09-24] MEDS: HEPARIN NA (PORCINE) 5,000 UNITS/ML 1ML VIAL SQ SCH (06:37)
[2020-09-24] MEDS: INSULIN SLIDING SCALE (NOVOLOG) 1 VIAL SQ SCH (06:45)
[2020-09-24] MEDS: AMMONIUM LACTATE 12% CREAM 140 GM TUBE TP SCH ×2 (06:46→06:52)
[2020-09-24] MEDS: AMMONIUM LACTATE 12% LOTION 225 GM BOTTLE TP SCH (07:57)
[2020-09-24] MEDS: oxyCODONE HCL 5 MG TABLET PO PRN (09:54)
[2020-09-24] MEDS: LISINOPRIL 10 MG TABLET PO SCH (09:55)
[2020-09-24] MEDS: TRIAMCINOLONE ACET 0.1% OINT 15 GM TUBE TP SCH (09:55)
[2020-09-24 09:57] VITALS: BP 133/76; PULSE 73; TEMP 98
== END 2020-09-24 13:36 | DRG 552 ==
LOC: JER 10:24 → JERBED 15:40 → J8W 23:41
PROVIDERS: ATTEND Internal Medicine
DX: M54.9 Dorsalgia, unspecified (principal); Z68.42 Body mass index [BMI] 45.0-49.9, adult; E66.01 Morbid (severe) obesity due to excess calories; I10 Essential (primary) hypertension; E78.5 Hyperlipidemia, unspecified; I25.10 Atherosclerotic heart disease of native coronary artery without angina pectoris; E11.9 Type 2 diabetes mellitus without complications; J44.9 Chronic obstructive pulmonary disease, unspecified
CPT/HCPCS: 36415; 71045-TC-FY; 80053; 82962; 83735; 84484; 85025; 93005; 93010; 97116-GP; 97161-GP; 99285-25; C9803; J1644; U0003

== ENCOUNTER 2021-01-28 11:56 | Inpatient (IN) | payer OTHER ==
[2021-01-28] MEDS ORDERED: SODIUM CHLORIDE 3,198 ML IV ONE (12:24)
[2021-01-28] MEDS ORDERED: ACETAMINOPHEN 1000 MG/100 ML VIAL (NON FORMULARY) IVPB ONE (12:25)
[2021-01-28] MEDS ORDERED: LACTATED RINGERS SOLUTION 1000 ML INFUS.BAG IV ONE (12:38)
[2021-01-28] MEDS ORDERED: VANCOMYCIN HCL 2,000 MG in DEXTROSE 5%-WATER - 500 ML IVPB ONE (12:49)
[2021-01-28] MEDS ORDERED: PIPERACILLIN/TAZOB 4.5 GM 4.5 GM in DEXTROSE 5%-WATER 100 ML IVPB ONE (12:49)
[2021-01-28] MEDS ORDERED: ACETAMINOPHEN INJECTION 100 ML IVPB ONE (13:22)
[2021-01-28] MEDS ORDERED: PIPERACILLIN/TAZOB 4.5 GM 4.5 GM/100 ML BAG IVPB ONE (13:23)
[2021-01-28 13:32] LABS: BASO % 0.5 % (0-2.0); EOS % 0.1 % (0-4.5); HEMATOCRIT 42.3 % (32.4-45.2); HEMOGLOBIN 14.3 GM/dL (10.7-15.3); LYMPH % 5.1 % (8-40); MCHC 33.9 g/dl (32.0-36.0); MEAN CELL VOLUME 85.5 fl (80-96); MEAN PLT VOLUME 8.7 fl (7.5-11.1); NEUT % 90.3 % (42.8-82.8); PLATELET COUNT 214 K/MM3 (134-434); RBC 4.95 M/mm3 (3.60-5.2); RDW 14.5 % (11.6-15.6); WHITE BLOOD COUNT 8.6 K/mm3 (4.0-10.0)
[2021-01-28 13:39] LABS: INR 1.13 (0.83-1.09); PROTHROMBIN TIME (PATIENT) 13.6 SEC (9.7-13.0); VENOUS PCO2 46.7 mmHg (38-52); VENOUS PH 7.403 (7.310-7.410)
[2021-01-28 13:42] LABS: ACTIVATED PTT 28.8 SECONDS (25.2-36.5)
[2021-01-28 13:52] LABS: CHLORIDE 98 mmol/L (98-107); SODIUM 135 mmol/L (136-145)
[2021-01-28 13:55] LABS: ALBUMIN 3.5 g/dl (3.4-5.0); ANION GAP 6 MMOL/L (8-16); BLOOD UREA NITROGEN 10.9 mg/dL (7-18); CALCIUM 9.5 mg/dL (8.5-10.1); CO2 31 mmol/L (21-32); GLUCOSE,RANDOM 178 mg/dL (74-106)
[2021-01-28 13:58] LABS: SGOT/AST 28 U/L (15-37); SGPT/ALT 60 U/L (13-61)
[2021-01-28 13:59] LABS: CREATININE 0.6 mg/dL (0.55-1.3); LDH 178 U/L (84-246)
[2021-01-28 14:00] LABS: BILIRUBIN,TOTAL 0.7 mg/dL (0.2-1); TOT PROT 7.2 g/dl (6.4-8.2)
[2021-01-28 14:01] LABS: ALK PHOS 169 U/L (45-117)
[2021-01-28 14:03] LABS: LACTIC ACID 2.3 mmol/L (0.4-2.0); N-TERMINAL BNP 1741.6 pg/ml (5-125)
[2021-01-28] MEDS ORDERED: morphine CARPU-JECT 4 MG/1 ML DISP.SYRIN IVPUSH ONE (14:52)
[2021-01-28] MEDS ORDERED: morphine SULFATE 4 MG/ML VIAL ONE (15:11)
[2021-01-28 15:27] LABS: LIPASE 33 U/L (73-393)
[2021-01-28 16:29] LABS: EPI CELLS 28 /uL (0-25.1); HYALINE CASTS 1 /uL (0-3.1); PH,URINE 8.5 (5.0-8.0); URINE APPEARANCE CLOUDY; URINE BACTERIA 258 /uL (0-1359); URINE BILIRUBIN NEGATIVE (NEGATIVE); URINE COLOR YELLOW; URINE GLUCOSE (UA) NEGATIVE (NEGATIVE); URINE KETONE NEGATIVE (NEGATIVE); URINE LEUK ESTERASE 3+ (NEGATIVE); URINE NITRITE NEGATIVE (NEGATIVE); URINE PROTEIN 1+ (NEGATIVE); URINE RBC 533 /uL (0-23.9); URINE WBC 1901 /uL (0-25.8)
[2021-01-28 17:44] LABS: LACTIC ACID 2.8 mmol/L (0.4-2.0)
[2021-01-28] MEDS ORDERED: LACTATED RINGERS SOLUTION 1000 ML INFUS.BAG IV STA (17:48)
[2021-01-28 20:55] LABS: LACTIC ACID 2.3 mmol/L (0.4-2.0)
[2021-01-29] MEDS ORDERED: ONDANSETRON 4 MG/2 ML VIAL IVPUSH PRN (00:08)
[2021-01-29] MEDS ORDERED: DOCUSATE SODIUM 100 MG CAPSULE (FP) PO PRN (00:24)
[2021-01-29] MEDS: ACETAMINOPHEN 1000 MG/100 ML VIAL (NON FORMULARY) IVPB PRN ×2 (01:47→10:33)
[2021-01-29] MEDS: INSULIN SLIDING SCALE (NOVOLOG) 1 VIAL SQ SCH ×4 (06:26→22:36)
[2021-01-29 08:23] LABS: BASO % 0.3 % (0-2.0); EOS % 0.1 % (0-4.5); HEMATOCRIT 35.9 % (32.4-45.2); HEMOGLOBIN 12.2 GM/dL (10.7-15.3); LYMPH % 19.6 % (8-40); MCH 29.1 pg (25.7-33.7); MCHC 34.1 g/dl (32.0-36.0); MEAN CELL VOLUME 85.3 fl (80-96); MEAN PLT VOLUME 8.9 fl (7.5-11.1); MONO % 10.1 % (3.8-10.2); NEUT % 69.9 % (42.8-82.8); PLATELET COUNT 197 K/MM3 (134-434); RBC 4.21 M/mm3 (3.60-5.2); WHITE BLOOD COUNT 7.6 K/mm3 (4.0-10.0)
[2021-01-29 08:40] LABS: BLOOD UREA NITROGEN 12.1 mg/dL (7-18)
[2021-01-29 08:43] LABS: CREATININE 0.6 mg/dL (0.55-1.3)
[2021-01-29 08:44] LABS: BILIRUBIN,TOTAL 0.6 mg/dL (0.2-1); TOT PROT 5.8 g/dl (6.4-8.2)
[2021-01-29 08:48] LABS: ALBUMIN 2.7 g/dl (3.4-5.0)
[2021-01-29] MEDS ORDERED: DEXTROSE 5%-WATER - 50 ML IVPB ONE (10:00)
[2021-01-29] MEDS ORDERED: cefTRIAXone SODIUM 1 GM VIAL ONE (10:00)
[2021-01-29] MEDS: LISINOPRIL 10 MG TABLET PO SCH (10:03)
[2021-01-29] MEDS: ASPIRIN 81 MG CHEWABLE TABLETS PO SCH (10:03)
[2021-01-29] MEDS: PREGABALIN 50 MG CAPSULE PO SCH ×2 (10:03→22:37)
[2021-01-29] MEDS: CEFTRIAXONE 1 GM in DEXTROSE 5%-WATER - 50 ML IVPB SCH (10:03)
[2021-01-29] MEDS ORDERED: PT OWN MED DRAWER 7, Y5N ONE (10:09)
[2021-01-29] MEDS: LACTULOSE 20 GM/30 ML UDC (FOR ORAL USE ONLY) PO SCH ×2 (11:25→22:37)
[2021-01-29] MEDS ORDERED: traMADol HCL 50 MG TABLET PO ONE (17:40)
[2021-01-29] MEDS: SENNOSIDES 8.6MG TABLET (FP) PO SCH (22:37)
[2021-01-30] MEDS ORDERED: ALBUTEROL SO4 HFA INHALER IH PRN (02:25)
[2021-01-30] MEDS ORDERED: ACETAMINOPHEN 325 MG TABLET (FP) PO PRN (03:05)
[2021-01-30] MEDS ORDERED: PT OWN MED DRAWER 7, Y5N ONE (05:49)
[2021-01-30] MEDS: INSULIN SLIDING SCALE (NOVOLOG) 1 VIAL SQ SCH ×4 (07:13→21:20)
[2021-01-30] MEDS ORDERED: DEXTROSE 5%-WATER - 50 ML IVPB ONE (09:57)
[2021-01-30] MEDS ORDERED: cefTRIAXone SODIUM 1 GM VIAL ONE (09:57)
[2021-01-30] MEDS: LISINOPRIL 10 MG TABLET PO SCH (10:01)
[2021-01-30] MEDS: PREGABALIN 50 MG CAPSULE PO SCH ×2 (10:01→21:14)
[2021-01-30] MEDS: ASPIRIN 81 MG CHEWABLE TABLETS PO SCH (10:01)
[2021-01-30] MEDS: LACTULOSE 20 GM/30 ML UDC (FOR ORAL USE ONLY) PO SCH ×2 (10:01→21:17)
[2021-01-30] MEDS: oxyCODONE HCL 5 MG TABLET PO PRN ×3 (10:02→21:13)
[2021-01-30] MEDS: CEFTRIAXONE 1 GM in DEXTROSE 5%-WATER - 50 ML IVPB SCH (10:03)
[2021-01-30] MEDS: TRIAMCINOLONE ACET 0.5% CREAM 15 GM TUBE TP SCH (14:44)
[2021-01-30] MEDS: SENNOSIDES 8.6MG TABLET (FP) PO SCH (21:14)
[2021-01-31] MEDS: oxyCODONE HCL 5 MG TABLET PO PRN ×3 (03:04→20:08)
[2021-01-31] MEDS: INSULIN SLIDING SCALE (NOVOLOG) 1 VIAL SQ SCH ×4 (06:20→21:50)
[2021-01-31 06:34] VITALS: PULSE 100
[2021-01-31 08:22] LABS: HEMOGLOBIN 12.5 GM/dL (10.7-15.3); MCH 29.1 pg (25.7-33.7); MCHC 33.8 g/dl (32.0-36.0); MEAN CELL VOLUME 85.9 fl (80-96); MEAN PLT VOLUME 8.8 fl (7.5-11.1); PLATELET COUNT 187 K/MM3 (134-434); RDW 14.4 % (11.6-15.6); WHITE BLOOD COUNT 7.6 K/mm3 (4.0-10.0)
[2021-01-31 08:38] LABS: BLOOD UREA NITROGEN 14.8 mg/dL (7-18); CALCIUM 8.5 mg/dL (8.5-10.1)
[2021-01-31 08:41] LABS: CREATININE 0.7 mg/dL (0.55-1.3)
[2021-01-31] MEDS ORDERED: cefTRIAXone SODIUM 1 GM VIAL ONE (10:16)
[2021-01-31] MEDS ORDERED: DEXTROSE 5%-WATER - 50 ML IVPB ONE (10:17)
[2021-01-31] MEDS: PREGABALIN 50 MG CAPSULE PO SCH ×2 (10:20→21:49)
[2021-01-31] MEDS: LACTULOSE 20 GM/30 ML UDC (FOR ORAL USE ONLY) PO SCH ×2 (10:20→21:49)
[2021-01-31] MEDS: LISINOPRIL 10 MG TABLET PO SCH (10:20)
[2021-01-31] MEDS: ASPIRIN 81 MG CHEWABLE TABLETS PO SCH (10:20)
[2021-01-31] MEDS: CEFTRIAXONE 1 GM in DEXTROSE 5%-WATER - 50 ML IVPB SCH (10:20)
[2021-01-31 13:06] VITALS: BMI 44.4
[2021-01-31 14:55] VITALS: BP 137/65; TEMP 97.5
[2021-01-31] MEDS: TRIAMCINOLONE ACET 0.5% CREAM 15 GM TUBE TP SCH (17:42)
[2021-01-31] MEDS: SENNOSIDES 8.6MG TABLET (FP) PO SCH (21:49)
[2021-01-31] MEDS ORDERED: sitaGLIPtin PHOSPHATE 50 MG TABLET PO SCH (23:17)
== END 2021-01-31 23:40 | DRG 872 ==
LOC: JER 11:56 → JERBED 19:48 → J8W 23:23
PROVIDERS: ADMIT Hospitalist; ATTEND Family Medicine
PROC: 0HBRXZZ Excision of Toe Nail, External Approach (ICD-10-PCS; principal; 2021-01-29)
DX: A41.02 Sepsis due to Methicillin resistant Staphylococcus aureus (principal); N39.0 Urinary tract infection, site not specified; Z68.41 Body mass index [BMI] 40.0-44.9, adult; K59.00 Constipation, unspecified; E66.01 Morbid (severe) obesity due to excess calories; E11.49 Type 2 diabetes mellitus with other diabetic neurological complication; L40.9 Psoriasis, unspecified; B35.1 Tinea unguium; E78.5 Hyperlipidemia, unspecified
CPT/HCPCS: 36415; 70450-TC; 71045-TC-FY; 74177-TC; 80048; 80053; 81003; 82728; 82803; 82962; 83605; 83615; 83690; 83880; 84484; 85025; 85027; 85610; 85730; 86140; 87040; 87077; 87081; 87086; 87804; 93005; 93010; 99285-25; C9803; J0131; U0003; U0005

== ENCOUNTER 2022-03-23 16:06 | Inpatient (IN) | payer OTHER ==
[2022-03-23 16:18] VITALS: BMI 51.0
[2022-03-23] MEDS ORDERED: methylPREDNISolone NA SUCC 125 MG/2 ML VIAL IVPUSH ONE (16:42)
[2022-03-23] MEDS ORDERED: SODIUM CHLORIDE 0.9% 500 ML INFUS.BAG IV ONE (16:44)
[2022-03-23] MEDS ORDERED: ACETAMINOPHEN 1000 MG/100 ML BAG IVPB ONE (16:54)
[2022-03-23 18:12] LABS: BASO % 0.4 % (0-2.0); EOS % 2.6 % (0-4.5); HEMATOCRIT 38.7 % (32.4-45.2); HEMOGLOBIN 12.3 GM/dL (10.7-15.3); LYMPH % 28.5 % (8-40); MCH 25.8 pg (25.7-33.7); MCHC 31.8 g/dl (32.0-36.0); MEAN CELL VOLUME 81.3 fl (80-96); MEAN PLT VOLUME 8.7 fl (7.5-11.1); MONO % 7.3 % (3.8-10.2); NEUT % 61.2 % (42.8-82.8); PLATELET COUNT 250 10^3/uL (134-434); RBC 4.75 M/mm3 (3.60-5.2); RDW 16.8 % (11.6-15.6); WHITE BLOOD COUNT 10.4 K/mm3 (4.0-10.0)
[2022-03-23 18:15] LABS: EPI CELLS >36 /uL (0-25.1); HYALINE CASTS 8 /uL (0-3.1); PH,URINE 5.5 (5.0-8.0); URINE APPEARANCE CLEAR; URINE BACTERIA 41 /uL (0-1359); URINE BILIRUBIN NEGATIVE (NEGATIVE); URINE COLOR DK YELLOW; URINE GLUCOSE (UA) NEGATIVE (NEGATIVE); URINE KETONE TRACE (NEGATIVE); URINE LEUK ESTERASE NEGATIVE (NEGATIVE); URINE NITRITE NEGATIVE (NEGATIVE); URINE PROTEIN 1+ (NEGATIVE); URINE RBC 207 /uL (0-23.9); URINE WBC 49 /uL (0-25.8)
[2022-03-23 18:36] LABS: ALBUMIN 2.8 g/dl (3.4-5.0); BLOOD UREA NITROGEN 13.9 mg/dL (7-18); CALCIUM 8.6 mg/dL (8.5-10.1)
[2022-03-23] MEDS ORDERED: ACETAMINOPHEN INJECTION 100 ML IVPB ONE (18:38)
[2022-03-23] MEDS ORDERED: methylPREDNISolone NA SUCC 125 MG/2 ML VIAL ONE (18:38)
[2022-03-23] MEDS ORDERED: ALBUTEROL SO4 2.5/IPRATROPIUM 0.5 INH SOL 3 ML VIAL.NEB. NEB ONE ×2 (18:38→20:18)
[2022-03-23 18:39] LABS: CREATININE 0.6 mg/dL (0.55-1.3)
[2022-03-23 18:41] LABS: BILIRUBIN,TOTAL 0.3 mg/dL (0.2-1); TOT PROT 6.3 g/dl (6.4-8.2)
[2022-03-23 18:43] LABS: N-TERMINAL BNP 301.6 pg/ml (5-125)
[2022-03-23] MEDS: ALBUTEROL SO4 2.5/IPRATROPIUM 0.5 INH SOL 3 ML VIAL.NEB. NEB SCH ×4 (18:48→20:20)
[2022-03-23 18:52] LABS: LACTIC ACID 2.7 mmol/L (0.4-2.0)
[2022-03-23] MEDS ORDERED: AZITHROMYCIN IVPB 500 MG in DEXTROSE 5%-WATER - 250 ML IVPB ONE (22:05)
[2022-03-23] MEDS ORDERED: AZITHROMYCIN IVPB 500 MG/250 ML BAG IVPB ONE (22:11)
[2022-03-23] MEDS ORDERED: CEFTRIAXONE 1 GM/50 ML BAG ONE (22:11)
[2022-03-24] MEDS ORDERED: ACETAMINOPHEN 325 MG TABLET (FP) PO PRN (01:12)
[2022-03-24 01:13] LABS: LACTIC ACID 6.9 mmol/L (0.4-2.0)
[2022-03-24] MEDS ORDERED: PREGABALIN 50 MG CAPSULE ONE (01:23)
[2022-03-24] MEDS: PREGABALIN 50 MG CAPSULE PO SCH ×3 (01:33→21:52)
[2022-03-24] MEDS ORDERED: ONDANSETRON 4 MG/2 ML VIAL IVPUSH PRN (02:34)
[2022-03-24] MEDS ORDERED: MELATONIN 5 MG TABLETS PO PRN (02:35)
[2022-03-24] MEDS ORDERED: LACTATED RINGERS SOLUTION 1,000 ML/1,000 ML INFUS.BAG IV STA (02:47)
[2022-03-24] MEDS ORDERED: AMPICILLIN NA/SULBACTAM NA 1.5 GM in SODIUM CHLORIDE 100 ML IVPB SCH (03:00)
[2022-03-24 05:06] LABS: LACTIC ACID 9.1 mmol/L (0.4-2.0)
[2022-03-24] MEDS: LACTATED RINGERS SOLUTION 1,000 ML/1,000 ML INFUS.BAG IV SCH (06:01)
[2022-03-24] MEDS: INSULIN SLIDING SCALE (NOVOLOG) 1 VIAL SQ SCH ×4 (06:07→21:52)
[2022-03-24 08:47] LABS: CALCIUM 8.7 mg/dL (8.5-10.1)
[2022-03-24 08:48] LABS: ALBUMIN 2.7 g/dl (3.4-5.0); BLOOD UREA NITROGEN 15.3 mg/dL (7-18); MAGNESIUM 1.9 mg/dL (1.8-2.4)
[2022-03-24 08:51] LABS: CREATININE 0.8 mg/dL (0.55-1.3); PHOSPHOROUS 3.8 mg/dL (2.5-4.9)
[2022-03-24 08:52] LABS: BILIRUBIN,TOTAL 0.2 mg/dL (0.2-1); TOT PROT 6.5 g/dl (6.4-8.2)
[2022-03-24 09:20] LABS: LACTIC ACID 6.3 mmol/L (0.4-2.0)
[2022-03-24] MEDS ORDERED: LOSARTAN POTASSIUM 25 MG TABLET PO SCH (10:00)
[2022-03-24] MEDS: ENOXAPARIN NA (PORCINE) 40 MG/0.4 ML DISP.SYRIN SQ SCH ×2 (10:02→21:52)
[2022-03-24] MEDS: predniSONE 20 MG TABLET (UD) PO SCH (10:02)
[2022-03-24] MEDS: INSULIN (LEVEMIR) 100 UNITS/ML UNITS SQ SCH ×2 (10:20→21:52)
[2022-03-24] MEDS: AMPICILLIN NA/SULBACTAM NA 1.5 GM in SODIUM CHLORIDE 100 ML IVPB SCH ×3 (10:30→21:51)
[2022-03-24] MEDS: AZITHROMYCIN IVPB 250 MG in DEXTROSE 5%-WATER - 250 ML IVPB SCH (10:30)
[2022-03-24] MEDS: BUDESONIDE/FORMETEROL FUMARATE 80/4.5 mcg INHALER IH SCH ×2 (13:00→22:09)
[2022-03-24 14:41] LABS: BASO % 0.1 % (0-2.0); HEMATOCRIT 36.7 % (32.4-45.2); HEMOGLOBIN 11.7 GM/dL (10.7-15.3); MCH 26.2 pg (25.7-33.7); MCHC 31.9 g/dl (32.0-36.0); MEAN CELL VOLUME 82.2 fl (80-96); MEAN PLT VOLUME 8.4 fl (7.5-11.1); MONO % 3.6 % (3.8-10.2); NEUT % 83.3 % (42.8-82.8); PLATELET COUNT 239 10^3/uL (134-434); RBC 4.46 M/mm3 (3.60-5.2); RDW 16.3 % (11.6-15.6); WHITE BLOOD COUNT 9.4 K/mm3 (4.0-10.0)
[2022-03-24] MEDS: oxyCODONE HCL 5 MG TABLET PO PRN (17:17)
[2022-03-24] MEDS: NYSTATIN 100,000 UNIT/GM TOPICAL CREAM 15 GM TUBE TP SCH (21:52)
[2022-03-24] MEDS: ATORVASTATIN CA 40 MG TABLET (FP) PO SCH (21:52)
[2022-03-25] MEDS: LACTATED RINGERS SOLUTION 1,000 ML/1,000 ML INFUS.BAG IV SCH (01:08)
[2022-03-25] MEDS: AMPICILLIN NA/SULBACTAM NA 1.5 GM in SODIUM CHLORIDE 100 ML IVPB SCH ×4 (02:22→20:18)
[2022-03-25] MEDS: INSULIN SLIDING SCALE (NOVOLOG) 1 VIAL SQ SCH ×4 (06:08→21:01)
[2022-03-25] MEDS: BUDESONIDE/FORMETEROL FUMARATE 80/4.5 mcg INHALER IH SCH ×2 (10:09→21:01)
[2022-03-25] MEDS: LOSARTAN POTASSIUM 50 MG TABLET PO SCH (10:49)
[2022-03-25] MEDS: predniSONE 20 MG TABLET (UD) PO SCH (10:49)
[2022-03-25] MEDS: ENOXAPARIN NA (PORCINE) 40 MG/0.4 ML DISP.SYRIN SQ SCH ×2 (10:49→21:01)
[2022-03-25] MEDS: AZITHROMYCIN IVPB 250 MG in DEXTROSE 5%-WATER - 250 ML IVPB SCH (10:50)
[2022-03-25] MEDS: PREGABALIN 50 MG CAPSULE PO SCH ×2 (10:50→21:01)
[2022-03-25] MEDS: NYSTATIN 100,000 UNIT/GM TOPICAL CREAM 15 GM TUBE TP SCH ×2 (10:50→21:01)
[2022-03-25] MEDS: INSULIN (LEVEMIR) 100 UNITS/ML UNITS SQ SCH ×2 (10:55→21:01)
[2022-03-25] MEDS: oxyCODONE HCL 5 MG TABLET PO PRN ×2 (12:17→21:00)
[2022-03-25] MEDS ORDERED: AMPICILLIN NA/SULBACTAM NA 1.5 GM VIAL ONE ×2 (13:53→20:15)
[2022-03-25] MEDS ORDERED: SODIUM CHLORIDE 100 ML IVPB ONE ×2 (13:53→20:15)
[2022-03-25] MEDS ORDERED: FUROSEMIDE 40 MG/4 ML INJECTABLE VIAL IVPUSH ONE (16:40)
[2022-03-25] MEDS: ALBUTEROL SO4 2.5/IPRATROPIUM 0.5 INH SOL 3 ML VIAL.NEB. NEB PRN (16:44)
[2022-03-25] MEDS: methylPREDNISolone NA SUCC 40 MG/1 ML VIAL IVPUSH SCH (16:45)
[2022-03-25] MEDS: guaiFENesin 200 MG/10 ML 10 ML UNIT-DOSE CUPS PO PRN (18:34)
[2022-03-25] MEDS: ATORVASTATIN CA 40 MG TABLET (FP) PO SCH (21:01)
[2022-03-26] MEDS ORDERED: SODIUM CHLORIDE 100 ML IVPB ONE ×4 (02:12→21:12)
[2022-03-26] MEDS ORDERED: AMPICILLIN NA/SULBACTAM NA 1.5 GM VIAL ONE ×4 (02:12→21:12)
[2022-03-26] MEDS: AMPICILLIN NA/SULBACTAM NA 1.5 GM in SODIUM CHLORIDE 100 ML IVPB SCH ×4 (02:15→21:17)
[2022-03-26] MEDS: ACETAMINOPHEN 325 MG TABLET (FP) PO PRN ×2 (02:32→21:23)
[2022-03-26] MEDS: oxyCODONE HCL 5 MG TABLET PO PRN ×2 (05:26→16:39)
[2022-03-26] MEDS: INSULIN SLIDING SCALE (NOVOLOG) 1 VIAL SQ SCH ×5 (06:08→21:25)
[2022-03-26] MEDS: ALBUTEROL SO4 2.5/IPRATROPIUM 0.5 INH SOL 3 ML VIAL.NEB. NEB PRN (07:55)
[2022-03-26 08:52] LABS: BASO % 0.2 % (0-2.0); HEMATOCRIT 35.5 % (32.4-45.2); HEMOGLOBIN 11.4 GM/dL (10.7-15.3); LYMPH % 17.7 % (8-40); MCH 26.1 pg (25.7-33.7); MEAN CELL VOLUME 81.7 fl (80-96); MEAN PLT VOLUME 8.8 fl (7.5-11.1); MONO % 4.3 % (3.8-10.2); NEUT % 77.8 % (42.8-82.8); PLATELET COUNT 269 10^3/uL (134-434); RBC 4.35 M/mm3 (3.60-5.2); RDW 16.6 % (11.6-15.6); WHITE BLOOD COUNT 9.9 K/mm3 (4.0-10.0)
[2022-03-26 09:14] LABS: CALCIUM 8.8 mg/dL (8.5-10.1)
[2022-03-26 09:15] LABS: ALBUMIN 2.7 g/dl (3.4-5.0); BLOOD UREA NITROGEN 21.2 mg/dL (7-18)
[2022-03-26 09:16] LABS: MAGNESIUM 1.9 mg/dL (1.8-2.4)
[2022-03-26 09:18] LABS: CREATININE 0.7 mg/dL (0.55-1.3)
[2022-03-26 09:19] LABS: BILIRUBIN,TOTAL 0.4 mg/dL (0.2-1); TOT PROT 6.1 g/dl (6.4-8.2)
[2022-03-26] MEDS: methylPREDNISolone NA SUCC 40 MG/1 ML VIAL IVPUSH SCH ×3 (10:11→21:25)
[2022-03-26] MEDS: LOSARTAN POTASSIUM 50 MG TABLET PO SCH (10:11)
[2022-03-26] MEDS: PREGABALIN 50 MG CAPSULE PO SCH ×2 (10:11→21:22)
[2022-03-26] MEDS: INSULIN (LEVEMIR) 100 UNITS/ML UNITS SQ SCH ×2 (10:11→21:22)
[2022-03-26] MEDS: ENOXAPARIN NA (PORCINE) 40 MG/0.4 ML DISP.SYRIN SQ SCH ×2 (10:12→21:22)
[2022-03-26] MEDS: NYSTATIN 100,000 UNIT/GM TOPICAL CREAM 15 GM TUBE TP SCH ×2 (10:13→21:27)
[2022-03-26] MEDS: BUDESONIDE/FORMETEROL FUMARATE 80/4.5 mcg INHALER IH SCH ×2 (10:13→21:28)
[2022-03-26] MEDS: AZITHROMYCIN IVPB 250 MG in DEXTROSE 5%-WATER - 250 ML IVPB SCH (14:03)
[2022-03-26] MEDS: ALBUTEROL SO4 2.5/IPRATROPIUM 0.5 INH SOL 3 ML VIAL.NEB. NEB SCH ×2 (15:24→20:05)
[2022-03-26] MEDS ORDERED: DEXTROSE 50%-WATER - 25 GM/50 ML VIAL IVPUSH PRN (17:41)
[2022-03-26] MEDS: ATORVASTATIN CA 40 MG TABLET (FP) PO SCH (21:22)
[2022-03-26] MEDS: guaiFENesin 200 MG/10 ML 10 ML UNIT-DOSE CUPS PO PRN (21:24)
[2022-03-26] MEDS ORDERED: INSULIN (LEVEMIR) 100 UNITS/ML UNITS SQ ONE (22:00)
[2022-03-27] MEDS ORDERED: SODIUM CHLORIDE 100 ML IVPB ONE ×4 (02:21→20:38)
[2022-03-27] MEDS ORDERED: AMPICILLIN NA/SULBACTAM NA 1.5 GM VIAL ONE ×4 (02:21→20:38)
[2022-03-27] MEDS: AMPICILLIN NA/SULBACTAM NA 1.5 GM in SODIUM CHLORIDE 100 ML IVPB SCH ×4 (02:45→21:13)
[2022-03-27] MEDS: methylPREDNISolone NA SUCC 40 MG/1 ML VIAL IVPUSH SCH ×3 (05:59→21:24)
[2022-03-27] MEDS: INSULIN (LEVEMIR) 100 UNITS/ML UNITS SQ SCH ×2 (06:05→21:14)
[2022-03-27] MEDS: INSULIN SLIDING SCALE (NOVOLOG) 1 VIAL SQ SCH ×5 (06:05→21:22)
[2022-03-27 06:57] LABS: BASO % 0.2 % (0-2.0); HEMATOCRIT 35.5 % (32.4-45.2); HEMOGLOBIN 11.7 GM/dL (10.7-15.3); MCH 26.7 pg (25.7-33.7); MCHC 32.8 g/dl (32.0-36.0); MEAN CELL VOLUME 81.3 fl (80-96); MEAN PLT VOLUME 8.9 fl (7.5-11.1); MONO % 2.6 % (3.8-10.2); NEUT % 80.2 % (42.8-82.8); PLATELET COUNT 232 10^3/uL (134-434); RBC 4.37 M/mm3 (3.60-5.2); RDW 16.4 % (11.6-15.6); WHITE BLOOD COUNT 7.6 K/mm3 (4.0-10.0)
[2022-03-27 07:20] LABS: ALBUMIN 2.8 g/dl (3.4-5.0); BLOOD UREA NITROGEN 26.1 mg/dL (7-18)
[2022-03-27 07:23] LABS: CREATININE 0.8 mg/dL (0.55-1.3)
[2022-03-27 07:24] LABS: BILIRUBIN,TOTAL 0.4 mg/dL (0.2-1); TOT PROT 6.2 g/dl (6.4-8.2)
[2022-03-27] MEDS: ALBUTEROL SO4 2.5/IPRATROPIUM 0.5 INH SOL 3 ML VIAL.NEB. NEB SCH ×4 (08:15→20:14)
[2022-03-27] MEDS: LOSARTAN POTASSIUM 50 MG TABLET PO SCH (09:06)
[2022-03-27] MEDS: ACETAMINOPHEN 325 MG TABLET (FP) PO PRN ×2 (09:07→14:36)
[2022-03-27] MEDS: PREGABALIN 50 MG CAPSULE PO SCH ×2 (09:07→21:17)
[2022-03-27] MEDS: ENOXAPARIN NA (PORCINE) 40 MG/0.4 ML DISP.SYRIN SQ SCH ×2 (09:09→21:17)
[2022-03-27] MEDS: BUDESONIDE/FORMETEROL FUMARATE 80/4.5 mcg INHALER IH SCH ×3 (09:27→21:40)
[2022-03-27] MEDS: NYSTATIN 100,000 UNIT/GM TOPICAL CREAM 15 GM TUBE TP SCH ×2 (09:28→21:23)
[2022-03-27] MEDS: AZITHROMYCIN IVPB 250 MG in DEXTROSE 5%-WATER - 250 ML IVPB SCH (10:20)
[2022-03-27] MEDS: oxyCODONE HCL 5 MG TABLET PO PRN ×2 (10:23→21:27)
[2022-03-27] MEDS: Insulin (LOG) Aspart 100 UNITS/ML VIAL SQ SCH ×2 (13:59→17:19)
[2022-03-27 16:24] LABS: LACTIC ACID 3.6 mmol/L (0.4-2.0)
[2022-03-27] MEDS: ATORVASTATIN CA 40 MG TABLET (FP) PO SCH (21:17)
[2022-03-28] MEDS ORDERED: AMPICILLIN NA/SULBACTAM NA 1.5 GM VIAL ONE ×4 (01:25→20:48)
[2022-03-28] MEDS ORDERED: SODIUM CHLORIDE 100 ML IVPB ONE ×4 (01:25→20:48)
[2022-03-28] MEDS: AMPICILLIN NA/SULBACTAM NA 1.5 GM in SODIUM CHLORIDE 100 ML IVPB SCH ×3 (02:24→15:06)
[2022-03-28] MEDS: INSULIN (LEVEMIR) 100 UNITS/ML UNITS SQ SCH ×2 (06:37→22:16)
[2022-03-28] MEDS: Insulin (LOG) Aspart 100 UNITS/ML VIAL SQ SCH ×3 (06:38→16:49)
[2022-03-28] MEDS: INSULIN SLIDING SCALE (NOVOLOG) 1 VIAL SQ SCH ×4 (06:39→22:16)
[2022-03-28] MEDS: ALBUTEROL SO4 2.5/IPRATROPIUM 0.5 INH SOL 3 ML VIAL.NEB. NEB SCH ×4 (07:59→20:09)
[2022-03-28 09:00] LABS: BASO % 0.1 % (0-2.0); HEMATOCRIT 37.2 % (32.4-45.2); HEMOGLOBIN 11.9 GM/dL (10.7-15.3); LYMPH % 14.2 % (8-40); MCH 26.2 pg (25.7-33.7); MCHC 32.1 g/dl (32.0-36.0); MEAN CELL VOLUME 81.5 fl (80-96); MEAN PLT VOLUME 9.1 fl (7.5-11.1); MONO % 4.2 % (3.8-10.2); NEUT % 81.5 % (42.8-82.8); PLATELET COUNT 246 10^3/uL (134-434); RBC 4.56 M/mm3 (3.60-5.2); RDW 16.9 % (11.6-15.6); WHITE BLOOD COUNT 11.2 K/mm3 (4.0-10.0)
[2022-03-28 09:13] LABS: LACTIC ACID 2.2 mmol/L (0.4-2.0)
[2022-03-28 09:22] LABS: CALCIUM 9.1 mg/dL (8.5-10.1)
[2022-03-28 09:26] LABS: CREATININE 0.7 mg/dL (0.55-1.3)
[2022-03-28] MEDS: ENOXAPARIN NA (PORCINE) 40 MG/0.4 ML DISP.SYRIN SQ SCH ×2 (09:39→21:00)
[2022-03-28] MEDS: LOSARTAN POTASSIUM 50 MG TABLET PO SCH (09:39)
[2022-03-28] MEDS: PREGABALIN 50 MG CAPSULE PO SCH ×2 (09:39→21:00)
[2022-03-28] MEDS: NYSTATIN 100,000 UNIT/GM TOPICAL CREAM 15 GM TUBE TP SCH ×2 (09:39→21:02)
[2022-03-28] MEDS: methylPREDNISolone NA SUCC 40 MG/1 ML VIAL IVPUSH SCH ×2 (09:39→17:29)
[2022-03-28] MEDS: BUDESONIDE/FORMETEROL FUMARATE 80/4.5 mcg INHALER IH SCH ×2 (09:40→21:01)
[2022-03-28] MEDS: oxyCODONE HCL 5 MG TABLET PO PRN ×2 (11:53→20:59)
[2022-03-28] MEDS ORDERED: FUROSEMIDE 40 MG/4 ML INJECTABLE VIAL IVPUSH ONE (12:15)
[2022-03-28] MEDS: ATORVASTATIN CA 40 MG TABLET (FP) PO SCH (21:00)
[2022-03-28] MEDS ORDERED: AMPICILLIN NA/SULBACTAM NA 1.5 GM in SODIUM CHLORIDE 100 ML IVPB ONE (21:00)
[2022-03-29] MEDS: methylPREDNISolone NA SUCC 40 MG/1 ML VIAL IVPUSH SCH ×3 (02:10→21:48)
[2022-03-29] MEDS: Insulin (LOG) Aspart 100 UNITS/ML VIAL SQ SCH ×2 (06:36→11:44)
[2022-03-29] MEDS: INSULIN SLIDING SCALE (NOVOLOG) 1 VIAL SQ SCH ×4 (06:36→21:49)
[2022-03-29] MEDS: INSULIN (LEVEMIR) 100 UNITS/ML UNITS SQ SCH ×2 (06:37→21:49)
[2022-03-29 06:46] LABS: HEMATOCRIT 37.9 % (32.4-45.2); HEMOGLOBIN 12.3 GM/dL (10.7-15.3); LYMPH % 15.1 % (8-40); MCH 26.3 pg (25.7-33.7); MCHC 32.4 g/dl (32.0-36.0); MEAN CELL VOLUME 81.2 fl (80-96); MEAN PLT VOLUME 9.1 fl (7.5-11.1); MONO % 3.9 % (3.8-10.2); PLATELET COUNT 242 10^3/uL (134-434); RBC 4.66 M/mm3 (3.60-5.2); RDW 16.5 % (11.6-15.6); WHITE BLOOD COUNT 10.6 K/mm3 (4.0-10.0)
[2022-03-29 07:01] LABS: CALCIUM 8.8 mg/dL (8.5-10.1)
[2022-03-29 07:02] LABS: BLOOD UREA NITROGEN 34.7 mg/dL (7-18)
[2022-03-29 07:05] LABS: CREATININE 0.6 mg/dL (0.55-1.3)
[2022-03-29] MEDS: ALBUTEROL SO4 2.5/IPRATROPIUM 0.5 INH SOL 3 ML VIAL.NEB. NEB SCH ×4 (07:20→20:51)
[2022-03-29] MEDS: PREGABALIN 50 MG CAPSULE PO SCH ×2 (11:41→21:48)
[2022-03-29] MEDS: LOSARTAN POTASSIUM 50 MG TABLET PO SCH (11:41)
[2022-03-29] MEDS: NYSTATIN 100,000 UNIT/GM TOPICAL CREAM 15 GM TUBE TP SCH ×2 (11:41→21:48)
[2022-03-29] MEDS: ENOXAPARIN NA (PORCINE) 40 MG/0.4 ML DISP.SYRIN SQ SCH (11:41)
[2022-03-29] MEDS: BUDESONIDE/FORMETEROL FUMARATE 80/4.5 mcg INHALER IH SCH ×2 (11:45→21:49)
[2022-03-29] MEDS: oxyCODONE HCL 5 MG TABLET PO PRN ×2 (11:46→22:04)
[2022-03-29] MEDS ORDERED: INSULIN (LEVEMIR) 100 UNITS/ML UNITS SQ SCH (14:30)
[2022-03-29] MEDS ORDERED: Insulin (LOG) Aspart 100 UNITS/ML VIAL SQ SCH (14:32)
[2022-03-29] MEDS ORDERED: METOPROLOL TARTRATE 25 MG TABLET (FP) PO SCH (16:00)
[2022-03-29] MEDS ORDERED: METOPROLOL TARTRATE 5 MG/5 ML VIAL IVPUSH PRN (16:10)
[2022-03-29] MEDS ORDERED: METOPROLOL TARTRATE 5 MG/5 ML VIAL IVPUSH ONE (16:15)
[2022-03-29] MEDS ORDERED: FUROSEMIDE 40 MG/4 ML INJECTABLE VIAL IVPUSH ONE (16:15)
[2022-03-29] MEDS ORDERED: APIXABAN 5 MG TABLET PO SCH ×3 (16:34→22:00)
[2022-03-29] MEDS ORDERED: ACETAMINOPHEN 325 MG TABLET (FP) PO PRN (17:10)
[2022-03-29] MEDS ORDERED: ONDANSETRON 4 MG/2 ML VIAL IVPUSH PRN (17:10)
[2022-03-29] MEDS ORDERED: DEXTROSE 50%-WATER - 25 GM/50 ML VIAL IVPUSH PRN (17:10)
[2022-03-29] MEDS ORDERED: guaiFENesin 200 MG/10 ML 10 ML UNIT-DOSE CUPS PO PRN (17:10)
[2022-03-29] MEDS: METOPROLOL TARTRATE 25 MG TABLET (FP) PO SCH (21:48)
[2022-03-29] MEDS: ATORVASTATIN CA 40 MG TABLET (FP) PO SCH (21:48)
[2022-03-29] MEDS: MELATONIN 5 MG TABLETS PO PRN (22:04)
[2022-03-30] MEDS ORDERED: INSULIN (NOVOLOG) ASPART 100 UNITS/ML 10ML VIAL SQ ONE (02:24)
[2022-03-30] MEDS: INSULIN (LEVEMIR) 100 UNITS/ML UNITS SQ SCH ×2 (06:25→22:10)
[2022-03-30] MEDS: Insulin (LOG) Aspart 100 UNITS/ML VIAL SQ SCH ×3 (06:26→16:20)
[2022-03-30] MEDS: INSULIN SLIDING SCALE (NOVOLOG) 1 VIAL SQ SCH ×4 (06:26→22:08)
[2022-03-30] MEDS: ALBUTEROL SO4 2.5/IPRATROPIUM 0.5 INH SOL 3 ML VIAL.NEB. NEB SCH ×4 (07:45→20:05)
[2022-03-30 08:56] LABS: BASO % 0.2 % (0-2.0); HEMATOCRIT 38.8 % (32.4-45.2); HEMOGLOBIN 12.5 GM/dL (10.7-15.3); LYMPH % 16.2 % (8-40); MCH 26.2 pg (25.7-33.7); MCHC 32.3 g/dl (32.0-36.0); MEAN CELL VOLUME 81.1 fl (80-96); MEAN PLT VOLUME 9.3 fl (7.5-11.1); MONO % 4.8 % (3.8-10.2); NEUT % 78.8 % (42.8-82.8); PLATELET COUNT 267 10^3/uL (134-434); RBC 4.78 M/mm3 (3.60-5.2); RDW 16.8 % (11.6-15.6); WHITE BLOOD COUNT 12.5 K/mm3 (4.0-10.0)
[2022-03-30] MEDS: LOSARTAN POTASSIUM 50 MG TABLET PO SCH (09:03)
[2022-03-30] MEDS: METOPROLOL TARTRATE 25 MG TABLET (FP) PO SCH (09:03)
[2022-03-30] MEDS: APIXABAN 5 MG TABLET PO SCH ×2 (09:03→22:07)
[2022-03-30] MEDS: methylPREDNISolone NA SUCC 40 MG/1 ML VIAL IVPUSH SCH ×2 (09:04→22:08)
[2022-03-30] MEDS: PREGABALIN 50 MG CAPSULE PO SCH ×2 (09:04→22:07)
[2022-03-30] MEDS: NYSTATIN 100,000 UNIT/GM TOPICAL CREAM 15 GM TUBE TP SCH ×2 (09:04→22:09)
[2022-03-30] MEDS: BUDESONIDE/FORMETEROL FUMARATE 80/4.5 mcg INHALER IH SCH ×2 (09:04→22:18)
[2022-03-30] MEDS: ACETAMINOPHEN 325 MG TABLET (FP) PO PRN ×2 (09:07→16:27)
[2022-03-30] MEDS: oxyCODONE HCL 5 MG TABLET PO PRN ×2 (09:08→16:25)
[2022-03-30 09:23] LABS: CALCIUM 8.5 mg/dL (8.5-10.1)
[2022-03-30 09:24] LABS: BLOOD UREA NITROGEN 36.9 mg/dL (7-18)
[2022-03-30 09:27] LABS: CREATININE 0.6 mg/dL (0.55-1.3)
[2022-03-30] MEDS: ATORVASTATIN CA 40 MG TABLET (FP) PO SCH (22:07)
[2022-03-30] MEDS: METOPROLOL TARTRATE 50 MG TABLET (FP) PO SCH (22:07)
[2022-03-30] MEDS: MELATONIN 5 MG TABLETS PO PRN (22:08)
[2022-03-31] MEDS: oxyCODONE HCL 5 MG TABLET PO PRN ×3 (00:21→20:35)
[2022-03-31] MEDS: ACETAMINOPHEN 325 MG TABLET (FP) PO PRN ×2 (00:22→20:35)
[2022-03-31] MEDS: INSULIN (LEVEMIR) 100 UNITS/ML UNITS SQ SCH ×2 (06:37→21:08)
[2022-03-31] MEDS: Insulin (LOG) Aspart 100 UNITS/ML VIAL SQ SCH ×3 (06:37→16:21)
[2022-03-31] MEDS: INSULIN SLIDING SCALE (NOVOLOG) 1 VIAL SQ SCH ×4 (06:38→21:08)
[2022-03-31] MEDS: ALBUTEROL SO4 2.5/IPRATROPIUM 0.5 INH SOL 3 ML VIAL.NEB. NEB SCH ×4 (07:57→19:50)
[2022-03-31 08:43] LABS: BASO % 0.1 % (0-2.0); HEMATOCRIT 38.6 % (32.4-45.2); HEMOGLOBIN 12.3 GM/dL (10.7-15.3); LYMPH % 13.9 % (8-40); MCH 25.9 pg (25.7-33.7); MCHC 31.9 g/dl (32.0-36.0); MEAN CELL VOLUME 81.3 fl (80-96); MEAN PLT VOLUME 9.4 fl (7.5-11.1); MONO % 3.2 % (3.8-10.2); NEUT % 82.8 % (42.8-82.8); PLATELET COUNT 277 10^3/uL (134-434); RBC 4.74 M/mm3 (3.60-5.2); RDW 16.6 % (11.6-15.6); WHITE BLOOD COUNT 13.2 K/mm3 (4.0-10.0)
[2022-03-31 09:04] LABS: CALCIUM 8.3 mg/dL (8.5-10.1)
[2022-03-31 09:05] LABS: BLOOD UREA NITROGEN 47.9 mg/dL (7-18)
[2022-03-31 09:08] LABS: CREATININE 0.8 mg/dL (0.55-1.3)
[2022-03-31] MEDS: methylPREDNISolone NA SUCC 40 MG/1 ML VIAL IVPUSH SCH ×2 (10:12→21:09)
[2022-03-31] MEDS: LOSARTAN POTASSIUM 50 MG TABLET PO SCH (10:15)
[2022-03-31] MEDS: PREGABALIN 50 MG CAPSULE PO SCH ×2 (10:15→21:09)
[2022-03-31] MEDS: APIXABAN 5 MG TABLET PO SCH ×2 (10:15→21:08)
[2022-03-31] MEDS: METOPROLOL TARTRATE 50 MG TABLET (FP) PO SCH ×2 (10:15→21:08)
[2022-03-31] MEDS: NYSTATIN 100,000 UNIT/GM TOPICAL CREAM 15 GM TUBE TP SCH ×2 (10:16→21:08)
[2022-03-31] MEDS: BUDESONIDE/FORMETEROL FUMARATE 80/4.5 mcg INHALER IH SCH ×2 (10:16→21:09)
[2022-03-31] MEDS: ATORVASTATIN CA 40 MG TABLET (FP) PO SCH (21:08)
[2022-03-31] MEDS: MELATONIN 5 MG TABLETS PO PRN (21:09)
[2022-03-31] MEDS ORDERED: INSULIN (NOVOLOG) ASPART 100 UNITS/ML 10ML VIAL SQ ONE (22:47)
[2022-04-01] MEDS: INSULIN (LEVEMIR) 100 UNITS/ML UNITS SQ SCH ×2 (06:07→22:06)
[2022-04-01] MEDS: Insulin (LOG) Aspart 100 UNITS/ML VIAL SQ SCH ×3 (06:07→16:29)
[2022-04-01] MEDS: INSULIN SLIDING SCALE (NOVOLOG) 1 VIAL SQ SCH ×4 (06:07→22:05)
[2022-04-01 07:01] LABS: BASO % 0.3 % (0-2.0); HEMATOCRIT 38.9 % (32.4-45.2); HEMOGLOBIN 12.3 GM/dL (10.7-15.3); LYMPH % 10.8 % (8-40); MCH 25.9 pg (25.7-33.7); MCHC 31.6 g/dl (32.0-36.0); MEAN CELL VOLUME 81.9 fl (80-96); MEAN PLT VOLUME 9.7 fl (7.5-11.1); MONO % 4.1 % (3.8-10.2); NEUT % 84.8 % (42.8-82.8); PLATELET COUNT 279 10^3/uL (134-434); RBC 4.75 M/mm3 (3.60-5.2); RDW 16.6 % (11.6-15.6); WHITE BLOOD COUNT 14.3 K/mm3 (4.0-10.0)
[2022-04-01 07:19] LABS: CHLORIDE 100 mmol/L (98-107); SODIUM 138 mmol/L (136-145)
[2022-04-01 07:22] LABS: CALCIUM 8.4 mg/dL (8.5-10.1)
[2022-04-01 07:23] LABS: ALBUMIN 2.7 g/dl (3.4-5.0); ANION GAP 5 MMOL/L (8-16); BLOOD UREA NITROGEN 51.9 mg/dL (7-18); CO2 33 mmol/L (21-32); MAGNESIUM 2.6 mg/dL (1.8-2.4)
[2022-04-01 07:26] LABS: CREATININE 0.9 mg/dL (0.55-1.3); SGOT/AST 11 U/L (15-37); SGPT/ALT 31 U/L (13-61)
[2022-04-01 07:28] LABS: BILIRUBIN,TOTAL 0.4 mg/dL (0.2-1); TOT PROT 5.6 g/dl (6.4-8.2)
[2022-04-01] MEDS: ALBUTEROL SO4 2.5/IPRATROPIUM 0.5 INH SOL 3 ML VIAL.NEB. NEB SCH (08:04)
[2022-04-01 08:06] LABS: ALK PHOS 122 U/L (45-117); GLUCOSE,RANDOM 444 mg/dL (74-106)
[2022-04-01] MEDS: methylPREDNISolone NA SUCC 40 MG/1 ML VIAL IVPUSH SCH (09:38)
[2022-04-01] MEDS: LOSARTAN POTASSIUM 50 MG TABLET PO SCH (09:38)
[2022-04-01] MEDS: APIXABAN 5 MG TABLET PO SCH ×2 (09:38→22:05)
[2022-04-01] MEDS: BUDESONIDE/FORMETEROL FUMARATE 80/4.5 mcg INHALER IH SCH (09:38)
[2022-04-01] MEDS: PREGABALIN 50 MG CAPSULE PO SCH ×2 (09:38→22:05)
[2022-04-01] MEDS: METOPROLOL TARTRATE 50 MG TABLET (FP) PO SCH ×3 (09:38→22:05)
[2022-04-01] MEDS: NYSTATIN 100,000 UNIT/GM TOPICAL CREAM 15 GM TUBE TP SCH ×2 (09:38→22:06)
[2022-04-01] MEDS ORDERED: IPRATROPIUM BR 0.02% 0.5 MG/2.5 ML VIAL.NEB. NEB PRN (10:33)
[2022-04-01] MEDS ORDERED: BUDESONIDE/FORMETEROL FUMARATE 80/4.5 mcg INHALER IH PRN (10:34)
[2022-04-01] MEDS: oxyCODONE HCL 5 MG TABLET PO PRN ×2 (10:45→22:06)
[2022-04-01 18:34] LABS: EPI CELLS 7 /uL (0-25.1); HYALINE CASTS 0 /uL (0-3.1); URINE APPEARANCE CLEAR; URINE BACTERIA 350 /uL (0-1359); URINE BILIRUBIN NEGATIVE (NEGATIVE); URINE COLOR YELLOW; URINE GLUCOSE (UA) 3+ (NEGATIVE); URINE KETONE NEGATIVE (NEGATIVE); URINE LEUK ESTERASE 2+ (NEGATIVE); URINE NITRITE NEGATIVE (NEGATIVE); URINE PROTEIN NEGATIVE (NEGATIVE); URINE UROBILINOGEN 0.2 mg/dL (0.2-1.0); URINE WBC 806 /uL (0-25.8)
[2022-04-01 20:38] LABS: YEAST NONE SEEN (NEGATIVE)
[2022-04-01 20:39] LABS: URINE RBC 75.8 /uL (0-23.9)
[2022-04-01] MEDS: ATORVASTATIN CA 40 MG TABLET (FP) PO SCH (22:05)
[2022-04-01] MEDS: MELATONIN 5 MG TABLETS PO PRN (22:05)
[2022-04-02] MEDS: METOPROLOL TARTRATE 50 MG TABLET (FP) PO SCH ×2 (05:11→13:25)
[2022-04-02] MEDS: oxyCODONE HCL 5 MG TABLET PO PRN ×3 (05:11→18:42)
[2022-04-02] MEDS: INSULIN SLIDING SCALE (NOVOLOG) 1 VIAL SQ SCH ×4 (07:09→21:24)
[2022-04-02] MEDS: Insulin (LOG) Aspart 100 UNITS/ML VIAL SQ SCH ×3 (07:09→17:15)
[2022-04-02] MEDS: INSULIN (LEVEMIR) 100 UNITS/ML UNITS SQ SCH ×2 (07:09→21:24)
[2022-04-02 08:18] LABS: BASO % 0.1 % (0-2.0); EOS % 0.3 % (0-4.5); HEMATOCRIT 40.3 % (32.4-45.2); HEMOGLOBIN 12.7 GM/dL (10.7-15.3); LYMPH % 27.7 % (8-40); MCH 25.8 pg (25.7-33.7); MCHC 31.6 g/dl (32.0-36.0); MEAN CELL VOLUME 81.8 fl (80-96); MEAN PLT VOLUME 9.5 fl (7.5-11.1); MONO % 7.5 % (3.8-10.2); NEUT % 64.4 % (42.8-82.8); PLATELET COUNT 331 10^3/uL (134-434); RBC 4.93 M/mm3 (3.60-5.2); RDW 16.8 % (11.6-15.6); WHITE BLOOD COUNT 18.9 K/mm3 (4.0-10.0)
[2022-04-02 08:38] LABS: CALCIUM 8.5 mg/dL (8.5-10.1)
[2022-04-02 08:39] LABS: ALBUMIN 2.6 g/dl (3.4-5.0); BLOOD UREA NITROGEN 47.2 mg/dL (7-18); MAGNESIUM 2.6 mg/dL (1.8-2.4)
[2022-04-02 08:42] LABS: CREATININE 0.8 mg/dL (0.55-1.3); PHOSPHOROUS 3.8 mg/dL (2.5-4.9)
[2022-04-02 08:44] LABS: BILIRUBIN,TOTAL 0.5 mg/dL (0.2-1); TOT PROT 5.6 g/dl (6.4-8.2)
[2022-04-02] MEDS: LOSARTAN POTASSIUM 50 MG TABLET PO SCH (10:16)
[2022-04-02] MEDS: PREGABALIN 50 MG CAPSULE PO SCH ×2 (10:16→21:23)
[2022-04-02] MEDS: methylPREDNISolone NA SUCC 40 MG/1 ML VIAL IVPUSH SCH (10:16)
[2022-04-02] MEDS: APIXABAN 5 MG TABLET PO SCH ×2 (10:16→21:23)
[2022-04-02] MEDS: NYSTATIN 100,000 UNIT/GM TOPICAL CREAM 15 GM TUBE TP SCH ×2 (10:17→21:25)
[2022-04-02] MEDS: ACETAMINOPHEN 325 MG TABLET (FP) PO PRN ×2 (10:26→18:41)
[2022-04-02] MEDS: MELATONIN 5 MG TABLETS PO PRN (21:23)
[2022-04-02] MEDS: ATORVASTATIN CA 40 MG TABLET (FP) PO SCH (21:23)
[2022-04-03] MEDS: INSULIN (LEVEMIR) 100 UNITS/ML UNITS SQ SCH (07:01)
[2022-04-03] MEDS: Insulin (LOG) Aspart 100 UNITS/ML VIAL SQ SCH ×3 (07:02→17:09)
[2022-04-03] MEDS: INSULIN SLIDING SCALE (NOVOLOG) 1 VIAL SQ SCH ×3 (07:03→17:09)
[2022-04-03 08:45] LABS: BASO % 0.4 % (0-2.0); EOS % 0.4 % (0-4.5); HEMATOCRIT 43.4 % (32.4-45.2); HEMOGLOBIN 13.9 GM/dL (10.7-15.3); LYMPH % 34.4 % (8-40); MCHC 32.1 g/dl (32.0-36.0); MEAN CELL VOLUME 81.2 fl (80-96); MEAN PLT VOLUME 9.4 fl (7.5-11.1); MONO % 5.7 % (3.8-10.2); NEUT % 59.1 % (42.8-82.8); PLATELET COUNT 283 10^3/uL (134-434); RBC 5.35 M/mm3 (3.60-5.2); RDW 16.6 % (11.6-15.6); WHITE BLOOD COUNT 13.8 K/mm3 (4.0-10.0)
[2022-04-03] MEDS: PREGABALIN 50 MG CAPSULE PO SCH (09:12)
[2022-04-03] MEDS: oxyCODONE HCL 5 MG TABLET PO PRN ×2 (09:12→17:08)
[2022-04-03] MEDS: APIXABAN 5 MG TABLET PO SCH (09:12)
[2022-04-03 09:19] LABS: CALCIUM 8.7 mg/dL (8.5-10.1)
[2022-04-03 09:20] LABS: ALBUMIN 2.8 g/dl (3.4-5.0); BLOOD UREA NITROGEN 48.2 mg/dL (7-18); MAGNESIUM 2.6 mg/dL (1.8-2.4)
[2022-04-03 09:22] LABS: CREATININE 0.7 mg/dL (0.55-1.3); PHOSPHOROUS 4.1 mg/dL (2.5-4.9)
[2022-04-03 09:24] LABS: BILIRUBIN,TOTAL 0.7 mg/dL (0.2-1); TOT PROT 5.9 g/dl (6.4-8.2)
[2022-04-03] MEDS ORDERED: predniSONE 20 MG TABLET (UD) PO SCH (10:00)
[2022-04-03] MEDS ORDERED: LOSARTAN POTASSIUM 25 MG TABLET PO SCH (10:00)
[2022-04-03] MEDS: NYSTATIN 100,000 UNIT/GM TOPICAL CREAM 15 GM TUBE TP SCH (10:05)
[2022-04-03 14:43] VITALS: BP 107/53; PULSE 104; TEMP 98.8
== END 2022-04-03 15:00 | disposition home health service (06) | DRG 871 ==
LOC: JER 16:06 → JERBED 19:10 → J4S 03-24 02:59
PROVIDERS: ADMIT Internal Medicine; ATTEND Internal Medicine
DX: A41.89 Other specified sepsis (principal); J69.0 Pneumonitis due to inhalation of food and vomit; J96.01 Acute respiratory failure with hypoxia; J96.02 Acute respiratory failure with hypercapnia; J44.0 Chronic obstructive pulmonary disease with (acute) lower respiratory infection; J44.1 Chronic obstructive pulmonary disease with (acute) exacerbation; I50.32 Chronic diastolic (congestive) heart failure; I69.351 Hemiplegia and hemiparesis following cerebral infarction affecting right dominant side; N39.0 Urinary tract infection, site not specified; E87.2 Acidosis; Z68.43 Body mass index [BMI] 50.0-59.9, adult; E66.01 Morbid (severe) obesity due to excess calories; E11.65 Type 2 diabetes mellitus with hyperglycemia; I11.0 Hypertensive heart disease with heart failure; I25.10 Atherosclerotic heart disease of native coronary artery without angina pectoris; E78.5 Hyperlipidemia, unspecified; G47.00 Insomnia, unspecified; E88.09 Other disorders of plasma-protein metabolism, not elsewhere classified; M54.50 Low back pain, unspecified; R16.1 Splenomegaly, not elsewhere classified; R10.12 Left upper quadrant pain; I25.2 Old myocardial infarction; Z85.118 Personal history of other malignant neoplasm of bronchus and lung
CPT/HCPCS: 0241U-QW; 36415; 71045-TC-FY; 74176-TC; 80048; 80053; 80061; 81003; 82962; 83036; 83605; 83690; 83735; 83880; 84100; 84443; 84484; 85025; 87040; 87045; 87046; 87086; 87177; 87209; 87324; 87449; 87899; 93005; 93010; 93306-TC; 94640; 94761; 99285-25

== ENCOUNTER 2022-12-20 12:50 | Inpatient (IN) | payer OTHER ==
[2022-12-20] MEDS ORDERED: ALBUTEROL SO4 2.5/IPRATROPIUM 0.5 INH SOL 3 ML VIAL.NEB. NEB ONE ×2 (12:55→13:09)
[2022-12-20] MEDS ORDERED: SODIUM CHLORIDE 0.9% 500 ML INFUS.BAG IV ONE ×2 (13:03→14:58)
[2022-12-20] MEDS ORDERED: ALBUTEROL SO4 0.083% IH SOL 2.5 MG/3 ML VIAL.NEB. NEB ONE (13:40)
[2022-12-20] MEDS: ALBUTEROL SO4 0.083% IH SOL 2.5 MG/3 ML VIAL.NEB. NEB SCH ×2 (13:58→14:42)
[2022-12-20 14:41] LABS: LACTIC ACID 4.9 mmol/L (0.4-2.0)
[2022-12-20 14:53] LABS: VENOUS BASE EXCESS -5.4 mmol/L (-2-2); VENOUS O2 SATURATION 21.6 % (70-80)
[2022-12-20 14:56] LABS: VENOUS PCO2 91.7 mmHg (38-52); VENOUS PH 7.084 (7.310-7.410)
[2022-12-20] MEDS ORDERED: ACETAMINOPHEN 1000 MG/100 ML BAG IVPB ONE (14:58)
[2022-12-20 15:06] LABS: EPI CELLS >36 /uL (0-25.1); HYALINE CASTS 10 /uL (0-3.1); URINE APPEARANCE CLOUDY; URINE BACTERIA 22 /uL (0-1359); URINE BILIRUBIN NEGATIVE (NEGATIVE); URINE COLOR DK YELLOW; URINE GLUCOSE (UA) NEGATIVE (NEGATIVE); URINE KETONE NEGATIVE (NEGATIVE); URINE LEUK ESTERASE 1+ (NEGATIVE); URINE NITRITE NEGATIVE (NEGATIVE); URINE PROTEIN 1+ (NEGATIVE); URINE RBC 20 /uL (0-23.9); URINE WBC 262 /uL (0-25.8)
[2022-12-20 15:07] LABS: CHLORIDE 103 mmol/L (98-107); SODIUM 141 mmol/L (136-145)
[2022-12-20 15:09] LABS: CALCIUM 8.7 mg/dL (8.5-10.1)
[2022-12-20 15:10] LABS: ALBUMIN 2.3 g/dl (3.4-5.0); ANION GAP 9 MMOL/L (8-16); BLOOD UREA NITROGEN 32.4 mg/dL (7-18); CO2 29 mmol/L (21-32); GLUCOSE,RANDOM 168 mg/dL (74-106); LIPASE 20 U/L (73-393)
[2022-12-20 15:12] LABS: CREATININE 0.9 mg/dL (0.55-1.3); SGOT/AST 28 U/L (15-37); SGPT/ALT 19 U/L (13-61)
[2022-12-20 15:14] LABS: BILIRUBIN,TOTAL 0.3 mg/dL (0.2-1)
[2022-12-20 15:15] LABS: ALK PHOS 134 U/L (45-117)
[2022-12-20 15:16] LABS: BASO % 0.2 % (0-2.0); HEMATOCRIT 42.5 % (32.4-45.2); HEMOGLOBIN 12.7 GM/dL (10.7-15.3); LYMPH % 3.5 % (8-40); MCH 23.5 pg (25.7-33.7); MCHC 29.8 g/dl (32.0-36.0); MEAN PLT VOLUME 9.1 fl (7.5-11.1); MONO % 5.4 % (3.8-10.2); NEUT % 90.9 % (42.8-82.8); PLATELET COUNT 354 10^3/uL (134-434); RBC 5.38 M/mm3 (3.60-5.2); RDW 21.6 % (11.6-15.6); WHITE BLOOD COUNT 13.3 K/mm3 (4.0-10.0)
[2022-12-20 15:17] LABS: N-TERMINAL BNP 23313.7 pg/ml (5-125)
[2022-12-20] MEDS ORDERED: dilTIAZem HCL 50 MG/10 ML - 10 ML VIAL ONE (15:33)
[2022-12-20] MEDS ORDERED: ACETAMINOPHEN INJECTION 100 ML IVPB ONE (15:33)
[2022-12-20] MEDS ORDERED: dilTIAZem HCL 125 MG/25 ML - 25 ML VIAL ONE (15:33)
[2022-12-20 15:49] LABS: ANISOCYTOSIS 1+; MACROCYTOSIS 1+
[2022-12-20] MEDS ORDERED: CEFEPIME HCL/D5W 2 GM/50 ML BAG IVPB ONE (16:04)
[2022-12-20] MEDS ORDERED: VANCOMYCIN/WATER 2 GM/400 ML PREMIX BAG IVPB ONE (16:15)
[2022-12-20 16:30] LABS: VENOUS BASE EXCESS -3.1 mmol/L (-2-2); VENOUS O2 SATURATION 25.8 % (70-80)
[2022-12-20 16:39] LABS: VENOUS PCO2 102.2 mmHg (38-52); VENOUS PH 7.089 (7.310-7.410)
[2022-12-20] MEDS ORDERED: CEFEPIME 2 GM/100 ML BAG IVPB ONE (16:48)
[2022-12-20 17:01] LABS: LACTIC ACID 4.6 mmol/L (0.4-2.0)
[2022-12-20] MEDS ORDERED: FUROSEMIDE 40 MG/4 ML INJECTABLE VIAL IVPUSH ONE (17:10)
[2022-12-20] MEDS ORDERED: FUROSEMIDE 40 MG/4 ML INJECTABLE VIAL ONE (17:16)
[2022-12-20] MEDS ORDERED: METOPROLOL TARTRATE 5 MG/5 ML VIAL IVPUSH ONE (18:14)
[2022-12-20] MEDS ORDERED: ACETAMINOPHEN 1000 MG/100 ML BAG IVPB PRN (18:36)
[2022-12-20] MEDS ORDERED: SODIUM BICARBONATE 8.4% 50 MEQ/50 ML DISP.SYRIN IVPUSH ONE (19:07)
[2022-12-20] MEDS ORDERED: MILRINONE 20MG/100ML IVPB - 20,000 MCG/100 ML ML IVPB SCH (20:00)
[2022-12-20] MEDS ORDERED: AMIODARONE HCL INJECTION 150 MG in DEXTROSE 5%-WATER - 100 ML IVPB ONE (20:02)
[2022-12-20] MEDS: ALBUTEROL SO4 2.5/IPRATROPIUM 0.5 INH SOL 3 ML VIAL.NEB. NEB SCH (20:05)
[2022-12-20] MEDS ORDERED: AMIODARONE IN DEXTROSE,ISO-OSM 360 MG/200 ML BAG IV SCH (20:15)
[2022-12-20 20:45] LABS: ARTERIAL BLD GAS O2 SATURATION 96.2 % (95-98); ARTERIAL BLOOD GAS BASE EXCESS -1.1 mmol/L (-2-2); ARTERIAL BLOOD GAS PO2 91.9 mmHg (80-100); ARTERIAL BLOOD GAS pH 7.301 (7.350-7.450)
[2022-12-20 20:49] LABS: VENT MODE S/T; VENT RATE 16
[2022-12-20] MEDS ORDERED: AMIODARONE IN DEXTROSE,ISO-OSM 150 MG/100 ML BAG ONE (21:00)
[2022-12-20] MEDS: SODIUM BICARBONATE 8.4% - 150 MEQ in DEXTROSE 5%-WATER - 950 ML IVPB SCH (21:28)
[2022-12-20] MEDS: FUROSEMIDE INJECTION 100 MG in SODIUM CHLORIDE 90 ML IVPB SCH (21:55)
[2022-12-20] MEDS ORDERED: FUROSEMIDE 40 MG/4 ML INJECTABLE VIAL IVPUSH SCH ×2 (22:00)
[2022-12-20] MEDS: MUPIROCIN 2% TOPICAL OINTMENT FOR DECOLONIZATION NS SCH (22:15)
[2022-12-20] MEDS: CHLORHEXIDINE GLUCONATE 4% CLEANSER FOR DECOLONIZATION TP SCH (22:16)
[2022-12-20] MEDS: ENOXAPARIN NA (PORCINE) 120 MG/0.8 ML DISP.SYRIN SQ SCH (22:22)
[2022-12-20] MEDS: BUDESONIDE/FORMETEROL FUMARATE 160/4.5 mcg INHALER IH SCH (22:23)
[2022-12-20] MEDS: INSULIN SLIDING SCALE (NOVOLOG) 1 VIAL SQ SCH (22:26)
[2022-12-20 22:29] LABS: LACTIC ACID 2.9 mmol/L (0.4-2.0)
[2022-12-20 22:39] LABS: CALCIUM 8.2 mg/dL (8.5-10.1)
[2022-12-20 22:40] LABS: BLOOD UREA NITROGEN 32.7 mg/dL (7-18)
[2022-12-20 22:43] LABS: CREATININE 0.8 mg/dL (0.55-1.3)
[2022-12-21] MEDS ORDERED: CEFEPIME HCL/D5W 1 GM/50 ML BAG IVPB SCH (05:00)
[2022-12-21] MEDS ORDERED: CEFEPIME 1 GM in DEXTROSE 5%-WATER 100 ML IVPB SCH (05:00)
[2022-12-21] MEDS: INSULIN SLIDING SCALE (NOVOLOG) 1 VIAL SQ SCH ×4 (06:18→21:40)
[2022-12-21] MEDS: SODIUM BICARBONATE 8.4% - 150 MEQ in DEXTROSE 5%-WATER - 950 ML IVPB SCH (06:18)
[2022-12-21] MEDS: FUROSEMIDE INJECTION 100 MG in SODIUM CHLORIDE 90 ML IVPB SCH ×2 (06:18→17:05)
[2022-12-21] MEDS ORDERED: AMIODARONE HCL 150 MG/3 ML VIAL IVPUSH ONE (07:03)
[2022-12-21 07:08] LABS: BASO % 0.2 % (0-2.0); HEMOGLOBIN 10.6 GM/dL (10.7-15.3); MCH 23.8 pg (25.7-33.7); MEAN CELL VOLUME 76.8 fl (80-96); MEAN PLT VOLUME 8.7 fl (7.5-11.1); MONO % 11.9 % (3.8-10.2); NEUT % 74.9 % (42.8-82.8); PLATELET COUNT 244 10^3/uL (134-434); RBC 4.43 M/mm3 (3.60-5.2); RDW 20.8 % (11.6-15.6); WHITE BLOOD COUNT 8.5 K/mm3 (4.0-10.0)
[2022-12-21 07:28] LABS: ALBUMIN 1.9 g/dl (3.4-5.0); CALCIUM 7.9 mg/dL (8.5-10.1)
[2022-12-21 07:29] LABS: BLOOD UREA NITROGEN 32.7 mg/dL (7-18)
[2022-12-21 07:31] LABS: CREATININE 0.8 mg/dL (0.55-1.3)
[2022-12-21 07:33] LABS: BILIRUBIN,TOTAL 0.5 mg/dL (0.2-1); TOT PROT 4.7 g/dl (6.4-8.2)
[2022-12-21] MEDS: ALBUTEROL SO4 2.5/IPRATROPIUM 0.5 INH SOL 3 ML VIAL.NEB. NEB SCH ×4 (08:05→21:13)
[2022-12-21] MEDS ORDERED: METOPROLOL TARTRATE 5 MG/5 ML VIAL IVPUSH ONE (08:30)
[2022-12-21] MEDS: BUDESONIDE/FORMETEROL FUMARATE 160/4.5 mcg INHALER IH SCH ×2 (09:48→22:11)
[2022-12-21] MEDS: ENOXAPARIN NA (PORCINE) 120 MG/0.8 ML DISP.SYRIN SQ SCH ×2 (09:49→21:39)
[2022-12-21] MEDS: MUPIROCIN 2% TOPICAL OINTMENT FOR DECOLONIZATION NS SCH ×2 (09:50→21:39)
[2022-12-21] MEDS: NYSTATIN POWDER 100,000 UNITS/GM - 15 GM TOPICAL POWDER TP SCH (09:50)
[2022-12-21] MEDS ORDERED: VANCOMYCIN PREMIX 1.5 GM 1,500 MG/300 ML BAG IVPB SCH (10:00)
[2022-12-21] MEDS ORDERED: VANCOMYCIN HCL 1,500 MG in DEXTROSE 5%-WATER - 250 ML IVPB SCH (10:00)
[2022-12-21] MEDS ORDERED: dilTIAZem HCL 50 MG/10 ML - 10 ML VIAL IVPUSH ONE ×2 (12:15→18:41)
[2022-12-21] MEDS ORDERED: CEFTRIAXONE 1 GM in DEXTROSE 5%-WATER - 50 ML IVPB ONE (18:00)
[2022-12-21] MEDS: CHLORHEXIDINE GLUCONATE 4% CLEANSER FOR DECOLONIZATION TP SCH (21:39)
[2022-12-22] MEDS ORDERED: MILRINONE 20MG/100ML IVPB - 20,000 MCG/100 ML ML IVPB ONE (04:01)
[2022-12-22] MEDS ORDERED: MILRINONE 20MG/100ML IVPB - 20,000 MCG/100 ML ML IVPB SCH (05:15)
[2022-12-22] MEDS: INSULIN SLIDING SCALE (NOVOLOG) 1 VIAL SQ SCH ×4 (07:23→22:22)
[2022-12-22] MEDS: FUROSEMIDE INJECTION 100 MG in SODIUM CHLORIDE 90 ML IVPB SCH ×3 (07:24→22:24)
[2022-12-22 07:30] LABS: HEMOGLOBIN 10.1 GM/dL (10.7-15.3); MCHC 31.7 g/dl (32.0-36.0); MEAN CELL VOLUME 75.8 fl (80-96); PLATELET COUNT 219 10^3/uL (134-434); RBC 4.22 M/mm3 (3.60-5.2); RDW 20.6 % (11.6-15.6); WHITE BLOOD COUNT 6.6 K/mm3 (4.0-10.0)
[2022-12-22 07:44] LABS: ALBUMIN 1.7 g/dl (3.4-5.0); BLOOD UREA NITROGEN 34.2 mg/dL (7-18); CALCIUM 7.5 mg/dL (8.5-10.1)
[2022-12-22 07:45] LABS: MAGNESIUM 1.8 mg/dL (1.8-2.4)
[2022-12-22 07:47] LABS: CREATININE 0.8 mg/dL (0.55-1.3)
[2022-12-22 07:48] LABS: PHOSPHOROUS 4.3 mg/dL (2.5-4.9)
[2022-12-22 07:49] LABS: BILIRUBIN,TOTAL 0.5 mg/dL (0.2-1); TOT PROT 4.6 g/dl (6.4-8.2)
[2022-12-22] MEDS: ACETAMINOPHEN 325 MG TABLET (FP) PO PRN ×2 (08:54→22:26)
[2022-12-22] MEDS: oxyCODONE HCL 5 MG TABLET PO PRN ×2 (08:54→22:27)
[2022-12-22] MEDS ORDERED: POTASSIUM CHLORIDE ORAL LIQUID 20 MEQ/15 ML PO ONE (09:00)
[2022-12-22] MEDS: ALBUTEROL SO4 2.5/IPRATROPIUM 0.5 INH SOL 3 ML VIAL.NEB. NEB SCH ×4 (10:15→20:05)
[2022-12-22] MEDS: ENOXAPARIN NA (PORCINE) 120 MG/0.8 ML DISP.SYRIN SQ SCH ×2 (10:33→22:22)
[2022-12-22] MEDS: MUPIROCIN 2% TOPICAL OINTMENT FOR DECOLONIZATION NS SCH ×2 (10:33→22:21)
[2022-12-22] MEDS: BUDESONIDE/FORMETEROL FUMARATE 160/4.5 mcg INHALER IH SCH ×2 (10:34→22:23)
[2022-12-22] MEDS: NYSTATIN POWDER 100,000 UNITS/GM - 15 GM TOPICAL POWDER TP SCH (10:34)
[2022-12-22] MEDS: CHLORHEXIDINE GLUCONATE 4% CLEANSER FOR DECOLONIZATION TP SCH (22:22)
[2022-12-23] MEDS: INSULIN SLIDING SCALE (NOVOLOG) 1 VIAL SQ SCH ×4 (06:19→22:43)
[2022-12-23] MEDS: ALBUTEROL SO4 2.5/IPRATROPIUM 0.5 INH SOL 3 ML VIAL.NEB. NEB SCH ×4 (08:57→20:50)
[2022-12-23] MEDS: ENOXAPARIN NA (PORCINE) 120 MG/0.8 ML DISP.SYRIN SQ SCH ×2 (09:05→22:42)
[2022-12-23] MEDS: FUROSEMIDE INJECTION 100 MG in SODIUM CHLORIDE 90 ML IVPB SCH ×2 (09:11→17:02)
[2022-12-23] MEDS: ACETAMINOPHEN 325 MG TABLET (FP) PO PRN ×2 (09:12→18:20)
[2022-12-23] MEDS: oxyCODONE HCL 5 MG TABLET PO PRN (09:13)
[2022-12-23] MEDS: BUDESONIDE/FORMETEROL FUMARATE 160/4.5 mcg INHALER IH SCH ×2 (09:15→22:43)
[2022-12-23] MEDS: NYSTATIN POWDER 100,000 UNITS/GM - 15 GM TOPICAL POWDER TP SCH (09:15)
[2022-12-23] MEDS: MUPIROCIN 2% TOPICAL OINTMENT FOR DECOLONIZATION NS SCH ×2 (09:15→22:41)
[2022-12-23 10:37] LABS: BASO % 0.3 % (0-2.0); EOS % 0.2 % (0-4.5); HEMATOCRIT 34.6 % (32.4-45.2); HEMOGLOBIN 10.7 GM/dL (10.7-15.3); LYMPH % 33.7 % (8-40); MCH 23.4 pg (25.7-33.7); MEAN CELL VOLUME 75.5 fl (80-96); MEAN PLT VOLUME 8.5 fl (7.5-11.1); MONO % 8.6 % (3.8-10.2); NEUT % 57.2 % (42.8-82.8); PLATELET COUNT 232 10^3/uL (134-434); RBC 4.58 M/mm3 (3.60-5.2); RDW 20.9 % (11.6-15.6); WHITE BLOOD COUNT 5.7 K/mm3 (4.0-10.0)
[2022-12-23 10:51] LABS: CALCIUM 7.9 mg/dL (8.5-10.1)
[2022-12-23 10:52] LABS: MAGNESIUM 1.8 mg/dL (1.8-2.4)
[2022-12-23 10:55] LABS: CREATININE 0.9 mg/dL (0.55-1.3); PHOSPHOROUS 4.7 mg/dL (2.5-4.9)
[2022-12-23 10:57] LABS: BILIRUBIN,TOTAL 0.5 mg/dL (0.2-1); TOT PROT 5.3 g/dl (6.4-8.2)
[2022-12-23] MEDS: METOPROLOL TARTRATE 25 MG TABLET (FP) PO SCH ×3 (17:02→22:41)
[2022-12-23] MEDS: CEFTRIAXONE 2 GM in DEXTROSE 5%-WATER 100 ML IVPB SCH (17:03)
[2022-12-23] MEDS: CHLORHEXIDINE GLUCONATE 4% CLEANSER FOR DECOLONIZATION TP SCH (22:41)
[2022-12-24] MEDS: FUROSEMIDE INJECTION 100 MG in SODIUM CHLORIDE 90 ML IVPB SCH (03:52)
[2022-12-24] MEDS: INSULIN SLIDING SCALE (NOVOLOG) 1 VIAL SQ SCH ×4 (07:12→21:13)
[2022-12-24 07:23] LABS: HEMATOCRIT 33.8 % (32.4-45.2); HEMOGLOBIN 10.4 GM/dL (10.7-15.3); MCH 23.1 pg (25.7-33.7); MCHC 30.7 g/dl (32.0-36.0); MEAN CELL VOLUME 75.3 fl (80-96); MEAN PLT VOLUME 8.2 fl (7.5-11.1); PLATELET COUNT 201 10^3/uL (134-434); RBC 4.49 M/mm3 (3.60-5.2); RDW 21.1 % (11.6-15.6); WHITE BLOOD COUNT 6.3 K/mm3 (4.0-10.0)
[2022-12-24 07:46] LABS: BLOOD UREA NITROGEN 32.4 mg/dL (7-18); CALCIUM 7.5 mg/dL (8.5-10.1); MAGNESIUM 1.8 mg/dL (1.8-2.4)
[2022-12-24 07:48] LABS: CREATININE 0.9 mg/dL (0.55-1.3)
[2022-12-24 07:49] LABS: PHOSPHOROUS 3.6 mg/dL (2.5-4.9)
[2022-12-24] MEDS: ALBUTEROL SO4 2.5/IPRATROPIUM 0.5 INH SOL 3 ML VIAL.NEB. NEB SCH ×4 (08:36→20:05)
[2022-12-24] MEDS: ACETAMINOPHEN 325 MG TABLET (FP) PO PRN (08:44)
[2022-12-24] MEDS: KCL 10 MEQ IVPB 10 MEQ/100 ML INFUS.BAG IVPB SCH ×2 (08:44→10:44)
[2022-12-24] MEDS: oxyCODONE HCL 5 MG TABLET PO PRN (08:45)
[2022-12-24] MEDS: CEFTRIAXONE 2 GM in DEXTROSE 5%-WATER 100 ML IVPB SCH (08:59)
[2022-12-24] MEDS: NYSTATIN POWDER 100,000 UNITS/GM - 15 GM TOPICAL POWDER TP SCH (09:00)
[2022-12-24] MEDS: ENOXAPARIN NA (PORCINE) 120 MG/0.8 ML DISP.SYRIN SQ SCH ×2 (09:00→21:13)
[2022-12-24] MEDS: MUPIROCIN 2% TOPICAL OINTMENT FOR DECOLONIZATION NS SCH ×2 (09:01→21:13)
[2022-12-24] MEDS: BUDESONIDE/FORMETEROL FUMARATE 160/4.5 mcg INHALER IH SCH ×2 (09:02→21:14)
[2022-12-24] MEDS: METOPROLOL TARTRATE 25 MG TABLET (FP) PO SCH ×2 (09:22→21:13)
[2022-12-24] MEDS: FUROSEMIDE 40 MG/4 ML INJECTABLE VIAL IVPUSH SCH (13:36)
[2022-12-24] MEDS: CHLORHEXIDINE GLUCONATE 4% CLEANSER FOR DECOLONIZATION TP SCH (21:13)
[2022-12-25] MEDS: FUROSEMIDE 40 MG/4 ML INJECTABLE VIAL IVPUSH SCH ×2 (06:32→14:03)
[2022-12-25] MEDS: INSULIN SLIDING SCALE (NOVOLOG) 1 VIAL SQ SCH ×4 (06:35→21:44)
[2022-12-25] MEDS: ALBUTEROL SO4 2.5/IPRATROPIUM 0.5 INH SOL 3 ML VIAL.NEB. NEB SCH ×3 (07:45→15:55)
[2022-12-25 08:28] LABS: HEMATOCRIT 33.7 % (32.4-45.2); HEMOGLOBIN 10.5 GM/dL (10.7-15.3); MCHC 31.3 g/dl (32.0-36.0); MEAN CELL VOLUME 76.5 fl (80-96); MEAN PLT VOLUME 8.5 fl (7.5-11.1); PLATELET COUNT 209 10^3/uL (134-434); RDW 20.5 % (11.6-15.6); WHITE BLOOD COUNT 5.2 K/mm3 (4.0-10.0)
[2022-12-25 08:29] LABS: ALBUMIN 1.9 g/dl (3.4-5.0); BLOOD UREA NITROGEN 24.5 mg/dL (7-18); MAGNESIUM 1.9 mg/dL (1.8-2.4)
[2022-12-25 08:32] LABS: CREATININE 0.7 mg/dL (0.55-1.3); PHOSPHOROUS 3.2 mg/dL (2.5-4.9)
[2022-12-25 08:33] LABS: BILIRUBIN,TOTAL 0.2 mg/dL (0.2-1); TOT PROT 5.1 g/dl (6.4-8.2)
[2022-12-25] MEDS: METOPROLOL TARTRATE 25 MG TABLET (FP) PO SCH ×2 (10:36→21:34)
[2022-12-25] MEDS: BUDESONIDE/FORMETEROL FUMARATE 160/4.5 mcg INHALER IH SCH ×2 (10:37→21:55)
[2022-12-25] MEDS: NYSTATIN POWDER 100,000 UNITS/GM - 15 GM TOPICAL POWDER TP SCH (10:37)
[2022-12-25] MEDS: CEFTRIAXONE 2 GM in DEXTROSE 5%-WATER 100 ML IVPB SCH (10:37)
[2022-12-25] MEDS: ENOXAPARIN NA (PORCINE) 120 MG/0.8 ML DISP.SYRIN SQ SCH ×2 (10:37→21:54)
[2022-12-25] MEDS ORDERED: POTASSIUM CHLORIDE ORAL LIQUID 20 MEQ/15 ML PO ONE (10:43)
[2022-12-25] MEDS: ACETAMINOPHEN 325 MG TABLET (FP) PO PRN ×2 (15:46→21:35)
[2022-12-25] MEDS: oxyCODONE HCL 5 MG TABLET PO PRN (15:47)
[2022-12-25] MEDS ORDERED: POTASSIUM CHLORIDE TABS 10 MEQ TABLET.ER (FP) PO SCH (22:00)
[2022-12-26] MEDS: FUROSEMIDE 40 MG/4 ML INJECTABLE VIAL IVPUSH SCH ×4 (06:05→22:51)
[2022-12-26] MEDS: INSULIN SLIDING SCALE (NOVOLOG) 1 VIAL SQ SCH ×4 (06:14→23:06)
[2022-12-26 08:30] LABS: BASO % 0.4 % (0-2.0); EOS % 5.6 % (0-4.5); HEMATOCRIT 33.2 % (32.4-45.2); HEMOGLOBIN 10.3 GM/dL (10.7-15.3); LYMPH % 48.7 % (8-40); MCH 23.7 pg (25.7-33.7); MCHC 31.1 g/dl (32.0-36.0); MEAN CELL VOLUME 76.3 fl (80-96); MEAN PLT VOLUME 8.3 fl (7.5-11.1); MONO % 6.9 % (3.8-10.2); NEUT % 38.4 % (42.8-82.8); PLATELET COUNT 212 10^3/uL (134-434); RBC 4.35 M/mm3 (3.60-5.2); RDW 20.5 % (11.6-15.6); WHITE BLOOD COUNT 5.1 K/mm3 (4.0-10.0)
[2022-12-26 09:02] LABS: CALCIUM 7.6 mg/dL (8.5-10.1)
[2022-12-26 09:03] LABS: BLOOD UREA NITROGEN 19.2 mg/dL (7-18)
[2022-12-26 09:06] LABS: CREATININE 0.5 mg/dL (0.55-1.3)
[2022-12-26 09:08] LABS: BILIRUBIN,TOTAL 0.7 mg/dL (0.2-1); TOT PROT 5.4 g/dl (6.4-8.2)
[2022-12-26 09:19] LABS: ANISOCYTOSIS 2+; MACROCYTOSIS 0
[2022-12-26] MEDS ORDERED: ALBUMIN HUMAN 25% 12.5 GM/50 ML VIAL IV SCH (10:00)
[2022-12-26] MEDS ORDERED: ALBUMIN HUMAN 25% 100 ML VIAL IV SCH ×2 (10:00)
[2022-12-26] MEDS: ENOXAPARIN NA (PORCINE) 120 MG/0.8 ML DISP.SYRIN SQ SCH ×2 (10:41→22:55)
[2022-12-26] MEDS: POTASSIUM CHLORIDE TABS 10 MEQ TABLET.ER (FP) PO SCH ×2 (10:41→22:51)
[2022-12-26] MEDS: CEFTRIAXONE 2 GM in DEXTROSE 5%-WATER 100 ML IVPB SCH (10:42)
[2022-12-26] MEDS: NYSTATIN POWDER 100,000 UNITS/GM - 15 GM TOPICAL POWDER TP SCH (10:43)
[2022-12-26] MEDS: METOPROLOL TARTRATE 25 MG TABLET (FP) PO SCH ×2 (10:43→22:51)
[2022-12-26] MEDS: BUDESONIDE/FORMETEROL FUMARATE 160/4.5 mcg INHALER IH SCH ×2 (10:43→22:55)
[2022-12-26] MEDS: ALBUMIN HUMAN 25% 100 ML VIAL IV SCH ×2 (10:44→20:09)
[2022-12-26] MEDS: oxyCODONE HCL 5 MG TABLET PO PRN ×2 (11:21→22:59)
[2022-12-26] MEDS ORDERED: POTASSIUM CHLORIDE TABS 10 MEQ TABLET.ER (FP) PO ONE ×2 (14:07→17:15)
[2022-12-26 16:26] VITALS: BMI 49.8
[2022-12-26] MEDS: ACETAMINOPHEN 325 MG TABLET (FP) PO PRN ×2 (17:29→22:58)
[2022-12-27] MEDS: INSULIN SLIDING SCALE (NOVOLOG) 1 VIAL SQ SCH ×4 (06:28→22:19)
[2022-12-27 08:39] LABS: CALCIUM 8.1 mg/dL (8.5-10.1)
[2022-12-27 08:40] LABS: BLOOD UREA NITROGEN 13.5 mg/dL (7-18)
[2022-12-27 08:43] LABS: CREATININE 0.4 mg/dL (0.55-1.3)
[2022-12-27 08:45] LABS: BILIRUBIN,TOTAL 0.6 mg/dL (0.2-1); TOT PROT 5.7 g/dl (6.4-8.2)
[2022-12-27 08:49] LABS: ALBUMIN 2.6 g/dl (3.4-5.0)
[2022-12-27] MEDS: AMINO ACIDS/PROTEIN HYDROLYS 30 ML LIQUID.PKT PO SCH (08:55)
[2022-12-27] MEDS ORDERED: CEFTRIAXONE 2 GM in DEXTROSE 5%-WATER 100 ML IVPB SCH (10:00)
[2022-12-27] MEDS: POTASSIUM CHLORIDE TABS 10 MEQ TABLET.ER (FP) PO SCH ×2 (10:21→22:16)
[2022-12-27] MEDS: ALBUMIN HUMAN 25% 100 ML VIAL IV SCH ×2 (10:22→20:12)
[2022-12-27] MEDS: METOPROLOL TARTRATE 25 MG TABLET (FP) PO SCH ×2 (10:22→22:16)
[2022-12-27] MEDS: ENOXAPARIN NA (PORCINE) 120 MG/0.8 ML DISP.SYRIN SQ SCH ×2 (10:22→22:18)
[2022-12-27] MEDS: BUDESONIDE/FORMETEROL FUMARATE 160/4.5 mcg INHALER IH SCH ×2 (10:24→22:20)
[2022-12-27] MEDS: NYSTATIN POWDER 100,000 UNITS/GM - 15 GM TOPICAL POWDER TP SCH (10:24)
[2022-12-27] MEDS: oxyCODONE HCL 5 MG TABLET PO PRN ×2 (10:40→22:18)
[2022-12-27] MEDS: ACETAMINOPHEN 325 MG TABLET (FP) PO PRN ×2 (10:42→22:16)
[2022-12-27] MEDS: ASCORBIC ACID 250 MG TABLET (FP) PO SCH (15:36)
[2022-12-27] MEDS: FUROSEMIDE 40 MG/4 ML INJECTABLE VIAL IVPUSH SCH ×2 (15:37→20:12)
[2022-12-28] MEDS ORDERED: LIDOCAINE 5% TOPICAL PATCH TP ONE ×2 (03:36)
[2022-12-28] MEDS ORDERED: KETOROLAC TROMETHAMINE 15 MG/ML VIAL IVPUSH ONE (04:44)
[2022-12-28] MEDS: INSULIN SLIDING SCALE (NOVOLOG) 1 VIAL SQ SCH ×4 (06:11→22:57)
[2022-12-28] MEDS: AMINO ACIDS/PROTEIN HYDROLYS 30 ML LIQUID.PKT PO SCH (07:57)
[2022-12-28] MEDS: ALBUTEROL SO4 2.5/IPRATROPIUM 0.5 INH SOL 3 ML VIAL.NEB. NEB PRN (09:57)
[2022-12-28] MEDS: FUROSEMIDE 40 MG/4 ML INJECTABLE VIAL IVPUSH SCH ×3 (10:00→21:59)
[2022-12-28] MEDS: ASCORBIC ACID 250 MG TABLET (FP) PO SCH (10:50)
[2022-12-28] MEDS: POTASSIUM CHLORIDE TABS 10 MEQ TABLET.ER (FP) PO SCH ×2 (10:50→22:43)
[2022-12-28] MEDS: ENOXAPARIN NA (PORCINE) 120 MG/0.8 ML DISP.SYRIN SQ SCH ×2 (10:50→22:45)
[2022-12-28] MEDS: METOPROLOL TARTRATE 25 MG TABLET (FP) PO SCH ×2 (10:50→22:43)
[2022-12-28] MEDS: NYSTATIN POWDER 100,000 UNITS/GM - 15 GM TOPICAL POWDER TP SCH (10:51)
[2022-12-28] MEDS: BUDESONIDE/FORMETEROL FUMARATE 160/4.5 mcg INHALER IH SCH ×2 (10:51→22:45)
[2022-12-28] MEDS: ACETAMINOPHEN 325 MG TABLET (FP) PO PRN (22:43)
[2022-12-28] MEDS: oxyCODONE HCL 5 MG TABLET PO PRN (22:44)
[2022-12-28] MEDS: LIDOCAINE PATCH REMOVAL MC SCH (22:57)
[2022-12-29] MEDS: INSULIN SLIDING SCALE (NOVOLOG) 1 VIAL SQ SCH ×4 (06:38→21:44)
[2022-12-29] MEDS: AMINO ACIDS/PROTEIN HYDROLYS 30 ML LIQUID.PKT PO SCH (09:00)
[2022-12-29] MEDS: POTASSIUM CHLORIDE TABS 10 MEQ TABLET.ER (FP) PO SCH ×2 (09:16→21:29)
[2022-12-29] MEDS: METOPROLOL TARTRATE 25 MG TABLET (FP) PO SCH ×2 (09:16→21:29)
[2022-12-29] MEDS: ENOXAPARIN NA (PORCINE) 120 MG/0.8 ML DISP.SYRIN SQ SCH ×2 (09:17→21:28)
[2022-12-29] MEDS: BUDESONIDE/FORMETEROL FUMARATE 160/4.5 mcg INHALER IH SCH ×2 (09:17→21:29)
[2022-12-29] MEDS: ASCORBIC ACID 250 MG TABLET (FP) PO SCH (09:17)
[2022-12-29] MEDS: NYSTATIN POWDER 100,000 UNITS/GM - 15 GM TOPICAL POWDER TP SCH (09:17)
[2022-12-29] MEDS: FUROSEMIDE 40 MG/4 ML INJECTABLE VIAL IVPUSH SCH ×2 (13:00→21:29)
[2022-12-29] MEDS: LIDOCAINE PATCH REMOVAL MC SCH (21:29)
[2022-12-29] MEDS: oxyCODONE HCL 5 MG TABLET PO PRN (21:30)
[2022-12-30] MEDS: INSULIN SLIDING SCALE (NOVOLOG) 1 VIAL SQ SCH ×4 (06:04→21:46)
[2022-12-30] MEDS: ASCORBIC ACID 250 MG TABLET (FP) PO SCH (09:31)
[2022-12-30] MEDS: METOPROLOL TARTRATE 25 MG TABLET (FP) PO SCH ×2 (09:31→21:45)
[2022-12-30] MEDS: ENOXAPARIN NA (PORCINE) 120 MG/0.8 ML DISP.SYRIN SQ SCH ×2 (09:31→21:45)
[2022-12-30] MEDS: NYSTATIN POWDER 100,000 UNITS/GM - 15 GM TOPICAL POWDER TP SCH (09:31)
[2022-12-30] MEDS: AMINO ACIDS/PROTEIN HYDROLYS 30 ML LIQUID.PKT PO SCH (09:31)
[2022-12-30] MEDS: POTASSIUM CHLORIDE TABS 10 MEQ TABLET.ER (FP) PO SCH ×2 (09:31→21:46)
[2022-12-30] MEDS: BUDESONIDE/FORMETEROL FUMARATE 160/4.5 mcg INHALER IH SCH ×2 (09:32→22:26)
[2022-12-30] MEDS: ACETAMINOPHEN 325 MG TABLET (FP) PO PRN (09:34)
[2022-12-30] MEDS: oxyCODONE HCL 5 MG TABLET PO PRN ×2 (09:35→19:47)
[2022-12-30] MEDS ORDERED: FUROSEMIDE 40 MG/4 ML INJECTABLE VIAL IVPUSH SCH (11:28)
[2022-12-30 11:32] LABS: BASO % 0.2 % (0-2.0); EOS % 2.9 % (0-4.5); HEMATOCRIT 32.9 % (32.4-45.2); HEMOGLOBIN 10.3 GM/dL (10.7-15.3); LYMPH % 23.6 % (8-40); MCH 23.7 pg (25.7-33.7); MCHC 31.3 g/dl (32.0-36.0); MEAN CELL VOLUME 75.6 fl (80-96); MEAN PLT VOLUME 8.4 fl (7.5-11.1); MONO % 8.5 % (3.8-10.2); NEUT % 64.8 % (42.8-82.8); PLATELET COUNT 175 10^3/uL (134-434); RBC 4.36 M/mm3 (3.60-5.2)
[2022-12-30 11:42] LABS: CHLORIDE 90 mmol/L (98-107); SODIUM 142 mmol/L (136-145)
[2022-12-30 11:43] LABS: CALCIUM 8.7 mg/dL (8.5-10.1)
[2022-12-30 11:44] LABS: ALBUMIN 2.8 g/dl (3.4-5.0); BLOOD UREA NITROGEN 16.4 mg/dL (7-18); GLUCOSE,RANDOM 159 mg/dL (74-106); MAGNESIUM 1.8 mg/dL (1.8-2.4)
[2022-12-30 11:47] LABS: CREATININE 0.4 mg/dL (0.55-1.3); SGOT/AST 19 U/L (15-37); SGPT/ALT 12 U/L (13-61)
[2022-12-30 11:49] LABS: BILIRUBIN,TOTAL 0.6 mg/dL (0.2-1); TOT PROT 5.8 g/dl (6.4-8.2)
[2022-12-30 11:50] LABS: ALK PHOS 63 U/L (45-117)
[2022-12-30 11:51] LABS: ANION GAP 6 MMOL/L (8-16); CO2 > 45 mmol/L (21-32)
[2022-12-30 12:36] LABS: ARTERIAL BLD GAS O2 SATURATION 95.8 % (95-98); ARTERIAL BLOOD GAS BASE EXCESS 23.1 mmol/L (-2-2); ARTERIAL BLOOD GAS pH 7.445 (7.350-7.450)
[2022-12-30 13:06] LABS: ALLENS TEST POSITIVE
[2022-12-30 13:07] LABS: VENT MODE S/T; VENT RATE 12
[2022-12-30] MEDS: ALBUMIN HUMAN 25% 100 ML VIAL IV SCH (13:30)
[2022-12-30] MEDS ORDERED: METOPROLOL TARTRATE 25 MG TABLET (FP) PO SCH (13:33)
[2022-12-30] MEDS: FUROSEMIDE 40 MG/4 ML INJECTABLE VIAL IVPUSH SCH (14:52)
[2022-12-30] MEDS: LIDOCAINE PATCH REMOVAL MC SCH ×2 (21:48→22:55)
[2022-12-31] MEDS: ALBUMIN HUMAN 25% 100 ML VIAL IV SCH ×2 (06:25→14:43)
[2022-12-31] MEDS: FUROSEMIDE 40 MG/4 ML INJECTABLE VIAL IVPUSH SCH ×2 (06:26→14:44)
[2022-12-31] MEDS: INSULIN SLIDING SCALE (NOVOLOG) 1 VIAL SQ SCH ×4 (06:35→22:39)
[2022-12-31] MEDS: ALBUTEROL SO4 2.5/IPRATROPIUM 0.5 INH SOL 3 ML VIAL.NEB. NEB PRN ×3 (07:20→15:13)
[2022-12-31] MEDS: AMINO ACIDS/PROTEIN HYDROLYS 30 ML LIQUID.PKT PO SCH (10:02)
[2022-12-31] MEDS: ENOXAPARIN NA (PORCINE) 120 MG/0.8 ML DISP.SYRIN SQ SCH ×2 (10:03→22:39)
[2022-12-31] MEDS: ASCORBIC ACID 250 MG TABLET (FP) PO SCH (10:03)
[2022-12-31] MEDS: NYSTATIN POWDER 100,000 UNITS/GM - 15 GM TOPICAL POWDER TP SCH (10:03)
[2022-12-31] MEDS: POTASSIUM CHLORIDE TABS 10 MEQ TABLET.ER (FP) PO SCH ×2 (10:03→22:38)
[2022-12-31] MEDS: METOPROLOL TARTRATE 25 MG TABLET (FP) PO SCH ×2 (10:03→22:38)
[2022-12-31] MEDS: BUDESONIDE/FORMETEROL FUMARATE 160/4.5 mcg INHALER IH SCH ×2 (10:04→22:39)
[2022-12-31] MEDS: ACETAMINOPHEN 325 MG TABLET (FP) PO PRN ×2 (13:01→22:45)
[2022-12-31] MEDS: oxyCODONE HCL 5 MG TABLET PO PRN ×2 (13:02→22:46)
[2022-12-31] MEDS: LIDOCAINE PATCH REMOVAL MC SCH (22:26)
[2023-01-01] MEDS: ALBUMIN HUMAN 25% 100 ML VIAL IV SCH (06:04)
[2023-01-01] MEDS: INSULIN SLIDING SCALE (NOVOLOG) 1 VIAL SQ SCH ×4 (06:10→21:38)
[2023-01-01] MEDS: FUROSEMIDE 40 MG/4 ML INJECTABLE VIAL IVPUSH SCH (06:50)
[2023-01-01 08:23] LABS: BASO % 0.3 % (0-2.0); EOS % 5.8 % (0-4.5); HEMATOCRIT 30.7 % (32.4-45.2); HEMOGLOBIN 9.7 GM/dL (10.7-15.3); LYMPH % 31.2 % (8-40); MCH 23.8 pg (25.7-33.7); MCHC 31.4 g/dl (32.0-36.0); MEAN CELL VOLUME 75.6 fl (80-96); MEAN PLT VOLUME 8.6 fl (7.5-11.1); MONO % 8.5 % (3.8-10.2); NEUT % 54.2 % (42.8-82.8); PLATELET COUNT 172 10^3/uL (134-434); RBC 4.06 M/mm3 (3.60-5.2); RDW 19.8 % (11.6-15.6); WHITE BLOOD COUNT 5.8 K/mm3 (4.0-10.0)
[2023-01-01] MEDS: AMINO ACIDS/PROTEIN HYDROLYS 30 ML LIQUID.PKT PO SCH (09:00)
[2023-01-01 09:07] LABS: CHLORIDE 89 mmol/L (98-107); SODIUM 141 mmol/L (136-145)
[2023-01-01 09:09] LABS: CALCIUM 8.8 mg/dL (8.5-10.1)
[2023-01-01 09:10] LABS: BLOOD UREA NITROGEN 12.8 mg/dL (7-18); GLUCOSE,RANDOM 123 mg/dL (74-106)
[2023-01-01 09:12] LABS: SGPT/ALT 11 U/L (13-61)
[2023-01-01 09:13] LABS: CREATININE 0.4 mg/dL (0.55-1.3); SGOT/AST 10 U/L (15-37)
[2023-01-01 09:14] LABS: BILIRUBIN,TOTAL 0.8 mg/dL (0.2-1); TOT PROT 6.5 g/dl (6.4-8.2)
[2023-01-01 09:15] LABS: ALK PHOS 50 U/L (45-117)
[2023-01-01 09:21] LABS: ALBUMIN 3.7 g/dl (3.4-5.0); ANION GAP 7 MMOL/L (8-16); CO2 > 45 mmol/L (21-32)
[2023-01-01] MEDS: ENOXAPARIN NA (PORCINE) 120 MG/0.8 ML DISP.SYRIN SQ SCH (09:30)
[2023-01-01] MEDS: METOPROLOL TARTRATE 25 MG TABLET (FP) PO SCH ×2 (09:30→21:34)
[2023-01-01] MEDS: POTASSIUM CHLORIDE TABS 10 MEQ TABLET.ER (FP) PO SCH ×2 (09:31→21:34)
[2023-01-01] MEDS: NYSTATIN POWDER 100,000 UNITS/GM - 15 GM TOPICAL POWDER TP SCH (09:31)
[2023-01-01] MEDS: ASCORBIC ACID 250 MG TABLET (FP) PO SCH (09:31)
[2023-01-01] MEDS: BUDESONIDE/FORMETEROL FUMARATE 160/4.5 mcg INHALER IH SCH ×2 (09:31→21:38)
[2023-01-01] MEDS ORDERED: POTASSIUM CHLORIDE TABS 10 MEQ TABLET.ER (FP) PO ONE (10:44)
[2023-01-01] MEDS: oxyCODONE HCL 5 MG TABLET PO PRN ×2 (11:56→21:37)
[2023-01-01] MEDS: ACETAMINOPHEN 325 MG TABLET (FP) PO PRN (12:01)
[2023-01-01] MEDS: APIXABAN 5 MG TABLET PO SCH (21:34)
[2023-01-02] MEDS: INSULIN SLIDING SCALE (NOVOLOG) 1 VIAL SQ SCH ×4 (06:24→21:40)
[2023-01-02 07:05] LABS: BASO % 0.5 % (0-2.0); HEMOGLOBIN 9.8 GM/dL (10.7-15.3); MCHC 31.6 g/dl (32.0-36.0); MEAN CELL VOLUME 75.8 fl (80-96); MEAN PLT VOLUME 8.9 fl (7.5-11.1); MONO % 8.3 % (3.8-10.2); NEUT % 48.2 % (42.8-82.8); PLATELET COUNT 169 10^3/uL (134-434); RDW 19.8 % (11.6-15.6); WHITE BLOOD COUNT 5.8 K/mm3 (4.0-10.0)
[2023-01-02 07:10] LABS: CHLORIDE 93 mmol/L (98-107); SODIUM 143 mmol/L (136-145)
[2023-01-02 07:13] LABS: ALBUMIN 3.3 g/dl (3.4-5.0); BLOOD UREA NITROGEN 16.1 mg/dL (7-18); CALCIUM 8.8 mg/dL (8.5-10.1); GLUCOSE,RANDOM 110 mg/dL (74-106)
[2023-01-02 07:16] LABS: CREATININE 0.5 mg/dL (0.55-1.3); SGPT/ALT 13 U/L (13-61)
[2023-01-02 07:17] LABS: SGOT/AST 12 U/L (15-37)
[2023-01-02 07:18] LABS: BILIRUBIN,TOTAL 0.7 mg/dL (0.2-1)
[2023-01-02 07:19] LABS: ALK PHOS 51 U/L (45-117)
[2023-01-02 07:40] LABS: ANION GAP 5 MMOL/L (8-16); CO2 > 45 mmol/L (21-32)
[2023-01-02] MEDS: APIXABAN 5 MG TABLET PO SCH ×2 (10:54→21:40)
[2023-01-02] MEDS: TORSEMIDE 100 MG TABLET PO SCH (10:54)
[2023-01-02] MEDS: ASCORBIC ACID 250 MG TABLET (FP) PO SCH (10:54)
[2023-01-02] MEDS: POTASSIUM CHLORIDE TABS 10 MEQ TABLET.ER (FP) PO SCH ×2 (10:54→21:40)
[2023-01-02] MEDS: AMINO ACIDS/PROTEIN HYDROLYS 30 ML LIQUID.PKT PO SCH (10:54)
[2023-01-02] MEDS: METOPROLOL TARTRATE 25 MG TABLET (FP) PO SCH ×2 (10:55→21:40)
[2023-01-02] MEDS: NYSTATIN POWDER 100,000 UNITS/GM - 15 GM TOPICAL POWDER TP SCH (10:58)
[2023-01-02] MEDS: BUDESONIDE/FORMETEROL FUMARATE 160/4.5 mcg INHALER IH SCH ×2 (10:58→21:41)
[2023-01-02] MEDS: oxyCODONE HCL 5 MG TABLET PO PRN (17:09)
[2023-01-02] MEDS: ACETAMINOPHEN 325 MG TABLET (FP) PO PRN (17:10)
[2023-01-02] MEDS: busPIRone HCL 10 MG TABLET (FP) PO SCH (21:40)
[2023-01-03] MEDS: INSULIN SLIDING SCALE (NOVOLOG) 1 VIAL SQ SCH ×4 (06:16→21:50)
[2023-01-03] MEDS: ASCORBIC ACID 250 MG TABLET (FP) PO SCH (10:44)
[2023-01-03] MEDS: busPIRone HCL 10 MG TABLET (FP) PO SCH ×2 (10:44→21:49)
[2023-01-03] MEDS: APIXABAN 5 MG TABLET PO SCH ×2 (10:44→21:50)
[2023-01-03] MEDS: TORSEMIDE 100 MG TABLET PO SCH (10:44)
[2023-01-03] MEDS: POTASSIUM CHLORIDE TABS 10 MEQ TABLET.ER (FP) PO SCH ×2 (10:44→21:49)
[2023-01-03] MEDS: NYSTATIN POWDER 100,000 UNITS/GM - 15 GM TOPICAL POWDER TP SCH (10:45)
[2023-01-03] MEDS: AMINO ACIDS/PROTEIN HYDROLYS 30 ML LIQUID.PKT PO SCH (10:45)
[2023-01-03] MEDS: BUDESONIDE/FORMETEROL FUMARATE 160/4.5 mcg INHALER IH SCH ×2 (10:46→21:52)
[2023-01-04] MEDS: INSULIN SLIDING SCALE (NOVOLOG) 1 VIAL SQ SCH ×4 (06:07→22:48)
[2023-01-04] MEDS: busPIRone HCL 10 MG TABLET (FP) PO SCH ×2 (10:03→22:47)
[2023-01-04] MEDS: APIXABAN 5 MG TABLET PO SCH ×2 (10:03→22:46)
[2023-01-04] MEDS: TORSEMIDE 100 MG TABLET PO SCH (10:03)
[2023-01-04] MEDS: POTASSIUM CHLORIDE TABS 10 MEQ TABLET.ER (FP) PO SCH ×2 (10:03→22:46)
[2023-01-04] MEDS: AMINO ACIDS/PROTEIN HYDROLYS 30 ML LIQUID.PKT PO SCH (10:03)
[2023-01-04] MEDS: NYSTATIN POWDER 100,000 UNITS/GM - 15 GM TOPICAL POWDER TP SCH (10:05)
[2023-01-04] MEDS: BUDESONIDE/FORMETEROL FUMARATE 160/4.5 mcg INHALER IH SCH ×2 (10:05→22:48)
[2023-01-04] MEDS: ASCORBIC ACID 250 MG TABLET (FP) PO SCH (10:06)
[2023-01-04] MEDS: oxyCODONE HCL 5 MG TABLET PO PRN ×2 (14:27→22:45)
[2023-01-04] MEDS: ALBUTEROL SO4 2.5/IPRATROPIUM 0.5 INH SOL 3 ML VIAL.NEB. NEB PRN (14:49)
[2023-01-04] MEDS ORDERED: BISACODYL 10 MG SUPP.RECT PR ONE (16:47)
[2023-01-04] MEDS: ACETAMINOPHEN 325 MG TABLET (FP) PO PRN (22:47)
[2023-01-04] MEDS: POLYETHYLENE GLYCOL (HEALTHYLAX) 3350 17 GM PACKET PO SCH (22:48)
[2023-01-05] MEDS: INSULIN SLIDING SCALE (NOVOLOG) 1 VIAL SQ SCH ×5 (08:00→23:10)
[2023-01-05] MEDS: AMINO ACIDS/PROTEIN HYDROLYS 30 ML LIQUID.PKT PO SCH (08:32)
[2023-01-05] MEDS: APIXABAN 5 MG TABLET PO SCH ×2 (09:10→23:12)
[2023-01-05] MEDS: POLYETHYLENE GLYCOL (HEALTHYLAX) 3350 17 GM PACKET PO SCH ×2 (09:10→23:13)
[2023-01-05] MEDS: ASCORBIC ACID 250 MG TABLET (FP) PO SCH (09:10)
[2023-01-05] MEDS: busPIRone HCL 10 MG TABLET (FP) PO SCH ×2 (09:10→23:12)
[2023-01-05] MEDS: POTASSIUM CHLORIDE TABS 10 MEQ TABLET.ER (FP) PO SCH ×2 (09:11→23:12)
[2023-01-05] MEDS: TORSEMIDE 100 MG TABLET PO SCH (09:11)
[2023-01-05] MEDS: BUDESONIDE/FORMETEROL FUMARATE 160/4.5 mcg INHALER IH SCH ×2 (09:12→23:13)
[2023-01-05] MEDS: NYSTATIN POWDER 100,000 UNITS/GM - 15 GM TOPICAL POWDER TP SCH (09:12)
[2023-01-05 10:05] LABS: CHLORIDE 91 mmol/L (98-107); SODIUM 139 mmol/L (136-145)
[2023-01-05 10:11] LABS: CALCIUM 8.8 mg/dL (8.5-10.1); GLUCOSE,RANDOM 155 mg/dL (74-106)
[2023-01-05 10:12] LABS: BLOOD UREA NITROGEN 25.2 mg/dL (7-18)
[2023-01-05 10:15] LABS: ANION GAP 4 MMOL/L (8-16); CO2 > 45 mmol/L (21-32); CREATININE 0.6 mg/dL (0.55-1.3)
[2023-01-05] MEDS: ACETAMINOPHEN 325 MG TABLET (FP) PO PRN (11:00)
[2023-01-05] MEDS: oxyCODONE HCL 5 MG TABLET PO PRN (19:25)
[2023-01-06] MEDS: oxyCODONE HCL 5 MG TABLET PO PRN ×2 (00:38→18:32)
[2023-01-06] MEDS: INSULIN SLIDING SCALE (NOVOLOG) 1 VIAL SQ SCH ×4 (06:24→21:50)
[2023-01-06] MEDS: ALBUTEROL SO4 2.5/IPRATROPIUM 0.5 INH SOL 3 ML VIAL.NEB. NEB PRN (07:41)
[2023-01-06] MEDS: AMINO ACIDS/PROTEIN HYDROLYS 30 ML LIQUID.PKT PO SCH (09:53)
[2023-01-06] MEDS: ASCORBIC ACID 250 MG TABLET (FP) PO SCH (09:53)
[2023-01-06] MEDS: POLYETHYLENE GLYCOL (HEALTHYLAX) 3350 17 GM PACKET PO SCH ×2 (09:54→21:50)
[2023-01-06] MEDS: APIXABAN 5 MG TABLET PO SCH ×2 (09:54→21:50)
[2023-01-06] MEDS: busPIRone HCL 10 MG TABLET (FP) PO SCH ×2 (09:55→21:50)
[2023-01-06] MEDS: TORSEMIDE 100 MG TABLET PO SCH (09:55)
[2023-01-06] MEDS: POTASSIUM CHLORIDE TABS 10 MEQ TABLET.ER (FP) PO SCH ×2 (09:55→21:50)
[2023-01-06] MEDS: BUDESONIDE/FORMETEROL FUMARATE 160/4.5 mcg INHALER IH SCH ×2 (09:57→21:54)
[2023-01-06] MEDS: NYSTATIN POWDER 100,000 UNITS/GM - 15 GM TOPICAL POWDER TP SCH (10:28)
[2023-01-06] MEDS: ACETAMINOPHEN 325 MG TABLET (FP) PO PRN (10:29)
[2023-01-07] MEDS: INSULIN SLIDING SCALE (NOVOLOG) 1 VIAL SQ SCH ×4 (06:06→21:13)
[2023-01-07 10:16] LABS: BASO % 0.6 % (0-2.0); EOS % 4.3 % (0-4.5); HEMATOCRIT 31.4 % (32.4-45.2); HEMOGLOBIN 9.9 GM/dL (10.7-15.3); LYMPH % 30.8 % (8-40); MCH 24.5 pg (25.7-33.7); MCHC 31.7 g/dl (32.0-36.0); MEAN CELL VOLUME 77.1 fl (80-96); MEAN PLT VOLUME 9.3 fl (7.5-11.1); MONO % 8.5 % (3.8-10.2); NEUT % 55.8 % (42.8-82.8); PLATELET COUNT 168 10^3/uL (134-434); RBC 4.07 M/mm3 (3.60-5.2); RDW 21.4 % (11.6-15.6)
[2023-01-07] MEDS: POLYETHYLENE GLYCOL (HEALTHYLAX) 3350 17 GM PACKET PO SCH ×2 (10:20→21:13)
[2023-01-07] MEDS: AMINO ACIDS/PROTEIN HYDROLYS 30 ML LIQUID.PKT PO SCH (10:20)
[2023-01-07] MEDS: ASCORBIC ACID 250 MG TABLET (FP) PO SCH (10:20)
[2023-01-07] MEDS: APIXABAN 5 MG TABLET PO SCH ×2 (10:21→21:13)
[2023-01-07] MEDS: busPIRone HCL 10 MG TABLET (FP) PO SCH ×2 (10:21→21:13)
[2023-01-07] MEDS: NYSTATIN POWDER 100,000 UNITS/GM - 15 GM TOPICAL POWDER TP SCH (10:21)
[2023-01-07] MEDS: POTASSIUM CHLORIDE TABS 10 MEQ TABLET.ER (FP) PO SCH ×2 (10:21→21:13)
[2023-01-07] MEDS: TORSEMIDE 100 MG TABLET PO SCH (10:21)
[2023-01-07] MEDS: BUDESONIDE/FORMETEROL FUMARATE 160/4.5 mcg INHALER IH SCH ×2 (10:21→21:13)
[2023-01-07 10:38] LABS: ALBUMIN 2.8 g/dl (3.4-5.0); BLOOD UREA NITROGEN 22.8 mg/dL (7-18); CALCIUM 8.9 mg/dL (8.5-10.1)
[2023-01-07 10:41] LABS: ANISOCYTOSIS 3+; CREATININE 0.7 mg/dL (0.55-1.3); MACROCYTOSIS 0
[2023-01-07 10:43] LABS: BILIRUBIN,TOTAL 0.5 mg/dL (0.2-1)
[2023-01-07] MEDS: ACETAMINOPHEN 325 MG TABLET (FP) PO PRN (17:40)
[2023-01-08] MEDS: INSULIN SLIDING SCALE (NOVOLOG) 1 VIAL SQ SCH ×4 (06:22→21:49)
[2023-01-08] MEDS: POTASSIUM CHLORIDE TABS 10 MEQ TABLET.ER (FP) PO SCH ×2 (10:03→21:49)
[2023-01-08] MEDS: busPIRone HCL 10 MG TABLET (FP) PO SCH ×2 (10:03→21:49)
[2023-01-08] MEDS: AMINO ACIDS/PROTEIN HYDROLYS 30 ML LIQUID.PKT PO SCH (10:03)
[2023-01-08] MEDS: APIXABAN 5 MG TABLET PO SCH ×2 (10:03→21:49)
[2023-01-08] MEDS: TORSEMIDE 100 MG TABLET PO SCH (10:03)
[2023-01-08] MEDS: NYSTATIN POWDER 100,000 UNITS/GM - 15 GM TOPICAL POWDER TP SCH (10:04)
[2023-01-08] MEDS: POLYETHYLENE GLYCOL (HEALTHYLAX) 3350 17 GM PACKET PO SCH ×2 (10:04→21:48)
[2023-01-08] MEDS: BUDESONIDE/FORMETEROL FUMARATE 160/4.5 mcg INHALER IH SCH ×2 (10:04→21:52)
[2023-01-08] MEDS: ASCORBIC ACID 250 MG TABLET (FP) PO SCH (10:04)
[2023-01-08] MEDS: ACETAMINOPHEN 325 MG TABLET (FP) PO PRN ×2 (10:15→21:56)
[2023-01-08] MEDS ORDERED: BISACODYL 5 MG TABLET.DR (FP) PO ONE (11:30)
[2023-01-08] MEDS: oxyCODONE HCL 5 MG TABLET PO PRN (21:56)
[2023-01-09] MEDS: oxyCODONE HCL 5 MG TABLET PO PRN (06:06)
[2023-01-09] MEDS: ACETAMINOPHEN 325 MG TABLET (FP) PO PRN (06:07)
[2023-01-09] MEDS: INSULIN SLIDING SCALE (NOVOLOG) 1 VIAL SQ SCH (06:08)
[2023-01-09 08:38] VITALS: PULSE 97
[2023-01-09 09:03] VITALS: BP 89/55; RESP 16; TEMP 99
[2023-01-09] MEDS: busPIRone HCL 10 MG TABLET (FP) PO SCH (09:43)
[2023-01-09] MEDS: POLYETHYLENE GLYCOL (HEALTHYLAX) 3350 17 GM PACKET PO SCH (09:43)
[2023-01-09] MEDS: AMINO ACIDS/PROTEIN HYDROLYS 30 ML LIQUID.PKT PO SCH (09:43)
[2023-01-09] MEDS: TORSEMIDE 100 MG TABLET PO SCH (09:43)
[2023-01-09] MEDS: ASCORBIC ACID 250 MG TABLET (FP) PO SCH (09:43)
[2023-01-09] MEDS: APIXABAN 5 MG TABLET PO SCH (09:43)
[2023-01-09] MEDS: POTASSIUM CHLORIDE TABS 10 MEQ TABLET.ER (FP) PO SCH (09:44)
[2023-01-09] MEDS: BUDESONIDE/FORMETEROL FUMARATE 160/4.5 mcg INHALER IH SCH (09:45)
[2023-01-09] MEDS: NYSTATIN POWDER 100,000 UNITS/GM - 15 GM TOPICAL POWDER TP SCH (09:46)
== END 2023-01-09 12:02 | DRG 291 ==
LOC: JER 12:50 → JERBED 15:54 → JICU 17:58 → J4W 12-24 21:36 → J4S 12-25 14:25
PROVIDERS: ADMIT Internal Medicine; ATTEND Family Medicine
DX: I11.0 Hypertensive heart disease with heart failure (principal); I50.43 Acute on chronic combined systolic (congestive) and diastolic (congestive) heart failure; J96.21 Acute and chronic respiratory failure with hypoxia; J96.22 Acute and chronic respiratory failure with hypercapnia; E87.20 Acidosis, unspecified; Z68.42 Body mass index [BMI] 45.0-49.9, adult; I69.354 Hemiplegia and hemiparesis following cerebral infarction affecting left non-dominant side; N39.0 Urinary tract infection, site not specified; I48.11 Longstanding persistent atrial fibrillation; E87.5 Hyperkalemia; J44.9 Chronic obstructive pulmonary disease, unspecified; E78.5 Hyperlipidemia, unspecified; E11.9 Type 2 diabetes mellitus without complications; E66.01 Morbid (severe) obesity due to excess calories; G47.33 Obstructive sleep apnea (adult) (pediatric); D72.829 Elevated white blood cell count, unspecified; M54.50 Low back pain, unspecified; I25.10 Atherosclerotic heart disease of native coronary artery without angina pectoris; I25.2 Old myocardial infarction; B96.4 Proteus (mirabilis) (morganii) as the cause of diseases classified elsewhere; Z74.01 Bed confinement status; Z85.118 Personal history of other malignant neoplasm of bronchus and lung; E87.6 Hypokalemia; D64.9 Anemia, unspecified
CPT/HCPCS: 0241U-QW; 36415; 36600; 71045-TC-FY; 73502-TC-RT-FY; 73552-TC-RT-FY; 80048; 80053; 81003; 82550; 82803; 82962; 83036; 83605; 83690; 83735; 83880; 84100; 84484; 85025; 85027; 85379; 87040; 87086; 87186; 93005; 93010; 93306-TC; 94640; 94660; 97161-GP; 99291; 99292; C9803-CS; U0003; U0005

== ENCOUNTER 2023-03-17 17:50 | Inpatient (IN) | payer OTHER ==
[2023-03-17] MEDS ORDERED: DEXTROSE 50%-WATER 25 GM/50 ML DISP.SYRIN ONE ×2 (17:56→18:17)
[2023-03-17] MEDS ORDERED: DEXTROSE 50%-WATER - 25 GM/50 ML VIAL IVPUSH ONE (17:57)
[2023-03-17 18:46] LABS: VENOUS BASE EXCESS -0.3 mmol/L (-2-2); VENOUS O2 SATURATION 82.7 % (70-80); VENOUS PCO2 65.2 mmHg (38-52); VENOUS PH 7.249 (7.310-7.410)
[2023-03-17 18:49] LABS: URINE APPEARANCE CLEAR; URINE BILIRUBIN NEGATIVE (NEGATIVE); URINE COLOR YELLOW; URINE GLUCOSE (UA) NEGATIVE (NEGATIVE); URINE KETONE NEGATIVE (NEGATIVE); URINE LEUK ESTERASE NEGATIVE (NEGATIVE); URINE NITRITE NEGATIVE (NEGATIVE); URINE PROTEIN NEGATIVE (NEGATIVE); URINE UROBILINOGEN 0.2 mg/dL (0.2-1.0)
[2023-03-17 18:56] LABS: BASO % 0.6 % (0-2.0); EOS % 0.1 % (0-4.5); HEMATOCRIT 36.3 % (32.4-45.2); HEMOGLOBIN 11.6 GM/dL (10.7-15.3); LYMPH % 11.1 % (8-40); MCHC 32.1 g/dl (32.0-36.0); MEAN CELL VOLUME 80.8 fl (80-96); MEAN PLT VOLUME 9.8 fl (7.5-11.1); MONO % 3.2 % (3.8-10.2); PLATELET COUNT 242 10^3/uL (134-434); RBC 4.49 M/mm3 (3.60-5.2); RDW 19.5 % (11.6-15.6); WHITE BLOOD COUNT 16.3 K/mm3 (4.0-10.0)
[2023-03-17] MEDS ORDERED: VANCOMYCIN 1 GM in D5W (PRE-DOCKED) 1,000 MG/250 ML (RESTRICTED TO ID ONLY IVPB ONE (19:02)
[2023-03-17] MEDS ORDERED: PIPERACILLIN/TAZOB 3.375 GM 3.375 GM in DEXTROSE 5%-WATER - 50 ML IVPB ONE (19:02)
[2023-03-17 19:06] LABS: CHLORIDE 102 mmol/L (98-107); SODIUM 128 mmol/L (136-145)
[2023-03-17 19:09] LABS: ALBUMIN 2.1 g/dl (3.4-5.0); BLOOD UREA NITROGEN 77.4 mg/dL (7-18); CALCIUM 7.6 mg/dL (8.5-10.1); CO2 30 mmol/L (21-32); GLUCOSE,RANDOM 200 mg/dL (74-106)
[2023-03-17 19:12] LABS: CREATININE 1.8 mg/dL (0.55-1.3)
[2023-03-17 19:14] LABS: TOT PROT 7.2 g/dl (6.4-8.2)
[2023-03-17 19:15] LABS: ALK PHOS 101 U/L (45-117)
[2023-03-17] MEDS ORDERED: SODIUM CHLORIDE 0.9% 500 ML INFUS.BAG IV ONE ×2 (19:15)
[2023-03-17] MEDS ORDERED: PIPERACILLIN/TAZOB 3.375 GM 3.375 GM/50 ML BAG IVPB ONE (19:40)
[2023-03-17] MEDS ORDERED: VANCOMYCIN/WATER FOR INJ (PEG) 1,000 MG/200 ML BAG IVPB ONE (19:40)
[2023-03-17 20:25] LABS: ANION GAP -4 MMOL/L (8-16); POTASSIUM > 10.0 mmol/L (3.5-5.1)
[2023-03-17 20:30] LABS: POTASSIUM 4.9 mmol/L (3.5-5.1)
[2023-03-17 20:32] LABS: ALBUMIN 2.5 g/dl (3.4-5.0); BLOOD UREA NITROGEN 80.1 mg/dL (7-18); CALCIUM 8.3 mg/dL (8.5-10.1)
[2023-03-17 20:35] LABS: CREATININE 1.9 mg/dL (0.55-1.3)
[2023-03-17 20:37] LABS: BILIRUBIN,TOTAL 0.2 mg/dL (0.2-1)
[2023-03-17 21:30] LABS: MAGNESIUM 3.1 mg/dL (1.8-2.4)
[2023-03-17 21:34] LABS: PHOSPHOROUS 5.8 mg/dL (2.5-4.9)
[2023-03-17 21:38] LABS: N-TERMINAL BNP 7162.7 pg/ml (5-125)
[2023-03-17] MEDS ORDERED: DEXTROSE 50%-WATER 25 GM/50 ML DISP.SYRIN IVPUSH PRN (22:41)
[2023-03-18] MEDS ORDERED: PIPERACILLIN/TAZOB 4.5 GM 4.5 GM/100 ML BAG IVPB ONE ×2 (02:33→08:36)
[2023-03-18] MEDS: PIPERACILLIN/TAZOB 4.5 GM 4.5 GM in DEXTROSE 5%-WATER 100 ML IVPB SCH ×3 (02:43→15:41)
[2023-03-18] MEDS ORDERED: DEXTROSE 50%-WATER - 25 GM/50 ML VIAL IVPUSH PRN (04:00)
[2023-03-18] MEDS ORDERED: GLUCAGON 1 MG KIT IM ONE (04:01)
[2023-03-18] MEDS ORDERED: DEXTROSE 5%-WATER - 1,000 ML IV SCH (04:15)
[2023-03-18 06:26] LABS: BASO % 0.5 % (0-2.0); EOS % 0.6 % (0-4.5); HEMOGLOBIN 11.1 GM/dL (10.7-15.3); LYMPH % 9.8 % (8-40); MCH 25.6 pg (25.7-33.7); MCHC 31.6 g/dl (32.0-36.0); MEAN CELL VOLUME 80.9 fl (80-96); MEAN PLT VOLUME 9.4 fl (7.5-11.1); MONO % 4.1 % (3.8-10.2); PLATELET COUNT 225 10^3/uL (134-434); RBC 4.33 M/mm3 (3.60-5.2); RDW 19.4 % (11.6-15.6); WHITE BLOOD COUNT 19.6 K/mm3 (4.0-10.0)
[2023-03-18] MEDS ORDERED: ALBUTEROL SO4 2.5/IPRATROPIUM 0.5 INH SOL 3 ML VIAL.NEB. NEB PRN (07:01)
[2023-03-18 07:06] LABS: POTASSIUM 4.4 mmol/L (3.5-5.1)
[2023-03-18 07:08] LABS: ALBUMIN 2.5 g/dl (3.4-5.0); BLOOD UREA NITROGEN 75.5 mg/dL (7-18); CALCIUM 8.4 mg/dL (8.5-10.1)
[2023-03-18 07:11] LABS: CREATININE 1.5 mg/dL (0.55-1.3)
[2023-03-18 07:13] LABS: BILIRUBIN,TOTAL 0.3 mg/dL (0.2-1); TOT PROT 6.3 g/dl (6.4-8.2)
[2023-03-18] MEDS ORDERED: APIXABAN 5 MG TABLET ONE (08:36)
[2023-03-18] MEDS ORDERED: VANCOMYCIN/WATER FOR INJ (PEG) 1,000 MG/200 ML BAG IVPB ONE (08:36)
[2023-03-18] MEDS ORDERED: VANCOMYCIN/WATER FOR INJ (PEG) 1,000 MG/200 ML BAG IVPB SCH (09:00)
[2023-03-18] MEDS: APIXABAN 5 MG TABLET PO SCH ×2 (09:02→22:14)
[2023-03-18] MEDS: methylPREDNISolone NA SUCC 40 MG/1 ML VIAL IVPUSH SCH ×2 (10:15→17:01)
[2023-03-18] MEDS ORDERED: FUROSEMIDE 40 MG/4 ML INJECTABLE VIAL IVPUSH ONE (10:45)
[2023-03-18] MEDS: DEXTROSE 5%-WATER - 1,000 ML IV SCH (11:12)
[2023-03-18] MEDS ORDERED: LACTATED RINGERS SOLUTION 1,000 ML/1,000 ML INFUS.BAG IV STA (13:24)
[2023-03-18 13:46] LABS: ARTERIAL BLD GAS O2 SATURATION 94.1 % (95-98); ARTERIAL BLOOD GAS BASE EXCESS 4.3 mmol/L (-2-2); ARTERIAL BLOOD GAS PO2 79.1 mmHg (80-100); ARTERIAL BLOOD GAS pH 7.302 (7.350-7.450)
[2023-03-18 13:47] LABS: ALLENS TEST POSITIVE
[2023-03-18] MEDS ORDERED: DEXTROSE 50%-WATER 25 GM/50 ML DISP.SYRIN ONE (13:53)
[2023-03-18 16:29] LABS: ARTERIAL BLD GAS O2 SATURATION 89.4 % (95-98); ARTERIAL BLOOD GAS BASE EXCESS 4.8 mmol/L (-2-2); ARTERIAL BLOOD GAS PO2 59.3 mmHg (80-100); ARTERIAL BLOOD GAS pH 7.368 (7.350-7.450)
[2023-03-18] MEDS: COLLAGENASE CLOSTRIDIUM HIST. 30 GRAMS TUBE TP SCH (16:29)
[2023-03-18 16:35] LABS: ALLENS TEST POSITIVE
[2023-03-18 16:36] LABS: VENT MODE S/T; VENT RATE 14
[2023-03-18] MEDS: ATORVASTATIN CA 40 MG TABLET (FP) PO SCH (22:14)
[2023-03-19] MEDS: methylPREDNISolone NA SUCC 40 MG/1 ML VIAL IVPUSH SCH ×3 (01:11→17:24)
[2023-03-19] MEDS: PIPERACILLIN/TAZOB 4.5 GM 4.5 GM in DEXTROSE 5%-WATER 100 ML IVPB SCH ×3 (01:21→17:24)
[2023-03-19] MEDS ORDERED: PIPERACILLIN/TAZOB 4.5 GM 4.5 GM in DEXTROSE 5%-WATER 100 ML IVPB SCH (03:00)
[2023-03-19] MEDS: APIXABAN 5 MG TABLET PO SCH ×2 (09:00→23:00)
[2023-03-19] MEDS ORDERED: VANCOMYCIN/WATER FOR INJ (PEG) 1,000 MG/200 ML BAG IVPB SCH (09:00)
[2023-03-19] MEDS: DEXTROSE 5%-WATER - 1,000 ML IV SCH (09:01)
[2023-03-19] MEDS: COLLAGENASE CLOSTRIDIUM HIST. 30 GRAMS TUBE TP SCH (09:02)
[2023-03-19] MEDS: ATORVASTATIN CA 40 MG TABLET (FP) PO SCH (23:00)
[2023-03-20] MEDS: methylPREDNISolone NA SUCC 40 MG/1 ML VIAL IVPUSH SCH ×3 (02:10→17:34)
[2023-03-20] MEDS: PIPERACILLIN/TAZOB 4.5 GM 4.5 GM in DEXTROSE 5%-WATER 100 ML IVPB SCH ×3 (02:10→17:34)
[2023-03-20 08:43] LABS: BASO % 0.2 % (0-2.0); HEMATOCRIT 35.1 % (32.4-45.2); HEMOGLOBIN 10.9 GM/dL (10.7-15.3); LYMPH % 17.8 % (8-40); MCHC 31.2 g/dl (32.0-36.0); MEAN PLT VOLUME 9.6 fl (7.5-11.1); PLATELET COUNT 233 10^3/uL (134-434); RBC 4.38 M/mm3 (3.60-5.2); RDW 19.7 % (11.6-15.6); WHITE BLOOD COUNT 6.3 K/mm3 (4.0-10.0)
[2023-03-20 08:45] LABS: POTASSIUM 4.6 mmol/L (3.5-5.1)
[2023-03-20 08:47] LABS: CALCIUM 8.6 mg/dL (8.5-10.1)
[2023-03-20 08:48] LABS: ALBUMIN 2.6 g/dl (3.4-5.0)
[2023-03-20 08:50] LABS: CREATININE 0.9 mg/dL (0.55-1.3)
[2023-03-20 08:52] LABS: BILIRUBIN,TOTAL 0.5 mg/dL (0.2-1); TOT PROT 6.3 g/dl (6.4-8.2)
[2023-03-20] MEDS: MULTIVITAMINS (DAILY MVI) TABLET (FP) PO SCH (10:13)
[2023-03-20] MEDS: ASCORBIC ACID 250 MG TABLET (FP) PO SCH (10:13)
[2023-03-20] MEDS: APIXABAN 5 MG TABLET PO SCH ×2 (10:13→21:42)
[2023-03-20] MEDS: DEXTROSE 5%-WATER - 1,000 ML IV SCH ×2 (10:14→16:41)
[2023-03-20] MEDS: COLLAGENASE CLOSTRIDIUM HIST. 30 GRAMS TUBE TP SCH (10:14)
[2023-03-20] MEDS ORDERED: ALBUTEROL SO4 2.5/IPRATROPIUM 0.5 INH SOL 3 ML VIAL.NEB. NEB PRN (13:25)
[2023-03-20] MEDS ORDERED: DEXTROSE 50%-WATER - 25 GM/50 ML VIAL IVPUSH PRN (13:25)
[2023-03-20] MEDS ORDERED: INSULIN (NOVOLOG) ASPART 100 UNITS/ML 10ML VIAL ONE ×2 (16:46→22:10)
[2023-03-20] MEDS: INSULIN (NOVOLOG) ASPART 100 UNITS/ML 10ML VIAL SQ SCH ×2 (16:49→22:18)
[2023-03-20] MEDS: LIDOCAINE 5% TOPICAL PATCH TP SCH (19:31)
[2023-03-20] MEDS: ACETAMINOPHEN 325 MG TABLET (FP) PO PRN (19:31)
[2023-03-20] MEDS: ATORVASTATIN CA 40 MG TABLET (FP) PO SCH (21:42)
[2023-03-20] MEDS: LIDOCAINE PATCH REMOVAL MC SCH (22:40)
[2023-03-21] MEDS: methylPREDNISolone NA SUCC 40 MG/1 ML VIAL IVPUSH SCH ×3 (01:33→17:10)
[2023-03-21] MEDS: PIPERACILLIN/TAZOB 4.5 GM 4.5 GM in DEXTROSE 5%-WATER 100 ML IVPB SCH ×3 (01:35→17:10)
[2023-03-21] MEDS ORDERED: INSULIN (NOVOLOG) ASPART 100 UNITS/ML 10ML VIAL ONE ×3 (06:06→21:18)
[2023-03-21] MEDS: INSULIN (NOVOLOG) ASPART 100 UNITS/ML 10ML VIAL SQ SCH ×4 (06:09→21:22)
[2023-03-21] MEDS: APIXABAN 5 MG TABLET PO SCH ×2 (10:38→21:22)
[2023-03-21] MEDS: MULTIVITAMINS (DAILY MVI) TABLET (FP) PO SCH (10:38)
[2023-03-21] MEDS: LIDOCAINE 5% TOPICAL PATCH TP SCH (10:38)
[2023-03-21] MEDS: ASCORBIC ACID 250 MG TABLET (FP) PO SCH (10:38)
[2023-03-21] MEDS: COLLAGENASE CLOSTRIDIUM HIST. 30 GRAMS TUBE TP SCH (10:39)
[2023-03-21] MEDS: ACETAMINOPHEN 325 MG TABLET (FP) PO PRN ×2 (13:19→19:25)
[2023-03-21 14:56] LABS: BASO % 0.1 % (0-2.0); HEMATOCRIT 36.5 % (32.4-45.2); HEMOGLOBIN 11.2 GM/dL (10.7-15.3); LYMPH % 10.8 % (8-40); MCH 24.6 pg (25.7-33.7); MCHC 30.6 g/dl (32.0-36.0); MEAN CELL VOLUME 80.2 fl (80-96); MEAN PLT VOLUME 9.2 fl (7.5-11.1); MONO % 3.6 % (3.8-10.2); NEUT % 85.5 % (42.8-82.8); PLATELET COUNT 210 10^3/uL (134-434); RBC 4.55 M/mm3 (3.60-5.2); RDW 18.8 % (11.6-15.6)
[2023-03-21 15:19] LABS: POTASSIUM 4.3 mmol/L (3.5-5.1)
[2023-03-21 15:21] LABS: CALCIUM 8.8 mg/dL (8.5-10.1)
[2023-03-21 15:23] LABS: ALBUMIN 2.5 g/dl (3.4-5.0); BLOOD UREA NITROGEN 42.8 mg/dL (7-18)
[2023-03-21 15:26] LABS: CREATININE 1.1 mg/dL (0.55-1.3)
[2023-03-21 15:27] LABS: BILIRUBIN,TOTAL 0.7 mg/dL (0.2-1)
[2023-03-21] MEDS: DEXTROSE 5%-WATER - 1,000 ML IV SCH (17:06)
[2023-03-21] MEDS: ATORVASTATIN CA 40 MG TABLET (FP) PO SCH (21:22)
[2023-03-21] MEDS: LIDOCAINE PATCH REMOVAL MC SCH (21:22)
[2023-03-22] MEDS: ACETAMINOPHEN 325 MG TABLET (FP) PO PRN ×3 (00:50→17:51)
[2023-03-22] MEDS: methylPREDNISolone NA SUCC 40 MG/1 ML VIAL IVPUSH SCH ×3 (01:02→17:49)
[2023-03-22] MEDS: PIPERACILLIN/TAZOB 4.5 GM 4.5 GM in DEXTROSE 5%-WATER 100 ML IVPB SCH ×3 (01:06→17:49)
[2023-03-22] MEDS ORDERED: INSULIN (NOVOLOG) ASPART 100 UNITS/ML 10ML VIAL ONE (06:00)
[2023-03-22] MEDS: INSULIN (NOVOLOG) ASPART 100 UNITS/ML 10ML VIAL SQ SCH ×4 (06:06→22:58)
[2023-03-22] MEDS: ASCORBIC ACID 250 MG TABLET (FP) PO SCH (10:55)
[2023-03-22] MEDS: MULTIVITAMINS (DAILY MVI) TABLET (FP) PO SCH (10:55)
[2023-03-22] MEDS: APIXABAN 5 MG TABLET PO SCH ×2 (10:56→22:58)
[2023-03-22] MEDS: COLLAGENASE CLOSTRIDIUM HIST. 30 GRAMS TUBE TP SCH (10:56)
[2023-03-22] MEDS: LIDOCAINE 5% TOPICAL PATCH TP SCH (10:56)
[2023-03-22] MEDS: FUROSEMIDE 40 MG TABLET (FP) PO SCH (14:22)
[2023-03-22] MEDS: PREGABALIN 25 MG CAPSULE PO SCH ×2 (17:49→22:58)
[2023-03-22 22:03] VITALS: BMI 49.3
[2023-03-22] MEDS: LIDOCAINE PATCH REMOVAL MC SCH (22:58)
[2023-03-22] MEDS: ATORVASTATIN CA 40 MG TABLET (FP) PO SCH (22:58)
[2023-03-23] MEDS: methylPREDNISolone NA SUCC 40 MG/1 ML VIAL IVPUSH SCH ×3 (03:05→18:15)
[2023-03-23] MEDS: PIPERACILLIN/TAZOB 4.5 GM 4.5 GM in DEXTROSE 5%-WATER 100 ML IVPB SCH ×3 (03:05→18:15)
[2023-03-23] MEDS: INSULIN (NOVOLOG) ASPART 100 UNITS/ML 10ML VIAL SQ SCH ×2 (06:11→11:37)
[2023-03-23] MEDS: PREGABALIN 25 MG CAPSULE PO SCH ×3 (06:11→22:41)
[2023-03-23 09:12] LABS: POTASSIUM 4.6 mmol/L (3.5-5.1)
[2023-03-23 09:37] LABS: ALBUMIN 2.5 g/dl (3.4-5.0); BILIRUBIN,TOTAL 0.4 mg/dL (0.2-1); BLOOD UREA NITROGEN 31.8 mg/dL (7-18); CREATININE 0.8 mg/dL (0.55-1.3); TOT PROT 5.7 g/dl (6.4-8.2)
[2023-03-23] MEDS: ASCORBIC ACID 250 MG TABLET (FP) PO SCH (10:53)
[2023-03-23] MEDS: LIDOCAINE 5% TOPICAL PATCH TP SCH (10:53)
[2023-03-23] MEDS: FUROSEMIDE 40 MG TABLET (FP) PO SCH (10:53)
[2023-03-23] MEDS: APIXABAN 5 MG TABLET PO SCH ×2 (10:53→22:41)
[2023-03-23] MEDS: MULTIVITAMINS (DAILY MVI) TABLET (FP) PO SCH (10:53)
[2023-03-23] MEDS: COLLAGENASE CLOSTRIDIUM HIST. 30 GRAMS TUBE TP SCH (10:58)
[2023-03-23] MEDS ORDERED: INSULIN (NOVOLOG) ASPART 100 UNITS/ML 10ML VIAL ONE ×2 (11:39→18:22)
[2023-03-23] MEDS ORDERED: NYSTATIN 500,000 UNITS/5 ML SUSPENSION PO SCH (12:00)
[2023-03-23] MEDS: INSULIN SLIDING SCALE (NOVOLOG) 1 VIAL SQ SCH ×2 (16:30→22:39)
[2023-03-23] MEDS: INSULIN (LEVEMIR) 100 UNITS/ML UNITS SQ SCH (22:40)
[2023-03-23] MEDS: ACETAMINOPHEN 325 MG TABLET (FP) PO PRN (22:41)
[2023-03-23] MEDS: ATORVASTATIN CA 40 MG TABLET (FP) PO SCH (22:41)
[2023-03-23] MEDS: LIDOCAINE PATCH REMOVAL MC SCH (22:42)
[2023-03-23] MEDS: MELATONIN 5 MG TABLETS PO PRN (23:19)
[2023-03-24] MEDS: PIPERACILLIN/TAZOB 4.5 GM 4.5 GM in DEXTROSE 5%-WATER 100 ML IVPB SCH ×3 (01:47→17:25)
[2023-03-24] MEDS: methylPREDNISolone NA SUCC 40 MG/1 ML VIAL IVPUSH SCH ×3 (01:47→17:25)
[2023-03-24] MEDS: INSULIN SLIDING SCALE (NOVOLOG) 1 VIAL SQ SCH ×4 (06:20→23:02)
[2023-03-24] MEDS: INSULIN (LEVEMIR) 100 UNITS/ML UNITS SQ SCH ×2 (06:20→23:02)
[2023-03-24] MEDS: PREGABALIN 25 MG CAPSULE PO SCH ×3 (06:20→23:01)
[2023-03-24] MEDS ORDERED: INSULIN (NOVOLOG) ASPART 100 UNITS/ML 10ML VIAL ONE ×3 (07:00→17:13)
[2023-03-24] MEDS: MULTIVITAMINS (DAILY MVI) TABLET (FP) PO SCH (10:05)
[2023-03-24] MEDS: LIDOCAINE 5% TOPICAL PATCH TP SCH (10:05)
[2023-03-24] MEDS: ASCORBIC ACID 250 MG TABLET (FP) PO SCH (10:05)
[2023-03-24] MEDS: APIXABAN 5 MG TABLET PO SCH ×2 (10:05→23:01)
[2023-03-24] MEDS: FUROSEMIDE 40 MG TABLET (FP) PO SCH (10:06)
[2023-03-24] MEDS: COLLAGENASE CLOSTRIDIUM HIST. 30 GRAMS TUBE TP SCH (10:08)
[2023-03-24] MEDS: ATORVASTATIN CA 40 MG TABLET (FP) PO SCH (23:01)
[2023-03-24] MEDS: LIDOCAINE PATCH REMOVAL MC SCH (23:02)
[2023-03-24] MEDS: MELATONIN 5 MG TABLETS PO PRN (23:05)
[2023-03-24] MEDS: ACETAMINOPHEN 325 MG TABLET (FP) PO PRN (23:06)
[2023-03-25] MEDS: methylPREDNISolone NA SUCC 40 MG/1 ML VIAL IVPUSH SCH (02:44)
[2023-03-25] MEDS: PIPERACILLIN/TAZOB 4.5 GM 4.5 GM in DEXTROSE 5%-WATER 100 ML IVPB SCH ×2 (02:44→10:02)
[2023-03-25] MEDS: PREGABALIN 25 MG CAPSULE PO SCH ×3 (06:53→21:14)
[2023-03-25] MEDS: ACETAMINOPHEN 325 MG TABLET (FP) PO PRN ×2 (06:53→21:15)
[2023-03-25] MEDS: INSULIN SLIDING SCALE (NOVOLOG) 1 VIAL SQ SCH ×4 (06:54→21:14)
[2023-03-25] MEDS: INSULIN (LEVEMIR) 100 UNITS/ML UNITS SQ SCH ×2 (06:54→21:13)
[2023-03-25] MEDS: LIDOCAINE 5% TOPICAL PATCH TP SCH (10:02)
[2023-03-25] MEDS: FUROSEMIDE 40 MG TABLET (FP) PO SCH (10:04)
[2023-03-25] MEDS: MULTIVITAMINS (DAILY MVI) TABLET (FP) PO SCH (10:04)
[2023-03-25] MEDS: ASCORBIC ACID 250 MG TABLET (FP) PO SCH (10:04)
[2023-03-25] MEDS: COLLAGENASE CLOSTRIDIUM HIST. 30 GRAMS TUBE TP SCH (10:05)
[2023-03-25] MEDS: predniSONE 20 MG TABLET (UD) PO SCH ×2 (10:10→21:13)
[2023-03-25] MEDS: APIXABAN 5 MG TABLET PO SCH ×2 (10:16→21:13)
[2023-03-25] MEDS ORDERED: INSULIN (NOVOLOG) ASPART 100 UNITS/ML 10ML VIAL ONE ×3 (12:06→20:42)
[2023-03-25] MEDS: ATORVASTATIN CA 40 MG TABLET (FP) PO SCH (21:14)
[2023-03-25] MEDS: LIDOCAINE PATCH REMOVAL MC SCH (21:15)
[2023-03-25] MEDS: MELATONIN 5 MG TABLETS PO PRN (21:15)
[2023-03-26] MEDS: INSULIN SLIDING SCALE (NOVOLOG) 1 VIAL SQ SCH ×4 (06:11→21:56)
[2023-03-26] MEDS: PREGABALIN 25 MG CAPSULE PO SCH ×3 (06:11→21:56)
[2023-03-26] MEDS: INSULIN (LEVEMIR) 100 UNITS/ML UNITS SQ SCH ×3 (06:11→21:57)
[2023-03-26] MEDS ORDERED: INSULIN (NOVOLOG) ASPART 100 UNITS/ML 10ML VIAL ONE ×4 (07:07→21:29)
[2023-03-26] MEDS: LIDOCAINE 5% TOPICAL PATCH TP SCH (09:32)
[2023-03-26] MEDS: APIXABAN 5 MG TABLET PO SCH ×2 (09:32→21:56)
[2023-03-26] MEDS: MULTIVITAMINS (DAILY MVI) TABLET (FP) PO SCH (09:32)
[2023-03-26] MEDS: predniSONE 20 MG TABLET (UD) PO SCH ×2 (09:32→21:56)
[2023-03-26] MEDS: ASCORBIC ACID 250 MG TABLET (FP) PO SCH (09:32)
[2023-03-26] MEDS: FUROSEMIDE 40 MG TABLET (FP) PO SCH (09:32)
[2023-03-26] MEDS: COLLAGENASE CLOSTRIDIUM HIST. 30 GRAMS TUBE TP SCH (09:33)
[2023-03-26] MEDS: ATORVASTATIN CA 40 MG TABLET (FP) PO SCH (21:56)
[2023-03-26] MEDS: ACETAMINOPHEN 325 MG TABLET (FP) PO PRN (21:59)
[2023-03-26] MEDS: MELATONIN 5 MG TABLETS PO PRN (21:59)
[2023-03-26] MEDS: LIDOCAINE PATCH REMOVAL MC SCH (22:15)
[2023-03-27] MEDS: PREGABALIN 25 MG CAPSULE PO SCH ×3 (05:27→21:00)
[2023-03-27] MEDS ORDERED: INSULIN (NOVOLOG) ASPART 100 UNITS/ML 10ML VIAL ONE ×3 (05:53→21:04)
[2023-03-27] MEDS: INSULIN (LEVEMIR) 100 UNITS/ML UNITS SQ SCH ×2 (06:32→21:06)
[2023-03-27] MEDS: INSULIN SLIDING SCALE (NOVOLOG) 1 VIAL SQ SCH ×4 (06:33→21:05)
[2023-03-27] MEDS: COLLAGENASE CLOSTRIDIUM HIST. 30 GRAMS TUBE TP SCH (10:27)
[2023-03-27] MEDS: MULTIVITAMINS (DAILY MVI) TABLET (FP) PO SCH (10:27)
[2023-03-27] MEDS: ASCORBIC ACID 250 MG TABLET (FP) PO SCH (10:27)
[2023-03-27] MEDS: FUROSEMIDE 40 MG TABLET (FP) PO SCH (10:27)
[2023-03-27] MEDS: predniSONE 20 MG TABLET (UD) PO SCH ×2 (10:27→20:59)
[2023-03-27] MEDS: APIXABAN 5 MG TABLET PO SCH ×2 (10:27→20:59)
[2023-03-27] MEDS: LIDOCAINE 5% TOPICAL PATCH TP SCH (10:27)
[2023-03-27] MEDS: ATORVASTATIN CA 40 MG TABLET (FP) PO SCH (20:59)
[2023-03-27] MEDS: ACETAMINOPHEN 325 MG TABLET (FP) PO PRN (21:00)
[2023-03-27] MEDS: MELATONIN 5 MG TABLETS PO PRN (21:00)
[2023-03-27] MEDS: LIDOCAINE PATCH REMOVAL MC SCH (21:12)
[2023-03-28] MEDS: PREGABALIN 25 MG CAPSULE PO SCH ×2 (05:38→15:34)
[2023-03-28] MEDS ORDERED: INSULIN (NOVOLOG) ASPART 100 UNITS/ML 10ML VIAL ONE (06:06)
[2023-03-28] MEDS: INSULIN (LEVEMIR) 100 UNITS/ML UNITS SQ SCH (06:29)
[2023-03-28] MEDS: INSULIN SLIDING SCALE (NOVOLOG) 1 VIAL SQ SCH ×3 (06:30→17:44)
[2023-03-28 08:19] LABS: POTASSIUM 4.9 mmol/L (3.5-5.1)
[2023-03-28 08:26] LABS: CALCIUM 8.7 mg/dL (8.5-10.1)
[2023-03-28 08:30] LABS: CREATININE 0.6 mg/dL (0.55-1.3)
[2023-03-28 08:31] LABS: BLOOD UREA NITROGEN 29.8 mg/dL (7-18)
[2023-03-28] MEDS: FUROSEMIDE 40 MG TABLET (FP) PO SCH (11:29)
[2023-03-28] MEDS: MULTIVITAMINS (DAILY MVI) TABLET (FP) PO SCH (11:29)
[2023-03-28] MEDS: predniSONE 20 MG TABLET (UD) PO SCH (11:29)
[2023-03-28] MEDS: APIXABAN 5 MG TABLET PO SCH (11:30)
[2023-03-28] MEDS: ASCORBIC ACID 250 MG TABLET (FP) PO SCH (11:30)
[2023-03-28] MEDS: COLLAGENASE CLOSTRIDIUM HIST. 30 GRAMS TUBE TP SCH (11:30)
[2023-03-28] MEDS: LIDOCAINE 5% TOPICAL PATCH TP SCH (11:31)
[2023-03-28 14:15] VITALS: BP 126/57; PULSE 107; RESP 20; TEMP 98.2
[2023-03-29] MEDS ORDERED: predniSONE 20 MG TABLET (UD) PO SCH (10:00)
== END 2023-03-28 17:44 | DRG 871 ==
LOC: JER 17:50 → JERBED 21:54 → J6S 03-18 09:42 → JICU 03-18 15:17 → J4W 03-18 15:25
PROVIDERS: ADMIT Internal Medicine; ATTEND Family Medicine
DX: A41.89 Other specified sepsis (principal); G93.41 Metabolic encephalopathy; I50.33 Acute on chronic diastolic (congestive) heart failure; J96.21 Acute and chronic respiratory failure with hypoxia; J96.22 Acute and chronic respiratory failure with hypercapnia; G81.91 Hemiplegia, unspecified affecting right dominant side; E87.29 Other acidosis; Z68.42 Body mass index [BMI] 45.0-49.9, adult; N17.9 Acute kidney failure, unspecified; R65.20 Severe sepsis without septic shock; E87.70 Fluid overload, unspecified; J44.9 Chronic obstructive pulmonary disease, unspecified; I95.9 Hypotension, unspecified; I11.0 Hypertensive heart disease with heart failure; E11.649 Type 2 diabetes mellitus with hypoglycemia without coma; I25.10 Atherosclerotic heart disease of native coronary artery without angina pectoris; G47.33 Obstructive sleep apnea (adult) (pediatric); I25.2 Old myocardial infarction; E78.5 Hyperlipidemia, unspecified; L89.152 Pressure ulcer of sacral region, stage 2; L89.212 Pressure ulcer of right hip, stage 2; M54.50 Low back pain, unspecified; E66.01 Morbid (severe) obesity due to excess calories; Z74.01 Bed confinement status; Z85.118 Personal history of other malignant neoplasm of bronchus and lung; Z99.81 Dependence on supplemental oxygen
CPT/HCPCS: 0241U-QW; 36415; 36600; 70450-TC; 71045-TC-FY; 71250-TC; 80048; 80053; 81003; 82533; 82550; 82803; 82962; 83605; 83735; 83880; 84100; 84484; 85025; 86850; 86900; 86901; 87040; 87070; 87077; 87086; 87186; 87205; 87635; 93005; 93010; 94660; 97163-GP; 99285-25